=== PATIENT | male | born 1950 | race Caucasian/White ===

== ENCOUNTER 2023-01-29 09:49 | Outpatient (REF) | payer SELFPAY ==
--- NOTE | ~2023-01-29 | XR_ITS ---
EXAMINATION: XR HIP, LEFT CLINICAL INFORMATION: Pain. COMPARISON: None available. TECHNIQUE: Single pelvic image and detailed frog-leg view of the left hip. FINDINGS: Hardware in the partially visualized lower lumbosacral spine. The SI joints are grossly patent. The detailed imaging of left hip demonstrates the femoral head contour to be smooth. There is some axial and inferior joint space loss and some probable capsular calcification. There is some degeneration along the greater trochanter as well. Mild irregularity at the labral attachment. XR/XR hip LT min 2V IMPRESSION: There is some joint space loss in the left hip but the femoral head contour remains smooth.
== END 2023-01-29 09:50 | disposition home or self-care (01) ==
LOC: HO.HOSX 09:49
PROVIDERS: Visit Provider Orthopaedic Surgery
DX: Z13.89 Encounter for screening for other disorder (principal)

== ENCOUNTER 2023-02-04 14:15 | Outpatient (AMB) | payer MEDICARE, SELFPAY ==
--- NOTE | 2023-02-04 14:24 | MHC.OFFVIS ---
Intake Vital Signs 02/04/23 14:32 Height 5 ft 11 in Weight 170 lb BMI 23.7 Intake Visit Reasons: B[employer]ING [employer]ER- LT HIP inj Intake Note: Bonifacio is a 73 year old male who presents today as a new patient for a evaluation for his left hip pain, last injection 07/2022. Patient reports ongoing pain for many years. He states that his last injection gave him fairly good relief. Patient states he would like to repeat his injection on his left hip. He denies any fevers or chills. He continues with his home exercise program. Allergies No Known Allergies Allergy (Verified 02/04/23 14:30) Medication List - Last Reconciled 02/04/23 by Rafael Davies MD amlodipine 5 mg PO DAILY clopidogrel 75 mg PO DAILY levothyroxine 50 mcg PO DAILY metformin ER 500 mg PO BID [facility] Social History (Updated 02/04/23 @ 14:32 by Cody Hernandez) Alcohol intake: former Patient Tobacco Use Status: Never used Tobacco Physical Exam Vital Signs: BMI result Body Mass Index 23.7 Const Other: Well-nourished well-developed very friendly male awake alert and oriented x3 in no acute distress Extrem Other: Bilateral lower extremity examination shows good capillary refill, no skin lesions noted, normal sensation light touch Left hip examination shows slightly decreased range of motion when compared to his right hip, mild pain with range of motion, tenderness over his greater trochanteric bursa, no overlying skin lesions Office Procedures Joint Injection/Drain Joint Injection/Drain Details: Left hip greater trochanteric bursa Primary Site: other (Left hip greater trochanteric bursa) Injected: 40 mg of and Kenalog Procedure: The patient tolerated the procedure well Coding 67908 - Large joint Procedure code (CPT) selection complete Results Reviewed Results Reviewed: 02/04/23 14:37 Lidocaine HCl 2 % MPF [Xylocaine 2 % MPF] 5 ml .ROUTE .STK-MED ONE Triamcinolone Acetonide [Kenalog-40] 40 mg .ROUTE .STK-MED ONE X-rays of the patient's left hip show moderate joint space narrowing, no acute bony abnormalities Assessment & Plan Assessment & Plan (1) Trochanteric bursitis, left hip: Code(s): M70.62 - Trochanteric bursitis, left hip Plan: Mr. Vergara presents with left hip pain due to greater trochanteric bursitis. I had a lengthy discussion with the patient regarding the treatment options. The risks and benefits of a cortisone injection were discussed at length with the patient. The patient wished to proceed. He tolerated the left hip greater trochanteric bursa injection well. He will continue with his home stretching program. He will follow up with me on an as-needed basis should his symptoms not plateau at an unacceptable level over the next few months we I spent 22 minutes in reviewing the patient's records and imaging studies, seeing the patient and documenting in the medical record. Orders: Orders XR hip LT min 2V Today M25.552 - Pain in left hip AMB Joint Injection/Aspiration Today M70.62 - Trochanteric bursitis, left hip Coding Level of Care Code Est Pt Level 2 (17419) Diagnoses Trochanteric bursitis, left hip M70.62 CPT Codes Coding - Large joint: 36696 - Large joint ([id number])
[2023-02-04 14:32] VITALS: BMI 23.7
== END 2023-02-04 15:01 | disposition home or self-care (01) ==
PROVIDERS: Visit Provider Orthopaedic Surgery
DX: M70.62 Trochanteric bursitis, left hip (principal)
CPT/HCPCS: 20610; 99204; 99214

== ENCOUNTER → 2023-02-04 14:15 | Outpatient (BNVA) | payer MEDICARE, SELFPAY | PROVIDERS: Visit Provider Orthopaedic Surgery | DX: M25.552 Pain in left hip (principal); M70.62 Trochanteric bursitis, left hip | CPT/HCPCS: 20610; 73502; J3301 ==

== ENCOUNTER 2023-05-06 14:11 | Outpatient (AMB) | payer MEDICARE, BC, SELFPAY ==
--- NOTE | 2023-05-06 14:18 | A.OFFVIS_ITS ---
Intake Intake Visit Reasons: ov- LT HIP inj 02/04/23 Intake Note: Bonifacio is a 73 year old male who presents today for a repeat injection in her left hip. His last injection was on 02/04/23 which gave him relief. He states that his discomfort has returned. He has taken Tylenol which gives him only mild relief. He has also done physical therapy exercises which aggravated his pain. Allergies No Known Allergies Allergy (Verified 02/04/23 14:30) Medication List - Last Reconciled 05/06/23 by Rafael Davies MD amlodipine 5 mg PO DAILY clopidogrel 75 mg PO DAILY levothyroxine 50 mcg PO DAILY metformin ER 500 mg PO BID PENDING SALE TO [facility] Social History (Updated 02/04/23 @ 14:32 by Cody Hernandez) Alcohol intake: former Patient Tobacco Use Status: Never used Tobacco Physical Exam Const Other: Well-nourished well-developed very friendly male awake alert and oriented x3 in no acute distress Extrem Other: Bilateral lower extremity examination shows good capillary refill, no skin lesions noted, normal sensation light touch Left hip examination shows decreased range of motion when compared to his right hip, pain with range of motion, tenderness over his bursa, no overlying skin lesions Office Procedures Joint Injection/Drain Joint Injection/Drain Primary Site: other (Left hip greater trochanteric bursa) Prep: site was prepped using aseptic technique Injected: 40 mg of, Kenalog and 1% plain lidocaine Procedure: The patient tolerated the procedure well Coding 10416 - Large joint Procedure code (CPT) selection complete Assessment & Plan Assessment & Plan (1) Trochanteric bursitis, left hip: Code(s): M70.62 - Trochanteric bursitis, left hip Plan Mr. Vergara presents with left hip pain due to greater trochanteric bursitis as well as degenerative joint disease. I had a lengthy discussion with the patient regarding the treatment options. She wishes to hold off on surgery for as long as possible. I agree with this plan. The risks and benefits of a left hip cortisone injection were discussed at length with the patient. The patient wished to proceed. She tolerated the left hip greater trochanteric bursa injection well. He will continue with his home stretching program. He will follow up with me on an as-needed basis should his symptoms not plateau at an unacceptable level over the next few months. Feel free to call me at any time should questions regarding his orthopedic management arise. I spent 22 minutes in reviewing the patient's records and imaging studies, seeing the patient and documenting in the medical record. Orders: Orders AMB Joint Injection/Aspiration Today M70.62 - Trochanteric bursitis, left hip Coding Level of Care Code Est Pt Level 2 (70847) Diagnoses Trochanteric bursitis, left hip M70.62 CPT Codes Coding - 64282 Large joint: 04521 - Large joint ([id number])
== END 2023-05-06 14:40 | disposition home or self-care (01) ==
PROVIDERS: PCP Nurse Practitioner; Visit Provider Orthopaedic Surgery
DX: M70.62 Trochanteric bursitis, left hip (principal)
CPT/HCPCS: 20610

== ENCOUNTER → 2023-05-06 14:11 | Outpatient (BNVA) | payer MEDICARE, BC, SELFPAY | PROVIDERS: PCP Nurse Practitioner; Visit Provider Orthopaedic Surgery | DX: M70.62 Trochanteric bursitis, left hip (principal) | CPT/HCPCS: 20610; J3301 ==

== ENCOUNTER 2023-08-05 14:25 | Outpatient (AMB) | payer MEDICARE, BC, SELFPAY ==
[2023-08-05 14:31] VITALS: BMI 23.7
--- NOTE | 2023-08-05 14:31 | MHC.OFFVIS ---
Intake Vital Signs 08/05/23 14:31 Height 5 ft 11 in Weight 170 lb BMI 23.7 Intake Visit Reasons: ov- LT HIP inj 05/06/23 Intake Note: Bonifacio is a 73 year old male who presents with left hip pain. Patient reports he had a Left hip injection on 05/06/2023 and it gave him mild relief. He would like to repeat the injection of the Left hip. He states that his Left shoulder is in pain also. He has taken Tylenol which gives him only mild relief. He continues with his home stretching program. Allergies No Known Allergies Allergy (Verified 08/05/23 14:36) PFSH Surgical History (Updated 08/05/23 @ 14:39 by Jayne Paulino CMA) Hx of neck surgery History of back surgery Hx of shoulder surgery Social History (Updated 08/05/23 @ 14:38 by Jayne Paulino CMA) Alcohol intake: former Patient Tobacco Use Status: Never used Tobacco Current occupational status: retired Current occupation: Right hand dominate Physical Exam Vital Signs: BMI result Body Mass Index 23.7 Const Other: Well-nourished well-developed very friendly male awake alert and oriented x3 in no acute distress Extrem Other: Bilateral lower extremity examination shows good capillary refill, no skin lesions noted, normal sensation light touch Left hip examination shows mild discomfort with range of motion, tenderness over his bursa, no overlying skin lesions Office Procedures Joint Injection/Drain Joint Injection/Drain Primary Site: other (Left hip greater trochanteric bursa) Injected: 40 mg of, DepoMedrol and 1% plain lidocaine Procedure: The patient tolerated the procedure well Coding 69511 - Large joint Procedure code (CPT) selection complete Assessment & Plan Assessment & Plan (1) Trochanteric bursitis, left hip: Code(s): M70.62 - Trochanteric bursitis, left hip Plan Mr. Vergara presents with left hip pain due to greater trochanteric bursitis. I had a lengthy discussion with the patient regarding the treatment options. The risks and benefits of a left hip bursa injection were discussed at length with the patient. The patient wished to proceed. He tolerated the injection well. He will continue with his home stretching program. He will follow up with me on an as-needed basis should his symptoms not plateau at an unacceptable level over the next few months. Feel free to call me at any time should questions regarding his orthopedic management arise. I spent 22 minutes in reviewing the patient's records and imaging studies, seeing the patient and documenting in the medical record. Orders: Orders AMB Joint Injection/Aspiration 08/05/23 M70.62 - Trochanteric bursitis, left hip Coding Level of Care Code Est Pt Level 2 (75619) Diagnoses Trochanteric bursitis, left hip M70.62 CPT Codes Coding - 87919 Large joint: 45055 - Large joint ([id number])
== END 2023-08-05 14:57 | disposition home or self-care (01) ==
PROVIDERS: PCP Nurse Practitioner; Visit Provider Orthopaedic Surgery
DX: M70.62 Trochanteric bursitis, left hip (principal)
CPT/HCPCS: 20610; 99213

== ENCOUNTER → 2023-08-05 14:25 | Outpatient (BNVA) | payer MEDICARE, BC, SELFPAY | PROVIDERS: PCP Nurse Practitioner; Visit Provider Orthopaedic Surgery | DX: M70.62 Trochanteric bursitis, left hip (principal) | CPT/HCPCS: 20610; 99212; J1020 ==

== ENCOUNTER 2023-08-20 10:01 | Outpatient (REF) | payer MEDICARE, SELFPAY ==
--- NOTE | ~2023-08-20 | XR_ITS ---
EXAMINATION: XR SHOULDER, LEFT CLINICAL INFORMATION: Pain. COMPARISON: None available. TECHNIQUE: AP external rotation, Grashey, scapular Y, and axillary views of the left shoulder. FINDINGS: Bony alignment and mineralization are normal. The glenohumeral joint is intact and shows moderate osteoarthritic change. The acromioclavicular and coracoclavicular intervals are normal. There is a distal acromial undersurface osteophyte. There is cortical irregularity of the greater tuberosity of the proximal left humerus. No fracture or dislocation is seen. There is no focal soft tissue calcification or foreign body. No left pneumothorax is seen. XR/XR shoulder LT min 2V IMPRESSION: 1. There is moderate osteoarthritic change of the left glenohumeral joint. 2. Findings suggest left rotator cuff impingement, without mami calcific tendinitis noted.
== END 2023-08-20 10:02 | disposition home or self-care (01) ==
LOC: HO.HOSX 10:01
PROVIDERS: Visit Provider Orthopaedic Surgery
DX: M25.512 Pain in left shoulder (principal)
CPT/HCPCS: 20610; 73030; 99212; J3301

== ENCOUNTER 2023-08-20 14:17 | Outpatient (AMB) | payer MEDICARE, BC, SELFPAY ==
[2023-08-20 14:23] VITALS: BMI 23.7
--- NOTE | 2023-08-20 14:23 | A.OFFVIS_ITS ---
Intake Vital Signs 08/20/23 14:23 Height 5 ft 11 in Weight 170 lb BMI 23.7 Intake Visit Reasons: New Problem - Left Shoulder Pain Intake Note: Bonifacio is a 73 year old Right hand dominate male who presents with Left shoulder pain and weakness. The patient describes his pain as sharp in nature. The patient did undergo right shoulder surgery in the past. He denies any pain in his right shoulder. The patient states that he fell onto his left shoulder approximately 6 months ago. Since that time he has had weakness when lifting his left hand above shoulder height. Has tried Tylenol which gives him minimal relief. He is not able to tolerate anti-inflammatory medicines. Has done physical therapy exercises which aggravated his pain. Allergies No Known Allergies Allergy (Verified 08/20/23 14:30) Medication List - Last Reconciled 08/20/23 by Rafale Davies MD amlodipine 5 mg PO DAILY clopidogrel 75 mg PO DAILY levothyroxine 50 mcg PO DAILY metformin ER 500 mg PO BID PFSH Surgical History (Updated 08/20/23 @ 14:31 by Jayne Paulino CMA) Hx of shoulder surgery Hx of neck surgery History of back surgery Hx of shoulder surgery Social History (Updated 08/05/23 @ 14:38 by Jayne Paulino CMA) Alcohol intake: former Patient Tobacco Use Status: Never used Tobacco Current occupational status: retired Current occupation: Right hand dominate Physical Exam Vital Signs: BMI result Body Mass Index 23.7 Const Other: Well-nourished well-developed very friendly male awake alert and oriented x3 in no acute distress Extrem Other: Bilateral upper extremity examination shows good capillary refill, no skin lesions noted, normal sensation light touch Left shoulder examination shows decreased range of motion when compared to his right shoulder, 4/5 strength with supraspinatus testing, positive impingement signs, tenderness over his acromioclavicular joint, no instability Office Procedures Joint Injection/Drain Joint Injection/Drain Primary Site: left shoulder Prep: site was prepped using aseptic technique Injected: 40 mg of, DepoMedrol and 1% plain lidocaine Procedure: The patient tolerated the procedure well Coding 96064 - Large joint Procedure code (CPT) selection complete Results Reviewed Results Reviewed: X-rays of the patient's left shoulder show severe acromioclavicular joint narrowing, a type 2 acromion, no acute bony abnormalities Assessment & Plan Assessment & Plan (1) Left shoulder pain: Code(s): M25.512 - Pain in left shoulder Plan Mr. Vergara presents with left shoulder pain and weakness due to impingement syndrome and possible full-thickness rotator cuff tearing. I had a lengthy discussion with the patient regarding the treatment options. The risks and benefits of a cortisone injection were discussed at length with the patient. The patient wished to proceed. He tolerated the injection well. I will also send the patient for an MRI of his left shoulder at [facility] to further evaluate the status of his rotator cuff tendons. I will see him back after the MRI is completed to discuss the findings and treatment options. Feel free to call me at any time should questions regarding his orthopedic management arise. I spent 22 minutes in reviewing the patient's records and imaging studies, seeing the patient and documenting in the medical record. Orders: Orders XR shoulder LT min 2V Today M25.512 - Pain in left shoulder AMB Joint Injection/Aspiration Today M25.512 - Pain in left shoulder Coding Level of Care Code Est Pt Level 2 (66439) Diagnoses Left shoulder pain M25.512 CPT Codes Coding - 71254 Large joint: 95856 - Large joint ([id number])
== END 2023-08-20 15:01 | disposition home or self-care (01) ==
PROVIDERS: PCP Nurse Practitioner; Visit Provider Orthopaedic Surgery
DX: M25.512 Pain in left shoulder (principal)
CPT/HCPCS: 20610; 99213

== ENCOUNTER 2023-11-05 14:17 | Outpatient (AMB) | payer MEDICARE, SELFPAY ==
--- NOTE | 2023-11-05 14:20 | MHC.OFFVIS ---
Intake Visit Reasons: ov- LT HIP inj 08/05/2023 Intake Note: Bonifacio is a 73 year old male who presents to the office today for a follow up LT Hip injection done on 08/05/23. Pt stated the injection did help but states the past month it has been really bad. Pt states he was misdiagnosed with lyme disease but states he was diagnosed with something else that he doesnt remember the name. Pt would like another cortisone injection. Allergies No Known Allergies Allergy (Verified 11/05/23 14:20) Medication List - Last Reconciled 11/05/23 by Rafael Davies MD amlodipine 5 mg PO DAILY clopidogrel 75 mg PO DAILY levothyroxine 50 mcg PO DAILY metformin ER 500 mg PO BID PFSH Surgical History (Updated 08/20/23 @ 14:31 by Jayne Paulino CMA) Hx of shoulder surgery Hx of neck surgery History of back surgery Hx of shoulder surgery Social History (Updated 08/05/23 @ 14:38 by Jayne Paulino CMA) Alcohol intake: former Patient Tobacco Use Status: Never used Tobacco Current occupational status: retired Current occupation: Right hand dominate Physical Exam Const Other: Well-nourished well-developed very friendly male awake alert and oriented x3 in no acute distress Extrem Other: Bilateral lower extremity examination shows good capillary refill, no skin lesions noted, normal sensation light touch Left hip examination shows slightly decreased range of motion when compared to his right hip, mild pain with range of motion, tenderness over his greater trochanteric bursa, no overlying skin lesions Office Procedures Joint Injection/Drain Joint Injection/Drain Primary Site: other (Left hip greater trochanteric bursa) Prep: site was prepped using aseptic technique Injected: 40 mg of, Kenalog and 1% plain lidocaine Procedure: The patient tolerated the procedure well Coding 78466 - Large joint Procedure code (CPT) selection complete Assessment & Plan Assessment & Plan (1) Trochanteric bursitis, left hip: Code(s): M70.62 - Trochanteric bursitis, left hip Category: Medical Plan Mr. Vergara presents with progressively worsening left hip pain due to degenerative joint disease as well as greater trochanteric bursitis. I had a lengthy discussion with the patient regarding the treatment options. The patient wishes to hold off on surgery for as long as possible. I agree with this plan. The risks and benefits of a left hip greater trochanteric bursa cortisone injection were discussed at length with the patient. The patient wished to proceed. He tolerated the injection well. He will continue with his home stretching program. He will follow up with me on an as-needed basis should his symptoms not plateau at an unacceptable level over the next few months. Feel free to call me at any time should questions regarding his orthopedic management arise. I spent 20 minutes in reviewing the patient's records and imaging studies, seeing the patient and documenting in the medical record. Orders: Orders AMB Joint Injection/Aspiration Today M70.62 - Trochanteric bursitis, left hip Coding Level of Care Code Est Pt Level 3 (76091) Diagnoses Trochanteric bursitis, left hip M70.62 CPT Codes Coding - 96851 Large joint: 10394 - Large joint ([id number])
== END 2023-11-05 14:56 | disposition home or self-care (01) ==
PROVIDERS: PCP Nurse Practitioner; Visit Provider Orthopaedic Surgery
DX: M70.62 Trochanteric bursitis, left hip (principal)
CPT/HCPCS: 20610; 99213

== ENCOUNTER → 2023-11-05 14:17 | Outpatient (BNVA) | payer MEDICARE, SELFPAY | PROVIDERS: PCP Nurse Practitioner; Visit Provider Orthopaedic Surgery | DX: M70.62 Trochanteric bursitis, left hip (principal) | CPT/HCPCS: 20610; 99212; J3301 ==

== ENCOUNTER 2024-02-04 15:02 | Outpatient (AMB) | payer MEDICARE, SELFPAY ==
[2024-02-04 15:03] VITALS: BMI 23.7
--- NOTE | 2024-02-04 15:03 | MHC.OFFVIS ---
Vital Signs 02/04/24 15:03 Height 5 ft 11 in Weight 170 lb BMI 23.7 Intake Visit Reasons: ov- LT HIP inj 11/05/2023 Intake Note: Mahesh is a 73 year old male who presents to the office today for a follow up LT Hip injection done on 11/05/23. Allergies No Known Allergies Allergy (Verified 11/05/23 14:20) Medication List - Last Reconciled 02/04/24 by Rafael Davies MD amlodipine 5 mg PO DAILY clopidogrel 75 mg PO DAILY levothyroxine 50 mcg PO DAILY metformin ER 500 mg PO BID tramadol 50 mg PO Q8H PRN 3 weeks PFSH Surgical History (Updated 08/20/23 @ 14:31 by Jayne Paulino CMA) Hx of shoulder surgery Hx of neck surgery History of back surgery Hx of shoulder surgery Social History (Updated 08/05/23 @ 14:38 by Jayne Paulino CMA) Alcohol intake: former Patient Tobacco Use Status: Never used Tobacco Current occupational status: retired Current occupation: Right hand dominate Physical Exam Vital Signs: BMI result Body Mass Index 23.7 Office Procedures Joint Injection/Aspiration Joint Injection/Aspiration Primary Site: other (Left hip greater trochanteric bursa) Injected: 40 mg of, DepoMedrol and 1% plain lidocaine Procedure: The patient tolerated the procedure well Coding 83420 - Large joint Procedure code (CPT) selection complete Assessment & Plan Assessment & Plan (1) Left hip pain: Code(s): M25.552 - Pain in left hip Category: Medical (2) Low back pain: Code(s): M54.50 - Low back pain, unspecified Category: Medical (3) Trochanteric bursitis, left hip: Code(s): M70.62 - Trochanteric bursitis, left hip Category: Medical Orders: Orders AMB Joint Injection/Aspiration 02/04/24 M70.62 - Trochanteric bursitis, left hip Referrals Pain Management Referral M54.50 - Low back pain, unspecified Infectious Disease Referral [id number] - Bitten or stung by nonvenomous insect and other nonvenomous arthropods, initial encounter Rheumatology Referral M25.552 - Pain in left hip, M54.50 - Low back pain, unspecified Medications: New hydrocodone-acetaminophen 5-325 mg Partial Fill upon patient request. 1 tab PO Q12H PRN 30 tabs 0RF pain Coding Diagnoses Left hip pain M25.552 Low back pain M54.50 Trochanteric bursitis, left hip M70.62 CPT Codes Coding - 32667 Large joint: 37346 - Large joint ([id number])
--- NOTE | 2024-02-04 15:06 | MHC.OFFVIS ---
Vital Signs 02/04/24 15:03 Height 5 ft 11 in Weight 170 lb BMI 23.7 Intake Visit Reasons: left hip pain, left knee pain, low back pain Intake Note: Mr. Vergara is a 74-year-old male who presents with complaints of diffuse aches and pains. Today his most concerned with progressively worsening low back pain, left hip pain and left knee pain. The patient states that several months ago he was bitten by a tick. He states that he developed ?a disease similar to Lyme disease but worse?. The patient states that he was treated at [facility]. He reports continued pain. He has taken Tylenol, anti-inflammatory medicines and tramadol which gave him minimal relief. 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 He would like to change rheumatologists if possible. He has undergone low back surgery by Dr. Mendez and [facility] several years ago. He has been told that no further lumbar spine surgery is indicated at this time. He has had cortisone injections given into his low back which gave him temporary relief. Allergies No Known Allergies Allergy (Verified 11/05/23 14:20) Medication List - Last Reconciled 02/04/24 by Rafael Davies MD amlodipine 5 mg PO DAILY clopidogrel 75 mg PO DAILY levothyroxine 50 mcg PO DAILY metformin ER 500 mg PO BID tramadol 50 mg PO Q8H PRN 3 weeks PFSH Surgical History (Updated 08/20/23 @ 14:31 by Jayne Paulino CMA) Hx of shoulder surgery Hx of neck surgery History of back surgery Hx of shoulder surgery Social History (Updated 08/05/23 @ 14:38 by Jayne Paulino CMA) Alcohol intake: former Patient Tobacco Use Status: Never used Tobacco Current occupational status: retired Current occupation: Right hand dominate Physical Exam Vital Signs: BMI result Body Mass Index 23.7 Const Other: Well-nourished well-developed very friendly male awake alert and oriented x3 in no acute distress Extrem Other: Left hip examination shows slightly decreased range of motion when compared to his right hip, mild discomfort with range of motion, tenderness over his bursa, no overlying skin lesions Left knee examination shows a minimal effusion, minimal crepitus with range of motion, no instability Office Procedures Joint Injection/Aspiration Joint Injection/Aspiration Primary Site: other (Left hip greater trochanteric bursa) Injected: 40 mg of, DepoMedrol and 1% plain lidocaine Procedure: The patient tolerated the procedure well Coding 11753 - Large joint Procedure code (CPT) selection complete Results Reviewed Results Reviewed: X-rays of the patient's bilateral hip show mild to moderate diffuse joint space narrowing, no acute bony abnormalities Assessment & Plan Assessment & Plan (1) Trochanteric bursitis, left hip: Code(s): M70.62 - Trochanteric bursitis, left hip Category: Medical Plan Mr. Vergara presents with left hip pain due to greater trochanteric bursitis as well as early degenerative joint disease. The risks and benefits of a left hip greater trochanteric bursa cortisone injection were discussed at length with the patient. The patient wished to proceed. He tolerated the injection well. The patient has chronic low back pain as well. He has had injections in the past. I will arrange for him to have a follow-up appointment with our pain management clinic here at [facility]. Because of his history of a tick bite and subsequent infection I will also arrange for him to have a follow-up appointment with our infectious disease office. 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 I have no problem with this. The patient will contact me prior to his follow-up appointment in 3 months should any questions or concerns arise. I did give him one prescription for Vicodin to help with his pain temporarily. Feel free to call me at any time should questions regarding his orthopedic management arise. I spent 22 minutes in reviewing the patient's records and imaging studies, seeing the patient and documenting in the medical record. Orders: Orders AMB Joint Injection/Aspiration 02/04/24 M70.62 - Trochanteric bursitis, left hip Referrals Pain Management Referral M54.50 - Low back pain, unspecified Infectious Disease Referral W57.XXXA - Bitten or stung by nonvenomous insect and other nonvenomous arthropods, initial encounter Rheumatology Referral M25.552 - Pain in left hip, M54.50 - Low back pain, unspecified Medications: New hydrocodone-acetaminophen 5-325 mg Partial Fill upon patient request. 1 tab PO Q12H PRN 30 tabs 0RF pain Coding Level of Care Code Est Pt Level 3 (97553) Complex EM visit Add On G2211 Diagnoses Trochanteric bursitis, left hip M70.62 CPT Codes Coding - 56654 Large joint: 46718 - Large joint ([id number])
== END 2024-02-04 15:42 | disposition home or self-care (01) ==
PROVIDERS: PCP Nurse Practitioner Family; Visit Provider Orthopaedic Surgery
DX: M70.62 Trochanteric bursitis, left hip (principal)
CPT/HCPCS: 20610; 99213

== ENCOUNTER → 2024-02-04 15:02 | Outpatient (BNVA) | payer MEDICARE, SELFPAY | PROVIDERS: PCP Nurse Practitioner Family; Visit Provider Orthopaedic Surgery | DX: M70.62 Trochanteric bursitis, left hip (principal) | CPT/HCPCS: 20610; 99212; J1010 ==

== ENCOUNTER 2024-02-18 14:04 | Outpatient (REF) | payer MEDICARE, SELFPAY ==
--- NOTE | ~2024-02-18 | XR_ITS ---
EXAMINATION: XR KNEE, LEFT CLINICAL INFORMATION: M17.9 - Osteoarthritis of knee, unspecified COMPARISON: None available. TECHNIQUE: Four views of the left knee. FINDINGS: No fracture, dislocation, or focal bone lesion. There is normal bone mineralization. There is extremely subtle chondrocalcinosis in the medial lateral compartments. There is mild degenerative arthrosis in all 3 compartments, with involvement of the lateral patellar facet. There are early/small marginal osteophytic spurs present. There is mild spurring of the tibial spines. No significant joint effusion. Soft tissues demonstrate vascular calcifications but are otherwise normal. XR/XR knee LT 4V IMPRESSION: 1. No acute findings left knee. 2. Mild tricompartmental osteoarthrosis with very subtle chondrocalcinosis, raising the possibility of underlying CPPD. No joint effusion. Electronically signed by: Evelio Kaur MD 04/28/2024 11:47 AM LANA
== END 2024-02-18 14:05 | disposition home or self-care (01) ==
LOC: HO.XRAY 14:04
PROVIDERS: PCP Nurse Practitioner Family; Visit Provider Anesthesiology
DX: M17.12 Unilateral primary osteoarthritis, left knee (principal)
CPT/HCPCS: 73564; 99202

== ENCOUNTER 2024-02-18 14:04 | Outpatient (AMB) | payer MEDICARE, SELFPAY ==
--- NOTE | 2024-02-18 14:24 | A.OFFVIS_ITS ---
Vital Signs 02/18/24 15:01 Height 5 ft 11 in Weight 168 lb 8 oz BMI 23.5 BP 146/82 H Blood Pressure Location Lt brachial Position Sitting Respiration 16 Pulse 48 L Pulse Source Pulse Oximeter Pulse Oximetry (%) 98 Oxygen Delivery Method Room Air Intake Visit Reasons: Low back pain, unspecified Intake Note: Patient comes in for initial visit was referred by [facility] orthopedics. He was accompanied by spouse Bernadine. Reports pain 8/10. Allergies No Known Allergies Allergy (Verified 02/18/24 15:01) HPI Comments Details: Bonifacio is very pleasant 74 years old gentleman presents in my office with complains on axial lower back pain with radiation to the left lower extremity to the level of the knee as well as pain in the right hand and pain in the left shoulder as well as pain in the left hip and left shoulder... He reports that he was diagnosed with arthritis 20 years ago he reports that his pain today is 10/10 on the scale of 0-10. Because of his pain he can not sleep normally but he can not do activities of daily living he can not take care of himself he can not function normally. He reports that weather changes in movements aggravate his pain and topical medication makes his pain better. 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 He has extensive past medical and past surgical history. In terms of tissue damage he describes his pain as sharp, cutting, lacerating, dull, sore, hurting, aching, heavy, spreading, radiating, piercing. For the treatment of his arthritis he received in the past multiple steroid injections in the left hip and left shoulder but not the left knee. He never had any images of the left knee. He has under care of back tufter in [facility] he is treated by Dr. Hutson for rheumatological conditions, he is under care of Dr. Davies our orthopedic colleagues for his hip and his shoulder condition, he is also under observation of [facility], and apparently he was diagnosed with melanoma which were successfully removed from his back in his face. He has extensive past medical history including hypertension history of TIA history of fatigue and dizziness history of angina with multiple coronary catheterization and currently he has 9 stents in his heart. As history of diabetes he was diagnosed with gout he was diagnosed with arthritis. He also has an implantable device [employer] heart monitor and this device apparently allows him to go for MRI machine. He has very extensive past surgical history. In 1998 he has had L4-5 S1 spinal fusion by Dr. Castaneda, he also had additional L1-L2 and L3 spinal fusion by the same doctor in 2005. 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 He has had in 2008 back surgery additionally to what he already had. In 2007 he had carpal tunnel surgery and again in 2007 he had rotator cuff repair he developed small-bowel obstruction in 2002 and he had 2 abdominal surgeries and 1 hernia repair. In 2011 he had a neck fusion and feeding tube in 2011 he also had a CVA he had history of multiple colonoscopies and EGDs and numerous stent placements performed in different facilities including [facility] and [facility]. He denies smoking cigarettes he denies drinking alcohol he drinks 1 cup of coffee daily and he was on extensive course of fentanyl after spinal fusion however he denies opioids at this time. [facility] Surgical History (Updated 08/20/23 @ 14:31 by Jayne Paulino CMA) Hx of shoulder surgery Hx of neck surgery History of back surgery Hx of shoulder surgery Social History (Updated 08/05/23 @ 14:38 by Jayne Paulino CMA) Alcohol intake: former Patient Tobacco Use Status: Never used Tobacco Current occupational status: retired Current occupation: Right hand dominate Review of Systems Const All systems reviewed & are unremarkable except as noted in HPI and below Reports no additional complaints ENT Reports Normal hearing present Neuro Reports Normal hearing present, Denies Abnormal speech present, Denies confusion and Denies Sensory deficit (Neuro) Psych Denies confusion Physical Exam Vital Signs: Last Vital Signs Pulse 48 L 02/18/24 15:01 Resp 16 02/18/24 15:01 BP 146/82 H 02/18/24 15:01 Pulse Ox 98 02/18/24 15:01 Oxygen Delivery Method Room Air 02/18/24 15:01 BMI result Body Mass Index 23.5 Const General: no acute distress; No confusion Orientation/consciousness: patient oriented x3 and No confusion Eyes General: appearance normal, both eyes and all related structures Pupils: Equal, round and reactive pupils present EOM: EOMs intact bilaterally Neck Neck: Yes full ROM Chest Chest palpation & inspection: normal inspection of the chest Resp Effort & Inspection: normal respiratory effort, able to speak in complete sentences, normal respiratory pattern, no audible wheezes and no cough Cardio Jugular venous distension: no JVD GI Inspection: Yes normal to inspection Back/Spine/Pelvis Other: On physical exam there was positive Edouard test positive Gaenslen test and positive pelvic compression test on the left. SLR is negative bilaterally. Lateral rotation and medial rotation of the left thigh causes significant discomfort in the groin. On inspection there is very extensive scar in the patient's lumbar vertebra projection, it spreads from T12-S1 approximate location. The patient is able to perform minimal motions with his lumbar spine however it is basically fused. Range of motion is absent and only motion he can apply to would be from the hip joints. Neuro General: patient oriented x3, gait normal and No confusion Cranial nerves: Yes CN's II-XII intact bilaterally, Yes Equal, round and reactive pupils present, Yes Normal hearing present and Yes Ability to bilaterally elevate shoulders present Speech: No Abnormal speech present Gait exam (Neuro): Normal gait present Motor exam (neuro): 5/5 motor strength present throughout Sensory Exam: No Sensory deficit (Neuro) Extrem General: No pedal edema Psych Speech and movement: Normal speech and movement present Affect: normal affect Attitude: cooperative Thought process: Normal thought process present Thought content: Normal thought content present Insight: Good insight present (Psych) Judgement: Good judgement present (Psych) Results Reviewed Results Reviewed: XR SHOULDER, LEFT 08/12/2023 CLINICAL INFORMATION: Pain. COMPARISON: None available. TECHNIQUE: AP external rotation, Grashey, scapular Y, and axillary views of the left shoulder. FINDINGS: Bony alignment and mineralization are normal. The glenohumeral joint is intact and shows moderate osteoarthritic change. The acromioclavicular and coracoclavicular intervals are normal. There is a distal acromial undersurface osteophyte. There is cortical irregularity of the greater tuberosity of the proximal left humerus. No fracture or dislocation is seen. There is no focal soft tissue calcification or foreign body. No left pneumothorax is seen. IMPRESSION: 1. There is moderate osteoarthritic change of the left glenohumeral joint. 2. Findings suggest left rotator cuff impingement, without mami calcific tendinitis noted. R HIP, LEFT CLINICAL INFORMATION: Pain. COMPARISON: None available. TECHNIQUE: Single pelvic image and detailed frog-leg view of the left hip. FINDINGS: Hardware in the partially visualized lower lumbosacral spine. The SI joints are grossly patent. The detailed imaging of left hip demonstrates the femoral head contour to be smooth. There is some axial and inferior joint space loss and some probable capsular calcification. There is some degeneration along the greater trochanter as well. Mild irregularity at the labral attachment. IMPRESSION: There is some joint space loss in the left hip but the femoral head contour remains smooth. Assessment & Plan Assessment & Plan (1) Knee osteoarthritis: Code(s): M17.9 - Osteoarthritis of knee, unspecified Category: Medical Plan I examined this patient's shoulder x-ray and read the note on this patient's left hip x-ray. There is prominent arthritis in the left shoulder and there is significant narrowing of the space in the left hip joint. He recently received left hip injection by Dr. Davies, he in the past received some shoulder injections by the same provider. He is interested in the injections. He complains on pain in the left knee I sent him for the imaging of the left knee. I personally examined the images of the left knee there is some evidence of patellofemoral arthritis so the injections into the left knee joint would be indicative as well however the radiologist needs to read the x-ray 1st. Sacroiliac joint on the left probably is yet another pain generators in this patient. I offered him diagnostic sacroiliac joint injection. The patient agreed to go for the procedure. After that injection I can perform shoulder injection with steroids or knee injection in my office if patient desires to do so. I will see this patient in my office after diagnostic sacroiliac joint injection and we will discuss further his plan of care. Orders: Orders XR knee LT 4V 02/18/24 M17.9 - Osteoarthritis of knee, unspecified Patient Instructions: I here by testify that I spent 45 minutes in conversation with this patient as well as evaluating his prior diagnostic records and images as well as newly obtained images as well as planning his care and organizing this note. Coding Level of Care Code New Pt Level 4 (43491) Diagnoses Knee osteoarthritis M17.9
[2024-02-18 15:01] VITALS: BP 146/82; PULSE 48; RESP 16; O2SAT 98; BMI 23.5
== END 2024-02-18 15:24 | disposition home or self-care (01) ==
PROVIDERS: PCP Nurse Practitioner Family; Visit Provider Anesthesiology
DX: M17.9 Osteoarthritis of knee, unspecified (principal)
CPT/HCPCS: 99204

== ENCOUNTER → 2024-02-18 15:48 | Outpatient (BNV) | payer MEDICARE, SELFPAY | PROVIDERS: PCP Nurse Practitioner Family; Visit Provider Radiology Diagnostic Radiology | DX: M17.12 Unilateral primary osteoarthritis, left knee (principal) | CPT/HCPCS: 73564 ==

== ENCOUNTER 2024-03-10 12:49 | Outpatient (AMB) | payer MEDICARE, SELFPAY ==
--- NOTE | 2024-03-10 13:01 | MHC.OFFVIS ---
Vital Signs 03/10/24 13:20 Height 5 ft 11 in Weight 168 lb 8 oz BMI 23.5 BP 136/76 Blood Pressure Location Lt brachial Position Sitting Respiration 14 Pulse 46 L Pulse Source Pulse Oximeter Pulse Oximetry (%) 96 Oxygen Delivery Method Room Air Intake Visit Reasons: 3 Week Follow Up Intake Note: Patient comes in for 3 weeks follow up. Reports pain 8/10. Allergies No Known Allergies Allergy (Verified 03/10/24 13:21) HPI Comments Details: Bonifacio is back in my office. Unfortunately the x-ray of the knee was not read yet. So therefore I can not continue with knee injection just yet. I in my opinion after examination of the knee image 30 did not find any significant changes short of mild patellofemoral arthritis. However I should wait for the official conclusion of the radiologist. He complains on pain in the projection of the most lower portion of the left thigh on inner side above the knee joint. So if the x-ray of the knee does not demonstrate any obvious pathology I would be obligated to send him for knee MRI. As of his sacroiliac joint problem I will perform sacroiliac joint injection on 04/05/2024. We will assess the results of this diagnostic injection after the procedure. I will see the patient in the office upon completion of the procedure. He will complete pain diary and we will discuss the way to help his sacroiliac joint problems he recently had right hip steroid injection and therefore in next 3 months I will not be able to perform any injection in the right hip. Prior: very pleasant 74 years old gentleman presents in my office with complains on axial lower back pain with radiation to the left lower extremity to the level of the knee as well as pain in the right hand and pain in the left shoulder as well as pain in the left hip and left shoulder... He reports that he was diagnosed with arthritis 20 years ago he reports that his pain today is 10/10 on the scale of 0-10. Because of his pain he can not sleep normally but he can not do activities of daily living he can not take care of himself he can not function normally. He reports that weather changes in movements aggravate his pain and topical medication makes his pain better. 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 He has extensive past medical and past surgical history. In terms of tissue damage he describes his pain as sharp, cutting, lacerating, dull, sore, hurting, aching, heavy, spreading, radiating, piercing. For the treatment of his arthritis he received in the past multiple steroid injections in the left hip and left shoulder but not the left knee. He never had any images of the left knee. 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 Hutson for rheumatological conditions, he is under care of Dr. Davies our orthopedic colleagues for his hip and his shoulder condition, he is also under observation of [facility], and apparently he was diagnosed with melanoma which were successfully removed from his back in his face. He has extensive past medical history including hypertension history of TIA history of fatigue and dizziness history of angina with multiple coronary catheterization and currently he has 9 stents in his heart. As history of diabetes he was diagnosed with gout he was diagnosed with arthritis. He also has an implantable device [employer] heart monitor and this device apparently allows him to go for MRI machine. He has very extensive past surgical history. In 1998 he has had L4-5 S1 spinal fusion [address] Castaneda, he also had additional L1-L2 and L3 spinal fusion by the same doctor in 2005. 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 He has had in 2008 back surgery additionally to what he already had. In 2007 he had carpal tunnel surgery and again in 2007 he had rotator cuff repair he developed small-bowel obstruction in 2002 and he had 2 abdominal surgeries and 1 hernia repair. In 2011 he had a neck fusion and feeding tube in 2011 he also had a CVA he had history of multiple colonoscopies and EGDs and numerous stent placements performed in different facilities including [facility] and [facility]. He denies smoking cigarettes he denies drinking alcohol he drinks 1 cup of coffee daily and he was on extensive course of fentanyl after spinal fusion however he denies opioids at this time. [facility] Surgical History (Updated 08/20/23 @ 14:31 by Jayne Paulino CMA) Hx of shoulder surgery Hx of neck surgery History of back surgery Hx of shoulder surgery Social History (Updated 08/05/23 @ 14:38 by Jayne Paulino CMA) Alcohol intake: former Patient Tobacco Use Status: Never used Tobacco Current occupational status: retired Current occupation: Right hand dominate Review of Systems Const All systems reviewed & are unremarkable except as noted in HPI and below ENT Reports Normal hearing present Neuro Reports Normal hearing present, Denies Abnormal speech present, Denies confusion and Denies Sensory deficit (Neuro) Psych Denies confusion Physical Exam Vital Signs: Last Vital Signs Pulse 46 L 03/10/24 13:20 Resp 14 03/10/24 13:20 BP 136/76 03/10/24 13:20 Pulse Ox 96 03/10/24 13:20 Oxygen Delivery Method Room Air 03/10/24 13:20 BMI result Body Mass Index 23.5 Const General: no acute distress; No confusion Orientation/consciousness: patient oriented x3 and No confusion Eyes General: appearance normal, both eyes and all related structures Pupils: Equal, round and reactive pupils present EOM: EOMs intact bilaterally Neck Neck: Yes full ROM Chest Chest palpation & inspection: normal inspection of the chest Resp Effort & Inspection: normal respiratory effort, able to speak in complete sentences, normal respiratory pattern, no audible wheezes and no cough Cardio Jugular venous distension: no JVD GI Inspection: Yes normal to inspection Back/Spine/Pelvis Other: On physical exam there was positive Edouard test positive Gaenslen test and positive pelvic compression test on the left. SLR is negative bilaterally. Lateral rotation and medial rotation of the left thigh causes significant discomfort in the groin. On inspection there is very extensive scar in the patient's lumbar vertebra projection, it spreads from T12-S1 approximate location. The patient is able to perform minimal motions with his lumbar spine however it is basically fused. Range of motion is absent and only motion he can apply to would be from the hip joints. Neuro General: patient oriented x3, gait normal and No confusion Cranial nerves: Yes CN's II-XII intact bilaterally, Yes Equal, round and reactive pupils present, Yes Normal hearing present and Yes Ability to bilaterally elevate shoulders present Speech: No Abnormal speech present Gait exam (Neuro): Normal gait present Motor exam (neuro): 5/5 motor strength present throughout Sensory Exam: No Sensory deficit (Neuro) Extrem General: No pedal edema Psych Speech and movement: Normal speech and movement present Affect: normal affect Attitude: cooperative Thought process: Normal thought process present Thought content: Normal thought content present Insight: Good insight present (Psych) Judgement: Good judgement present (Psych) Assessment & Plan Assessment & Plan (1) Knee osteoarthritis: Code(s): M17.9 - Osteoarthritis of knee, unspecified Category: Medical Plan Knee x-ray results are not read yet. I personally did not find any major changes they are however I would wait for diagnostic conclusion of the radiologist. If there is no bone pathology I would have to send him for left knee MRI. Sacroiliac joint on the left probably is yet another pain generators in this patient. Diagnostic sacroiliac joint injection is scheduled for the patient. 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 We will contact his supervisor drilling and shooting office which is office of Dr. Arjun March from [facility] in [place]. After that injection I can perform shoulder injection with steroids or knee injection in my office if patient desires to do so. I will see this patient in my office after diagnostic sacroiliac joint injection and we will discuss further his plan of care. Patient Instructions: I here by testify that I spent 32 minutes in conversation with this patient as well as planning his care and organizing this note. Coding Level of Care Code Est Pt Level 4 (36773) Diagnoses Knee osteoarthritis M17.9
[2024-03-10 13:20] VITALS: BP 136/76; PULSE 46; RESP 14; O2SAT 96; BMI 23.5
== END 2024-03-10 13:28 | disposition home or self-care (01) ==
PROVIDERS: PCP Nurse Practitioner Family; Visit Provider Anesthesiology
DX: M17.9 Osteoarthritis of knee, unspecified (principal)
CPT/HCPCS: 99214

== ENCOUNTER → 2024-03-10 12:49 | Outpatient (BNVA) | payer MEDICARE, SELFPAY | PROVIDERS: PCP Nurse Practitioner Family; Visit Provider Anesthesiology | DX: M17.9 Osteoarthritis of knee, unspecified (principal) | CPT/HCPCS: 99212 ==

== ENCOUNTER 2024-04-05 06:19 | Outpatient (REF) | payer MEDICARE, SELFPAY | END 2024-04-05 06:20 | disposition home or self-care (01) | LOC: CF 06:19 | PROVIDERS: Visit Provider Anesthesiology | DX: M54.50 Low back pain, unspecified (principal); M46.1 Sacroiliitis, not elsewhere classified | CPT/HCPCS: 27096; J2003; J2795; Q9967 ==

== ENCOUNTER 2024-04-05 10:55 | Outpatient (AMB) | payer MEDICARE, SELFPAY ==
[2024-04-05 11:35] VITALS: BP 136/72; PULSE 39; RESP 16; O2SAT 100; BMI 23.4
--- NOTE | 2024-04-05 11:35 | MHC.OFFVIS ---
Vital Signs 04/05/24 11:35 04/05/24 11:36 Height 5 ft 11 in 5 ft 11 in Weight 168 lb 168 lb BMI 23.4 23.4 BP 136/72 132/60 Blood Pressure Location Lt brachial Lt brachial Position Sitting Sitting Respiration 16 16 Pulse 39 L 42 L Pulse Source Pulse Oximeter Pulse Oximeter Pulse Oximetry (%) 100 100 Oxygen Delivery Method Room Air Room Air Comment pre-op post-op Intake Visit Reasons: LEFT DIAGNOSTIC SIJ INJECTION Allergies No Known Allergies Allergy (Verified 04/05/24 11:36) PFSH Surgical History (Updated 08/20/23 @ 14:31 by Jayne Paulino CMA) Hx of shoulder surgery Hx of neck surgery History of back surgery Hx of shoulder surgery Social History (Updated 08/05/23 @ 14:38 by Jayne Paulino CMA) Alcohol intake: former Patient Tobacco Use Status: Never used Tobacco Current occupational status: retired Current occupation: Right hand dominate Physical Exam Vital Signs: Last Vital Signs Pulse 42 L 04/05/24 11:36 Resp 16 04/05/24 11:36 BP 132/60 04/05/24 11:36 Pulse Ox 100 04/05/24 11:36 Oxygen Delivery Method Room Air 04/05/24 11:36 BMI result Body Mass Index 23.4 Assessment & Plan Assessment & Plan (1) Knee osteoarthritis: Code(s): M17.9 - Osteoarthritis of knee, unspecified Category: Medical Plan: Left diagnostic sacroiliac joint injection Informed consent was explained thoroughly to the patient.? All questions about benefits and risks for the procedure were answered. Patient came to the operating room and was positioned prone on the operating table with the pillow under the abdomen. C-arm was brought over the operating field and sq picture of patient's pelvis was demonstrated on the screen.? For the left joint tilting C-arm contralateral to the site of the joint the most posterior portion of the joints was superimposed with anterior silhouette of the joint.? Skin was injected in the projection of the joint slightly medial to the location of the joint with 25 gauge 1/2 inch needle using local lidocaine 2% . After that 22 gauge 3 and 1/2 inch needle was driven to the left joint in tunnel vision fashion.? When needle entered the joint capsule injection of the contrast was performed demonstrating intra-articular and minimally periarticular spread of the contrast.? After that 5cc. of ropivacaine 0.5% was injected in the joint. . Upon completion of the injections the needle was removed and Band-Aid was applied.? Upon completion of the injection patient was taken outside of the operating room to the recovery room where recovered uneventfully. Plan Knee x-ray results are not read yet. I personally did not find any major changes they are however I would wait for diagnostic conclusion of the radiologist. If there is no bone pathology I would have to send him for left knee MRI. Sacroiliac joint on the left probably is yet another pain generators in this patient. Diagnostic sacroiliac joint injection is scheduled for the patient. 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 We will contact his rigging supervisor office which is office of Dr. Arjun March from [facility] in [place]. After that injection I can perform shoulder injection with steroids or knee injection in my office if patient desires to do so. I will see this patient in my office after diagnostic sacroiliac joint injection and we will discuss further his plan of care. Orders: Orders FL guidance in treatment room Today M54.50 - Low back pain, unspecified Coding Level of Care Code Procedure Only Diagnoses Knee osteoarthritis M17.9
[2024-04-05 11:36] VITALS: BP 132/60; PULSE 42; RESP 16; O2SAT 100; BMI 23.4
== END 2024-04-05 11:26 | disposition home or self-care (01) ==
LOC: HO.PMCPRC 10:55
PROVIDERS: PCP Nurse Practitioner Family; Visit Provider Anesthesiology
DX: M53.3 Sacrococcygeal disorders, not elsewhere classified (principal)
CPT/HCPCS: 27096

== ENCOUNTER 2024-04-06 12:18 | Outpatient (AMB) | payer MEDICARE, SELFPAY ==
[2024-04-06 12:30] VITALS: BP 134/74; PULSE 60; O2SAT 97; BMI 23.8
--- NOTE | 2024-04-06 12:30 | MHC.OFFVIS ---
Vital Signs 04/06/24 12:30 Height 5 ft 11 in Weight 170 lb 13.732 oz BMI 23.8 BP 134/74 Blood Pressure Location Lt brachial Position Sitting Pulse 60 Pulse Source Pulse Oximeter Pulse Oximetry (%) 97 Oxygen Delivery Method Room Air Intake Visit Reasons: Arthritis/CM Intake Note: Patient presents today for left hip pain. low back pain, he was internally referred by Dr. Vasques. Patient has arthritis all over. Allergies No Known Allergies Allergy (Verified 04/06/24 12:33) Medication List - Last Reconciled 04/06/24 by Claire Vazquez MD amlodipine 5 mg PO DAILY aspirin 81 mg PO DAILY cetirizine (Zyrtec) 10 mg PO DAILY PRN clopidogrel 75 mg PO DAILY fenofibrate nanocrystallized 145 mg PO DAILY hydrocodone-acetaminophen 5-325 mg 1 tab PO Q12H PRN levothyroxine 50 mcg PO DAILY metformin ER 500 mg PO BID omega 0-sor-tci-fish oil 60-90-500 mg (Fish Oil) 1 cap PO DAILY pantoprazole 40 mg PO BID rosuvastatin 20 mg PO BEDTIME tamsulosin 0.8 mg PO DAILY tramadol 50 mg PO Q8H PRN 3 weeks HPI Comments Details: Patient is a 74-year-old male with hypertension complicated by coronary artery disease status post 12 stents, diabetes, hypothyroidism, BPH and hyperlipidemia who presents for evaluation of joint pain Patient states that over 20 years ago he was 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 His treatment consisted of Celebrex and other NSAIDs. Was never on methotrexate or any other DMARD or biologic. When his culinary arts teacher retired he then [facility] up [facility] and was told he does not have rheumatoid arthritis but osteoarthritis. Since then he has been getting series of steroid injections in various joints including his MCPs, MTPs, knees, shoulders, hips under fluoroscopic guidance. He is here today for a 2nd opinion With respect to his hands he does report morning stiffness sometimes lasting up to an hour but he also reports worsening stiffness and pain at the end of the day and this sometimes wakes him up at night. Right now his main complaint are his hips and his knees. He denies any history of recurrent monoarticular arthritis involving the wrists, elbows or knees. But does note that he gets swelling to these areas at times. Has never had arthrocentesis. Denies any extra articular manifestations of rheumatoid arthritis. Currently he takes Tylenol which does not help. Sometimes he will take oxycodone or Vicodin. Was told that he could no longer take Celebrex or naproxen because of his heart condition and his age. [facility] Medical History (Updated 04/06/24 @ 13:13 by lCaire Vazquez MD) Osteoarthritis involving multiple joints on both sides of body Polyarthralgia Surgical History (Updated 08/20/23 @ 14:31 by Jayne Paulino CMA) Hx of shoulder surgery Hx of neck surgery History of back surgery Hx of shoulder surgery Social History (Updated 08/05/23 @ 14:38 by Jayne Paulino CMA) Alcohol intake: former Patient Tobacco Use Status: Never used Tobacco Current occupational status: retired Current occupation: Right hand dominate Review of Systems Const Details: Review of Systems Constitutional: Denies fever, chills, weight loss ENT: Denies vision changes, eye pain or eye redness, dental caries, dry mouth GI: Denies nausea, vomiting, diarrhea, abdominal pain, change in BM Pulm: Denies SOB, ROQUE, hemoptysis, wheezing Cards: Denies chest pain, palpitations Skin: Denies Raynaud's, rash, nail changes, photosensitivity, HEALTH ANALYTICS CONSULTANT: Denies headaches, weakness, paresthesias, recurrent falls MSK: as per HPI All other systems reviewed and are unremarkable except noted above Physical Exam Vital Signs: Last Vital Signs Pulse 60 04/06/24 12:30 BP 134/74 04/06/24 12:30 Pulse Ox 97 04/06/24 12:30 Oxygen Delivery Method Room Air 04/06/24 12:30 BMI result Body Mass Index 23.8 Physical Examination CONSTITUITIONAL Patient alert and cooperative. Well appearing and in no apparent painful distress HEENT Conjunctiva and sclera clear. ?Pupils equal round and reactive to light. ?No lymphadenopathy. ?Normal dentition. No oral or nasal ulcers noted. No evidence of discoid rash to the miguel ángel of ears. No tophi noted CHEST/RESPIRATORY SYSTEM Normal respiratory effort and able to speak in complete sentences. ?Clear to auscultation bilaterally. ?No crackles, rales, rhonchi, wheezes heard. CARDIAC SYSTEM Regular rate and rhythm. ?S1 and S2 heard no murmurs. 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 ?Heberden's nodes noted throughout bilateral hands. Tenderness to palpation of the 2nd, 3rd and 4th MCP with bogginess on the right hand. Mild tenderness to palpation of the 3rd PIP. No tenderness to palpation of the MCPs on the left hand. Wrists: ?Fullness noted to the wrist with a surgical scar over the wrist (previous removal of ganglion cyst) tenderness to palpation however full range of motion. Elbows: Full range of motion without pain. No tenderness, weakness, swelling, increased warmth or erythema. Shoulders: Full range of motion without pain. No tenderness, weakness, swelling, increased warmth or erythema. Knees: ?Full range of motion. ?No tenderness, swelling, increased warmth or erythema.? Crepitations felt bilaterally Ankles: Full range of motion. ?No tenderness, swelling, increased warmth or erythema.? Feet: ?Tenderness to palpation of 1st and 2nd MTP on the right foot SKIN Skin intact without rashes. Results Reviewed Results Reviewed: No labs to review. XR Knee 01/2024 X-ray of knee shows chondrocalcinosis and enthesophyte at the superior pole of the patella with patellofemoral joint space narrowing and osteophytes (my read) Assessment & Plan Assessment & Plan (1) Polyarthralgia: Code(s): M25.50 - Pain in unspecified joint Category: Medical Plan: #Polyarthralgia Patient with polyarthralgias that could be simply due to osteoarthritis. Given his tenderness to palpation of the wrists and MCPs concern for RA versus crystal disease, with the latter being high on my differential at this point. We will give him a trial of colchicine 0.6 mg daily. Check x-rays of the hands and wrists as well as feet and ankles. (2) Osteoarthritis involving multiple joints on both sides of body: Code(s): M15.9 - Polyosteoarthritis, unspecified Category: Medical Plan: #Polyarticular OA Patient with polyarticular OA involving the knees and likely shoulders and hands as well. Discussed that the treatment for osteoarthritis is physical therapy and topical diclofenac gel. He is not a candidate for Celebrex given his cardiac history Plan I spent 45 minutes reviewing the record and labs, seeing the patient, discussing the treatment plan and documenting in the medical record ? Orders: Orders Vitamin D 25-OH (D2 and D3) Today E55.9 - Vitamin D deficiency, unspecified, M15.9 - Polyosteoarthritis, unspecified, M25.50 - Pain in unspecified joint XR DEXA axial skeleton Today M15.9 - Polyosteoarthritis, unspecified, M25.50 - Pain in unspecified joint C Reactive Protein Today M15.9 - Polyosteoarthritis, unspecified, M25.50 - Pain in unspecified joint Erythrocyte Sedimentation Rate Today M15.9 - Polyosteoarthritis, unspecified, M25.50 - Pain in unspecified joint XR hand wrist LT Today M15.9 - Polyosteoarthritis, unspecified, M25.50 - Pain in unspecified joint XR foot RT min 3V Today M15.9 - Polyosteoarthritis, unspecified, M25.50 - Pain in unspecified joint XR foot LT min 3V Today M15.9 - Polyosteoarthritis, unspecified, M25.50 - Pain in unspecified joint XR ankle RT min 3V Today M15.9 - Polyosteoarthritis, unspecified, M25.50 - Pain in unspecified joint Rheumatoid Factor Today M25.50 - Pain in unspecified joint Cyclic Citrullinated Peptide Today M25.50 - Pain in unspecified joint Parathyroid Hormone Intact Today M25.50 - Pain in unspecified joint Comprehensive Met. Panel Today M15.9 - Polyosteoarthritis, unspecified, M25.50 - Pain in unspecified joint Complete Blood Count Auto Diff Today M15.9 - Polyosteoarthritis, unspecified, M25.50 - Pain in unspecified joint XR hand wrist RT Today M15.9 - Polyosteoarthritis, unspecified, M25.50 - Pain in unspecified joint XR ankle LT min 3V Today M15.9 - Polyosteoarthritis, unspecified, M25.50 - Pain in unspecified joint Magnesium Today M25.50 - Pain in unspecified joint Medications: New colchicine 0.6 mg PO DAILY 90 tabs 1RF M11.20 - Other chondrocalcinosis, unspecified site Coding Level of Care Code New Pt Level 4 (92625) Diagnoses Polyarthralgia M25.50 Osteoarthritis involving multiple joints on both sides of body M15.9
== END 2024-04-06 13:18 | disposition home or self-care (01) ==
PROVIDERS: PCP Nurse Practitioner Family; Visit Provider Student in an Organized Health Care Education/Training Program
DX: M25.50 Pain in unspecified joint (principal); M15.9 Polyosteoarthritis, unspecified
CPT/HCPCS: 99204

== ENCOUNTER → 2024-04-06 12:18 | Outpatient (BNVA) | payer MEDICARE, SELFPAY | PROVIDERS: PCP Nurse Practitioner Family; Visit Provider Student in an Organized Health Care Education/Training Program | DX: M25.50 Pain in unspecified joint (principal); M15.9 Polyosteoarthritis, unspecified | CPT/HCPCS: 99202 ==

== ENCOUNTER 2024-04-11 11:42 | Outpatient (REF) | payer MEDICARE, SELFPAY ==
--- NOTE | ~2024-04-11 | XR_ITS ---
EXAMINATION: XR FOOT, RIGHT CLINICAL INFORMATION: M25.50 - Pain in unspecified joint ; hand and foot pain. COMPARISON: None available. TECHNIQUE: AP, lateral, and oblique views of the right foot. FINDINGS: Normal bone mineralization. No fracture, dislocation, or suspicious bone lesion. Mild to moderate degenerative arthritis in the first MTP joint noted with mild spurring of the medial eminence of the first metatarsal head. Minimal hallux valgus. Mild arthritis in the interphalangeal joint of the hallux. Minimal degenerative changes in the intertarsal joints. Midfoot and hindfoot otherwise image normally. Normal plantar arch. Soft tissues demonstrate vascular calcifications and mild subcutaneous edema most prominent in the ankle region. XR/XR foot RT min 3V IMPRESSION: 1. No acute findings right foot. 2. Gtvx-[id number]-[id number] bunion formation with arthritis in the first MTP joint. 3. Mild arthritis in the interphalangeal joint of the hallux. Minimal hallux valgus. 4. Subcutaneous soft tissue edema most prominent around the ankle. Electronically signed by: Evelio Kaur MD 04/28/2024 11:58 AM [facility]
--- NOTE | ~2024-04-11 | XR_ITS ---
EXAMINATION: XR HAND/WRIST, RIGHT CLINICAL INFORMATION: M25.50 - Pain in unspecified joint ; hand and foot pain. COMPARISON: None available. TECHNIQUE: PA, lateral, and oblique views of the right hand and wrist. FINDINGS: Normal bone mineralization. No fracture, dislocation, or focal bone abnormality. There are mild to moderate changes of arthritis in the first through third MCP joints, without periarticular osteopenia or erosions. There is a small hooked osteophyte of the third metatarsal head. Soft tissue calcifications are present at the capsular insertions of the second and third metatarsal heads. Mild degenerative arthritis throughout the DIP joints, worst in the fifth digit. Mild degenerative arthritis particularly in the third and fourth PIP joints. No mild degenerative arthritis in the radiocarpal joint, first CMC joint, and STT joints. Subtle chondrocalcinosis noted within the wrist suggesting possible CPPD. Carpal bones are otherwise normally aligned and intact. No discrete additional soft tissue abnormalities. Vascular calcifications are present. XR/XR hand wrist RT IMPRESSION: 1. No acute findings right hand and wrist. 2. Findings likely representing a mix of degenerative and inflammatory arthritis, either psoriatic or CPPD arthropathy. See above for details. Electronically signed by: Evelio Kaur MD 04/28/2024 12:20 PM [facility]
--- NOTE | ~2024-04-11 | XR_ITS ---
EXAMINATION: XR ANKLE, RIGHT CLINICAL INFORMATION: M25.50 - Pain in unspecified joint COMPARISON: None available. TECHNIQUE: AP, lateral, and mortise views of the right ankle. FINDINGS: Normal bony mineralization. No fracture, dislocation, or suspicious bone lesion. Normal alignment of the ankle joint. Mild tibiotalar and fibulotalar degenerative change. The mortise is intact. The talar dome is normal. Mild spurring of the calcaneonavicular joint and intertarsal joints. Normal alignment of the mid and hindfoot. Soft tissues demonstrate diffuse vascular calcifications and mild diffuse subcutaneous edema. XR/XR ankle RT min 3V IMPRESSION: 1. No acute findings of the right ankle. 2. Mild degenerative arthritis of the ankle joint, and intertarsal joints. 3. Diffuse subcutaneous soft tissue edema. Electronically signed by: Evelio Kaur MD 04/28/2024 11:54 AM [facility]
--- NOTE | ~2024-04-11 | XR_ITS ---
EXAMINATION: XR HAND/WRIST, LEFT CLINICAL INFORMATION: M25.50 - Pain in unspecified joint COMPARISON: None available. TECHNIQUE: PA, lateral, and oblique views of the left hand and wrist. FINDINGS: Normal bone mineralization. No fracture, dislocation, or focal bone abnormality. There are mild changes of arthritis in the first through third MCP joints, without periarticular osteopenia or erosions. There is a tiny hooked osteophyte of the third metatarsal head. Soft tissue calcifications are present at the capsular insertions of the second and third metatarsal heads. Mild degenerative arthritis throughout the DIP joints, worst in the fifth digit. Mild degenerative arthritis particularly in the third and fourth PIP joints. No mild degenerative arthritis in the radiocarpal joint, first CMC joint, and STT joints. Subtle chondrocalcinosis noted within the wrist suggesting possible CPPD. Carpal bones are otherwise normally aligned and intact. No discrete additional soft tissue abnormalities. Vascular calcifications are present. XR/XR hand wrist LT IMPRESSION: 1. No acute findings right hand and wrist. 2. Findings likely representing a mix of degenerative and inflammatory arthritis, either psoriatic or more likely CPPD arthropathy. See above for details. Electronically signed by: Evelio Kaur MD 04/28/2024 12:42 PM [facility] [place], [place]
--- NOTE | ~2024-04-11 | XR_ITS ---
EXAMINATION: XR ANKLE, LEFT CLINICAL INFORMATION: M25.50 - Pain in unspecified joint COMPARISON: None available. TECHNIQUE: AP, lateral, and mortise views of the left ankle. FINDINGS: Normal bony mineralization. No fracture, dislocation, or suspicious bone lesion. Normal alignment of the ankle joint. Mild tibiotalar and fibulotalar degenerative change. The mortise is intact. The talar dome is normal. Probable unicameral bone cyst in the mid to posterior calcaneus. Anterosuperior spurring of the calcaneonavicular joint. Normal alignment of the mid and hindfoot. Soft tissues demonstrate vascular calcifications and mild subcutaneous edema diffusely. XR/XR ankle LT min 3V IMPRESSION: 1. No acute findings of the left ankle. 2. Mild degenerative arthritis of the ankle joint, and intertarsal joints. 3. Diffuse subcutaneous soft tissue edema. Electronically signed by: Evelio Kaur MD 04/28/2024 11:51 AM [facility]
--- NOTE | ~2024-04-11 | XR_ITS ---
EXAMINATION: XR FOOT, LEFT CLINICAL INFORMATION: M25.50 - Pain in unspecified joint COMPARISON: None available. TECHNIQUE: AP, lateral, and oblique views of the left foot. FINDINGS: Normal bone mineralization. No fracture, dislocation, or suspicious bone lesion. Small unicameral bone cyst in the mid to posterior calcaneus. There has been prior osteotomy and arthrodesis of the first MTP joint with dorsal plate and screw fixation, and 2 oblique fixation screws. The hardware is intact and well seated without evidence of lucencies or complication. Bony fusion through the joint space. Normal alignment of the MTP joint. Mild arthritis in the interphalangeal joint of the hallux. Mild degenerative changes in the intertarsal joints, most notable calcaneonavicular joint dorsally. Midfoot and hindfoot otherwise image normally. Normal plantar arch. Soft tissues demonstrate vascular calcifications and mild subcutaneous edema most prominent in the ankle region. XR/XR foot LT min 3V IMPRESSION: 1. No acute findings right foot. 2. Intact arthrodesis with no hardware complication first MTP joint. Bony fusion through the joint. 3. Mild arthritis in the interphalangeal joint of the hallux. 4. Subcutaneous soft tissue edema most prominent around the ankle. Electronically signed by: Evelio Kaur MD 04/28/2024 12:04 PM [facility] [place]
[2024-04-11 12:27] LABS: MANUAL DIFF FLAG NO
[2024-04-11 13:01] LABS: Basophils Absolute Auto 0.1 X10*3/uL (0.0-0.2); Eosinophils Absolute Auto 0.1 X10*3/uL (0.0-0.4); Eosinophils Percent Auto 1.2 % (0-4); Hematocrit 37.9 % (42.0-52.0); Hemoglobin 12.3 g/dl (14.0-18.0); Imm Gran Abs Auto 0.01 X10*3/uL (0.00-0.03); Imm Gran Pct Auto 0.2 % (0.0-0.4); Lymphocytes Absolute Auto 1.9 X10*3/uL (1.2-4.9); Lymphocytes Percent Auto 32.3 % (20-40); Mean Corpuscular HGB Conc 32.5 g/dl (31.0-36.0); Mean Corpuscular Hemoglobin 27.3 pg (27.0-33.0); Mean Corpuscular Volume 84.2 fL (80.0-98.0); Mean Platelet Volume 11.2 fL (9.4-12.4); Monocytes Absolute Auto 0.5 X10*3/uL (0.1-1.2); Neutrophils Absolute Auto 3.3 x10*3/uL (2.0-8.3); Neutrophils Percent Auto 56.3 % (45-73); Platelet Count 261 X10*3/uL (160-400); Red Cell Distribution Width 13.3 % (11.0-16.0); White Blood Count 5.8 X10*3/uL (4.8-10.8)
[2024-04-11 13:38] LABS: Erythrocyte Sedimentation Rate 2 MM/HR (0-15)
[2024-04-11 13:42] LABS: Rheumatoid Factor < 13.0 IU/mL (<15.0)
[2024-04-11 13:45] LABS: Parathyroid Hormone Intact 21.2 pg/mL (8.7-77.1)
[2024-04-11 14:09] LABS: Alanine Aminotransferase 21 U/L (0-40); Albumin Level 4.3 g/dL (3.5-5.0); Alkaline Phosphatase 26 U/L (39-117); Anion Gap 12 (12-20); Aspartate Amino Transferase 25 U/L (5-37); Bilirubin Total 0.4 mg/dL (0.0-1.0); Blood Urea Nitrogen 11 mg/dL (9-16); C Reactive Protein < 0.10 mg/dL (< or = 0.50); Calcium 9.7 mg/dL (8.4-10.2); Carbon Dioxide 27 mmol/L (22-29); Chloride 107 mmol/L (96-108); Estimated Glomerular Filt Rate > 60; Glucose Random 92 mg/dL (60-115); Potassium 3.6 mmol/L (3.3-5.1); Sodium 142 mmol/L (135-145); Total Protein 6.7 g/dL (6.5-8.0)
[2024-04-12 23:38] LABS: Cyclic Citrullinated Peptide <16 UNITS
[2024-04-15 14:09] LABS: Vitamin D 25-OH, D2 <4 ng/mL; Vitamin D 25-OH, D3 25 ng/mL; Vitamin D 25-OH, Total 25 ng/mL (30-100)
== END 2024-04-11 11:43 | disposition home or self-care (01) ==
LOC: HO.XRAY 11:42
PROVIDERS: PCP Nurse Practitioner Family; Visit Provider Student in an Organized Health Care Education/Training Program
DX: M19.072 Primary osteoarthritis, left ankle and foot (principal); E55.9 Vitamin D deficiency, unspecified; Z98.1 Arthrodesis status; M25.472 Effusion, left ankle; M19.071 Primary osteoarthritis, right ankle and foot; M25.471 Effusion, right ankle
CPT/HCPCS: 36415; 73110; 73130; 73610; 73630; 80053; 82306; 83735; 83970; 85025; 85652; 86140; 86200; 86431; 99212

== ENCOUNTER → 2024-04-11 11:48 | Outpatient (BNV) | payer MEDICARE, SELFPAY | PROVIDERS: PCP Nurse Practitioner Family; Visit Provider Radiology Diagnostic Radiology | DX: M25.50 Pain in unspecified joint (principal) | CPT/HCPCS: 73610; 73630 ==

== ENCOUNTER 2024-04-11 14:04 | Outpatient (AMB) | payer MEDICARE, SELFPAY ==
--- NOTE | 2024-04-11 14:13 | MHC.OFFVIS ---
Vital Signs 04/11/24 14:21 Height 5 ft 11 in Weight 170 lb 13 oz BMI 23.8 BP 142/60 H Blood Pressure Location Lt brachial Position Sitting Respiration 16 Pulse 94 Pulse Source Pulse Oximeter Pulse Oximetry (%) 100 Oxygen Delivery Method Room Air Intake Visit Reasons: LEFT DIAGNOSTIC SIJ INJECTION Intake Note: Patient comes in for post-op. Reports pain /10. Allergies No Known Allergies Allergy (Verified 04/11/24 14:23) HPI Comments Details: Bonifacio is back in my office after diagnostic sacroiliac joint injection on the left. He reported 90% pain improvement for the 1st 6 hours after the procedure. He still enjoys for the past 6 days almost complete pain relief from the left sacroiliac joint. We decided that I will prescribe him sacroiliac joint injection today. We decided that I will perform therapeutic sacroiliac joint injection of the left as well. I will schedule this for the procedure if his pain will not return by the day of the scheduling he will postpone the procedure. He is diabetic but he is working on obtaining blood sugar machine at home and he can monitor his blood sugar after the procedure. Unfortunately the x-ray of the knee was not read yet. So therefore I can not continue with knee injection just yet. I in my opinion after examination of the knee image 30 did not find any significant changes short of mild patellofemoral arthritis. However I should wait for the official conclusion of the radiologist. He complains on pain in the projection of the most lower portion of the left thigh on inner side above the knee joint. So if the x-ray of the knee does not demonstrate any obvious pathology I would be obligated to send him for knee MRI. In the past he had right hip steroid injection which was instrumental to pain relief in the right hip. Prior: very pleasant 74 years old gentleman presents in my office with complains on axial lower back pain with radiation to the left lower extremity to the level of the knee as well as pain in the right hand and pain in the left shoulder as well as pain in the left hip and left shoulder... He reports that he was diagnosed with arthritis 20 years ago he reports that his pain today is 10/10 on the scale of 0-10. Because of his pain he can not sleep normally but he can not do activities of daily living he can not take care of himself he can not function normally. He reports that weather changes in movements aggravate his pain and topical medication makes his pain better. 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 He has extensive past medical and past surgical history. or the treatment of his arthritis he received in the past multiple steroid injections in the left hip and left shoulder but not the left knee. He never had any images of the left knee. He has under care of market research coordinator in [facility] he is treated by Dr. Hutson for rheumatological conditions, he is under care of Dr. Davies our orthopedic colleagues for his hip and his shoulder condition, he is also under observation of [facility], and apparently he was diagnosed with melanoma which were successfully removed from his back in his face. He has extensive past medical history including hypertension history of TIA history of fatigue and dizziness history of angina with multiple coronary catheterization and currently he has 9 stents in his heart. As history of diabetes he was diagnosed with gout he was diagnosed with arthritis. He also has an implantable device [employer] heart monitor and this device apparently allows him to go for MRI machine. He has very extensive past surgical history. In 1998 he has had L4-5 S1 spinal fusion by Dr. Castaneda, he also had additional L1-L2 and L3 spinal fusion by the same doctor in 2005. 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 He has had in 2008 back surgery additionally to what he already had. In 2007 he had carpal tunnel surgery and again in 2007 he had rotator cuff repair he developed small-bowel obstruction in 2002 and he had 2 abdominal surgeries and 1 hernia repair. In 2011 he had a neck fusion and feeding tube in 2011 he also had a CVA he had history of multiple colonoscopies and EGDs and numerous stent placements performed in different facilities including [facility] and [facility]. He denies smoking cigarettes he denies drinking alcohol he drinks 1 cup of coffee daily and he was on extensive course of fentanyl after spinal fusion however he denies opioids at this time. [facility] Medical History (Updated 04/11/24 @ 14:40 by Marty Diop MD) Screening for osteoporosis Osteoarthritis involving multiple joints on both sides of body Polyarthralgia Surgical History (Updated 08/20/23 @ 14:31 by Jayne Paulino CMA) Hx of shoulder surgery Hx of neck surgery History of back surgery Hx of shoulder surgery Social History (Updated 08/05/23 @ 14:38 by Jayne Paulino CMA) Alcohol intake: former Patient Tobacco Use Status: Never used Tobacco Current occupational status: retired Current occupation: Right hand dominate Review of Systems Const All systems reviewed & are unremarkable except as noted in HPI and below ENT Reports Normal hearing present Neuro Reports Normal hearing present, Denies Abnormal speech present, Denies confusion and Denies Sensory deficit (Neuro) Psych Denies confusion Physical Exam Vital Signs: Last Vital Signs Pulse 94 04/11/24 14:21 Resp 16 04/11/24 14:21 BP 142/60 H 04/11/24 14:21 Pulse Ox 100 04/11/24 14:21 Oxygen Delivery Method Room Air 04/11/24 14:21 BMI result Body Mass Index 23.8 Const General: no acute distress; No confusion Orientation/consciousness: patient oriented x3 and No confusion Eyes General: appearance normal, both eyes and all related structures Pupils: Equal, round and reactive pupils present EOM: EOMs intact bilaterally Neck Neck: Yes full ROM Chest Chest palpation & inspection: normal inspection of the chest Resp Effort & Inspection: normal respiratory effort, able to speak in complete sentences, normal respiratory pattern, no audible wheezes and no cough Cardio Jugular venous distension: no JVD GI Inspection: Yes normal to inspection Back/Spine/Pelvis Other: On physical exam there was positive Edouard test positive Gaenslen test and positive pelvic compression test on the left. SLR is negative bilaterally. Lateral rotation and medial rotation of the left thigh causes significant discomfort in the groin. On inspection there is very extensive scar in the patient's lumbar vertebra projection, it spreads from T12-S1 approximate location. The patient is able to perform minimal motions with his lumbar spine however it is basically fused. Range of motion is absent and only motion he can apply to would be from the hip joints. Neuro General: patient oriented x3, gait normal and No confusion Cranial nerves: Yes CN's II-XII intact bilaterally, Yes Equal, round and reactive pupils present, Yes Normal hearing present and Yes Ability to bilaterally elevate shoulders present Speech: No Abnormal speech present Gait exam (Neuro): Normal gait present Motor exam (neuro): 5/5 motor strength present throughout Sensory Exam: No Sensory deficit (Neuro) Extrem General: No pedal edema Psych Speech and movement: Normal speech and movement present Affect: normal affect Attitude: cooperative Thought process: Normal thought process present Thought content: Normal thought content present Insight: Good insight present (Psych) Judgement: Good judgement present (Psych) Results Reviewed Results Reviewed: XR SHOULDER, LEFT 08/12/2023 CLINICAL INFORMATION: Pain. COMPARISON: None available. TECHNIQUE: AP external rotation, Grashey, scapular Y, and axillary views of the left shoulder. FINDINGS: Bony alignment and mineralization are normal. The glenohumeral joint is intact and shows moderate osteoarthritic change. The acromioclavicular and coracoclavicular intervals are normal. There is a distal acromial undersurface osteophyte. There is cortical irregularity of the greater tuberosity of the proximal left humerus. No fracture or dislocation is seen. There is no focal soft tissue calcification or foreign body. No left pneumothorax is seen. IMPRESSION: 1. There is moderate osteoarthritic change of the left glenohumeral joint. 2. Findings suggest left rotator cuff impingement, without mami calcific tendinitis noted. R HIP, LEFT CLINICAL INFORMATION: Pain. COMPARISON: None available. TECHNIQUE: Single pelvic image and detailed frog-leg view of the left hip. FINDINGS: Hardware in the partially visualized lower lumbosacral spine. The SI joints are grossly patent. The detailed imaging of left hip demonstrates the femoral head contour to be smooth. There is some axial and inferior joint space loss and some probable capsular calcification. There is some degeneration along the greater trochanter as well. Mild irregularity at the labral attachment. IMPRESSION: There is some joint space loss in the left hip but the femoral head contour remains smooth. Assessment & Plan Assessment & Plan (1) Knee osteoarthritis: Code(s): M17.9 - Osteoarthritis of knee, unspecified Category: Medical (2) Sacroiliitis: Code(s): M46.1 - Sacroiliitis, not elsewhere classified Category: Medical (3) Sacroiliac joint dysfunction of left side: Code(s): M53.3 - Sacrococcygeal disorders, not elsewhere classified Category: Medical Plan Knee x-ray results are not read yet. (from January?) I personally did not find any major changes they are however I would wait for diagnostic conclusion of the radiologist. If there is no bone pathology I would have to send him for left knee MRI. Sacroiliac joint on the left probably is yet another pain generators in this patient. We obtained the great results of diagnostic sacroiliac joint injection see description as above. Sacroiliac joint belt will be prescribed today for the patient. I will schedule him for sacroiliac joint steroid injection. He is diabetic and he is working to obtain blood sugar machine at home. Before he can not monitored level of the his sugar after the sacroiliac joint injection. We obtain clearance from market research coordinator in [place] to stop his aspirin and Plavix temporarily for the procedure. After that injection I can perform shoulder injection with steroids or knee injection in my office if patient desires to do so. Coding Level of Care Code Est Pt Level 3 (16579) Diagnoses Knee osteoarthritis M17.9 Sacroiliitis M46.1 Sacroiliac joint dysfunction of left side M53.3
[2024-04-11 14:21] VITALS: BP 142/60; PULSE 94; RESP 16; O2SAT 100; BMI 23.8
== END 2024-04-11 14:57 | disposition home or self-care (01) ==
PROVIDERS: PCP Nurse Practitioner Family; Visit Provider Anesthesiology
DX: M17.9 Osteoarthritis of knee, unspecified (principal); M46.1 Sacroiliitis, not elsewhere classified; M53.3 Sacrococcygeal disorders, not elsewhere classified
CPT/HCPCS: 99213

== ENCOUNTER 2024-04-28 10:09 | Outpatient (REF) | payer MEDICARE, SELFPAY ==
--- NOTE | ~2024-04-28 | MM_ITS ---
EXAMINATION: BONE DENSITOMETRY CLINICAL INDICATION: Pain in unspecified joint. COMPARISON: Baseline BD dated 04/28/2024, left hip. This is the patient's baseline examination for the forearm radius 33%. TECHNIQUE: Using a [employer] DXA System (software version: 13.1) manufactured by [employer], dual-energy x-ray absorptiometry was performed of the left hip and left forearm radius 33%. The images are of good technical quality. Summary results are attached. FINDINGS: LEFT FEMUR, NECK: Current: BMD 0.965 g/cm2, Z-score 0.6, T-score -0.8, normal. Baseline: BMD 0.979 g/cm2. LEFT FEMUR, TOTAL: Current: BMD 1.056 g/cm2, Z-score 0.6, T-score -0.3, normal, 1.2% decrease from baseline (<5% change is not significant). Baseline: BMD 1.069 g/cm2. LEFT FOREARM RADIUS 33%: BMD 1.120 g/cm2, Z-score 2.3, T-score 1.3, normal. IDENTIFIED RISK FACTORS: History of fracture (adult). HISTORY OF FRACTURE: None listed. MEDICATIONS: Vitamin D. MM/XR DEXA appendicular skeleton IMPRESSION: 1. DIAGNOSIS: Normal bone density based on the lowest T-score value of -0.7 in the femoral neck applying World Health Organization criteria. 2. 10-YEAR FRACTURE RISK PREDICTION, FRAX: According to the guidelines, FRAX calculation should only be performed on patients in the osteopenia bone density category. Therefore, FRAX was not performed on this patient. 3. Treatment Recommendations: NOF guidelines recommend consideration for treatment in postmenopausal women and men age 50 and older presenting with the following: -A hip or vertebral (clinical or morphometric) fracture. -T-score less than or equal to -2.5 at the femoral neck or spine after appropriate evaluation to exclude secondary causes. -Low bone mass at the hip or spine and a 10-year fracture probability by FRAX of greater than or equal to 3% for hip fracture or greater than or equal to 20% for major osteoporotic fracture based on the [place] adapted WHO algorithm. 4. Other Recommendations: All treatment decisions require clinical judgment and consideration of individual patient factors, including patient preferences, comorbidities, previous drug use, risk factors not captured in the FRAX model (e.g. frailty, falls, vitamin D deficiency, increased bone turnover, interval significant decline in bone density) and possible under or overestimation of fracture risk by FRAX. FUTURE SCAN RECOMMENDATION: People with diagnosed cases of osteoporosis or at high risk for fracture should have regular bone mineral density tests. For patients eligible for Medicare, routine testing is allowed once every 2 years. The testing frequency can be increased to one year for patients who have rapidly progressing disease, those who are receiving or discontinuing medical therapy to restore bone mass, or have additional risk factors. Electronically signed by: Camacho Silver MD 04/29/2024 02:57 PM [facility]
== END 2024-04-28 10:10 | disposition home or self-care (01) ==
LOC: HO.MAMMO 10:09
PROVIDERS: PCP Nurse Practitioner Family; Visit Provider Student in an Organized Health Care Education/Training Program
DX: Z13.820 Encounter for screening for osteoporosis (principal)
CPT/HCPCS: 77081

== ENCOUNTER 2024-05-03 06:15 | Outpatient (REF) | payer MEDICARE, SELFPAY ==
--- NOTE | ~2024-05-03 | FL_ITS ---
EXAMINATION: FLUORO GUIDANCE IN TREATMENT ROOM CLINICAL INFORMATION: Sacroiliitis, not elsewhere classified. COMPARISON: None available. TECHNIQUE: Fluoroscopy supervised by: Dr. Marty Diop. Fluoroscopy time: 0.2 minutes. Cumulative Dose: 1.49 mGy. DAP: 0.0245 mGy-m2 (milligray-meter squared). Images: 2. FINDINGS: Needle overlies the region of the left SI joint. Contrast has been injected. FL/FL guidance in treatment room IMPRESSION: Fluoroscopy during procedure. Please see procedure report for additional information. Electronically signed by: Giancarlo Rich MD 06/22/2024 10:21 AM [facility]
== END 2024-05-03 06:16 | disposition home or self-care (01) ==
LOC: CF 06:15
PROVIDERS: Visit Provider Anesthesiology
DX: M46.1 Sacroiliitis, not elsewhere classified (principal); M17.9 Osteoarthritis of knee, unspecified
CPT/HCPCS: 27096; J2003; J2795; J3301; Q9967

== ENCOUNTER 2024-05-03 12:40 | Outpatient (AMB) | payer MEDICARE, SELFPAY ==
[2024-05-03 12:47] VITALS: BP 140/72; PULSE 63; RESP 15; O2SAT 96
--- NOTE | 2024-05-03 12:47 | MHC.OFFVIS ---
Vital Signs 05/03/24 12:47 05/03/24 13:17 BP 140/72 H 120/72 Blood Pressure Location Lt brachial Lt brachial Position Sitting Sitting Respiration 15 14 Pulse 63 55 Pulse Source Pulse Oximeter Pulse Oximeter Pulse Oximetry (%) 96 99 Oxygen Delivery Method Room Air Room Air Intake Visit Reasons: LEFT THERAPEUTIC SIJ INJECTION Allergies No Known Allergies Allergy (Verified 05/03/24 12:48) Medication List - Last Reconciled 05/03/24 by Bette Valencia LPN amlodipine 5 mg PO DAILY aspirin 81 mg PO DAILY cetirizine (Zyrtec) 10 mg PO DAILY PRN cholecalciferol (vitamin D3) 50 mcg PO DAILY clopidogrel 75 mg PO DAILY colchicine 0.6 mg PO DAILY fenofibrate nanocrystallized 145 mg PO DAILY hydrocodone-acetaminophen 5-325 mg 1 tab PO Q12H PRN levothyroxine 50 mcg PO DAILY magnesium oxide 400 mg PO DAILY metformin ER 500 mg PO BID omega 7-pxu-dkt-fish oil 60-90-500 mg (Fish Oil) 1 cap PO DAILY pantoprazole 40 mg PO BID rosuvastatin 20 mg PO BEDTIME tamsulosin 0.8 mg PO DAILY tramadol 50 mg PO Q8H PRN 3 weeks PFSH Medical History (Updated 04/19/24 @ 15:11 by Claire Vazquez MD) Hypovitaminosis D Hypomagnesemia Screening for osteoporosis Osteoarthritis involving multiple joints on both sides of body Polyarthralgia Surgical History (Updated 08/20/23 @ 14:31 by Jayne Paulino CMA) Hx of shoulder surgery Hx of neck surgery History of back surgery Hx of shoulder surgery Social History (Updated 08/05/23 @ 14:38 by Jayne Paulino CMA) Alcohol intake: former Patient Tobacco Use Status: Never used Tobacco Current occupational status: retired Current occupation: Right hand dominate Physical Exam Vital Signs: Last Vital Signs Pulse 55 05/03/24 13:17 Resp 14 05/03/24 13:17 BP 120/72 05/03/24 13:17 Pulse Ox 99 05/03/24 13:17 Oxygen Delivery Method Room Air 05/03/24 13:17 Assessment & Plan Assessment & Plan (1) Knee osteoarthritis: Code(s): M17.9 - Osteoarthritis of knee, unspecified Category: Medical Plan: Left therapeutic sacroiliac joint injection Informed consent was explained thoroughly to the patient.? All questions about benefits and risks for the procedure were answered. Patient came to the operating room and was positioned prone on the operating table with the pillow under the abdomen. C-arm was brought over the operating field and sq picture of patient's pelvis was demonstrated on the screen.? For the left joint tilting C-arm contralateral to the site of the joint the most posterior portion of the joints was superimposed with anterior silhouette of the joint.? Skin was injected in the projection of the joint slightly medial to the location of the joint with 25 gauge 1/2 inch needle using local lidocaine 2% . After that 22 gauge 3 and 1/2 inch needle was driven to the left joint in tunnel vision fashion.? When needle entered the joint capsule injection of the contrast was performed demonstrating intra-articular and minimally periarticular spread of the contrast.? After that 5cc. of ropivacaine 0.5% mixed with kenalog 40 mg was injected in the joint. . Upon completion of the injections the needle was removed and Band-Aid was applied.? Upon completion of the injection patient was taken outside of the operating room to the recovery room where recovered uneventfully. Plan Knee x-ray results are not read yet. I personally did not find any major changes they are however I would wait for diagnostic conclusion of the radiologist. If there is no bone pathology I would have to send him for left knee MRI. Sacroiliac joint on the left probably is yet another pain generators in this patient. Diagnostic sacroiliac joint injection is scheduled for the patient. Patient requests me to obtain the clearance from his lining strap closer for cessation of his Plavix and aspirin. We will contact his lining strap closer office which is office of Dr. Arjun March from [facility] in [place]. After that injection I can perform shoulder injection with steroids or knee injection in my office if patient desires to do so. I will see this patient in my office after diagnostic sacroiliac joint injection and we will discuss further his plan of care. Orders: Orders FL guidance in treatment room 05/03/24 M46.1 - Sacroiliitis, not elsewhere classified Coding Level of Care Code Procedure Only Diagnoses Knee osteoarthritis M17.9
[2024-05-03 13:17] VITALS: BP 120/72; PULSE 55; RESP 14; O2SAT 99
== END 2024-05-03 13:15 | disposition home or self-care (01) ==
LOC: HO.PMCPRC 12:40
PROVIDERS: PCP Nurse Practitioner Family; Visit Provider Anesthesiology
DX: M46.1 Sacroiliitis, not elsewhere classified (principal)
CPT/HCPCS: 27096

== ENCOUNTER 2024-05-16 13:49 | Outpatient (AMB) | payer MEDICARE, SELFPAY ==
--- NOTE | 2024-05-16 14:00 | MHC.OFFVIS ---
Vital Signs 05/16/24 14:07 Height 5 ft 11 in Weight 170 lb BMI 23.7 Intake Visit Reasons: New prob Left knee pain Intake Note: Bonifacio is a 74 year old male who presents today for a new problem of left knee pain. He describes his pain as sharp in nature. His pain has gotten worse over the last 6 months in spite of continued non operative treatments. He has tried Tylenol and anti-inflammatory medicines which gave him minimal relief. He has also done physical therapy exercises which aggravated his pain. Allergies No Known Allergies Allergy (Verified 05/16/24 14:06) Medication List - Last Reconciled 05/16/24 by Rafael Davies MD amlodipine 5 mg PO DAILY aspirin 81 mg PO DAILY cetirizine (Zyrtec) 10 mg PO DAILY PRN cholecalciferol (vitamin D3) 50 mcg PO DAILY clopidogrel 75 mg PO DAILY colchicine 0.6 mg PO DAILY fenofibrate nanocrystallized 145 mg PO DAILY hydrocodone-acetaminophen 5-325 mg 1 tab PO Q12H PRN levothyroxine 50 mcg PO DAILY magnesium oxide 400 mg PO DAILY metformin ER 500 mg PO BID omega 3-ksa-jnl-fish oil 60-90-500 mg (Fish Oil) 1 cap PO DAILY pantoprazole 40 mg PO BID rosuvastatin 20 mg PO BEDTIME tamsulosin 0.8 mg PO DAILY tramadol 50 mg PO Q8H PRN 3 weeks PFSH Medical History (Updated 05/17/24 @ 06:57 by Rafael Davies MD) Hypovitaminosis D Hypomagnesemia Screening for osteoporosis Osteoarthritis involving multiple joints on both sides of body Polyarthralgia Surgical History (Updated 08/20/23 @ 14:31 by Jayne Paulino CMA) Hx of shoulder surgery Hx of neck surgery History of back surgery Hx of shoulder surgery Social History (Updated 08/05/23 @ 14:38 by Jayne Paulino CMA) Alcohol intake: former Patient Tobacco Use Status: Never used Tobacco Current occupational status: retired Current occupation: Right hand dominate Physical Exam Vital Signs: BMI result Body Mass Index 23.7 Const Other: Well-nourished well-developed very friendly male awake alert and oriented x3 in no acute distress Extrem Other: Bilateral lower extremity examination shows good capillary refill, no skin lesions noted, normal sensation light touch Left knee examination shows a minimal effusion, palpable crepitus with range of motion, pain with range of motion, range of motion from -3 degrees to 115 degrees, no instability Office Procedures AMB Joint Injection/Aspiration Joint Injection/Aspiration Primary Site: left knee Prep: site was prepped using aseptic technique Injected: 40 mg of, DepoMedrol and 1% plain lidocaine Procedure: The patient tolerated the procedure well Coding - Large joint Procedure code (CPT) selection complete Results Reviewed Results Reviewed: X-rays of the patient's left knee taken previously show joint space narrowing, subchondral sclerosis, no bony abnormalities Assessment & Plan Assessment & Plan (1) Arthritis of left knee: Code(s): M17.12 - Unilateral primary osteoarthritis, left knee Category: Medical Plan Mr. Vergara presents with left knee pain due to degenerative joint disease. The risks and benefits of a left knee cortisone injection were discussed at length with the patient. The patient wished to proceed. He tolerated the injection well. He will continue with his home exercise program. He will contact me prior to his follow-up appointment in 3 months should any questions or concerns arise. Feel free to call me at any time should questions regarding his orthopedic management arise. I spent 21 minutes in reviewing the patient's records and imaging studies, seeing the patient and documenting in the medical record. Orders: Orders AMB Joint Injection/Aspiration Today M17.12 - Unilateral primary osteoarthritis, left knee Coding Level of Care Code Est Pt Level 3 (25797) Complex EM visit Add On G2211 Diagnoses Arthritis of left knee M17.12 CPT Codes Coding - Large joint: 10451 - Large joint ([id number])
[2024-05-16 14:07] VITALS: BMI 23.7
== END 2024-05-16 14:26 | disposition home or self-care (01) ==
PROVIDERS: PCP Nurse Practitioner Family; Visit Provider Orthopaedic Surgery
DX: M17.12 Unilateral primary osteoarthritis, left knee (principal)
CPT/HCPCS: 20610; 99213

== ENCOUNTER → 2024-05-16 13:49 | Outpatient (BNVA) | payer MEDICARE, SELFPAY | PROVIDERS: PCP Nurse Practitioner Family; Visit Provider Orthopaedic Surgery | DX: M17.12 Unilateral primary osteoarthritis, left knee (principal) | CPT/HCPCS: 20610; 99212; J1010; J2003 ==

== ENCOUNTER 2024-05-30 13:01 | Outpatient (AMB) | payer MEDICARE, SELFPAY ==
--- NOTE | 2024-05-30 13:11 | MHC.OFFVIS ---
Vital Signs 05/30/24 13:13 Height 5 ft 11 in Weight 162 lb BMI 22.6 BP 141/73 H Blood Pressure Location Lt brachial Position Sitting Respiration 15 Pulse 67 Pulse Source Pulse Oximeter Pulse Oximetry (%) 97 Oxygen Delivery Method Room Air Intake Visit Reasons: LEFT THERAPEUTIC SIJ INJECTION Allergies No Known Allergies Allergy (Verified 05/30/24 13:14) Medication List - Last Reconciled 05/30/24 by Bette Valencia LPN amlodipine 5 mg PO DAILY aspirin 81 mg PO DAILY cetirizine (Zyrtec) 10 mg PO DAILY PRN cholecalciferol (vitamin D3) 50 mcg PO DAILY clopidogrel 75 mg PO DAILY fenofibrate nanocrystallized 145 mg PO DAILY hydrocodone-acetaminophen 5-325 mg 1 tab PO Q12H PRN levothyroxine 50 mcg PO DAILY magnesium oxide 400 mg PO DAILY omega 1-nxw-zcu-fish oil 60-90-500 mg (Fish Oil) 1 cap PO DAILY pantoprazole 40 mg PO BID rosuvastatin 20 mg PO BEDTIME tamsulosin 0.8 mg PO DAILY HPI Comments Details: Bonifacio is back in my office after therapeutic left sacroiliac joint injection which was performed on 05/03/2024. He reports 50% pain improvement, he reports better mobility, better activities of daily living better social interactions. He is certainly interested in continuation of the injections. He went for consult with orthopedic surgeon about his knee and he received from Dr. Pike intra-articular knee steroid injection. The date of the injection was 03/17/2024. That is 2 weeks from the therapeutic sacroiliac joint injection. Risks of steroids were explained to the patient. He was informed to try to avoid injections to be done into 2 different areas of his body less than 1 month apart, he should avoid injections in the same area of the body less than 3 months apart. Patient expressed understanding. Prior: Results of diagnostic sacroiliac joint injection on the left. He reported 90% pain improvement for the 1st 6 hours after the procedure. He still enjoys for the past 6 days almost complete pain relief from the left sacroiliac joint. We decided that I will prescribe him sacroiliac joint injection today. We decided that I will perform therapeutic sacroiliac joint injection of the left as well. I will schedule this for the procedure if his pain will not return by the day of the scheduling he will postpone the procedure. He is diabetic but he is working on obtaining blood sugar machine at home and he can monitor his blood sugar after the procedure. X-ray of the knee demonstrated tricompartmental mild osteoarthrosis. In the past he had right hip steroid injection which was instrumental to pain relief in the right hip. Prior: very pleasant 74 years old gentleman presents in my office with complains on axial lower back pain with radiation to the left lower extremity to the level of the knee as well as pain in the right hand and pain in the left shoulder as well as pain in the left hip and left shoulder... He reports that he was diagnosed with arthritis 20 years ago he reports that his pain today is 10/10 on the scale of 0-10. Because of his pain he can not sleep normally but he can not do activities of daily living he can not take care of himself he can not function normally. He reports that weather changes in movements aggravate his pain and topical medication makes his pain better. 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 He has extensive past medical and past surgical history. or the treatment of his arthritis he received in the past multiple steroid injections in the left hip and left shoulder but not the left knee. He never had any images of the left knee. He has under care of phlebotomist prn in [facility] he is treated by Dr. Hutson for rheumatological conditions, he is under care of Dr. Davies our orthopedic colleagues for his hip and his shoulder condition, he is also under observation of [facility], and apparently he was diagnosed with melanoma which were successfully removed from his back in his face. He has extensive past medical history including hypertension history of TIA history of fatigue and dizziness history of angina with multiple coronary catheterization and currently he has 9 stents in his heart. As history of diabetes he was diagnosed with gout he was diagnosed with arthritis. He also has an implantable device [employer] heart monitor and this device apparently allows him to go for MRI machine. He has very extensive past surgical history. In 1998 he has had L4-5 S1 spinal fusion by Dr. Castaneda, he also had additional L1-L2 and L3 spinal fusion by the same doctor in 2005. 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 He has had in 2008 back surgery additionally to what he already had. In 2007 he had carpal tunnel surgery and again in 2007 he had rotator cuff repair he developed small-bowel obstruction in 2002 and he had 2 abdominal surgeries and 1 hernia repair. In 2011 he had a neck fusion and feeding tube in 2011 he also had a CVA he had history of multiple colonoscopies and EGDs and numerous stent placements performed in different facilities including [facility] and [facility]. He denies smoking cigarettes he denies drinking alcohol he drinks 1 cup of coffee daily and he was on extensive course of fentanyl after spinal fusion however he denies opioids at this time. [facility] Medical History (Updated 05/17/24 @ 06:57 by Rafael Davies MD) Hypovitaminosis D Hypomagnesemia Screening for osteoporosis Osteoarthritis involving multiple joints on both sides of body Polyarthralgia Surgical History (Updated 08/20/23 @ 14:31 by Jayne Paulino CMA) Hx of shoulder surgery Hx of neck surgery History of back surgery Hx of shoulder surgery Social History (Updated 08/05/23 @ 14:38 by Jayne Paulino CMA) Alcohol intake: former Patient Tobacco Use Status: Never used Tobacco Current occupational status: retired Current occupation: Right hand dominate Review of Systems Const All systems reviewed & are unremarkable except as noted in HPI and below ENT Reports Normal hearing present Neuro Reports Normal hearing present, Denies Abnormal speech present, Denies confusion and Denies Sensory deficit (Neuro) Psych Denies confusion Physical Exam Vital Signs: Last Vital Signs Pulse 67 05/30/24 13:13 Resp 15 05/30/24 13:13 BP 141/73 H 05/30/24 13:13 Pulse Ox 97 05/30/24 13:13 Oxygen Delivery Method Room Air 05/30/24 13:13 BMI result Body Mass Index 22.6 Const General: no acute distress; No confusion Orientation/consciousness: patient oriented x3 and No confusion Eyes General: appearance normal, both eyes and all related structures Pupils: Equal, round and reactive pupils present EOM: EOMs intact bilaterally Neck Neck: Yes full ROM Chest Chest palpation & inspection: normal inspection of the chest Resp Effort & Inspection: normal respiratory effort, able to speak in complete sentences, normal respiratory pattern, no audible wheezes and no cough Cardio Jugular venous distension: no JVD GI Inspection: Yes normal to inspection Back/Spine/Pelvis Other: On physical exam there was positive Edouard test positive Gaenslen test and positive pelvic compression test on the left. SLR is negative bilaterally. Lateral rotation and medial rotation of the left thigh causes significant discomfort in the groin. On inspection there is very extensive scar in the patient's lumbar vertebra projection, it spreads from T12-S1 approximate location. The patient is able to perform minimal motions with his lumbar spine however it is basically fused. Range of motion is absent and only motion he can apply to would be from the hip joints. Neuro General: patient oriented x3, gait normal and No confusion Cranial nerves: Yes CN's II-XII intact bilaterally, Yes Equal, round and reactive pupils present, Yes Normal hearing present and Yes Ability to bilaterally elevate shoulders present Speech: No Abnormal speech present Gait exam (Neuro): Normal gait present Motor exam (neuro): 5/5 motor strength present throughout Sensory Exam: No Sensory deficit (Neuro) Extrem General: No pedal edema Psych Speech and movement: Normal speech and movement present Affect: normal affect Attitude: cooperative Thought process: Normal thought process present Thought content: Normal thought content present Insight: Good insight present (Psych) Judgement: Good judgement present (Psych) Assessment & Plan Assessment & Plan (1) Knee osteoarthritis: Code(s): M17.9 - Osteoarthritis of knee, unspecified Category: Medical Plan Good results of therapeutic sacroiliac joint injections. I was explaining the patient the time interval between the injections into 2 different portions of the body as well as time interval between the injections into the same portion of the body as above. Patient expressed understanding. We can schedule him for the another therapeutic sacroiliac joint injection. But it should not be sooner than 08/01/2024. I also gave patient brochure about cure on X PNS to treat he has sacroiliitis. He will be reading the brochure and if he is interested we will discuss it further. Coding Level of Care Code Est Pt Level 3 (98163) Diagnoses Knee osteoarthritis M17.9
[2024-05-30 13:13] VITALS: BP 141/73; PULSE 67; RESP 15; O2SAT 97; BMI 22.6
== END 2024-05-30 13:52 | disposition home or self-care (01) ==
PROVIDERS: PCP Nurse Practitioner Family; Visit Provider Anesthesiology
DX: M17.9 Osteoarthritis of knee, unspecified (principal)
CPT/HCPCS: 99213

== ENCOUNTER 2024-06-13 12:51 | Outpatient (AMB) | payer MEDICARE, SELFPAY ==
--- NOTE | 2024-06-13 13:00 | A.OFFVIS_ITS ---
Vital Signs 06/13/24 13:02 Height 5 ft 11 in Weight 170 lb BMI 23.7 BP 140/67 H Blood Pressure Location Lt brachial Position Sitting Respiration 16 Pulse 68 Pulse Source Pulse Oximeter Pulse Oximetry (%) 78 L Oxygen Delivery Method Room Air Intake Visit Reasons: Follow Up (Per Caitie) Allergies No Known Allergies Allergy (Verified 06/13/24 13:03) Medication List - Last Reconciled 06/13/24 by Bette Valencia LPN amlodipine 5 mg PO DAILY aspirin 81 mg PO DAILY cetirizine (Zyrtec) 10 mg PO DAILY PRN cholecalciferol (vitamin D3) 50 mcg PO DAILY clopidogrel 75 mg PO DAILY fenofibrate nanocrystallized 145 mg PO DAILY hydrocodone-acetaminophen 5-325 mg 1 tab PO Q12H PRN levothyroxine 50 mcg PO DAILY magnesium oxide 400 mg PO DAILY omega 1-tns-kas-fish oil 60-90-500 mg (Fish Oil) 1 cap PO DAILY pantoprazole 40 mg PO DAILY rosuvastatin 10 mg PO BEDTIME tamsulosin 0.8 mg PO DAILY HPI HPI Follow Up (Per Caitie): Details: History of Present Illness The patient is a 74-year-old male presenting with sacroiliac joint dysfunction and knee pain. He has been experiencing issues with his sacroiliac joint, for which he received therapeutic injections that provided nearly complete relief for a month. The pain returned gradually, prompting this follow-up to discuss repeat therapeutic injection. Previously, the patient had a consult in April and received a sacroiliac joint injection, followed by a corticosteroid injection in his left knee before the holidays. He previously had imaging requested due to concerns regarding his knee, and has a known history of osteoarthritis, which has been managed with various treatments including corticosteroid injections. The patient is cognizant of the need to monitor the quantity and frequency of corticosteroid injections due to potential cumulative effects. Pain Description - Onset: Gradual - Quality: Severe, described as 8-9 on the pain scale at worst - Location: Left sacroiliac joint, with noted knee pain - Aggravating Factors: Rising from a seated position - Alleviating Factors: Steroid injections have previously provided significant relief Physical Exam - Musculoskeletal- Pain upon palpation of the sacroiliac region, particularly noted with movement of the sacrum Results - Bone Density Scan: Normal bone density Pain Management - Affect: Frustration with recurring pain and handling of previous treatment - Analgesia: Prior SI joint injections provided significant temporary relief; requires management plan due to previous corticosteroid use - Adverse Effects: Concerns about the long-term impact of frequent corticosteroid injections - Activities of Daily Living: Pain particularly affects rising from seated positions - Aberrant Drug Related Behaviors: None reported [facility] Medical History (Updated 05/17/24 @ 06:57 by Rafael Davies MD) Hypovitaminosis D Hypomagnesemia Screening for osteoporosis Osteoarthritis involving multiple joints on both sides of body Polyarthralgia Surgical History (Updated 08/20/23 @ 14:31 by Jayne Paulino CMA) Hx of shoulder surgery Hx of neck surgery History of back surgery Hx of shoulder surgery Social History (Updated 08/05/23 @ 14:38 by Jayne Paulino CMA) Alcohol intake: former Patient Tobacco Use Status: Never used Tobacco Current occupational status: retired Current occupation: Right hand dominate Physical Exam Vital Signs: Last Vital Signs Pulse 68 06/13/24 13:02 Resp 16 06/13/24 13:02 BP 140/67 H 06/13/24 13:02 Pulse Ox 78 L 06/13/24 13:02 Oxygen Delivery Method Room Air 06/13/24 13:02 BMI result Body Mass Index 23.7 Assessment & Plan Assessment & Plan (1) Arthritis of left knee: Code(s): M17.12 - Unilateral primary osteoarthritis, left knee Category: Medical (2) Sacroiliac joint dysfunction of left side: Code(s): M53.3 - Sacrococcygeal disorders, not elsewhere classified Category: Medical (3) Polyarthralgia: Code(s): M25.50 - Pain in unspecified joint Category: Medical Plan Plan - Request insurance authorization for repeat left sacroiliac joint therapeutic injection planned for early June. - Advise against additional steroid injections in the left knee due to availability of alternative treatments. - Consider alternative pain management options post-injection, focusing on non-corticosteroid approaches. Patient was informed and verbally consented to the use of an ambient scribe for clinic note documentation during this visit. Discussion Notes I engaged in a comprehensive discussion with the patient regarding his sacroiliac joint dysfunction and repeated corticosteroid injection considerations. We reviewed the potential benefits and risks of proceeding with another SI joint injection, as well as the need to limit corticosteroid use across various joints due to cumulative effects. I detailed alternative treatment options, such as hyaluronic acid injections, particularly for his knee pain, and we explored possible non-steroid therapies to alleviate his condition further. The patient understood and agreed with the proposed plan, ensuring that any forthcoming interventions will be carefully coordinated to maximize therapeutic efficacy while minimizing steroid exposure. Patient Instructions - Await scheduling for the repeat SI joint injection in June after receiving insurance approval. - Avoid further steroid injections in the knee; discuss gel injections with your orthopedic provider. - Continue monitoring symptoms and report any significant changes in pain or mobility. - Schedule and attend the recommended MRI for further evaluation of the knee. Coding Level of Care Code Est Pt Level 4 (33676) Diagnoses Arthritis of left knee M17.12 Sacroiliac joint dysfunction of left side M53.3 Polyarthralgia M25.50
[2024-06-13 13:02] VITALS: BP 140/67; PULSE 68; RESP 16; O2SAT 78; BMI 23.7
== END 2024-06-13 13:49 | disposition home or self-care (01) ==
PROVIDERS: PCP Nurse Practitioner Family; Visit Provider Internal Medicine
DX: M17.12 Unilateral primary osteoarthritis, left knee (principal); M53.3 Sacrococcygeal disorders, not elsewhere classified; M25.50 Pain in unspecified joint
CPT/HCPCS: 99214

== ENCOUNTER → 2024-06-13 12:51 | Outpatient (BNVA) | payer MEDICARE, SELFPAY | PROVIDERS: PCP Nurse Practitioner Family; Visit Provider Internal Medicine | DX: M17.12 Unilateral primary osteoarthritis, left knee (principal); M53.3 Sacrococcygeal disorders, not elsewhere classified; M25.50 Pain in unspecified joint | CPT/HCPCS: 99212 ==

== ENCOUNTER 2024-07-06 15:50 | Outpatient (AMB) | payer MEDICARE, SELFPAY ==
--- NOTE | 2024-07-06 16:03 | MHC.OFFVIS ---
Vital Signs 07/06/24 16:11 Height 5 ft 11 in Weight 167 lb 1.766 oz BMI 23.3 BP 140/80 H Blood Pressure Location Rt brachial Position Sitting Pulse 67 Pulse Source Pulse Oximeter Pulse Oximetry (%) 97 Oxygen Delivery Method Room Air Intake Visit Reasons: Arthritis/CM Intake Note: Patient presents for Arthritis. Allergies No Known Allergies Allergy (Verified 07/06/24 16:05) Medication List - Last Reconciled 07/06/24 by Claire Vazquez MD amlodipine 5 mg PO DAILY aspirin 81 mg PO DAILY cetirizine (Zyrtec) 10 mg PO DAILY PRN cholecalciferol (vitamin D3) 50 mcg PO DAILY clopidogrel 75 mg PO DAILY famotidine 20 mg PO BID fenofibrate nanocrystallized 145 mg PO DAILY levothyroxine 50 mcg PO DAILY magnesium oxide 400 mg PO DAILY omega 3-hjw-cob-fish oil 60-90-500 mg (Fish Oil) 1 cap PO DAILY omega-3 acid ethyl esters (Lovaza) 2 caps PO BID pantoprazole 40 mg PO DAILY rosuvastatin 10 mg PO BEDTIME tamsulosin 0.8 mg PO DAILY HPI Comments Details: Patient is a 74-year-old male with hypertension complicated by coronary artery disease status post 12 stents, diabetes, hypothyroidism, BPH and hyperlipidemia who presents for follow up of polyarthralgias Interval History: Patient last seen 04/06/2024. At that time he was being evaluated by me for group home polyarthralgias. At that time my concern was that he may have crystal disease such as CPPD versus gout Today he is here for follow up Started the colchicine, but stopped after a month due to GI side effects Main issue is right hand and left hip Rheumatologic History: CPPD based on history and chondrocalcinosis on XRs Initial history: Patient states that over 20 years ago he was seeing a sales representative printing supplies and was diagnosed with rheumatoid arthritis. His treatment consisted of Celebrex and other NSAIDs. Was never on methotrexate or any other DMARD or biologic. When his sales representative printing supplies retired he then followed up [facility] and was told he does not have rheumatoid arthritis but osteoarthritis. Since then he has been getting series of steroid injections in various joints including his MCPs, MTPs, knees, shoulders, hips under fluoroscopic guidance. He is here today for a 2nd opinion With respect to his hands he does report morning stiffness sometimes lasting up to an hour but he also reports worsening stiffness and pain at the end of the day and this sometimes wakes him up at night. Right now his main complaint are his hips and his knees. He denies any history of recurrent monoarticular arthritis involving the wrists, elbows or knees. But does note that he gets swelling to these areas at times. Has never had arthrocentesis. Denies any extra articular manifestations of rheumatoid arthritis. Currently he takes Tylenol which does not help. Sometimes he will take oxycodone or Vicodin. Was told that he could no longer take Celebrex or naproxen because of his heart condition and his age. Current Rheumatology Medication(s): Colchicine 0.6mg (no longer taking) [facility]LY [facility], [facility] Medical History (Updated 07/06/24 @ 16:32 by Claire Vazquez MD) Calcium pyrophosphate deposition disease (CPPD) Hypovitaminosis D Hypomagnesemia Screening for osteoporosis Osteoarthritis involving multiple joints on both sides of body Polyarthralgia Surgical History Hx of shoulder surgery Hx of neck surgery History of back surgery Hx of shoulder surgery Social History Alcohol intake: former Patient Tobacco Use Status: Never used Tobacco Current occupational status: retired Current occupation: Right hand dominate Review of Systems Const Details: Review of Systems Constitutional: Denies fever, chills, weight loss ENT: Denies vision changes, eye pain or eye redness, dental caries, dry mouth GI: Denies nausea, vomiting, diarrhea, abdominal pain, change in BM Pulm: Denies SOB, ROQUE, hemoptysis, wheezing Cards: Denies chest pain, palpitations Skin: Denies Raynaud's, rash, nail changes, photosensitivity, FAMILY WELFARE SOCIAL WORK PROFESSOR: Denies headaches, weakness, paresthesias, recurrent falls MSK: as per HPI All other systems reviewed and are unremarkable except noted above Physical Exam Vital Signs: Last Vital Signs Pulse 67 07/06/24 16:11 BP 140/80 H 07/06/24 16:11 Pulse Ox 97 07/06/24 16:11 Oxygen Delivery Method Room Air 07/06/24 16:11 BMI result Body Mass Index 23.3 Vital signs reviewed Physical Examination CONSTITUITIONAL Patient alert and cooperative. Well appearing and in no apparent painful distress HEENT Conjunctiva and sclera clear. ?Pupils equal round and reactive to light. ?No lymphadenopathy. ?Normal dentition. No oral or nasal ulcers noted. No evidence of discoid rash to the miguel ángel of ears. No tophi noted CHEST/RESPIRATORY SYSTEM Normal respiratory effort and able to speak in complete sentences. ?Clear to auscultation bilaterally. ?No crackles, rales, rhonchi, wheezes heard. CARDIAC SYSTEM Regular rate and rhythm. ?S1 and S2 heard no murmurs. ?Radial pulses intact bilaterally MSK Hands: ?Good automation machine builder strength bilaterally - 5/5. ?Heberden's nodes noted throughout bilateral hands. Tenderness to palpation of the 2nd, 3rd and 4th MCP with bogginess on the right hand. Mild tenderness to palpation of the 3rd PIP. No tenderness to palpation of the MCPs on the left hand. Wrists: ?Fullness noted to the wrist with a surgical scar over the wrist (previous removal of ganglion cyst) tenderness to palpation however full range of motion. Elbows: Full range of motion without pain. No tenderness, weakness, swelling, increased warmth or erythema. Shoulders: Full range of motion without pain. No tenderness, weakness, swelling, increased warmth or erythema. Knees: ?Full range of motion. ?No tenderness, swelling, increased warmth or erythema.? Crepitations felt bilaterally Ankles: Full range of motion. ?No tenderness, swelling, increased warmth or erythema.? Feet: ?Tenderness to palpation of 1st and 2nd MTP on the right foot SKIN Skin intact without rashes. Results Reviewed Results Reviewed: Laboratory Tests 04/11/24 12:25 WBC 5.8 RBC 4.50 L Hgb 12.3 L Hct 37.9 L Plt Count 261 ESR 2 Sodium 142 Potassium 3.6 Chloride 107 Carbon Dioxide 27 BUN 11 Creatinine 0.96 Calcium 9.7 Magnesium 1.0 L* AST 25 ALT 21 Alkaline Phosphatase 26 L 25-OH Vitamin D Total 25 L Rheumatoid Factor < 13.0 Cycl Citrul Peptide IgG <16 DEXA 04/2024 FINDINGS: LEFT FEMUR, NECK: Current: BMD 0.965 g/cm2, Z-score 0.6, T-score -0.8, normal. Baseline: BMD 0.979 g/cm2. LEFT FEMUR, TOTAL: Current: BMD 1.056 g/cm2, Z-score 0.6, T-score -0.3, normal, 1.2% decrease from baseline (<5% change is not significant). Baseline: BMD 1.069 g/cm2. LEFT FOREARM RADIUS 33%: BMD 1.120 g/cm2, Z-score 2.3, T-score 1.3, normal. XR Bilateral Hand/Wrist 03/2024 FINDINGS: Normal bone mineralization. No fracture, dislocation, or focal bone abnormality. There are mild to moderate changes of arthritis in the first through third MCP joints, without periarticular osteopenia or erosions. There is a small hooked osteophyte of the third metatarsal head. Soft tissue calcifications are present at the capsular insertions of the second and third metatarsal heads. Mild degenerative arthritis throughout the DIP joints, worst in the fifth digit. Mild degenerative arthritis particularly in the third and fourth PIP joints. No mild degenerative arthritis in the radiocarpal joint, first CMC joint, and STT joints. Subtle chondrocalcinosis noted within the wrist suggesting possible CPPD. Carpal bones are otherwise normally aligned and intact. No discrete additional soft tissue abnormalities. Vascular calcifications are present. XR Bilateral Feet 03/2024 FINDINGS: Normal bone mineralization. No fracture, dislocation, or suspicious bone lesion. Small unicameral bone cyst in the mid to posterior calcaneus. There has been prior osteotomy and arthrodesis of the first MTP joint with dorsal plate and screw fixation, and 2 oblique fixation screws. The hardware is intact and well seated without evidence of lucencies or complication. Bony fusion through the joint space. Normal alignment of the MTP joint. Mild arthritis in the interphalangeal joint of the hallux. Mild degenerative changes in the intertarsal joints, most notable calcaneonavicular joint dorsally. Midfoot and hindfoot otherwise image normally. Normal plantar arch. Soft tissues demonstrate vascular calcifications and mild subcutaneous edema most prominent in the ankle region. Assessment & Plan Assessment & Plan (1) Calcium pyrophosphate deposition disease (CPPD): Code(s): M11.20 - Other chondrocalcinosis, unspecified site Category: Medical Plan: #CPPD Patient is a 74-year-old male with the presumed CPPD based on chondrocalcinosis, monoarticular arthritis and elevated inflammatory markers. Did not tolerate colchicine. We will try Plaquenil Plan - Plaquenil 200mg PO bid - RTC 4 months - Labs prior to visit: CBC, CMP, ESR, CRP (2) Long-term use of Plaquenil: Code(s): Z79.899 - Other group home (current) drug therapy Plan: #Long-term Use of Hydroxychloroquine Discussed with patient the risks and benefits of hydroxychloroquine in managing the rheumatic condition Benefits include: - Reduced pain, reduce mortality, maintenance of remission and reduction of flares Risks include: - GI upset, skin hyperpigmentation, retinal toxicity (especially after more than 5 years of use), myopathy Advised yearly ophthalmology visits Plan I spent 30 minutes reviewing the record and labs, taking a history, examining the patient, discussing the treatment plan and documenting in the medical record Orders: Orders Complete Blood Count Auto Diff 07/06/24 M1.20 - Other chondrocalcinosis, unspecified site Comprehensive Met. Panel 07/06/24 M11.20 - Other chondrocalcinosis, unspecified site Magnesium 07/06/24 M11.20 - Other chondrocalcinosis, unspecified site C Reactive Protein 07/06/24 M11.20 - Other chondrocalcinosis, unspecified site Erythrocyte Sedimentation Rate 07/06/24 M11.20 - Other chondrocalcinosis, unspecified site Medications: New hydroxychloroquine 200 mg PO BID 180 tabs 1RF M11.20 - Other chondrocalcinosis, unspecified site Coding Level of Care Code Est Pt Level 4 (94345) Complex EM visit Add On G2211 Diagnoses Calcium pyrophosphate deposition disease (CPPD) M11.20 Long-term use of Plaquenil Z79.899
[2024-07-06 16:11] VITALS: BP 140/80; PULSE 67; O2SAT 97; BMI 23.3
--- OUTSIDE RECORDS SUMMARY | 2024-07-06 16:31 | XMS_ITS | Clinical Summary ---
Author Organization [facility] Address [address] [place] [address] Care Team Providers Care Mercantile Agent Name Role Phone Joaquin Talavera MD Primary Care Provider Encounters Date Type Department Care Team Description 04/07/2024 Telephone Neurosurgery [address] [place] [address] Jessi Parker MD from Last 3 Months Surgical History Surgery Date Site/Laterality Comments BACK SURGERY PROCEDURE: HISTORICAL BACK SURGERY; COMMENT: spinal fusion HERNIA REPAIR PROCEDURE: [place] RPR 1ST INGUN HRNA AGE 5 MO-5 YRS REDUCIBLE SHOULDER SURGERY PROCEDURE: HISTORICAL SHOULDER SURGERY NECK SURGERY PROCEDURE: HISTORICAL NECK SURGERY; COMMENT: cervical fusion Medical History Medical History Date Comments Essential hypertension DX:Essent ial hypertension Diabetes mellitus type 2, co ntrolled, with complications (CMS/HCC) DX:Diabetes mellitus type 2, controlled, with complications (HCC) ST elevation (STEMI) myocard ial infarction (CMS/HCC) DX:ST elevation (STEMI) myoc ardial infarction (HCC) Osteoarthritis DX:Osteoarthriti s Social History Tobacco Use Types Packs/Day Years Used Date Smoking Tobacco: Never Smokeless Tobacco: Never Sex and Gender Information Value Date Recorded Sex Assigned at Not on file Legal Sex Male 5:48 PM EDT Gender Identity Not on file Sexual Orientation Not on file Obstetrics History Last Filed Vital Signs Vital Sign Reading Time Taken Comments Blood Pressure - - Pulse - - Temperature - - Respiratory Rate - - Oxygen Saturation - - Inhaled Oxygen Concentration - - Weight 77.1 kg (170 lb) 07/30/2022 11:52 AM EST Height 175.3 cm (5' 9 ) 07/30/2022 11:52 AM EST Body Mass Index 25.1 07/30/2022 11:52 AM EST Plan of Treatment Health Maintenance Due Date Last Done Comments DTaP,Tdap,and Td Vaccines (1 - Tdap) 01/26/1968 Zoster Vaccines (1 of 2) 1999 Pneumococcal Vaccine: 50+ Ye ars (1 of 1 - PCV) 2014 Abdominal Aortic Aneurysm (A AA) Screen 05/01/2022 Cholesterol Screening (Lipid Panel) 05/01/2022 Colorectal Cancer Screening: Colonoscopy 05/01/2022 Depression Screening 05/01/2022 Falls Risk Assessment 05/01/2022 Hepatitis C Screening 05/01/2022 Social Influencers of Health Screening 05/01/2022 COVID-19 Vaccine (1 - 2023-2 5 season) 2024 Influenza Vaccine (#1) 2024 RSV Immunization Patients 60 + Years Old (1 - 1-dose 75+ series) 01/26/2024 HIB Vaccines Aged Out No longer eligi ble based on patient's age to complete this topic HPV Vaccines Aged Out No longer eligi ble based on patient's age to complete this topic Hepatitis A Vaccines Aged Out No long er eligible based on patient's age to complete this topic Hepatitis B Vaccines Aged Out No long er eligible based on patient's age to complete this topic IPV Vaccines Aged Out No longer eligi ble based on patient's age to complete this topic MMR Vaccines Aged Out No longer eligi ble based on patient's age to complete this topic Meningococcal ACWY Vaccine Aged Out N o longer eligible based on patient's age to complete this topic RSV Immunization Patients Un zachary 20 months Aged Out No longer eligible b ased on patient's age to complete this topic Varicella Vaccines Aged Out No longer eligible based on patient's age to complete this topic Care Teams Mercantile Agent Relationship Specialty Start Date End Date Joaquin Talavera MD [address] [facility] [place] [address] PCP - General Family Medicine 01/12/17
--- OUTSIDE RECORDS SUMMARY | 2024-07-06 16:31 | XMS_ITS | Clinical Summary ---
Author Organization [facility] Address [address] [place] [address] Care Team Providers Care Warehouse Shipping Associate Name Role Phone Joaquin Talavera MD Primary Care Provider + [phone] Allergies Active Allergy Reactions Criticality Noted Date Comments Doxepin Medications Medication Sig Dispensed Refills Start Date End Date Status atorvastatin (LIPITOR) tablet 80 mg 0 12/13/2016 Active bisoprolol (ZEBETA) 5 MG tablet Take 2.5 mg by mouth daily. 0 01/20/2017 Active clopidogrel (PLAVIX) 75 MG tablet 0 01/08/2017 Active isosorbide mononitrate (IMDUR) 30 MG 24 hr tablet TAKE 1 TABLET ONCE DAILY. 0 01/08/2017 Active metoprolol succinate (TOPROL-XL) 24 hr tablet 25 mg 0 01/08/2017 Active pantoprazole (PROTONIX) 40 MG tablet 0 01/08/2017 Active levothyroxine (SYNTHROID, LEVOXYL) tablet 50 mcg 0 12/19/2017 Active traZODone (DESYREL) 50 MG tablet trazodone 50 mg tablet 0 Ac tive nitroglycerin (NITROSTAT) 0.4 MG SL tablet nitroglycerin 0.4 mg sublingual tablet 0 Active fenofibrate (TRICOR) tablet 145 mg fenofibrate nanocrystallized 145 mg tablet TAKE 1 TABLET BY MOUTH DAILY 0 Active famotidine (PEPCID) 20 MG tablet Acid Professor Of Education (famotidine) 20 mg tablet 0 Active amLODIPine (NORVASC) tablet 2.5 mg amlodipine 2.5 mg tablet 0 Active amLODIPine (NORVASC) tablet 5 mg amlodipine 5 mg tablet 0 Ac tive ipratropium (ATROVENT HFA) 17 MCG/ACT inhaler Atrovent HFA 17 mcg/actuation aerosol inhaler instill 2 sprays into each nostril three times a day 0 Active sucralfate (CARAFATE) 1 GM/10ML suspension Carafate 100 mg/mL oral suspension 0 Active celecoxib (CELEBREX) 200 MG capsule Celebrex 200 mg capsule 0 Active HYDROcodone-homat ropine (HYDROMET) 5-1.5 MG/5ML syrup Hydromet 5 mg-1.5 mg/5 mL oral syrup take 1 to 2 teaspoonful by mouth every 6 hours if needed NO TRACTOR USE 0 Active Loratadine 10 MG CAPS loratadine 10 mg capsule Take by oral route. 0 Active ranolazine (RANEXA) 1000 MG SR tablet ranolazine ER 1,000 mg tablet,extended release,12 hr 0 Active omega-3 acid ethyl esters (LOVAZA) capsule 1 g 0 11/24/2018 Active ranolazine (RANEXA) 500 MG 12 hr tablet 0 12/04/2018 Active terbinafine (LamiSIL) 250 MG tablet TAKE 1 TABLET BY MOUTH ONCE DAILY DO NOT DRINK ALCOHOL WHILE ON THIS MEDICATION 0 10/20/2018 Active cefuroxime (CEFTIN) 500 MG tablet cefuroxime axetil 500 mg tablet take 1 tablet by mouth every 12 hours for 7 days 0 Active ipratropium (ATROVENT HFA) 17 MCG/ACT inhaler Atrovent HFA 17 mcg/actuation aerosol inhaler 0 Active traMADol (ULTRAM) 50 MG tablet Take 1 tab every 8 hours as needed for pain 90 tablet 2 03/30/2019 Active metFORMIN (GLUCOPHAGE-XR) ER 24 hr tablet 500 mg Take 500 mg by mouth 2 (two) times a day. 0 03/09/2020 Active cyclobenzaprine (FLEXERIL) 10 MG tablet cyclobenzaprine 10 mg tablet Take 1 tablet twice a day by oral route. 0 Active rosuvastatin (CRESTOR) tablet 10 mg 0 06/12/2020 Active tamsulosin (FLOMAX) 0.4 MG CAPS Take 0.4 mg by mouth 2 (two) times a day. 0 06/20/2020 Active tiZANidine (ZANAFLEX) 4 MG tablet TAKE 1 TABLET TWICE A DAY NEEDED FOR BACK PAIN 0 05/04/2020 Active fluticasone (FLONASE) 50 MCG/ACT nasal spray INSTILL 2 SPRAYS INTO EACH NOSTRIL EVERY DAY 0 08/08/2020 Activ e aspirin 81 MG EC tablet aspirin 81 mg tablet,delayed release 0 Activ e cetirizine (ZyrTEC) 10 MG tablet 0 05/05/2021 Active DULoxetine (CYMBALTA) DR capsule 30 mg duloxetine 30 mg capsule,delayed release TAKE 1 CAPSULE BY MOUTH DAILY 0 Active meloxicam (MOBIC) 15 MG tablet meloxicam 15 mg tablet 0 Active predniSONE (DELTASONE) tablet 20 mg 0 11/19/2021 Active methylPREDNISolon e (MEDROL DOSEPACK) 4 MG tablet follow package directions 21 tablet 0 01/14/2022 Active HYDROcodone-aceta minophen (NORCO) 5-325 MG per tablet Take 1 tab every 12 hours as needed for pain 30 tablet 0 07/29/2022 Active Active Problems Problem Noted Date Diagnosed Date Inflammatory arthropathy right hand/wrist 2022 Trochanteric bursitis of left hip 10/12/2018 Pain of left hip joint 10/12/2018 Family History Medical History Relation Name Comments Cancer Brother Cancer Father Heart disease Mother Relation Name Status Comments Brother Father Mother Social History Tobacco Use Types Packs/Day Years Used Date Smoking Tobacco: Never Tobacco Cessation:Counseling Given: Not Answered Sex and Gender Information Value Date Recorded Sex Assigned at Not on file Gender Identity Not on file Sexual Orientation Not on file Job Start Date Occupation Industry Not on file Not on file Not on file Last Filed Vital Signs Vital Sign Reading [...] Health Maintenance Due Date Last Done Comments Hepatitis C Screening 1949 Depression Screening 1961 Preventative Health Evaluation 1967 Colon Cancer Screening (Colonoscopy) 1994 Fall Risk Assessment 2014 Pneumococcal Vaccine (2 of 2 - PPSV23 or PCV20) 03/17/2019 03/17/2018 Shingrix-Zoster Vaccine (2 of 2) 06/25/2021 04/30/2021 COVID-19 Vaccine ( season) 2024 05/21/2022, 10/08/2021, 02/18/2021, Additional history exists Influenza Vaccine (#1) 2024 2, 03/19/2021, 03/08/2020, Additional history exists RSV Adult > 60+ Yrs or (1 - 1-dose 75+ series) 01/26/2024 DTap / Tdap / Td (3 - Td or Tdap) 10/10/2031 10/09/2021, 01/07/2012, 12/25/2000 Hepatitis B Vaccines Aged Out No long er eligible based on patient's age to complete this topic RSV Ped < 20 months Aged Out No longe r eligible based on patient's age to complete this topic Care Teams Warehouse Shipping Associate Relationship Specialty Start Date End Date Joaquin Talavera MD [address] [facility] [place] [address] PCP - General Family Medicine 01/12/17
== END 2024-07-06 16:36 | disposition home or self-care (01) ==
PROVIDERS: PCP Nurse Practitioner Family; Visit Provider Student in an Organized Health Care Education/Training Program
DX: M11.20 Other chondrocalcinosis, unspecified site (principal); Z79.899 Other long term (current) drug therapy
CPT/HCPCS: 99214; G2211

== ENCOUNTER → 2024-07-06 15:50 | Outpatient (BNVA) | payer MEDICARE, SELFPAY | PROVIDERS: PCP Nurse Practitioner Family; Visit Provider Student in an Organized Health Care Education/Training Program | DX: M11.20 Other chondrocalcinosis, unspecified site (principal); Z79.899 Other long term (current) drug therapy | CPT/HCPCS: 99212 ==

== ENCOUNTER 2024-07-14 06:09 | Outpatient (REF) | payer MEDICARE, SELFPAY ==
--- OUTSIDE RECORDS SUMMARY | 2024-07-14 06:11 | XMS_ITS | Clinical Summary ---
Author Organization [facility] Address [address] [place] [address] Care Team Providers Care Oil Pump Station Operator Chief Name Role Phone Joaquin Talavera MD Primary Care Provider + [phone] Allergies Active Allergy Reactions Criticality Noted Date [...] Active famotidine (PEPCID) 20 MG tablet Acid Cat Sitter (famotidine) 20 mg tablet 0 Active amLODIPine [...] age to complete this topic Care Teams Oil Pump Station Operator Chief Relationship Specialty Start Date End Date Joaquin Talavera MD [address] [facility] [place] [address] PCP - General Family Medicine 01/12/17
--- OUTSIDE RECORDS SUMMARY | 2024-07-14 06:11 | XMS_ITS | Clinical Summary ---
Author Organization [facility] Address [address] [place] [address] Care Team Providers Care General Utility Worker Name Role Phone Joaquin Talavera MD Primary Care Provider + [phone] Surgical History Surgery Date Site/Laterality Comments BACK SURGERY PROCEDURE: HISTORICAL BACK SURGERY; COMMENT: spinal fusion HERNIA REPAIR PROCEDURE: [place] RPR 1ST INGUN HRNA AGE 5 MO-5 [...] DTaP,Tdap,and Td Vaccines (1 - Tdap) 01/26/1968 Pneumococcal Vaccine: 50+ Ye ars (1 of 1 - PCV) 1999 Zoster Vaccines (1 of 2) 1999 Abdominal Aortic Aneurysm (A AA) Screen 05/01/2022 Cholesterol Screening (Lipid Panel) 05/01/2022 Colorectal Cancer Screening: Colonoscopy 05/01/2022 Depression Screening 05/01/2022 Falls Risk Assessment 05/01/2022 Hepatitis C Screening 05/01/2022 Social Influencers of Health Screening 05/01/2022 COVID-19 Vaccine (2023-2 5 season) 2024 Influenza Vaccine (#1) 2024 [...] patient's age to complete this topic Meningococcal B Vacine Aged Out No lo nger eligible based on patient's age to complete this topic RSV Immunization Patients Un zachary 20 months Aged Out No longer eligible b ased on patient's age to complete this topic Varicella Vaccines Aged Out No longer eligible based on patient's age to complete this topic Care Teams General Utility Worker Relationship Specialty Start Date End Date Joaquin Talavera MD [address] [facility] [place] [address] PCP - General Family Medicine 01/12/17
== END 2024-07-14 06:10 | disposition home or self-care (01) ==
LOC: CF 06:09
PROVIDERS: Visit Provider Internal Medicine
DX: Z13.89 Encounter for screening for other disorder (principal)

== ENCOUNTER 2024-08-04 06:12 | Outpatient (REF) | payer MEDICARE, SELFPAY ==
--- NOTE | ~2024-08-04 | FL_ITS ---
EXAMINATION: FL GUIDANCE ONLY HISTORY: M53.3 - Sacrococcygeal disorders, not elsewhere classified COMPARISON: None available. TECHNIQUE: Fluoroscopy time: 0.1 minutes. Cumulative Dose: 1.83 mGy. DAP: 0.0173 mGym2 Images: 2. FINDINGS: Images demonstrate a needle in the region of the left sacroiliac joint. FL/FL guidance in treatment room IMPRESSION: Fluoroscopy during procedure. Please see procedure report for additional information. Electronically signed by: Bonifacio Bradley MD 08/04/2024 12:54 PM EDT
--- OUTSIDE RECORDS SUMMARY | 2024-08-04 06:17 | XMS_ITS ---
Author Name [facility] Organization Unknown Care Team Organization Name Specialty Phone Email Start Date End [facility] 04/24/2022 01/11/2024
--- OUTSIDE RECORDS SUMMARY | 2024-08-04 06:17 | XMS_ITS | Clinical Summary ---
Author Organization [facility] Address [address] [place] [address] Care Team Providers Care Plant Puller Name Role Phone Joaquin Talavera MD Primary Care Provider + [phone] Surgical History Surgery Date Site/Laterality Comments BACK SURGERY PROCEDURE: HISTORICAL BACK SURGERY; COMMENT: spinal fusion HERNIA REPAIR PROCEDURE: [place] RPR 1ST INGUN HRNA AGE 5 MO-5 [...] age to complete this topic Care Teams Plant Puller Relationship Specialty Start Date End Date Joaquin Talavera MD [address] [place] [address] PCP - General Family Medicine 01/12/17
--- OUTSIDE RECORDS SUMMARY | 2024-08-04 06:17 | XMS_ITS | Data Portability ---
Author Organization [place] - [facility], [facility] Wagon Person Address [address] [place] [address] Care Team Providers Care Second Ride Fare Collector Name Role Phone BENTLEY HARRISON OTHER [phone] HAMILTON CANTU Primary Care Provider Assessment No assessment recorded. Plan of Treatment Reminders Order Date Submit Date Provider Last Modified By Organization Details Last Modified Time Details Appointments None recorded . Lab HbA1c (hemoglo bin A1c), blood 2023 [place] [facility], [address] [place] [address], [address], 4 13:12:05 magnesiu m, serum or plasma 2023 [place] [facility], [address] [place] [address], [address], 4 13:12:04 noninvas eder colorect al cancer DNA + occult blood screenin g, QL, stool - Certific ationI am a licensed medical professi onal authoriz ed to order Cologuar d. This test is medicall y necessar y and the patient is eligible to use Cologuar d. I will maintain the privacy of test results and related informat ion as required by HIPAA. I authoriz e [facility] to obtain reimburs ement for Cologuar d and to directly contact and collect a second sample from the patient as appropri ate.ICD- 10 Code: Z12.11 2023 024 [facility] (Cologuard Orders Only), [address], [address], [place], [address], 4 10:57:08 BMP, serum or plasma 2023 024 [facility], [address] [place] [address], [address], 5 13:23:26 erythroc yte sediment ation rate by westergr en method 2023 024 [facility], [address] [place] [address], [address], 4 13:12:04 lipid panel, serum 2023 024 [place] [employer] [facility], [address] [place] [address], [address], 4 13:12:03 magnesiu m, serum or plasma 2023 [facility], [address] [place] [address], [address], 4 10:44:03 magnesiu m, serum or plasma 2023 024 [facility], [address] [place] [address], [address], 5 14:42:21 Referral None recorded . Procedures None recorded . Surgeries None recorded . Imaging None recorded . Medication Orders famotidi ne 20 mg tablet 2023 024 [email or web address] [id number], [address] [place], [address], 4 10:38:01 Patient TargetsNo targets recorded. Patient Instructions Encounter Date Encounter Id Patient Instructions Last Modified By Organization Details Last Modified Time 05/10/2024 [id number] learning about type 2 diabetes [email or web address] Not available 05/10/2024 10:56:57 type 2 diabetes: care instructions [email or web address] Not available 05/10/2024 10:56:57 05/12/2024 [id number] learning about type 2 diabetes [email or web address] Not available 05/12/2024 10:45:28 type 2 diabetes: care instructions [email or web address] Not available 05/12/2024 10:45:28 Reason for Referral None Reported. Results Created Date Observation Date Name Description Value Unit Range Abnormal Flag Note LastModifiedBy Organization Detail LastModifiedTime 02/23/2002/23/2024 COMPL ETE BLOOD COUNT W/ DIFF white blood count 7.0 K/mm3 4.0-11 .0 normal Not Available [address], [address], 02/23/2024 14:33:32 02/23/2002/23/2024 COMPL ETE BLOOD COUNT W/ DIFF red blood count 4.56 M/uL 4.20-5 .80 normal Not Available [address], [address], 02/23/2024 14:33:32 02/23/2002/23/2024 COMPL ETE BLOOD COUNT W/ DIFF hemoglobin 12.8 gm/dL 12.5-1 7.0 normal Not Available [address], [address], 02/23/2024 14:33:32 02/23/2002/23/2024 COMPL ETE BLOOD COUNT W/ DIFF hematocrit 39.1 % 37.0-5 0.0 normal Not Available [address], [address], 02/23/2024 14:33:32 02/23/2002/23/2024 COMPL ETE BLOOD COUNT W/ DIFF mean corpuscular volume 85.7 fL 80.0-1 00.0 normal Not Available [address], [address], 02/23/2024 14:33:32 02/23/2002/23/2024 COMPL ETE BLOOD COUNT W/ DIFF MCHC 32.7 % 32-37 normal Not Available [address], [address], 02/23/2024 14:33:32 02/23/2002/23/2024 COMPL ETE BLOOD COUNT W/ DIFF red cell distribution width 13.2 % 11.5-1 6.0 normal Not Available [address], [address], 02/23/2024 14:33:32 02/23/2002/23/2024 COMPL ETE BLOOD COUNT W/ DIFF platelet count 234 K/uL 140-40 0 normal Not Available [address], [address], 02/23/2024 14:33:32 02/23/2002/23/2024 COMPL ETE BLOOD COUNT W/ DIFF mean platelet volume 11.4 fL 8.6-12 .5 normal Not Available [address], [address], 02/23/2024 14:33:32 02/23/2002/23/2024 COMPL ETE BLOOD COUNT W/ DIFF %nucleated RBC auto 0.0 % 0.0-0. 7 normal Not Available [address], [address], 02/23/2024 14:33:32 02/23/2002/23/2024 COMPL ETE BLOOD COUNT W/ DIFF %neutrophils auto 64.4 % Not Available [address], [address], 02/23/2024 14:33:32 02/23/2002/23/2024 COMPL ETE BLOOD COUNT W/ DIFF %lymphocytes auto 27.1 % Not Available [address], [address], 02/23/2024 14:33:32 02/23/2002/23/2024 COMPL ETE BLOOD COUNT W/ DIFF %monocytes auto 6.6 % Not Available [address], [address], 02/23/2024 14:33:32 02/23/2002/23/2024 COMPL ETE BLOOD COUNT W/ DIFF %eosinophils auto 0.6 % Not Available [address], [address], 02/23/2024 14:33:32 02/23/2002/23/2024 COMPL ETE BLOOD COUNT W/ DIFF %basophils auto 0.9 % Not Available [address], [address], 02/23/2024 14:33:32 02/23/2002/23/2024 COMPL ETE BLOOD COUNT W/ DIFF %immature granulocytes auto 0.4 % Not Available [address], [address], 02/23/2024 14:33:32 02/23/2002/23/2024 COMPL ETE BLOOD COUNT W/ DIFF #neutrophils auto 4.48 K/uL 1.50-7 .50 normal Not Available [address], [address], 02/23/2024 14:33:32 02/23/20 24 02/23/2024 COMPL ETE BLOOD COUNT W/ DIFF #lymphocytes auto 1.88 K/uL 1.00-4 .50 normal Not Available [address], [address], 02/23/2024 14:33:32 02/23/20 24 02/23/2024 COMPL ETE BLOOD COUNT W/ DIFF #monocytes auto 0.46 K/uL 0.00-0 .80 normal Not Available [address], [address], 02/23/2024 14:33:32 02/23/20 24 02/23/2024 COMPL ETE BLOOD COUNT W/ DIFF #eosinophils auto 0.04 K/uL 0.00-0 .40 normal Not Available [address], [address], 02/23/2024 14:33:32 02/23/20 24 02/23/2024 COMPL ETE BLOOD COUNT W/ DIFF #basophils auto 0.06 K/uL 0.00-0 .20 normal Not Available [address], [address], 02/23/2024 14:33:32 02/23/20 24 02/23/2024 COMPL ETE BLOOD COUNT W/ DIFF #immature granulocytes auto 0.03 K/uL 0.00-0 .10 normal Not Available [address], [address], 02/23/2024 14:33:32 02/23/20 24 02/23/2024 COMPR EHENS EDER METAB OLIC PANEL sodium 139 mEq/L 133-14 5 normal Not Available [address], [address], 02/23/2024 15:00:11 02/23/20 24 02/23/2024 COMPR EHENS EDER METAB OLIC PANEL potassium 4.4 mEq/L 3.5-5. 1 normal Not Available [address], [address], 02/23/2024 15:00:11 02/23/20 24 02/23/2024 COMPR EHENS EDER METAB OLIC PANEL chloride 105 mEq/L 98-112 normal Pleas e note new refer ence range . Not Available [address], [address], 02/23/2024 15:00:11 02/23/20 24 02/23/2024 COMPR EHENS EDER METAB OLIC PANEL carbon dioxide 23 mEq/L 22-31 normal Not Available [address], [address], 02/23/2024 15:00:11 02/23/20 24 02/23/2024 COMPR EHENS EDER METAB OLIC PANEL anion gap 11 mEq/L 5-15 normal Not Available [address], [address], 02/23/2024 15:00:11 10/0102/23/2024 COMPR EHENS EDER METAB OLIC PANEL blood urea nitrogen (BUN) 15 mg/dL 8-26 normal Not Available [address], [address], 02/23/2024 15:00:11 02/23/20 24 02/23/2024 COMPR EHENS EDER METAB OLIC PANEL creatinine 1.03 mg/dL 0.70-1 .18 normal Not Available [address], [address], 02/23/2024 15:00:11 02/23/20 24 02/23/2024 COMPR EHENS EDER METAB OLIC PANEL est.glomerul ar filtration rate > 60 Units : mL/mi n/1.7 3 m2 Estim ated GFR (eGFR ) shoul d not be used for patie nts with acute kidne y injur y or ESRD (crea tinin e shoul d be at stead y state and stabl e to use). eGFR is calcu lated using the Natio nal Kidne y Found ation 2020 CKD-E PI creat inine equat ion, which is now the recom toribio d equat ion to estim ate GFR based on creat inine per diana t KDIGO (Kidn ey Disea se Impro ving Globa l Outco mes) Guide lines . KDIGO recom mends CKD now be class ified based on cause , GFR categ ory, and album inuri a categ ory. GFR categ ories will not be repor thi by the lab for G1 or G2 (eGFR >60). GFR categ ories shoul d be assig ana cristina as: eGFR 45-59 = G3a (mild ly to moder ately decre ased) , eGFR 30-44 = G3b (mode ratel y to sever yasir decre ased) , eGFR 15-29 G4 (speedy rely decre ased) , eGFR< 15 G5 (kidn ey failu re). Not Available [address], [address], 02/23/2024 15:00:11 02/23/20 24 02/23/2024 COMPR EHENS EDER METAB OLIC PANEL glucose 145 mg/dL 70-100 high Fasti ng Refer ence Inter elizabeth: 70-10 0mg/d L Non-f astin g Refer ence Inter elizabeth: 70-14 0mg/d L Not Available [address], [address], 02/23/2024 15:00:11 02/23/20 24 02/23/2024 COMPR EHENS EDER METAB OLIC PANEL calcium 9.8 mg/dL 8.4-10 .4 Not Available [address], [address], 02/23/2024 15:00:11 02/23/2002/23/2024 COMPR EHENS EDER METAB OLIC PANEL bilirubin total 0.6 mg/dL 0.2-1. 2 normal Not Available [address], [address], 02/23/2024 15:00:11 02/23/20 24 02/23/2024 COMPR EHENS EDER METAB OLIC PANEL aspartate amino transferase 24 IU/L 5-34 normal Not Available [address], [address], 02/23/2024 15:00:11 02/23/20 24 02/23/2024 COMPR EHENS EDER METAB OLIC PANEL alanine aminotransfe rase 23 IU/L 0-55 normal Not Available [address], [address], 02/23/2024 15:00:11 02/23/20 24 02/23/2024 COMPR EHENS EDER METAB OLIC PANEL total protein 7.0 g/dL 5.8-8. 1 normal Not Available [address], [address], 02/23/2024 15:00:11 02/23/20 24 02/23/2024 COMPR EHENS EDER METAB OLIC PANEL albumin 4.3 g/dL 2.8-5. 4 normal Not Available [address], [address], 02/23/2024 15:00:11 02/23/20 24 02/23/2024 COMPR EHENS EDER METAB OLIC PANEL alkaline phosphatase 28 IU/L 40-150 low Not Available [address], [address], 02/23/2024 15:00:11 02/23/20 24 02/23/2024 LYME AB SCREE N W/ RFLX CONFI RM lyme Ab screen w/ rflx confirm NEGATI VE negati ve No labor atory evide nce of infec tion with B. burgd orfer i (Lyme disea se). Negat eder resul ts may occur in patie nts recen tly infec thi with B. burgd orfer i. If recen t infec tion is suspe cted, repea t testi ng on a new sampl e colle cted in 7-14 days is recom toribio d. Not Available [address], [address], 02/23/2024 15:29:24 02/23/20 24 02/24/2024 ANAPL ASMA PHAGO DNA (PCR) anaplasma phago DNA (PCR) NOT DETECT ED notdet ected Negat eder resul ts indic ate the absen ce of detec table DNA from Anapl asma phago cytop hilum in speci mens, but it does not exclu de the prese nce of the organ ism or activ e or recen t anapl asmos is. A negat eder resul t in a patie nt with tick- borne disea se sympt oms may indic ate infec tion with an organ ism not detec thi by this test. The resul ts of this test shoul d not be used as the sole basis for diagn osis, treat ment, or other manag ement decis ions. Resul ts must be corre lated with the clini francis findi ngs, epide miolo gical data, and other data avail able to the clini chinyere evalu ating the patie nt. This test was devel oped and its perfo rmanc e kim cteri stics deter mined by [facility]. It has not been clear ed or appro mukesh by the FDA. The labor atory is regul ated under CLIA as quali fied to perfo rm high- compl exity testi ng. This test is used for clini francis purpo ses. It shoul d not be regar ded as inves tigat ional or for resea rch. Not Available [address], [address], 02/25/2024 11:25:29 02/23/2002/25/2024 BABES IA MICRO TI DNA (PCR) babesia microti DNA (PCR) NOT DETECT ED notdet ected Negat eder resul ts indic ate the absen ce of detec table Babes ia micro ti DNA from this speci men, but it does not exclu de the prese nce of the organ ism or activ e or recen t babes iosis . A negat eder resul t in a patie nt with tick- borne disea se sympt oms may indic ate infec tion with an organ ism not detec thi by this test. The resul ts of this test shoul d not be used as the sole basis for diagn osis, treat ment, or other manag ement decis ions. Resul ts must be corre lated with the clini francis findi ngs, epide miolo gical data, and other data avail able to the clini chinyere evalu ating the patie nt. This test was devel oped and its perfo rmanc e kim cteri stics deter mined by [facility]. It has not been clear ed or appro mukesh by the FDA. The labor atory is regul ated under CLIA as quali fied to perfo rm high- compl exity testi ng. This test is used for clini francis purpo ses. It shoul d not be regar ded as inves tigat ional or for resea rch. Not Available [address], [address], 02/25/2024 11:25:31 1002/27/2024 LYME DISEA SE DNA (PCR) specimen source NOT GIVEN Not Available [address], [address], 02/27/2024 16:45:13 02/23/2002/27/2024 LYME DISEA SE DNA (PCR) lyme disease DNA (PCR) NOT DETECT ED not detect ed normal This test was devel oped and its kole tical perfo rmanc e kim cteri stics have been deter mined by [facility]. It has not been clear ed or appro mukesh by the FDA. This assay has been valid ated pursu ant to the CLIA regul ation s and is used for clini francis purpo ses. For addit ional infor adam lanier refer to https ://ed ucati on.qu estdi ShopItToMe. com/f aq/fa q224 (This link is being provi ded for infor antonio benítez/ educjanis sexton l purpo ses only. ) THIS TEST WAS PERFO RMED AT: [facility] [address] [facility] [address] RINA SPAULDING MD Not Available [address], [address], 02/27/2024 16:45:13 02/23/20 24 03/01/2024 SHEEBA RENAE SPECI ES AB IGG&I GM bartonella henselae IgG NEGATI VE Not Available [address], [address], 03/02/2024 14:50:04 02/23/20 24 03/01/2024 SHEEBA RENAE SPECI ES AB IGG&I GM bartonella henselae IgM NEGATI VE Not Available [address], [address], 03/02/2024 14:50:04 02/23/20 24 03/01/2024 SHEEBA RENAE SPECI ES AB IGG&I GM bartonella clark IgG NEGATI VE Not Available [address], [place], [address], 03/02/2024 14:50:04 02/23/20 24 03/01/2024 SHEEBA RENAE SPECI ES AB IGG&I GM bartonella clark IgM NEGATI VE Refer ence Range : Negat eder Where as sera from 10% of healt hy contr ols exhib it Sheeba renae hense lae IgG titer s of 1:64- 1:128 , none show titer s of 1:256 or above . Sera from 95% of patie nts with clini sneha defin ed cat scrat ch disea se show IgG titer s of 1:64 and above ; 79% exhib it titer s of 1:256 and above . IgM titer s at 1:20 or highe r have not been detec thi in the [facility] . Indiv idual s infec thi with B. hense lae may not have initi al IgG titer s great er than or equal to 1:64; confi rmati on of infec tion may there fore requi re testi ng of seria l speci mens to detec t incre asing IgG titer s or the prese nce of IgM. The two major clini francis manif estat ions assoc iated with B. marcus tonio infec tion are urban trenc h fever and endoc ardit is. Due to the acute natur e of urban trenc h fever , both B. marcus tonio IgG and IgM may be posit eder. In contr ast, B. marcus tonio-a ssoci ated endoc ardit is typic ally refle cts chron ic infec tion, and these patie nts nearl y alway s exhib it an IgG posit eder but IgM negat eder resul addison caldwell rn. This test was devel oped and its kole tical perfo rmanc e kim cteri stics have been deter mined by [facility]. It has not been clear ed or appro mukesh by the U.S. Food and Drug Admin istra tion. This assay has been valid ated pursu ant to the CLIA regul ation s and is used for clini francis purpo ses. THIS TEST WAS PERFO RMED AT: [facility] [place] [address] [facility] [place], [place] NANDO LIMA MD,P HD Not Available [address], [address], 03/02/2024 14:50:04 02/23/20 24 03/02/2024 EHRLI SINA ANTIB TITA PANEL anaplasma phagocytophi la IgG <1:64 <1:64 normal Not Available [address], [address], 03/02/2024 14:50:05 02/23/20 24 03/02/2024 EHRLI SINA ANTIB TITA PANEL anaplasma phagocytophi la IgM <1:20 <1:20 normal Not Available [address], [address], 03/02/2024 14:50:05 02/23/20 24 03/02/2024 EHRLI SINA ANTIB TITA PANEL A. phagocytophi la interp ANTIB TITA NOT DETEC THI Not Available [address], [address], 03/02/2024 14:50:05 02/23/20 24 03/02/2024 EHRLI SINA ANTIB TITA PANEL A. phagocytophi lum comment SEE BELOW Anapl asma phago cytop hilum is the tick- borne agent causi ng Human Granu locyt ic Ehrli chios is (HGE) . HGE is disti nct and separ ate from Human Monoc ytic Ehrli chios is (HME) , cause d by Ehrli sina zarinaff eensi s. Serol ogic cross -reac tivit y betwe en A. phago cytop hilum and E. Chaff eensi s is minim al (5-15 %). This test was devel oped and its perfo rmanc e kim cteri stics have been deter mined by [facility]. It has not been clear ed or appro mukesh by the U.S. Food and Drug Admin istra tion. This assay has been valid ated pursu ant to the CLIA regul ation s and is used for clini francis purpo ses. THIS TEST WAS PERFO RMED AT: [facility] [address] [place] [address] RINA SPAULDING MD Not Available [address], [address], 03/02/2024 14:50:05 02/23/20 24 03/02/2024 EHRLI SINA ANTIB TITA PANEL ehrlichia chaffeensis IgG Ab <1:64 <1:64 normal Not Available [address], [address], 03/02/2024 14:50:05 02/23/20 24 03/02/2024 EHRLI SINA ANTIB TITA PANEL ehrlichia chaffeensis IgM Ab <1:20 <1:20 normal Not Available [address], [address], 03/02/2024 14:50:05 02/23/20 24 03/02/2024 EHRLI SINA ANTIB TITA PANEL ehrlichia interpretati on ANTIB TITA NOT DETEC THI Not Available [address], [address], 03/02/2024 14:50:05 02/23/20 24 03/02/2024 EHRLI SINA ANTIB TITA PANEL ehrlichia comment SEE BELOW Ehrli sina chaff eensi s has been ident ified as the causa tive agent of Human Monoc ytic Ehrli chios is (HME) . Infec hti indiv idual s produ ce speci fic antib odies to E. chaff eensi s that can be detec thi by an immun ofluo resce nt antib tita (IFA) test. Singl e IgG IFA titer s of 1:64 or great er indic ate expos ure to E. chaff eensi s. A four- fold rise in IgG titer s betwe en acute and conva lesce nt sampl es and/o r the prese nce of IgM antib tita again st E. chaff eensi s sugge st recen t or curre nt infec tion. This test was devel oped and its perfo rmanc e kim cteri stics have been deter mined by [facility]. It has not been clear ed or appro mukesh by the U.S. Food and Drug Admin istra tion. This assay has been valid ated pursu ant to the CLIA regul ation s and is used for clini francis purpo ses. THIS TEST WAS PERFO RMED AT: [facility] [address] [place] [address] RINA SPAULDING MD Not Available [address], [address], 03/02/2024 14:50:05 04/12/20 24 04/13/2024 MAGNE SIUM magnesium 1.1 mg/dL 1.5-2. 5 low Not Available [facility] [place] [facility] [address], [address], 04/13/2024 05:38:27 04/12/20 24 04/13/2024 COMPR EHENS EDER METAB OLIC PANEL glucose 103 mg/dL 65-99 high Fasti ng refer ence inter elizabeth For someo ne witho ut known diabe jesus, a gluco se value betwe en 100 and 125 mg/dL is consi stent with predi abete s and shoul d be confi rmed with a follo w-up test. Not Available [facility] [place] [facility] [address], [place], [address], 04/13/2024 05:38:27 04/12/20 24 04/13/2024 COMPR EHENS EDER METAB OLIC PANEL urea nitrogen (BUN) 11 mg/dL 7-25 normal Not Available [facility] [facility] [place] [facility] [address], [place], [address], 04/13/2024 05:38:27 04/12/20 24 04/13/2024 COMPR EHENS EDER METAB OLIC PANEL creatinine 0.99 mg/dL 0.70-1 .28 normal Not Available [facility] [address] [place], [place], [address], 04/13/2024 05:38:27 04/12/20 24 04/13/2024 COMPR EHENS EDER METAB OLIC PANEL eGFR 79 mL/mi n/1.7 3m2 > or = 60 normal Not Available [facility] [address] [place], [place], [address], 04/13/2024 05:38:27 04/12/20 24 04/13/2024 COMPR EHENS EDER METAB OLIC PANEL BUN/creatini ne ratio SEE NOTE: (calc ) 6-22 Not Repor thi: BUN and Creat inine are withi n refer ence range . Not Available [facility] [address] [place], [place], [address], 04/13/2024 05:38:27 04/12/20 24 04/13/2024 COMPR EHENS EDER METAB OLIC PANEL sodium 141 mmol/ L 135-14 6 normal Not Available [facility] [address] [place], [place], [address], 04/13/2024 05:38:27 04/12/20 24 04/13/2024 COMPR EHENS EDER METAB OLIC PANEL potassium 4.5 mmol/ L 3.5-5. 3 normal Not Available [facility] [address] [place], [place], [address], 04/13/2024 05:38:27 04/12/20 24 04/13/2024 COMPR EHENS EDER METAB OLIC PANEL chloride 104 mmol/ L 98-110 normal Not Available [facility] [address], [place], [address], 04/13/2024 05:38:27 04/12/20 24 04/13/2024 COMPR EHENS EDER METAB OLIC PANEL carbon dioxide 29 mmol/ L 20-32 normal Not Available [facility] [place] [facility] [address], [place], [address], 04/13/2024 05:38:27 04/12/20 24 04/13/2024 COMPR EHENS EDER METAB OLIC PANEL calcium 10.1 mg/dL 8.6-10 .3 normal Not Available [facility] [address], [place], [address], 04/13/2024 05:38:27 04/12/20 24 04/13/2024 COMPR EHENS EDER METAB OLIC PANEL protein, total 7.1 g/dL 6.1-8. 1 normal Not Available [facility] [address], [place], [address], 04/13/2024 05:38:27 04/12/20 24 04/13/2024 COMPR EHENS EDER METAB OLIC PANEL albumin 4.7 g/dL 3.6-5. 1 normal Not Available [facility] [address], [place], [address], 04/13/2024 05:38:27 04/12/20 24 04/13/2024 COMPR EHENS EDER METAB OLIC PANEL globulin 2.4 g/dL_ (calc ) 1.9-3. 7 normal Not Available [facility] [address], [place], [address], 04/13/2024 05:38:27 04/12/20 24 04/13/2024 COMPR EHENS EDER METAB OLIC PANEL albumin/glob ulin ratio 2.0 (calc ) 1.0-2. 5 normal Not Available [facility] [address], [place], [address], 04/13/2024 05:38:27 04/12/20 24 04/13/2024 COMPR EHENS EDER METAB OLIC PANEL bilirubin, total 0.5 mg/dL 0.2-1. 2 normal Not Available [facility] [address], [place], [address], 04/13/2024 05:38:27 04/12/20 24 04/13/2024 COMPR EHENS EDER METAB OLIC PANEL alkaline phosphatase 22 U/L 35-144 low Not Available [facility] [address], [place], [address], 04/13/2024 05:38:27 04/12/20 24 04/13/2024 COMPR EHENS EDER METAB OLIC PANEL AST 21 U/L 10-35 normal Not Available [facility] [address], [place], [address], 04/13/2024 05:38:27 04/12/20 24 04/13/2024 COMPR EHENS EDER METAB OLIC PANEL ALT 19 U/L 9-46 normal Not Available [facility] [address], [place], [address], 04/13/2024 05:38:27 04/19/20 24 04/20/2024 MAGNE SIUM magnesium 1.1 mg/dL 1.5-2. 5 low Not Available [facility] [address], [place], [address], 04/20/2024 07:55:46 04/19/20 24 04/20/2024 COMPR EHENS EEDR METAB OLIC PANEL glucose 105 mg/dL 65-99 high Fasti ng refer ence inter elizabeth For someo ne witho ut known diabe jesus, a gluco se value betwe en 100 and 125 mg/dL is consi stent with predi abete s and shoul d be confi rmed with a follo w-up test. Not Available [facility] [address], [place], [address], 04/20/2024 07:55:47 04/19/20 24 04/20/2024 COMPR EHENS EDER METAB OLIC PANEL urea nitrogen (BUN) 15 mg/dL 7-25 normal Not Available [facility] [address], [place], [address], 04/20/2024 07:55:47 04/19/20 24 04/20/2024 COMPR EHENS EDER METAB OLIC PANEL creatinine 0.84 mg/dL 0.70-1 .28 normal Not Available [facility] [address], [place], [address], 04/20/2024 07:55:47 04/19/20 24 04/20/2024 COMPR EHENS EDER METAB OLIC PANEL eGFR 91 mL/mi n/1.7 3m2 > or = 60 normal Not Available [facility] [address], [place], [address], 04/20/2024 07:55:47 04/19/20 24 04/20/2024 COMPR EHENS EDER METAB OLIC PANEL BUN/creatini ne ratio SEE NOTE: (calc ) 6-22 Not Repor thi: BUN and Creat inine are withi n refer ence range . Not Available [facility] [place] [facility] [address], [place], [address], 04/20/2024 07:55:47 04/19/20 24 04/20/2024 COMPR EHENS EDER METAB OLIC PANEL sodium 141 mmol/ L 135-14 6 normal Not Available [facility] [place] [facility] [address], [place], [address], 04/20/2024 07:55:47 04/19/20 24 04/20/2024 COMPR EHENS EDER METAB OLIC PANEL potassium 4.5 mmol/ L 3.5-5. 3 normal Not Available [facility] [address], [place], [address], 04/20/2024 07:55:47 04/19/20 24 04/20/2024 COMPR EHENS EDER METAB OLIC PANEL chloride 104 mmol/ L 98-110 normal Not Available [facility] [address], [place], [address], 04/20/2024 07:55:47 04/19/20 24 04/20/2024 COMPR EHENS EDER METAB OLIC PANEL carbon dioxide 28 mmol/ L 20-32 normal Not Available [facility] [address], [place], [address], 04/20/2024 07:55:47 04/19/20 24 04/20/2024 COMPR EHENS EDER METAB OLIC PANEL calcium 9.8 mg/dL 8.6-10 .3 normal Not Available [facility] [address], [place], [address], 04/20/2024 07:55:47 04/19/20 24 04/20/2024 COMPR EHENS EDER METAB OLIC PANEL protein, total 6.9 g/dL 6.1-8. 1 normal Not Available [facility] [address], [place], [address], 04/20/2024 07:55:47 04/19/20 24 04/20/2024 COMPR EHENS EDER METAB OLIC PANEL albumin 4.8 g/dL 3.6-5. 1 normal Not Available [facility] [place] [facility] [address], [place], [address], 04/20/2024 07:55:47 04/19/20 24 04/20/2024 COMPR EHENS EDER METAB OLIC PANEL globulin 2.1 g/dL_ (calc ) 1.9-3. 7 normal Not Available [facility] [address], [place], [address], 04/20/2024 07:55:47 04/19/20 24 04/20/2024 COMPR EHENS EDER METAB OLIC PANEL albumin/glob ulin ratio 2.3 (calc ) 1.0-2. 5 normal Not Available [facility] [address], [place], [address], 04/20/2024 07:55:47 04/19/20 24 04/20/2024 COMPR EHENS EDER METAB OLIC PANEL bilirubin, total 0.5 mg/dL 0.2-1. 2 normal Not Available [facility] [address], [place], [address], 04/20/2024 07:55:47 04/19/20 24 04/20/2024 COMPR EHENS EDER METAB OLIC PANEL alkaline phosphatase 24 U/L 35-144 low Not Available [facility] [address], [place], [address], 04/20/2024 07:55:47 04/19/20 24 04/20/2024 COMPR EHENS EDER METAB OLIC PANEL AST 25 U/L 10-35 normal Not Available [facility] [address], [place], [address], 04/20/2024 07:55:47 04/19/20 24 04/20/2024 COMPR EHENS EDER METAB OLIC PANEL ALT 24 U/L 9-46 normal Not Available [facility] [place] [facility] [address], [place], [address], 04/20/2024 07:55:47 05/10/20 24 05/11/2024 LIPID PANEL , STAND JAYLA cholesterol, total 95 mg/dL <200 normal Not Available [facility] [place] [facility] [address], [place], [address], 05/11/2024 06:03:25 05/10/20 24 05/11/2024 LIPID PANEL , STAND JAYLA HDL cholesterol 58 mg/dL > or = 40 normal Not Available [facility] [place] [facility] [address], [place], [address], 05/11/2024 06:03:25 05/10/20 24 05/11/2024 LIPID PANEL , STAND JAYLA triglyceride s 108 mg/dL <150 normal Not Available [facility] [place] [facility] [address], [place], [address], 05/11/2024 06:03:25 05/10/20 24 05/11/2024 LIPID PANEL , STAND JAYLA LDL-choleste rol 18 mg/dL _(francis c) normal Refer ence range : <100 Corina able range <100 mg/dL for prima ry preve ntion ; <70 mg/dL for patie nts with CHD or diabe tic patie nts with > or = 2 CHD risk facto rs. LDL-C is now calcu lated using the Laurie n-Hop kins calcu cheikh n, which is a valid ated novel beverly simeon than the Fried ko equat ion in the estim ation of LDL-C . Laurie judd SS et al. DEEPALI. 2013; 310(1 9): 2061- 2068 (http ://ed ucati on.Qu anicetoDi ShopItToMe. com/f aq/FA Q164) Not Available [facility] [place] [facility] [address], [place], [address], 05/11/2024 06:03:25 05/10/20 24 05/11/2024 LIPID PANEL , STAND JAYLA chol/HDLC ratio 1.6 (calc ) <5.0 normal Not Available [facility] [place] [facility] [address], [place], [address], 05/11/2024 06:03:25 05/10/20 24 05/11/2024 LIPID PANEL , STAND JAYLA non HDL cholesterol 37 mg/dL _(francis c) <130 normal For patie nts with diabe jesus plus 1 major ASCVD risk facto r, treat ing to a non-H DL-C goal of <100 mg/dL (LDL- C of <70 mg/dL ) is consi baltazar a therjanis tucker c optio n. Not Available [facility] [place] [facility] [address], [place], [address], 05/11/2024 06:03:25 05/10/20 24 05/11/2024 MAGNE SIUM magnesium 1.7 mg/dL 1.5-2. 5 normal Not Available [facility] [place] [facility] [address], [place], [address], 05/11/2024 06:03:26 05/10/20 24 05/11/2024 SED RATE BY MODIF IED WESTE RGREN sed rate by modified westergren 2 mm/h < or = 20 normal Not Available [facility] [place] [facility] [address], [place], [address], 05/11/2024 04:58:24 05/10/20 24 05/10/2024 TEST AUTHO RIZAT ION test name: LINDSAY AMINA Not Available [facility] [place] [facility] [address], [place], [address], 05/10/2024 13:12:05 05/10/20 24 05/10/2024 TEST AUTHO RIZAT ION test code: 622 Not Available [facility] [address], [place], [address], 05/10/2024 13:12:05 05/10/20 24 05/10/2024 TEST AUTHO RIZAT ION client contact: KEYON CHEW, LINK Not Available [facility] [address], [place], [address], 05/10/2024 13:12:05 05/10/20 24 05/10/2024 TEST AUTHO RIZAT ION report always message signature The labor atory testi ng on this patie nt was verba lly reque sted or confi rmed by the order ing physi chinyere or his or her autho rized repre senta tive after conta ct with an emplo mir of [facility] Joao al regul ation s requi re that we maint ain on file writt en autho rizat ion for all labor atory testi ng. Accor dingkiersten y we are askin g that the order ing physi chinyere or his or her autho rized repre senta tive sign a copy of this repor t and promp tly retur n it to the clien t servi ce repre senta tive. Signa ture: __ Not Available [facility] [address], [place], [address], 05/10/2024 13:12:05 05/10/20 24 05/10/2024 TEST AUTHO RIZAT ION comment Adam dallas fax this ana d form to [phone]. Adam dallas do not attem pt to retur n this docum ent by other metho ds. Docum ents will not be viewe d by a repre senta tive. Adam e do not use this fax numbe r for other servi ce reque sts. Not Available [facility] [place] [facility] [address], [place], [address], 05/10/2024 13:12:05 05/10/20 24 05/11/2024 HEMOG LOBIN A1C hemoglobin A1C 6.1 %_of_ total _HGB <5.7 high For someo ne witho ut known diabe jesus, a hemog lobin A1c value betwe en 5.7% and 6.4% is consi stent with predi abete s and shoul d be confi rmed with a follo w-up test. For someo ne with known diabe jesus, a value <7% indic ates that their diabe jesus is well contr olled . A1c targe ts shoul d be indiv idual ized based on durat ion of diabe jesus, age, comor bid condi tions , and other consi derat ions. This assay resul t is consi stent with an incre ased risk of diabe jesus. Curre ntly, no conse nsus exist s shereen glass use of hemog lobin A1c for diagn osis of diabe jesus for child ingrid. Not Available [facility] [place] [facility] [address], [place], [address], 05/11/2024 05:48:05 05/23/20 24 05/04/2024 MRI, brain , w/wo contr ast No observ ation record ed. Not Available 2023 07:43:31 05/23/20 24 05/03/2024 CT, angio gram, carot id arter ies, w/ contr ast No observ ation record ed. [email or web address] Not Available 2023 07:43:31 05/23/20 24 05/03/2024 CT, head, w/ contr ast No observ ation record ed. [email or web address] Not Available 2023 07:43:32 05/23/20 24 05/03/2024 elect selina waddell am No observ ation record ed. [email or web address] Not Available 2023 07:43:32 Result Notes None recorded. Problems Name Problem SNOMED Code Status Onset Date Resolution Date Notes Provider Name and Address Organization Details Recorded Time Viral bronchit is 16581400 Completed 01/06/[address], [address], [facility] [employer] 6 13:39:43 Malaise [id number] Completed 06/05/2015 Hamilton burch [address], [address], [facility] [employer] 6 13:39:43 Benign prostati c hyperpla feliciano 126887164 Active Hollie Wakefield [facility], [facility] [employer] [facility] 3 07:31:16 Impaired fasting glycemia 053729326 Completed 06/05/2015 GREG Solomon [address] [place] [address], [address], [facility] [employer] [facility] 6 13:39:44 Chest pain 22657135 Completed 06/05/[address], [address], [facility] [employer] [facility] 4 15:19:36 Sinusiti s 58922025 Completed 06/05/2015 GREG Solomon [address] [place] [address], [address], [facility] [employer] [facility] 6 13:39:43 Recurren t sinusiti s 083802757 Completed 04/13/[address], [address], [facility] [employer] [facility] 4 15:18:56 External hordeolu m 7566544 Completed 06/05/[address], [address], [facility] [employer] [facility] 6 13:39:43 Dyspnea 737483967 Completed 06/05/2015 Teresa Chapman, [address], [address], [facility] [employer] 4 15:17:28 Injury of kidney 00122249 Completed 06/05/2015 Hamilton Cantu, [address], [address], [facility] [employer] 6 13:39:44 Upper respirat ory infectio n 31246716 Completed 06/05/2015 Teresa Chapman [address], [address], [facility] [employer] 4 15:19:12 Keratosi s 574091396 Completed 04/13/2024 Teresa Chapman [address], [address], [facility] [employer] 4 15:18:47 Low back pain 912998555 Completed 04/13/[address], [address], [facility] [employer] 4 15:18:51 Eczema 76297130 Active BIPIN Chowdhury, [facility] [employer] 3 07:31:16 Upper respirat ory infectio n 23879096 Completed 04/13/[address], [address], [facility] [employer] 4 15:19:11 Jaw pain 534860613 Completed 04/13/2024 Teresa Chapman [address], [address], [facility] [employer] 4 15:18:41 Allergic rhinitis 58965129 Active Hollie Wakefield CMA null, [facility] [employer] 3 07:31:16 Epigastr ic pain 40884407 Completed 201504/13/2024 Teresa Chapman [address], [address], [facility] [employer] 4 15:17:09 Mixed hyperlip idemia 638367091 Completed 06/05/2015 GREG Solomon [address] [place] [address], [address], [facility] [employer] 6 13:39:43 Bunion 239031454 Completed 01/06/2014 GREG Falcon [address] [place] [address], [address], [facility] [employer] 6 13:39:43 Chronic pain syndrome 081101565 Completed 01/06/2014 GREG Solomon [address] [place] [address], [address], [facility] [employer] 6 13:39:43 Hordeolu m 249269651 Completed 01/06/2014 GREG Solomon [address] [place] [address], [address], [facility] [employer] 6 13:39:43 Dysphagi a 65374447 Completed 01/06/2014 GREG Solomon [address] [place] [address], [address], [facility] [employer] 6 13:39:44 Epigastr ic pain 42405556 Completed 01/06/2014 GREG Caballero [address] [place] [address], [address], [facility] [employer] 4 15:17:09 Benign essentia l hyperten andrea 6953960 Active Hollie Wakefield CMA null, [place] [employer] 3 07:31:16 Hyperlip idemia 78581366 Active 08/2020 ASCVD 33.3-39. 9% on statin 01/2023 ASCVD 49.7% on statin and follow with cardiolo gy Hollie Wakefield CMA null, [place] [employer] 3 07:31:16 Impaired fasting glycemia 291362589 Completed 01/06/2014 Hamilton Pepe, [address], [address], [facility] [employer] [facility] 6 13:39:44 Primary fibromya lgia syndrome 62477662 Active Hollie Wakefield CMA null, [facility] [employer] [facility] 3 07:31:16 Malaise and fatigue 494347861 Completed 01/06/2014 Hamilton Cantu [address], [address], [facility] [employer] [facility] 6 13:39:43 Type 2 diabetes mellitus 82006988 Active 2019 with diabetic neuropat hy 0. BIPIN Chowdhury, [facility] [employer] [facility] 3 07:31:16 Diabetes mellitus 00326447 Completed 201904/13/2024 Teresa Chapman [address], [address], [facility] [employer] [facility] 4 15:19:57 Second degree atrioven tricular block 808965528 Active 2020 [place]. Found in 2019 by [facility]. 02/2021, found to be stable. 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 4 15:19:36 Hyperten sive disorder 10713223 Active Hollie Wakefield CMA null, [facility] [employer] 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 deposits noted on brain MRI 02/2023 Hollie Wakefield CMA null, [facility] [employer] [facility] 3 07:31:16 Dry eyes 282050457 Active 2023 Hamilton Cantu [address], [address], [facility] [employer] 4 09:04:29 Acid reflux 802896548 Active 2023 Hamilton Cantu [address], [address], [facility] [employer] [facility] 4 09:09:30 Forgetfu l 41282730 Active 2023 GREG Solomon [address] [place] [address], [address], [facility] [employer] [facility] 4 09:09:32 Coronary arterios clerosis 59437305 Active Echo 2022 EF 60% mild LV hypertro phy Mild MV and Tricuspi d regurg no change from 2017 Hollie Wakefield CMA null, [facility] [employer] [facility] 3 07:31:16 Hypothyr oidism 65232079 Active Holliejanis Wakefield CMA null, [facility] [employer] [facility] 3 07:31:16 Degenera tion of lumbar interver tebral disc 13787122 Active Hollie Wakefield CMA null, [facility] [employer] [facility] 3 07:31:16 Rheumato id arthriti s 18672531 Active Holliejanis Wakefield FI[employer] MARKETING MANAGER null, [facility] [employer] [facility] 3 07:31:16 Notes:Some problems listed i n Document: #[id number] could not be added to this patient's chart. Please review this document and add these problems to the patient's chart manually as needed. Problem Notes None recorded. Procedures Surgical History Date Name Laterality Status Provider Name and Address Organization Details Recorded Time 023 Telehealth appt via VIDEO or phone time-based E&M completed Jennifer Moyer [address] [place] [address], [address], [facility] [employer] [facility] 04/28/2023 10:17:47 019 cardiac catheterization completed GREG Solomon [address] [place] [address], [address], [facility] [employer] [facility] 03/12/2021 08:21:45 014 Cardiac catheterization completed Rachel Talavera MD [address] [place] [address], [address], [facility] [employer] [facility] 10/07/2013 10:50:22 013 Colonoscopy completed Rachel Talavera MD [address] [place] [address], [address], [facility] [employer] 10/07/2013 10:50:22 012 Other completed Rachelsandra Santizo, [address], [address], [facility] [employer] [facility] [employer] 12/10/2011 15:16:43 009 Orthopedic Surgery completed Rachel Santizo , [address], [address], [facility] [employer] [facility] [employer] 12/10/2011 15:16:43 008 Orthopedic Surgery completed Rachel Santizo , [address], [address], [facility] [employer] [facility] [employer] 12/10/2011 15:16:43 008 Laparoscopy completed Rachel Santizo, [address], [address], [facility] [employer] 12/10/2011 15:13:31 006 Orthopedic Surgery completed Rachel Santizo , [address], [address], [facility] [employer] 12/10/2011 15:13:31 004 Orthopedic Surgery completed Rachelsandra Santizo , [address], [address], [facility] [employer] 12/10/2011 15:16:43 002 Laparoscopy completed Rachel Santizo, [address], [address], [facility] [employer] 12/10/2011 15:13:31 956 Appendectomy completed Rachel Talavera MD [address] [place] [address], [address], [facility] [employer] 10/07/2013 10:50:22 EGD completed Rachel Santizo, [address], [address], [facility] [employer] [facility] [employer] 12/10/2011 15:13:31 Imaging Results Imaging Date Name Status LastModified by Organization Details LastModified Time 05/04/2024 MRI, brain, w/wo contrast completed Information not available 05/24/2024 07:43:31 05/03/2024 CT, angiogram, carotid arteries, w/ contrast completed [email or web address] Information not available 05/24/2024 07:43:31 05/03/2024 CT, head, w/ contrast completed [email or web address] Information not available 05/24/2024 07:43:32 05/03/2024 electrocardiogram completed [email or web address] Informa tion not available 05/24/2024 07:43:32 Procedure Notes None recorded. Medical Equipment None Reported. Allergies No known drug allergies Medications Name Sig Start Date Stop Date Status Note LastModified by Organization Details LastModified Time Prescript ion - Renewal 10/27 completed Refill on Fenofibr ate. Not Available Not Available Not Available sucralfat e tab 1gm 10/22 completed Not Available Not Available Not Available celebrex cap 200mg active Not Available Not Available No t Available hydroco/a pap tab 5-500mg active takes intermit tently, stop it in last week Not Available Not Available Not Available sulfacet sod steffen 10% op active Not Available Not Available Not Available halflytel y kit flav pks 10/22 completed Not Available Not Available Not Available fenofibra te tab 145mg 10/22 completed Not Available Not Available Not Available oxycod/ap ap tab 5-325mg active Not Available Not Available Not Available amitripty nati tab 10mg active Not Available Not Available Not Available tricor tab 145mg active Not Available Not Available No t Available levothyro manolo tab 50mcg active Not Available Not Available Not Available vitamin d cap 17657nfx active Not Available Not Available Not Available transderm -sc dis 1.5mg active Not Available Not Available Not Available amox/k clav tab 875mg 10/22 completed Not Available Not Available Not Available Prescript ion - Clarifica tion 10/27 completed Not Available Not Available Not Available Prescript ion - Prior Authoriza tion Request 05/26 completed Not Available Not Available Not Available pantopraz ole tab 40mg active Not Available Not Available Not Available lovaza cap 1gm active Not Available Not Available Not Available Hydromet 5 mg-1.5 mg/5 mL oral syrup take 1 to 2 teaspoon ful by mouth every 6 hours if needed NO TRACTOR USE 02/02 completed Not Available Not Available Not Available cyclobenz aprine 10 mg tablet TK 1 T PO BID active Not Available Not Available No t Available amoxicill in 500 mg capsule 02/11 completed Not Available Not Available Not Available atorvasta tin 80 mg tablet TAKE 1 TABLET BY MOUTH EVERY DAY 06/05 completed Not Available Not Available Not Available doxycycli ne hyclate 100 mg capsule 2 tabs one time at the time of the bite 04/14 completed Not Available Not Available Not Available Carafate 100 mg/mL oral suspensio n take 10 millilit ers (2 teaspoon fuls) by mouth twice a day for 3 weeks active Not Available Not Available No t Available nabumeton e 750 mg tablet 08/29 completed Not Available Not Available Not Available trazodone 50 mg tablet 08/31 completed Not Available Not Available Not Available triamcino lone acetonide 0.5 % topical cream apply to affected area twice a day as directed 02/24 completed Not Available Not Available Not Available cetirizin e 10 mg tablet Take 1 tablet every day by oral route. 05/10 completed Not Available Not Available Not Available azithromy barry 250 mg tablet 2 tabs on day 1 and 1 tab daily for the remainin g 4 days 04/14 completed Not Available Not Available Not Available Gas-X Extra Strength 125 mg chewable tablet 08/31 completed Not Available Not Available Not Available tizanidin e 4 mg tablet TAKE 1 TABLET TWICE A DAY NEEDED FOR BACK PAIN 08/31 completed Not Available Not Available Not Available benzonata te 200 mg capsule Take 1 capsule 3 times a day by oral route. 08/29 completed Not Available Not Available Not Available hydrocort isone valerate 0.2 % topical cream APPLY A THIN LAYER TO THE AFFECTED AREA(S) BY TOPICAL ROUTE 2 TIMES PER DAY 06/05 completed Not Available Not Available Not Available Vicodin 5 mg-500 mg tablet Take 1 tablet every 4 hours by oral route. 2011 active Not Available Not Available Not Avai lable valacyclo vir 1 gram tablet Take 1 tablet every 8 hours by oral route for 7 days. 02/24 completed Not Available Not Available Not Available clarithro mycin 500 mg tablet take 1 tablet by mouth every 12 hours 06/13 completed Not Available Not Available Not Available hydrocodo ne 5 mg-acetam inophen 325 mg tablet TAKE 1 TABLET BY MOUTH EVERY 12 HOURS NEEDED FOR PAIN active Not Available Not Available No t Available Claritin 10 mg tablet 05/10 completed Not Available Not Available Not Available meloxicam 15 mg tablet 08/29 completed Not Available Not Available Not Available sucralfat e 1 gram tablet take 1 tablet by mouth four times a day before meals and at bedtime active Not Available Not Available No t Available prednison e 20 mg tablet Take 1 tablet every day by oral route for 5 days. 08/29 completed Not Available Not Available Not Available isosorbid e mononitra te ER 30 mg tablet,ex tended release 24 hr take 1 tablet by mouth once daily 01/05 completed Not Available Not Available Not Available moxifloxa barry 400 mg tablet Take 1 tablet every day by oral route for 10 days. 01/16 completed Not Available Not Available Not Available amlodipin e 2.5 mg tablet 02/02 completed Not Available Not Available Not Available clopidogr el 75 mg tablet TAKE 1 TABLET BY MOUTH DAILY active Not Available Not Available No t Available amlodipin e 5 mg tablet TAKE 1 TABLET BY MOUTH DAILY 2023 active Not Available Not Available Not Avai lable sulfameth oxazole 800 mg-trimet hoprim 160 mg tablet Take 1 tablet every 12 hours by oral route for 10 days. 03/18 completed Not Available Not Available Not Available aspirin 81 mg tablet,de layed release active Not Available Not Available Not Available tramadol 50 mg tablet 04/14 completed Not Available Not Available Not Available bisoprolo l fumarate 5 mg tablet 04/14 completed Not Available Not Available Not Available Celebrex 200 mg capsule 06/28 completed Not Available Not Available Not Available oxycodone -acetamin ophen 5 mg-325 mg tablet Take 1 tablet every 6 hours by oral route. 08/29 completed Not Available Not Available Not Available isosorbid e mononitra te ER 60 mg tablet,ex tended release 24 hr take 1 tablet by mouth once daily 02/02 completed Not Available Not Available Not Available terbinafi ne HCl 250 mg tablet TAKE 1 TABLET BY MOUTH ONCE DAILY DO NOT DRINK ALCOHOL WHILE ON THIS MEDICATI ON 05/12 completed Not Available Not Available Not Available famotidin e 20 mg tablet TAKE 1 TABLET BY MOUTH TWICE A DAY active hold 05/10/24 Not Available Not Available Not Available hydrocort isone valerate 0.2 % topical ointment APPLY A THIN LAYER TO THE AFFECTED AREA(S) TOPICALL Y TWICE DAILY 02/24 completed Not Available Not Available Not Available tamsulosi n 0.4 mg capsule TAKE 1 CAPSULE BY MOUTH TWICE DAILY active Not Available Not Available No t Available betametha sone valerate 0.1 % topical cream APPLY A THIN LAYER TO AFFECTED AREA TOPICALL Y ONCE DAILY 06/05 completed Not Available Not Available Not Available ciproflox acin 0.3 % eye drops INSTILL 1 DROP INTO AFFECTED EYE(S) EVERY 2 HRS. WHILE AWAKE X2 D... (REFER TO PRESCRIP TION NOTES). 02/24 completed Not Available Not Available Not Available sulfaceta mide sodium 10 % eye drops Instill 2 drops 4 times a day by ophthalm ic route as directed for 4 days. 12/11 completed Not Available Not Available Not Available flunisoli de 25 mcg (0.025 %) nasal spray Deputy 2 sprays twice a day by intranas al route. 02/24 completed Not Available Not Available Not Available levothyro xine 50 mcg tablet TAKE 1 TABLET BY MOUTH DAILY 2023 active Not Available Not Available Not Avai lable cephalexi n 500 mg capsule Take 1 capsule every 6 hours by oral route for 10 days. 03/06 completed Not Available Not Available Not Available pantopraz ole 40 mg tablet,de layed release TAKE 1 TABLET BY MOUTH TWICE DAILY 2023 active decrease to one po qd Not Available Not Available Not Available erythromy barry 5 mg/gram (0.5 %) eye ointment APPLY 1 CM. RIBBON INTO THE LOWER CONJUNCT IVAL SACS IN THE AFFECT.. . (REFER TO PRESCRIP TION NOTES). 04/14 completed Not Available Not Available Not Available Guaifenes in AC 10 mg-100 mg/5 mL oral liquid Take 10 mL every 4 hours by oral route. 02/24 completed Not Available Not Available Not Available hyoscyami ne 0.125 mg sublingua l tablet dissolve 1 tablet under the tongue twice a day for 4 weeks active Not Available Not Available No t Available nitroglyc richie 0.4 mg sublingua l tablet place 1 tablet under the tongue if needed every 5 minutes for chest pain x 3. If no relief after 3 call 911 05/10 completed Not Available Not Available Not Available betametha sone, augmented 0.05 % topical ointment 10/27 completed Not Available Not Available Not Available gabapenti n 300 mg capsule take 2 capsules by mouth three times a day 02/24 completed Not Available Not Available Not Available omeprazol e 20 mg capsule,d elayed release take 1 capsule by mouth twice a day 02/24 completed Not Available Not Available Not Available mupirocin 2 % topical ointment APPLY A SMALL AMOUNT TO THE AFFECTED AREA BY TOPICAL ROUTE 3 TIMES PER DAY 05/12 completed Not Available Not Available Not Available metoprolo l succinate ER 25 mg tablet,ex tended release 24 hr take 1 tablet by mouth once daily 02/24 completed Not Available Not Available Not Available azelastin e 137 mcg (0.1 %) nasal spray instill 1 spray into each nostril twice a day for 10 days 06/29 completed Not Available Not Available Not Available cefuroxim e axetil 500 mg tablet take 1 tablet by mouth every 12 hours for 7 days 02/02 completed Not Available Not Available Not Available methylpre dnisolone 4 mg tablets in a dose pack 09/10 completed Not Available Not Available Not Available Vitamin D2 1,250 mcg (50,000 unit) capsule Take 1 capsule every week by oral route as directed . 04/14 completed Not Available Not Available Not Available colchicin e 0.6 mg tablet active hold 05/10/24 Not Available Not Available Not Available fluticaso ne propionat e 50 mcg/actua tion nasal spray,neeraj pension INSTILL 2 SPRAYS INTO EACH NOSTRIL EVERY DAY 2022 active Not Available Not Available Not Avai lable metformin ER 500 mg tablet,ex tended release 24 hr TAKE 1 TABLET BY MOUTH TWICE DAILY active hold 05/10/24 Not Available Not Available Not Available sertralin e 50 mg tablet Take 1 tablet every day by oral route. 04/14 completed Not Available Not Available Not Available cholecalc iferol (vitamin D3) 125 mcg (5,000 unit) capsule active Not Available Not Available Not Available atovaquon e 750 mg/5 mL oral suspensio n Take 5 mL twice a day by oral route for 10 days. 04/14 completed Not Available Not Available Not Available amoxicill in 875 mg-potass ium clavulana te 125 mg tablet Take 1 tablet twice a day by oral route for 7 days. 10/05 completed Not Available Not Available Not Available oxycodone 5 mg tablet 08/29 completed Not Available Not Available Not Available Restasis 0.05 % eye drops in a dropperet te INSTILL 1 DROP INTO AFFECTED EYE(S) BY OPHTHALM IC ROUTE EVERY 12 HOURS 2023 active Not Available Not Available Not Avai lable rosuvasta tin 10 mg tablet Take 1 tablet every day by oral route. 09/05 completed Not Available Not Available Not Available rosuvasta tin 20 mg tablet TAKE 1 TABLET BY MOUTH DAILY active rec, decrease to half tablet or 10 mg Not Available Not Available Not Available duloxetin e 30 mg capsule,d elayed release TAKE 1 CAPSULE BY MOUTH DAILY 03/18 completed Not Available Not Available Not Available omega-3 acid ethyl esters 1 gram capsule TAKE 2 CAPSULES TWICE A DAY active Not Available Not Available No t Available Pain Relief Extra Strength (acetamin ophen) 500 mg tablet active Not Available Not Available Not Available Atrovent HFA 17 mcg/actua tion aerosol inhaler instill 2 sprays into each nostril three times a day 06/05 completed Not Available Not Available Not Available Lyrica 75 mg capsule 07/28 completed Not Available Not Available Not Available ranolazin e ER 500 mg tablet,ex tended release,1 2 hr Take 1 tablet twice a day by oral route. 02/02 completed Not Available Not Available Not Available ProAir HFA 90 mcg/actua tion aerosol inhaler inhale 2 puffs by mouth every 6 hours to every 8 hours as directed 02/24 completed Not Available Not Available Not Available fenofibra te nanocryst allized 145 mg tablet TAKE ONE TABLET BY MOUTH EVERY DAY 2023 active Not Available Not Available Not Avai lable cholecalc iferol (vitamin D3) 25 mcg (1,000 unit) tablet 09/11 completed Not Available Not Available Not Available Veramyst 27.5 mcg/actua tion nasal spray,neeraj pension Deputy 2 sprays every day by intranas al route. 03/07 completed Not Available Not Available Not Available ranolazin e ER 1,000 mg tablet,ex tended release,1 2 hr 02/02 completed Not Available Not Available Not Available [place] 3-6-9 (with lipase) 40 mg-60 mg-10 unit capsule 10/27 completed omega 3 non formular y Not Available Not Available Not Available melatonin 5 mg tablet take 1 tab 45 min before bed. May repeat x 1 before 1 AM 2022 active Not Available Not Available Not Avai lable Prevnar 13 (PF) 0.5 mL intramusc ular syringe inject 0.5 millilit er intramus cularly 10/27 completed Not Available Not Available Not Available Probiotic 10 billion cell capsule Take 1 capsule twice a day by oral route for 7 days. 2014 active Not Available Not Available Not Avai lable Halflytel y-Bisacod yl w-Flavor Pack 5 mg-210 gram oral kit use as directed active Not Available Not Available No t Available loratadin e 10 mg capsule Take by oral route. 03/12 completed Not Available Not Available Not Available Probiotic Digestive Care 20 billion cell capsule take 1 capsule by mouth twice a day active Not Available Not Available No t Available Shingrix (PF) 50 mcg/0.5 mL intramusc ular suspensio n, kit 08/31 completed Never received due to out of stock and [facility] kept giving him excuses Not Available Not Available Not Available Fluad Quad (65yr up)(PF) 60 mcg (15 mcg x 4)/0.5mL IM syringe PHARMACY ADMINIST ERED 08/31 completed Not Available Not Available Not Available [employer] COVID-19 Vaccine (PF) 30 mcg/0.3 mL IM susp (purple) ADMINIST ER 0.3ML IN THE MUSCLE DIRECTED 08/31 completed Not Available Not Available Not Available Vitals Date Recorded Body height Body temperature Heart rate Oxygen saturation Oxygen saturation in Arterial blood by Pulse oximetry Systolic blood pressure Diastolic blood pressure Provider Name and Address Organization Details Last Updated DateTime 173.36 cm 99.2 [degF] 41 /min 95 % 95 % 142 mm[Hg] 64 mm[Hg] Amy Blackwell [facility] [employer] 4 10:13:33 Date Recorded Body mass index (BMI) Body weight Provider Name and Address Organization Details Last Updated DateTime 05/10/2024 24.2 kg/m2 04533.18 g Fani Chew, [address], [address], [facility] [employer] [facility] 05/10/2024 10:23:30 Social History Question Answer Notes LastModified by Organizat ion Details LastModified Time Tobacco Smoking Status Never Smoker 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 Yes Information not available 06/14/2013 What Is Your Level Of Alcohol Consumption? None Information not available 06/14/2013 Are You Blind Or Do You Have Difficulty Seeing? No Information not available 03/12/2021 What Is Your Level Of Caffeine Consumption? Occasional 1 Cup Of Coffee/week [email or web address] Information not available 05/10/2024 How Much Tobacco Do You Chew? None Information not available 03/07/2016 In The 14 Days Before Symptom Onset, Have You Had Close Contact With A Laboratory-confi rmed COVID-19 While That Case Was Ill? No Information not available 10/28/2019 In The 14 Days Before Symptom Onset, Have You Had Close Contact With A Person Who Is Under Investigation For COVID-19 While That Person Was Ill? No Information not available 10/28/2019 Have You Been To An Area Known To Be High Risk For COVID-19? No No Known Exposure Information not available 10/28/2019 Are You Deaf Or Do You Have Serious Difficulty Hearing? No Information not available 03/12/2021 What Type Of Diet Are You Following? REGULAR Information not available 03/12/2021 Which Illicit Or Recreational Drugs Have You Used? None Information not available 06/05/2020 Do You Or Have You Ever Used E-cigarettes Or Vape? Never Used Electronic Cigarettes Information not available 02/02/2019 What Is Your Occupation? Retired Information not available 2016 Hard Of Hearing Or Deaf In One Or Both Ears? No Information not available 06/14/2013 Legally Blind In One Or Both Eyes? No Information not available 06/14/2013 Foreign Travel No Informatio n not available 03/07/2016 Do You Have A Family History Of Mental Health Or Substance Abuse? No Information not available 06/14/2013 Other Recreational Drugs No Information not available 06/05/2020 Language Kazakh Information no t available 03/07/2016 Country Of Origin [facility] Information not available 03/07/2016 Dietary Regular Information no t available 03/07/2016 Marital Status [email or web address] Informatio n not available 12/08/2011 What Was The Date Of Your Most Recent Tobacco Screening? 05/10/2024 [email or web address] Information not available 05/10/2024 How Many Children Do You Have? 3 Information not available 06/14/2013 Obese No Information no t available 03/07/2016 Overweight No Information no t available 03/07/2016 Do You Have Any Pets? Yes Information not available 03/12/2021 What Is Your Relationship Status? Information not available 03/12/2021 Do You Use Your Seat Belt Or Car Seat Routinely? Yes Information not available 03/12/2021 Seat Belts Used Routinely Yes Information not available 06/14/2013 Smoke Alarm In Home Yes Information not available 06/14/2013 Do You Have Smoke And Carbon Monoxide Detectors In Your Home? Yes Information not available 03/12/2021 At What Age Did You Start Smoking Tobacco? 0 Information not available 2016 Are You Passively Exposed To Smoke? No Information not available 03/07/2016 Do You Or Have You Ever Used Smokeless Tobacco? Never Used Smokeless Tobacco Information not available 02/02/2019 How Much Tobacco Do You Smoke? No Information not available 2016 General Stress Level Medium Information not available 09/30/2017 Do You Use Any Illicit Or Recreational Drugs? No [email or web address] Information not available 03/12/2021 Do You Use Sunscreen Routinely? No Information not available 03/07/2016 How Many Years Have You Smoked Tobacco? 0 Information not available 2016 Do You Or Have You Ever Used Any Other Forms Of Tobacco Or Nicotine? No [email or web address] Information not available 09/30/2021 Sex: Male Functional Status Question Answer Note LastModified by Organizat ion Details LastModified Time What is your exercise level? Occasional Information not available 2016 Mental Status None recorded. Family History Relationship Description Onset Age of this Age Resolved Age Notes LastModified by Organization Details LastModified Time Mother Myocardial infarction 62 [email or web address] Not available 07/24 13:27:50 Father Malignant tumor of lung 85 [email or web address] Not available 08/13 13:27:50 Medical History Condition Response Cardiac History, Heart Murmur, [place] Y Arthritis Y Chronic Pain Y Blood Pressure High or Low Y Immunizations Vaccine Type Date Status Note Provider Nam e and Address Organization Details Recorded Time Influenza, MDCK, quadrivalent, preservative 7 completed Not Available [facility] 06/11/2019 02:39:49 Influenza, MDCK, quadrivalent, preservative 8 completed Not Available [facility] 06/11/2019 02:40:35 Influenza, MDCK, quadrivalent, preservative 9 completed Not Available [facility] 06/11/2019 02:41:37 Influenza, MDCK, quadrivalent, preservative 1 completed NOHEMY Perez, [place] - [facility] 03/19/2021 09:10:23 zoster recombinant 1 completed NOHEMY Perez, [place] - [facility] 04/30/2021 14:54:36 COVID-19, mRNA, LNP-S, PF, 30 mcg/0.3 mL dose, maritza-sucrose 2 completed Michael Dickens [address] [place] [address], [phone], [facility] 10/08/2021 15:40:50 Td (adult), 2 Lf tetanus toxoid, preservative free, adsorbed 2 completed Carito Menendez CMA [facility], [facility] [employer] [facility] 10/09/2021 08:18:50 Influenza, split virus, quadrivalent, PF 2 completed La Hickman, [address] [place], [phone], [facility] [facility] 03/21/2022 13:46:25 COVID-19, mRNA, LNP-S, bivalent, PF, 30 mcg/0.3 mL dose 2 completed Bette Yao [address] [place] [address], [phone], [facility] [employer] [facility] 05/21/2022 10:41:32 Influenza, split virus, quadrivalent, PF 3 completed La Hickman RN [address] [place] [address], [phone], [facility] [employer] [facility] 03/11/2023 11:08:35 Tdap 2 completed Not Available [facility] 06/11/2019 02:40:05 RSV, recombinant, protein subunit RSVpreF, adjuvant reconstituted, 0.5 mL, PF 4 completed GREG Solomon [address] [place] [address], [phone], [facility] [employer] [facility] 05/27/2023 09:25:56 Influenza, split virus, trivalent, PF 4 completed Jennifer Moyer [address] [place] [address], [phone], [facility] 03/11/2024 11:18:14 Influenza, split virus, trivalent, preservative 3 completed Not Available [facility] 06/11/2019 02:38:29 Influenza, split virus, trivalent, preservative 4 completed Not Available [facility] 06/11/2019 02:38:39 Influenza, split virus, quadrivalent, preservative 0 completed Hollie Wakefield [employer] MARKET[employer]NA[employer] null, [facility] 09/11/2023 10:29:49 COVID-19, mRNA, LNP-S, PF, 30 mcg/0.3 mL dose 1 completed Hollie Wakefield FI[employer] MARKETING MANAGER null, [facility] 03/18/2023 07:31:17 COVID-19, mRNA, LNP-S, PF, 30 mcg/0.3 mL dose 1 completed Hollie Wakefield FI[employer] MARKETING MANAGER null, [facility] 03/18/2023 07:31:17 COVID-19, mRNA, LNP-S, PF, 100 mcg/0.5mL dose or 50 mcg/0.25mL dose 1 completed Hollie Wakefield FI[employer] MARKETING MANAGER null, [facility] 03/18/2023 07:31:17 Pneumococcal conjugate PCV 13 8 completed Hollie Wakefield FIELD MARKETING MANAGER null, [facility] 03/18/2023 07:31:17 Tdap 2 completed Not Available [facility] 06/11/2019 02:40:18 Td(adult) unspecified formulation 1 completed Hollie Wakefield FIELD MARKETING MANAGER null, [facility] 03/18/2023 07:31:17 Influenza, adjuvanted, quadrivalent, PF 0 completed Hollie Wakefield FIELD MARKETING MANAGER null, [facility] 09/11/2023 10:29:49 Influenza, split virus, trivalent, preservative 2 completed Not Available [facility] 06/11/2019 02:38:27 Past Encounters Encounter ID Performer Location Encounter Start Date Encounter Closed Date Diagnosis/Indication Diagnosis SNOMED-CT Code Diagnosis ICD10 Code Diagnosis Note [id number] [address] 12/08/2011 10:32:39 12/08/2011 11:42:[id number] [address] 01/07/2012 07:18:06 01/07/2012 08:27:42 [id number] Allyssa Pearson MD [address] [address] 02/25/2012 08:52:31 02/25/2012 10:19:59 [id number] Rachel Talavera MD [address] [address] 07/19/2012 09:54:54 07/19/2012 10:37:39 [id number] Fela Vallejo [address] [address] 10/22/2012 07:54:28 10/22/2012 08:49:20 [id number] Hamilton Cantu [employer] [address] [address] 11/03/2012 08:23:38 11/03/2012 09:11:30 [id number] Rachel Talavera MD [address] [address] 03/14/2013 09:10:37 03/14/2013 09:27:51 Influenza vaccine needed [id number] Hamilton Wilkinson CMA [address] [address] 06/14/2013 11:04:46 06/14/2013 12:08:42 Coronary arteriosclerosis 60955660 continue meds as recommende d fu w Cardiology Benign ess ential hypertension 1074672 BP contol [place] Hyperlipidemia 15258048 would keep him on the fenofibrat e plus statin Impaired f asting glycemia 518086068 a1c was 6.3 prediabete s present Hypothyroidism 32511725 [id number] Rachel Talavera MD [address] [address] 07/14/2013 09:56:31 07/14/2013 11:59:29 Coronary arteriosclerosis 17777535 Mixed hyperlipidemia 992165363 Benign ess ential hypertension 6364768 Hyperlipidemia 82435838 Impaired f asting glycemia 387077157 [id number] Rachel Talavera MD [address] [address] 08/05/2013 10:13:37 08/05/2013 10:56:45 Coronary arteriosclerosis 98370264 reviewed records from 06/28/13 Benign ess ential hypertension 4375109 BP contol [place] Hyperlipidemia 30836046 lipid results were quite low Degenerati on of lumbar intervertebral disc 39893109 might benefit from aquatic rx but declines referral at this time Rheumatoid arthritis 70826739 stable on no meds [id number] Rachel Talavera MD [address] [address] 08/11/2013 09:55:30 08/11/2013 11:41:19 Hyperlipidemia 22885018 Impaired f asting glycemia 592604794 Mixed hyperlipidemia 374592411 [id number] Emmadariana Cardoso [address] [address] 10/07/2013 07:22:10 10/07/2013 11:08:28 Viral bronchitis 74056391 likely viral usual recs Malaise 011410505 doubt Lyme, tick bites at least 3 weeks ago so will test also TSH and CBC [id number] [address] [address] 01/06/2014 09:56:19 01/06/2014 10:41:12 Malaise 314561920 may be related to sleep issues trial trazodone seems worthwhile side effects discussed Hyperlipidemia 18929778 lipid results were quite low Benign pro static hyperplasia 027436917 likely trial Javier Thompson will contact me if ineffectiv e will check prostate on annual exam Coronary arteriosclerosis 78731207 I do not suspect significan t angina he will contact me if any change declined an EKG today will be seeing Dr Prasad next mo [id number] [address] [address] 03/14/2014 13:35:22 03/14/2014 14:07:32 Influenza vaccine needed [id number] Chloe Tirado LPN [address] [address] 07/28/2014 09:54:54 07/28/2014 10:23:23 Sinusitis 90720155 Patient with 1.5 weeks of URI symptoms with initial improvemen t, then developing left facial and teeth pain. Exam with focal left maxillary sinus tenderness , concerning of acute bacterial infection. Will treat at this time. Advised against oral decongesta nts 2/2 cardiac history. Return precaution s given. [id number] Hamilton Cantu [employer] [address] [address] 08/23/2014 10:53:25 08/23/2014 11:35:37 Recurrent sinusitis 521646495 Treated / for bacterial sinusitis with 5 days of Augmentin. Improved however symptoms since recurred, worsening in the past 2-3 days. Predominan tly left sided leading to left ear, eye, face, and teeth symptoms. Will broaden Abx coverage. Advised vaseline to nares to trap moisture. Patient will trial nasal rinses as well. If symptoms not improved in 2-[address] sinuses and ENT referral. [id number] Chica Vergara [address] [address] 01/16/2015 09:30:58 01/16/2015 10:32:31 External hordeolum [id number] Va Jang [address] [address] 01/30/2015 14:24:13 01/30/2015 14:49:34 External hordeolum [id number] Left eye x 2 weeks ~1cm, Right eye x 1-2 days, <0.5cm. No sign of superinfec tion. Patient did not use compresses as directed. -Cont abx treatment to both eyes -Trial zyrtec for itching and potential allergic component. -Warm compresses QID until improved. -If no relief in 2-4 more weeks consider Optho referral for surgical drainage or intralesio n steroid injection. [id number] GREG Solomon [address] [address] 05/29/2015 10:22:32 05/29/2015 11:25:04 Dyspnea 557564542 R06.00 Injury of kidney 5225410 3 S37.009A Upper resp iratory infection 02649599 J06.9 [id number] Rachel Talavera MD [address] [address] 06/05/2015 13:27:43 06/05/2015 14:08:12 Keratosis 242878038 L57.0 The one on his temples likely seborrheic but he wants Dr. Molina to check it. Low back pain 525466768 M54.5 Usual exercise regimen recommende d. Eczema 86471652 L30.9 Fairly significan t area about 4 cm across with some central clearing that is thickened. As he has itching will give him a potent triamcinol one cream to apply twice a day, and follow-up will be here or with Dr. Molina. Coronary arteriosclerosis 99856288 I25.10 Seems under control at this time on current medication s. Degenerati on of lumbar intervertebral disc 62400731 M51.36 Hyperlipidemia 84115873 E78.5 Had concerns about elevated triglyceri de we discussed diet and he has already had recommenda tions from nutrition on this and he understand s he needs to cut back on carbohydra jesus but I did not feel it was of concern. [id number] Rachel Talavera MD [address] [address] 06/25/2015 11:06:12 06/25/2015 11:53:13 Upper respiratory infection 06246984 J06.9 I told him that I did not think antibiotic s are indicated that should resolve on its own I encouraged using vitamin C supplement s zinc fluids etc. He will call me if he is not improving over the next week. [id number] GREG Solomon [address] [address] 08/14/2015 13:18:48 08/14/2015 14:00:09 Jaw pain 037797657 R68.84 Allergic rhinitis 742279 04 J30.9 [id number] GREG Solomon [address] [address] 2016 13:52:04 2016 14:33:04 Cellulitis 364263406 L03.90 Area explored for FB and none found. Area washed with soap and water and bacitracin and DSD applied. Wound marked for comparison . Tdap 2011 Fatigue 67731389 R53.83 Some basic fatigue labs. Dr. Talavera and follow from here if she wishes to pursue further studies. [id number] Bonifacio Garduno MD [address] [address] 01/30/2016 10:15:04 01/30/2016 10:48:44 Cellulitis 237431481 L03.90 Left forearm cellulitis resolving on bactrim. Advised to complete course. Small subcutaneo us nodule remains, mildly tender. If persistent or worsening consider U/S. Lymph node v. reactive tissue v. embedded foreign body. Low back pain 162575214 M54.5 Bilateral intermitte nt iliac crest pain. Not SI joint. Long history of back surgery and loss of lumbar lordosis. Patient is going to check already ordered labs. Was told at one time not to take NSAIDs due to his heart, unclear reasoning at this time. He will discuss with his PCP. [id number] Hamilton Cantu [employer] [address] [address] 5 03/07/2016 10:28:08 03/07/2016 11:32:21 Atypical facial pain 28079206 G50.1 I think that this may be allergies, because this is the 3rd year in the early fall he has had it. He may have contact dermititis on eye lids. Avoid rubbing. Conjunctivitis 4069696 H 10.9 Will treat for conjunctiv itis of the left eye Allergic rhinitis 459258 04 J30.9 Supportive measures and will try the name brand here to try to reduce histamine filled tears from running down nose to improve nasal/faci al symptoms. If insurance will not cover it, will use another nasal steriod. He did report improvemen t last time. Netti pot as well. Addendum: Veramyst not covered, so sent in fluticason e nasal spray [id number] GREG Solomon [address] [address] 5 03/18/2016 13:50:35 03/18/2016 14:49:51 Jaw pain 226406594 R68.84 encouraged gum and sucking use for stretching masseter muscles. We will refer him to ENT and dental for likely TMJ. It is only on the left side. May be arthritic changes secondary to old trauma. Unsure of its etiology or why it occurs only in the fall. [id number] Hamilton Pepe, [address] [address] 06/13/2016 11:01:40 06/13/2016 12:00:40 Acute sinusitis 57501164 J01.90 I think this is reactivati on of his sinusitis. He is going to call Dr. Jane and move his appointmen t up. Supportive measures. [id number] Hamilton Cantu [employer] [address] [address] 5 07/01/2016 09:43:35 07/01/2016 10:28:11 Chronic sinusitis 64647990 J32.[address] Alonso. He will get records from Dr. Jane. Same supportive measures. Will treat for 14 days with antibiotic and probiotics . Discussed the diarrhea risk. [id number] Hamilton Cantu [address] [address] 5 12/24/2016 07:58:17 12/24/2016 09:13:33 Coronary arteriosclerosis 18902172 I25.10 will get another EKG today to make sure there are no changes. Note prolonged abel. If he has another episode, use NTG and go to ED. He will try the BB at night to reduce symptoms. Chest pain 74039331 R07. 9 Negative work up in ED. Will follow with cardiology next week. [id number] Rachel Talavera MD [address] [address] 5 12/29/2016 13:30:53 12/29/2016 14:27:07 Chest pain 57939809 R07.9 I suspect the cardiogram done on December 24 had the wrong lead placement and should be discarded. There are no changes in his recent cardiogram and he says he feels well without recurrent episodes of chest pain different from baseline. [id number] Bonifacio Garduno MD [address] [address] 03/18/2017 10:23:17 03/18/2017 10:49:40 Administration of influenza vaccine 80719699 Z23 [id number] Hamilton Cantu [employer] [address] [address] 5 04/10/2017 12:20:02 04/10/2017 13:07:21 Contact dermatitis 57327678 L25.9 Likely a contact dermatitis on his left hand. Suggest he throw away his work gloves. Use the cream bid, avoid getting it on his face-so get a white cotton glove for the left hand. Will follow in 2 weeks. [id number] Rachel Talavera MD [address] [address] 5 05/26/2017 10:57:19 05/26/2017 11:21:43 Cough 60074982 R05 Discussion , doubt antibiotic s indicated, codeine for cough, if not improving over the next week he will contact me. Benign ess ential hypertension 3592578 I10 BP contol OK Coronary arteriosclerosis 92077435 I25.10 Followed by cardiology [id number] Rachel Talavera MD [address] [address] 06/02/2017 14:26:10 06/02/2017 15:10:32 Low back pain 833615010 M54.5 using Tylenolsho uld improve Recurrent sinusitis 1956 79979 J32.9 Agree to give a course of antibiotic s, he will contact us if he is not improving. [id number] Rachel Talavera MD [address] [address] 5 07/16/2017 10:00:08 07/16/2017 10:40:41 Right flank pain 382483780 R10.9 Negative dipstick, will send urine and order an ultrasound of the kidney to look for cause of his pain. He says he is going to use Tylenol for pain and did not request anything else. Encourage fluids, straining urine etc. He will contact us if he is not improving. Degenerati on of lumbar intervertebral disc 83308437 M51.36 Results of MRI pending, he will contact us about recommenda tions. [id number] GREG Solomon [address] [address] 07/28/2017 10:55:44 07/28/2017 11:43:44 Herpes zoster 6032952 B02.9 Will treat with gabapentin and Shingles cream from [employer]. Discussed side effects. No driving or use of tractor. RTO as noted SChedule written out for pt.. [id number] GREG Solomon [address] [address] 08/19/2017 08:13:39 08/19/2017 08:49:11 Herpes zoster 7464429 B02.9 He is decreasing his dose of gabapentin . Currently 300 mg tid. Will decrease next week to 300/0/300 mg, then 0/0/300mg, then finally stop. They dose changes can be 5-7 days apart. Continue using the cream . Shingrix in November. [id number] Allyssa Pearson MD [address] [address] 5 09/11/2017 08:59:22 09/11/2017 10:06:21 Dyspnea 719243210 R06.00 Coronary arteriosclerosis 66679838 I25.10 will get another EKG today to make sure there are no changes.09 35 hrs: 0.4 mg NTG AM8181 hrs: 110/80-68- pt feels much better-SOB resolved. NO CP -slight lightheade [id number] hrs: 124/80-64- Spoke to Dr. Crowley of cardiology . Discussed the case with him and wants the patient transferre d to ED. Discussed case with patient and . Pt refuses EMS. will bring pt to ED. Staff called report to [facility] ED. copies of VS and EKG given to .0955 hrs: 122/84-641 000 hrs 124/82-65 Pt will f/u here upon release from [facility] [id number] GREG Solomon [address] [address] 09/30/2017 10:42:34 09/30/2017 11:48:17 Acute sinusitis 74639930 J01.90 Will treat move aggressive ly for several reasons:-manohar [place] is scheduled for a cardiac cath in 5 days, that they will cancel if he is still sick- he has a nasal polyp that makes a URI turn into sinusitis easily-his has been pretty sick and just recently went on antibiotic s for the same.Will hold steriods, will give him a inhaler for coughHe will return next week, but will schedule after the cardiac cath [id number] GREG Solomon [address] [address] 02/24/2018 14:11:49 02/24/2018 15:15:04 Pruritic rash 02142357 L28.2 Will refer to Derm. He will get us the name of the Derm he wants to see Influenza vaccine needed [id number] 106 Z23 flu today Active or passive immunization 816037337 Z23 PCV 13 ordered. Discussed immunizati ons in detaio. Hypothyroidism 09415998 E03.9 will check labs as part of the fatigue work up Fatigue 94145557 R53.83 I believe his fatigue is multi-fact orial. Part medication -causing him not to sleep and to be sleepy, part his cardiac condition with less than optimal perfusion, part lack of activity. Will communicat e with cardiology and see if there is anything that can be done with his medication s. Additional ly, I am concerned with the fenofibrat e and statin use. Reviewed labs from 2 mos ago, and the TRGs are above goal still. He is less than happy with his experience with the cardiology office in [place] . I am sorry for that. Always sleepy 883118014 G47.10 [id number] GREG Solomon [address] [address] 5 03/30/2018 10:43:25 03/30/2018 16:13:24 Acute sinusitis 28182495 J01.90 He should continue his claritin daily and should restart his flonase. Will treat for sinusitis, he has a cardiac procedure scheduled for Thursday and it is important he can tolerate it.Discuss ed supportive care measures including saline nasal spray, steam therapy, warm compresses . [id number] GREG Solomon [address] [address] 04/13/2018 10:09:49 04/13/2018 10:45:16 Acute sinusitis 52328181 J01.90 He should continue his claritin daily. Will treat for sinusitis, he has a cardiac procedure scheduled for Thursday and it is important he can tolerate it.Teachdavid dudley included netti pot use. Discussed supportive care measures including saline nasal spray, steam therapy, warm compresses . [id number] GREG Solomon [address] [place] [address] 04/27/2018 08:55:21 04/27/2018 15:37:10 Chronic sinusitis 19426040 J32.[address] Alonso, has seen him in the past. Same supportive measures, continue claritin and mucinex OTC. Benign ess ential hypertension 6367106 I10 His BP is elevated at this visit. Pt reports seeing cardiology yesterday who increased his medication , suspect his Isosorbide . No further medication changes at this time, will claim review medical director note when available. Close follow-up. Discussed cardiovasc ular risk re: HTN. Continue TLC: low sodium diet, exercise as tolerated, medication adherence. [id number] GREG Solomon [address] [address] 11/09/2018 10:51:51 11/09/2018 11:30:53 Tick bite 60061171 W57.XXXA -will cover for the tick bite-he will be out on the tractor if the weather clears, so will try Ceftin-he will let u know if he develops a fever and body aches [id number] Chloe Tirado LPN [address] [address] 02/02/2019 10:41:20 02/02/2019 11:15:41 Osteoarthritis of hip 014529456 M16.9 -prednison e burst for pain-STAT referral back to Ortho-topi francis CBD cream and heat.-RTO as noted [id number] Hi Padron MD [address] [address] 5 03/09/2019 10:56:54 03/09/2019 11:17:21 Influenza vaccine needed 8458224055 106 Z23 [id number] GREG Solomon [address] [address] 5 10/28/2019 09:24:37 10/28/2019 10:39:02 Myalgia/myositis - multiple 443719268 M79.10 -multiple concerns for the cramps-antony k related, began before fall, but after first-also concerned because he is on a statin and fibrate-RL S is also a possibilit y-will also check electrolyt es,etc-uri ne looks good, will send for study-labs as noted Pseudomeningocele 392505 005 G96.19 -will have hime f/u with NS Dyslipidemia 108821617 E 78.5 -will check his lipid panel Backache 113932161 M54.9 -XRs for occult fx-he will not get the muscle relaxers until labs back Anemia screening 6494090 07 Z13.0 Lead screening 73243211 Z13.88 Dysuria 27306583 R30.9 -will check urine [id number] GREG Solomon [address] [address] 06/05/2020 14:11:56 06/05/2020 14:54:15 Screening for malignant neoplasm of prostate 525766254 Z12.5 -it has been several years since he has had a PSA. -will check given c/o Type 2 melissa betes mellitus without complication 834992991 E11.9 -he is due for labs Dysuria 12900941 R30.9 -will check urine - will bring in to the office in the AM. -will do urine dip, u/a and urine culture. --if all testing looks good, will consider tamsulosin [id number] GREG Solomon [address] [address] 06/20/2020 12:43:25 06/20/2020 13:25:14 Benign prostatic hyperplasia 692111937 N40.1 -Will try to increase the dose and have him split it to BID as daytime is the worse -it has improved night time some; down to twice nightly -will have him let me know in about 2 weeks -if not improved, consider referral -given his cardiac hx, am concerned about using other meds without speciality consultati on. [id number] GREG Solomon [address] [address] 07/10/2020 07:17:49 07/10/2020 08:14:30 Respiratory tract congestion and cough 126354413 R05 - from his descriptio ns, he has phelgm and that is what he tried to cough up -given his hx, I am concerned of CHF v. Pneumonia. -will get CXR -he can use the Musinex prn -will have him try cetirizine 10 mg once daily. the cetirizine , to replace the Claritan will help with any allergy component . Gastroesop hageal reflux disease 695029038 K21.9 -the burping and flatus, could be isolated, or it may relate to the the cold/aller gies he is experienci ng -it also may be food related -will give him a trial of famotidine to see if that calms down the acid. Benign pro static hyperplasia 092878805 N40.1 -much improved -no further treatment for now -PSA WNL [id number] GREG Solomon [address] [address] 07/20/2020 11:53:49 07/20/2020 12:58:48 Chronic sinusitis 05807051 J32.9 -Antibioti cs x 21 days -Netti pot -Align 2 tabs bid while onantibiot ics, but not taken at same time of day at antibiotic s -Will not improved, discussed that pt may need to go back to ENT; Dr. Alonso or other ENT of his choice. -Pt agrees -RTO as noted [id number] GREG Solomon [address] [address] 08/08/2020 08:33:43 08/08/2020 09:05:25 Chronic sinusitis 90861528 J32.9 -Augmentin not helpful -will try 7 days of doxycyline -referral to ENT -CT of sinus -fluticaso ne nasal spray -discussed his know pathology in detail; he has turbinate hypertroph y, deviated septum and chronic sinusitis. Dr. Alonso wanted surgery in 2019 and he did not want it. I am afraid it is getting worse -will check in in about 10-14 days [id number] GREG Solomon Karlo [address] [address] 08/31/2020 10:46:41 08/31/2020 14:43:12 Dysuria 98053505 R30.0 -will check urine - will bring in to the office (urine dip is negative) -he is on the max dose of tamulosin and it had been working great for him -his PSA was good when we checked it in May- -will check for infection -will check his diabetes -if they are both WNL, then will refer to -finasteri de is an option, but I donot have any evidence of BPH alone as a reason for his s/s -he may need further uro-dynami c testing, which I will leave to . Type 2 melissa betes mellitus without complication 460843596 E11.9 [id number] Ellen Vides, [address] [address] 10/10/2020 07:47:22 10/10/2020 09:57:24 Vertigo 110780858 R42 resolved continue meclizine at night to avoid daytime fatigue Dysfunctio n of eustachian tube 13388375 H69.[address] of the head in July with mild paranasal sinus disease, nom other significan t intracrani al findings Still has middle ear fluid on the left Discussed with patient the sound conduction of inner ear fluid, and why the heartbeat sounds resolved when fluid drains He will continue nightly meclizine for another week to ensure this fully drains Allergic rhinitis 549696 04 J30.9 Continue daily fluticason e and loratidine Follow up with ENT Coronary arteriosclerosis 45116437 I25.10 January follow up with cardiology scheduled EKG in the office today is normal ED precaution s reviewed [id number] Hamilton Cantu, [address] [address] 03/12/2021 07:43:35 03/12/2021 09:12:29 Cardiac arrhythmia 937822696 I49.9 -Heart rhythm is irregular- will check EKG and send it with him to cardiology -he will check about blood thinner with cardiology at pre-op visit-EKG appears to be in a block* called [facility] and they got him in to their [facility].* It appears , He has 2nd degree heart block Type I since at least 2019, but we did not know* Their EKG matched ours and they deemed him stable_he will continue with the appt for clearance on 03/18/21-h e is a high surgical risk Hyperglycemia 21448008 R 73.9 -labs done too soon for surgery-wi ll repeat in early March Fatigue 61640818 R53.83 -check CBC Hypothyroidism 33311173 E03.9 will check labs as part of the fatigue work up Easy bruising 386638340 R58 -repeat labs Pain of to e of left foot 9707329819 00341 M79.675 -BETH risk is 1.8 %-definite ly needs cardiology clearance, which is scheduledg ave him list of meds to hold:Taj ology will advise on ASA and PLAVIXLova za 7 days priorMetfo rmin 48 hrs prior to surgery, day of surgery and 48 hrs after surgery Coronary arteriosclerosis 07001790 I25.10 -Pt has 12 stents, of which 7 are in the LAD-he is followed by cardiology closely-he is a high surgical risk Diabetes mellitus 940059 09 E13.42 -hemoglobi n A1C 6.3-contro lled on oral medication s and lifestyle modificati ons Benign ess ential hypertension 2958608 I10 -BP 122/80 today-he is taking his medication s Hyperlipidemia 66827663 E78.5 -Lipids as of 08/2020, his ASCVD risk was 33-39%-he is on a statin-he follows with cardiology Chronic sinusitis 710214 00 J32.9 -currently receiving treatment for sinusitis- he has a nasal polyp and mucosal thickening that leads to recurrent episodes of sinusitiso n Augmentin beginning 03/08/2021 [id number] Vic Live RN [address] [address] 03/19/2021 08:54:43 03/19/2021 09:10:57 Influenza vaccine needed 5133415436 106 Z23 [id number] Vic Live RN [address] [address] 5 04/30/2021 14:21:11 04/30/2021 14:56:53 Administration of viral vaccine 55599838 Z23 [id number] Anabell Chaudhary DNP, [employer] [address] [address] 05/27/2021 08:09:34 05/27/2021 10:29:24 Suspected COVID-19 452071422 Z03.697 [id number] GREG Solomon [address] [address] 5 06/21/2021 07:26:05 06/21/2021 08:00:16 Dysfunction of eustachian tube 62243231 H69.92 -discussed in detail-bill d out given-he already has the meds at home-discu ssed the use of heat, massage and sucking on candy-if not better 7-10 days, he will let us know Benign ess ential hypertension 4923027 I10 -BP at goal-doing well with meds Tooth disorder 862827671 K08.9 -salt water rinses-luis for infection [id number] Rachel Talavera MD [address] [address] 09/30/2021 14:19:18 09/30/2021 15:27:44 Tick bite 00348810 W57.XXXA No evidence of definite infection, I told him it was not indicated to try to remove material that would likely cause more trauma. He will watch for expanding rash or any other symptoms of Lyme or tickborne disease. No antibiotic s are recommende d at this time but if he should have any signs of early Lyme a 10-14 day of doxycyclin e would be recommende d. Floaters i n visual field 003749430 H43.399 It also could be retinal so I suggested to him seeing ophthalmol jeremy and he has agreed. [id number] Rachel Talavera MD [address] [address] 10/08/2021 15:35:38 10/08/2021 16:42:11 Administration of SARS-CoV-2 antigen vaccine 070319759 Z23 Patient monitored for {{<5 min, no hx adverse reactions to previous COVID vaccinatio ns* 15 min 30 min}}. No adverse reactions noted. Patient tolerated injection well. Common side effects reviewed and vaccinatio n card with patient info sheet given. {{Follow-u p in 21 days for 2nd dose. Lara ent demonstrat es understand ing that optimal immunity following 2nd dose occurs at 2 weeks. Primary COVID immunizati on series is complete at this time. A booster dose in 6 months is recommende d for all patients age 18yrs and older. The patient is immunocomp romised. Follow-up in 28 days for a 3rd primary dose. Lara ent demonstrat es understand ing that optimal immunity following booster dose occurs at 10-14 days. COVID immunizati on series is complete at this time*}} [id number] Hamilton Cantu [employer] [address] [address] 10/09/2021 07:26:54 10/09/2021 08:15:34 Cellulitis 694073647 L03.90 -area washed with soap and water-bact ericin applied-an tibiotics both topical and oral-juhi rned about infection given his T2DM and age-direct ions given-soak foot 3x daily-Td update today-RTO if it worsens Administra tion of diphtheria and tetanus vaccine 65592835 Z23 -given today [id number] Hamilton Cantu [employer] [address] [address] 11/19/2021 07:10:49 11/19/2021 08:01:06 Insect bite reaction 632625777 T63.481A -3 days of steriod-to pical benadryl spray-sun screen-lianet id further exposure=w atch for signs fo inections; redness, swelling, d/c fever, etc [id number] Hi Padron MD [address] [address] 03/06/2022 08:31:59 03/06/2022 09:23:21 COVID-19 637241005 U07.1 resolving symptoms of covid 19should delay any vaccine booster for 90 days after getting antibody infusion Postviral cough 82167316 4 R05.3 continue benzonatat ewarned it could be present for a few months [id number] Allyssa Pearson MD [address] [address] 03/13/2022 11:09:51 03/13/2022 14:57:29 Acute sinusitis 31505795 J01.90 [id number] La Hickman RN [address] [address] 03/21/2022 13:24:41 03/21/2022 13:49:24 Influenza vaccine needed 2510523365 106 Z23 [id number] Bette Yao [address] [address] 05/21/2022 10:31:24 05/21/2022 10:45:51 Administration of SARS-CoV-2 antigen vaccine 872284489 Z23 Patient monitored for <5 min, no hx adverse reactions to previous COVID vaccinatio ns. No adverse reactions noted. Patient tolerated injection well. Common side effects reviewed and vaccinatio n card with patient info sheet given. Patient demonstrat es understand ing that optimal immunity following booster dose occurs at 10-14 days. COVID immunizati on series is complete at this time [id number] GREG Solomon [address] [address] 06/06/2022 07:40:06 06/06/2022 08:13:01 Osteoarthritis 776321167 M19.90 -warm water exercises- steriod burst-decl miky [facility] f/u-Ortho can't do much-wear mitten and use hand warmers-wi ll call if nto resolved [id number] GREG Solomon [address] [address] 08/29/2022 07:27:23 08/29/2022 10:07:27 Hypertensive emergency 9276289827 94056 I16.1 -likely 2/2 medication given by dentist-he is following with Dr. 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 from Plavix-ele ology unknown-he will follow with Neuro [id number] Hollie Wakefield CMA [address] [address] 09/05/2022 10:27:20 09/05/2022 10:28:10 [id number] GREG Solomon [address] [address] 09/05/2022 10:30:07 09/05/2022 11:37:34 Diarrhea 72464852 R19.7 -will check stools for infection and blood-cups and forms given to pt-discuss ed how to do testing Abdominal pain 78095781 R10.9 -unsure of etiology of the cramping, diarrhea and back pain-will get CT abdomen/pe lvis-to ED for CP/SOB , fever or severe pain Angina pectoris 41565855 0 I20.9 -he needed a new RX Pain of left eye 8834430 001 77313 H57.12 -will have [facility] see him-To ED for vision loss [id number] GREG Solomon [address] [address] 09/16/2022 07:08:28 09/16/2022 07:40:14 Abdominal pain 60669838 R10.9 -completel y resolved-l ikely viral or lactose intoleranc e in origin-drew l cancel CT-he will let me know how he is doing. [id number] GREG Solomon [address] [address] 02/11/2023 08:27:54 02/11/2023 09:21:51 Chronic insomnia 022011422 F51.04 -melatonin trial for sleep-thin k there is a component of anxiety about the cerebral aneurysm that is keep him awake.-cou ld also increase the duloxetine .-reached out to Eula Hernandez for other sleep med ideas and/or other ideas to try to enhance sleep Nasal infection 51312120 3 J32.9 -will try mupirocin topically Allergic rhinitis 386256 04 J30.9 -fluticaso ne nasal spray 2 puffs once daily-ceti rizine 10 mg once daily-disc ussed supportive measures of heat, gum chewing, etc-reassu red him that it would resolve as weather changes Hypothyroidism 05707036 E03.9 will check labs as part of the fatigue work up Dyslipidemia 762803288 E 78.5 -will up date labs Vitamin D deficiency 347 80133 E55.9 -will check Vit D Screening for malignant neoplasm of prostate 995336874 Z12.5 -given his complaint of frequent urination (understan ding that the steriod is the big issues now, will check PSA [id number] GREG Solomon [address] [address] 03/18/2023 07:29:22 03/18/2023 08:18:04 Bilateral hearing loss [id number] H91.93 -discussed in detail-drwe burch refer him back to ENT-Encour aged him not to buy OTC hearing aids, as they may not work for him Memory impairment 762470 006 R41.3 -also discussed the uncertaint y of not hearing conversati on vs. not rememberin g, v anxiety-ex plained normal memory loss-rwill refer back to [facility]aton Anxiety 52515031 F41.9 -discussed in detail-dis cussed the physiology of anxiety as well-he agreed to try sertraline -will watch for increased bruising Allergic rhinitis 240030 04 J30.9 -fluticaso ne nasal spray 2 puffs once daily-ceti rizine 10 mg once daily-Pata day or [place] eye drops and follow package directions -likely resolve with strong [place] [id number] La Hickman, RN [address] [address] 03/11/2023 10:50:59 03/11/2023 11:31:01 Influenza vaccine needed [id number] 106 Z23 [id number] GREG Solomon [address] [address] 04/28/2023 10:14:25 04/28/2023 11:49:12 Burping 538284162 R14.2 -will add famotidine 20 mg bid to the PPI x 1 mos-he can add milk or milk products-e at slowly and chew the food-stay upright after eating-silvia e probiotics 1 tab bid [id number] GREG Solomon [address] [address] 05/27/2023 08:24:48 05/27/2023 10:16:14 Dry eyes 778215484 H04.123 -will refer to [facility].-he can call for appt.-He will let us know how the eye drops are doing. If still having issues, he will help with an appt.-will check for other disease entities that have dry eye has a symptom Anxiety 99681565 F41.9 -discussed in detail-dis cussed that the fatigue may be a side effect of the medication -it should improve with time Hyperglycemia 87639505 R 73.9 -last labs Jan 2023-will repeat Malaise and fatigue 2717 79272 R53.83 -will check for any inflammati on Primary fi bromyalgia syndrome 18383980 M79.7 -will check for occult cause of both his fatigue and dry eye Administra tion of viral vaccine 88178983 Z23 -RSV today Aneurysm 559162073 I72.9 -2.4 mm aneurysm anterior [place] NS at [facility]-n o intervfawad on needed- it is a source of much anxiety for him Forgetful 63659233 R41.3 -reassured by Dr. 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 and use them Tick bite 32988586 W57.X XXA -will cover for the tick bite-he will be out on the tractor if the weather clears,-he will let u know if he develops a fever and body aches-inst ructed him to call here for tick bites [id number] Hamilton Cantu [address] [address] 10/06/2023 07:09:01 10/06/2023 08:33:13 Fatigue 82561448 R53.83 -will update labs-may be able to increase levothyrox ine depending on TSH-last blood sugar was slightly elevated, will recheck in fasting state-did discuss that allergies can make you fatigued-h e may increase cetirizine to bid for 2 weeks-cont inue Astepro-al so need to consider anxiety/de pression and will discuss after lab results Dyslipidemia 622714248 E 78.5 -will up date labs.-he will follow with [facility] in November-he is on a BB and can discuss that with cardiology Infection of tick bite 346548717 L08.9 -will check complete tick panel [id number] Hamilton Cantu AIRPLANE COVERER [address] [address] 10/20/2023 07:02:32 10/20/2023 09:15:34 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 -discussed the results with the pt-discuss ed the treatment with the pt-discuss ed avoiding colchicine while on azithromyc in and separate it from the sertraline -they will monitor his HR-he does have a f/u with cardiology next week-copy of labs and precaution s, given to his [id number] Jennifer Comfort [address] [address] 03/11/2024 10:15:35 03/11/2024 11:23:02 Influenza vaccine needed [id number] 106 Z23 [id number] RACHEL WHITE PA-C [facility] [address] [place] [address] 03/26/2024 11:41:42 03/26/2024 12:44:05 Felix 410768551 R14.2 Of note entirety of this encounter was conducted via telephone. The limitation s of telehealth consultati on was explained to the patient. The patient and provider were located in the [facility]. Call lasted approximat yasir 15 minutes 15 minutes Discussed at length with patient. Biggest concern with indigestio n and his history would be an [place]. Patient states that this feels different than his previous MIs and there are no other concerning associated signs and symptoms such as radiation of the pain chest pain or shortness of breath. Also largely reassuring that patient's symptoms are largely belching, stooling and general GI distress. Patient does have a long history of indigestio n for which she is on Protonix and has had this presentati on before we will try adding on famotidine but also stressed low threshold for patient to go to the emergency department if his symptoms worsen or change. [id number] GREG Caballero Karlo [address] [address] 04/14/2024 07:12:59 04/14/2024 09:37:44 Hypomagnesemia 855607087 E83.42 Magnesium low at 1.0 according to rheum 4 days ago, recheck at 1.1 as of 2 days ago.Kidney and liver function normal, no alcohol intake.Mil d decrease in appetite, otherwise denies symptoms.C urrently taking Magnesium oxide 400mg q HS.Recomme nded doubling magnesium supplement x1 week - recheck mg level at that time.Incre ase high magnesium foods.If Mg wnl on recheck in 1 week, continue high Mg foods, recheck level again in 3 weeks to see if able to maintain.F /u once results received, sooner prn. 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 E11.9 hold metformin due to diarrhea, check A1c 6.7 09/2023 Screening for malignant neoplasm of colon 352402093 Z12.11 Z12.12 Coronary arteriosclerosis 99008577 I25.10 fasting lipids today [id number] GREG Salinas Karlo [facility] [place] [address] 05/12/2024 09:47:05 05/12/2024 10:59:50 Diarrheal disorder 526076224 K52.9 last egd 2014 and polyp removed, last colonoscop y normal 2012, offered referral to be scoped again, med changes discussed with after labs back to hopefully improve diarrhea which seemed to start with addition of colchicine . Coronary arteriosclerosis 61372496 I25.10 fasting lipids very low cholestero l, taking crestor 20 mg and tricor, rec. decrease crestor to 10 mg but discuss with cardiology Type 2 melissa quita mellitus 86776500 E11.9 hold metformin due to diarrhea, check A1c 6.7 09/2023, now 6.1 with unintended weight loss, continue to hold Health Concerns Section Related Observation LastModified by Organization Detai ls LastModified Time None Recorded Concern Status LastModified by Organization Details LastModified Time None Recorded Advance Directives Directive Y: Payers Encounter Date Sequence Insurance Name Policy Number Policy Lozano Covered Member ID Lozano Member ID Guarantor Name 03/11/2024 2 [place] [id number] Bonifacio Vergara [id number] [place] Vergara 03/11/2024 1 [place] Bonifacio Vergara [id number] Chica Bartini 03/26/2024 2 [place] [id number] Bonifacio Vergara [id number] Chica Bartini 03/26/2024 1 [place] Bonifacio Vergara [id number] [place] Vergara 04/14/2024 2 [place] [id number] Bonifacio Vergara [id number] [place] Vergara 04/14/2024 1 [place] Bonifacio Vergara [id number] 6 [place] Vergara 05/10/2024 2 [place] [id number] Bonifacio Vergara [id number] [place] 05/10/2024 1 MED[place]: [facility] Bonifacio Vergara [id number] 6 [place] Vergara 05/12/2024 2 [place] [id number] Bonifacio Vergara [id number] [place] Vergara 05/12/2024 1 [place]: [facility] Bonifacio Vergara [id number] 6 [place] Vergara Notes Date Note Type Note Provider Name and Address Organization Details Recorded Time 4 text/htm l pt seen by nursing for influenza vaccineprevaccination screening sheet completedpt tolerated well. VIS given Jennifer Moyer [address] [place], [address], [facility] 03/11/2024 11:17:33 4 text/htm l 74-year-old male that presents via telehealth medical economics consultant service for concern of indigestion. . Since last night patient has been having right-sided indigestion. He denies any chest pain or shortness of breath but endorses excessive belching, going to the bathroom, and feels like his stomach is gurgling and moving things around. 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 Denies any pain in his arms back neck. Taking Protonix and Tums with minimal relief RACHEL WHITE PA-C [address] [place], [address], [facility] 03/26/2024 11:45:13 4 text/htm l 74yo M presents today via phone for abnormal lab results - low magnesium. No known low magnesium in the past.Some loss of appetite over the last 3 weeks, otherwise denies low magnesium symptoms.Denies any new or changed medications other than what's on current med list.Specifically denies use of diuretics, cardiac medications.Doesn't drink alcohol.Does eat beans, otherwise doesn't tend to eat many high magnesium foods.Is currently taking a magnesium supplement at night - unsure of dose. Teresa Chapman, [address], [address], [facility] 04/14/2024 09:37:08 4 text/htm l DiarrheaReported bypatient.Duration:presen t for 1 month Quality:improving; frequent; intermittent;watery;soft; loose Severity:moderate Onset/Timing:abrupt onset; 4-10 times a day;nocturnal diarrhea;started after an event(after eating spaghetti with red sauce) Context:no one else with similar symptoms; no recent camping; no recent picnic; no possible food sources; no recent travel; no recent antibiotic use Aggravating Factors:eating Associated Symptoms:no abdominal pain; no fever; no rash; no joint pain; no nausea; no vomiting; no heartburn; no blood in stool; no mucus in stool; no black or tarry stools;excess gas;weight loss (15 lbs);nutrient deficiency(low magnesium) Pt comes in with one month acute onset of diarrhea, anorexia, lots of GI noise. He denies any recent antibiotics or foreign travel. He was recently in the hospital with a second episode of transient global amnesia. We reviewed his medications and he was started on colchicine about a month ago from a new interactive media specialist but no note is available. Fanieve Chew, [address], [address], [facility] 05/10/2024 13:17:30 4 text/htm l T.C. to re lab results. Magnesium now normal, rec. decreasing to one po qd. Lipids very low, rec. decreasing crestor 20 to 10 mg po qd. A1c 6.1, rec. discontinuing metformin. It has been years since he has been scoped. Offered referral for egd and colonoscopy. Even after stopping colchicine and metformin after our visit and decreasing pantroprazole to qd he continutes to have gi issues. Fani Chew, [address], [address], [facility] 05/12/2024 10:45:41
--- OUTSIDE RECORDS SUMMARY | 2024-08-04 06:17 | XMS_ITS | Clinical Summary ---
Author Organization [facility] Address [address] [place] [address] Care Team Providers Care Small Package And Bundle Sorter Clerk Name Role Phone Joaquin Talavera MD Primary Care Provider + [phone] Allergies Active Allergy Reactions Criticality Noted Date [...] Active famotidine (PEPCID) 20 MG tablet Acid Gas Appliance Repairer (famotidine) 20 mg tablet 0 Active amLODIPine [...] age to complete this topic Care Teams Small Package And Bundle Sorter Clerk Relationship Specialty Start Date End Date Joaquin Talavera MD [address] [facility] [place] [address] PCP - General Family Medicine 01/12/17
== END 2024-08-04 06:13 | disposition home or self-care (01) ==
LOC: CF 06:12
PROVIDERS: Visit Provider Internal Medicine
DX: M53.3 Sacrococcygeal disorders, not elsewhere classified (principal)
CPT/HCPCS: 27096; J2003; J2795; J3301

== ENCOUNTER 2024-08-04 10:08 | Outpatient (AMB) | payer MEDICARE, SELFPAY ==
[2024-08-04 10:22] VITALS: BP 135/71; PULSE 54; RESP 16; O2SAT 98
--- NOTE | 2024-08-04 10:22 | MHC.OFFVIS ---
Vital Signs 08/04/24 10:22 08/04/24 11:04 BP 135/71 110/68 Blood Pressure Location Lt brachial Lt brachial Position Sitting Sitting Respiration 16 16 Pulse 54 60 Pulse Source Pulse Oximeter Pulse Oximeter Pulse Oximetry (%) 98 97 Oxygen Delivery Method Room Air Room Air Intake Visit Reasons: Left theraputic SIJ Air Export Logistics Manager Required: No Allergies No Known Allergies Allergy (Verified 08/04/24 10:22) Medication List - Last Reconciled 08/04/24 by Bette Valencia LPN amlodipine 5 mg PO DAILY aspirin 81 mg PO DAILY cetirizine (Zyrtec) 10 mg PO DAILY PRN cholecalciferol (vitamin D3) 50 mcg PO DAILY clopidogrel 75 mg PO DAILY famotidine 20 mg PO BID fenofibrate nanocrystallized 145 mg PO DAILY hydroxychloroquine 200 mg PO BID levothyroxine 50 mcg PO DAILY magnesium oxide 400 mg PO DAILY omega 1-hsc-ope-fish oil 60-90-500 mg (Fish Oil) 1 cap PO DAILY omega-3 acid ethyl esters (Lovaza) 2 caps PO BID pantoprazole 40 mg PO DAILY prednisone 5 mg PO DIRECTED rosuvastatin 10 mg PO BEDTIME tamsulosin 0.8 mg PO DAILY HPI HPI Left theraputic SIJ: Details: Patient presents for scheduled procedure. Denies any recent cough, cold, infection, fever or other significant changes in medical history since last office visit. [facility] Medical History (Updated 07/22/24 @ 13:18 by Rafael Davies MD) Calcium pyrophosphate deposition disease (CPPD) Hypovitaminosis D Hypomagnesemia Screening for osteoporosis Osteoarthritis involving multiple joints on both sides of body Polyarthralgia Surgical History Hx of shoulder surgery Hx of neck surgery History of back surgery Hx of shoulder surgery Social History Alcohol intake: former Patient Tobacco Use Status: Never used Tobacco Current occupational status: retired Current occupation: Right hand dominate Physical Exam Vital Signs: Last Vital Signs Pulse 60 08/04/24 11:04 Resp 16 08/04/24 11:04 BP 110/68 08/04/24 11:04 Pulse Ox 97 08/04/24 11:04 Oxygen Delivery Method Room Air 08/04/24 11:04 Office Procedures AMB Joint Injection/Aspiration Joint Injection/Aspiration Details: Sacroiliac Joint Injection, Left The procedure, its benefits, and its risks were explained and written informed consent was obtained from the patient. Immediately prior to starting the procedure, a time-out safety check was conducted. The patient's identification, procedure name, procedure site, and procedure laterality were confirmed with the patient. ? Patient was placed prone on the fluoroscopy table and the lumbosacral area was prepped using ChloraPrep and draped with sterile drapein standard fashion. The C-arm was rotated in a contralateral oblique fashion until the medial border of the iliac crest no longer foreshadowed the posterior sacroiliac joint line. The skin and subcutaneous tissue was anesthetized using 1 mL of 0.75% plain lidocaine with 1.5-inch 25-gauge needle in the middle region of the joint line.?A 3.5-inch 22-gauge spinal needle with small bend on the tip was slowly advanced towards the joint line, coaxial to the x-ray beam. Once bony content was obtained, the needle was easily slid into the intra-articular space.? Intra-articular needle position was confirmed using lateral fluoroscopy.?A total volume of 2.5mL of solution containing 40 mg triamcinilone and rest 0.5% of ropivacaine was injected intra-articularly. The stylet was reinserted and needle was removed. The patient tolerated the procedure well. Patient denied any lower extremity weakness or numbness. Patient was observed for 30 min and was discharged after fulfilling the standard discharge criteria. Coding 38637 - Sacroiliac Procedure code (CPT) selection complete Assessment & Plan Assessment & Plan (1) Sacroiliac joint dysfunction of left side: Code(s): M53.3 - Sacrococcygeal disorders, not elsewhere classified Category: Medical Plan Patient is status post left therapeutic SI joint injection. Patient tolerated procedure well and was discharged home in stable condition with discharge instructions. All questions were answered. We will follow-up via telephone or in clinic to assess response to therapy. A follow-up appointment was made during today's visit. Orders: Orders FL guidance in treatment room Today M53.3 - Sacrococcygeal disorders, not elsewhere classified Coding Level of Care Code Procedure Only Diagnoses Sacroiliac joint dysfunction of left side M53.3 CPT Codes Coding - Joint 9: 00244 - Sacroiliac ([id number])
[2024-08-04 11:04] VITALS: BP 110/68; PULSE 60; RESP 16; O2SAT 97
--- OUTSIDE RECORDS SUMMARY | 2024-08-04 12:33 | XMS_ITS | Clinical Summary ---
Author Organization [facility] Address [address] [place] [address] Care Team Providers Care Instructional Technology Coach Name Role Phone Joaquin Talavera MD Primary Care Provider + [phone] Allergies Active Allergy Reactions Criticality Noted Date [...] Active famotidine (PEPCID) 20 MG tablet Acid Sales Product Specialist (famotidine) 20 mg tablet 0 Active amLODIPine [...] age to complete this topic Care Teams Instructional Technology Coach Relationship Specialty Start Date End Date Joaquin Talavera MD [address] [facility] [place] [address] PCP - General Family Medicine 01/12/17
--- OUTSIDE RECORDS SUMMARY | 2024-08-04 12:33 | XMS_ITS | Clinical Summary ---
Author Organization [facility] Address [address] [place] [address] Care Team Providers Care Retrofit Installer Name Role Phone Joaquin Talavera MD Primary Care Provider + [phone] Surgical History Surgery Date Site/Laterality Comments BACK SURGERY PROCEDURE: HISTORICAL BACK SURGERY; COMMENT: spinal fusion HERNIA REPAIR PROCEDURE: OH RPR 1ST INGUN HRNA AGE 5 MO-5 [...] age to complete this topic Care Teams Retrofit Installer Relationship Specialty Start Date End Date Joaquin Talavera MD [address] [facility] [place] [address] PCP - General Family Medicine 01/12/17
== END 2024-08-04 10:48 | disposition home or self-care (01) ==
LOC: HO.PMCPRC 10:08
PROVIDERS: PCP Nurse Practitioner Family; Visit Provider Internal Medicine
DX: M53.3 Sacrococcygeal disorders, not elsewhere classified (principal)
CPT/HCPCS: 27096

== ENCOUNTER 2024-08-23 14:18 | Outpatient (AMB) | payer MEDICARE, SELFPAY ==
--- NOTE | 2024-08-23 14:22 | A.OFFVIS_ITS ---
Vital Signs 08/23/24 14:23 Height 5 ft 11 in Weight 167 lb BMI 23.3 Intake Visit Reasons: Left knee pain and giving way Intake Note: Bonifacio is a 74 year old male who presents with complaints of progressively worsening left knee pain and giving way. He describes his pain as sharp in nature. Most of the pain is along the medial aspect of his knee. He states that he injured his knee approximately 1 year ago. He twisted his knee and had acute onset of pain. Since that time his symptoms have gotten worse in spite of continued non operative treatments. He has failed the last 6 weeks of conservative treatment which has included Tylenol, anti-inflammatory medicines, physical therapy exercises and a home exercise program. He has had cortisone injections in the past which gave him minimal relief. He states that his left knee will give out several times per day. Allergies No Known Allergies Allergy (Verified 08/23/24 14:29) Medication List - Last Reconciled 08/24/24 by Rafael Davies MD amlodipine 5 mg PO DAILY aspirin 81 mg PO DAILY cetirizine (Zyrtec) 10 mg PO DAILY PRN cholecalciferol (vitamin D3) 50 mcg PO DAILY clopidogrel 75 mg PO DAILY famotidine 20 mg PO BID fenofibrate nanocrystallized 145 mg PO DAILY hydroxychloroquine 200 mg PO BID levothyroxine 50 mcg PO DAILY magnesium oxide 400 mg PO DAILY omega 7-wmf-xhz-fish oil 60-90-500 mg (Fish Oil) 1 cap PO DAILY omega-3 acid ethyl esters (Lovaza) 2 caps PO BID pantoprazole 40 mg PO DAILY rosuvastatin 10 mg PO BEDTIME tamsulosin 0.8 mg PO DAILY [facility] Medical History Calcium pyrophosphate deposition disease (CPPD) Hypovitaminosis D Hypomagnesemia Screening for osteoporosis Osteoarthritis involving multiple joints on both sides of body Polyarthralgia Surgical History Hx of shoulder surgery Hx of neck surgery History of back surgery Hx of shoulder surgery Social History Alcohol intake: former Patient Tobacco Use Status: Never used Tobacco Current occupational status: retired Current occupation: Right hand dominate Physical Exam Vital Signs: BMI result Body Mass Index 23.3 Const Other: Well-nourished well-developed very friendly male awake alert and oriented x3 in no acute distress Extrem Other: Bilateral lower extremity examination shows good capillary refill, no skin lesions noted, normal sensation light touch Left knee examination shows a minimal effusion, mild crepitus with range of motion, tenderness along his medial joint line, positive Babita's test, no instability Results Reviewed Results Reviewed: Standing full weight-bearing x-rays of the patient's left knee show mild diffuse joint space narrowing, no acute bony abnormalities MRI of the patient's left knee shows mild diffuse degenerative changes as well as a tear of the medial meniscus Assessment & Plan Assessment & Plan (1) Tear of medial meniscus of left knee: Code(s): S83.242A - Other tear of medial meniscus, current injury, left knee, initial encounter Category: Medical Plan Mr. Vergara presents with progressively worsening left knee pain and mechanical symptoms due to a medial meniscus tear. I had a lengthy discussion with the patient regarding the treatment options. At this point he has failed continued non operative treatments. The risks and benefits of left knee arthroscopic surgery were discussed at length with the patient. The patient wishes to proceed with surgery. Surgery will most likely involve left knee diagnostic arthroscopy with arthroscopic partial medial meniscectomy. The patient does understand that he may not get 100% relief of his symptoms depending on the severity of his degenerative changes. The patient will be scheduled for next available date. He will follow-up as instructed. Feel free to call me at any time should questions regarding his orthopedic management arise. I spent 20 minutes in reviewing the patient's records and imaging studies, seeing the patient and documenting in the medical record. Coding Level of Care Code Est Pt Level 3 (77274) Complex EM visit Add On G2211 Diagnoses Tear of medial meniscus of left knee S83.242A
[2024-08-23 14:23] VITALS: BMI 23.3
--- OUTSIDE RECORDS SUMMARY | 2024-08-23 17:07 | XMS_ITS | Data Portability ---
Author Organization [place] - [facility], [facility] Nozzle Worker Address [address] [place] [address] Care Team Providers Care Natural Developer Name Role Phone BENTLEY HARRISON OTHER HAMILTON CANTU Primary Care Provider Assessment No assessment recorded. Plan of Treatment Reminders Order Date Submit Date Provider Last Modified By Organization Details Last Modified Time Details Appointments None recorded . Lab HbA1c (hemoglo bin A1c), blood 2023 [facility], [address] [place] [address], [address], 4 13:12:05 magnesiu m, serum or plasma 2023 [facility], [address] [place] [address], [address], 4 13:12:04 noninvas eder colorect al cancer [...] as required by HIPAA. I authoriz e [facility] to obtain reimburs ement for Cologuar d and to directly contact and collect a second sample from the patient as appropri ate.ICD- 10 Code: Z12.11 2023 024 [employer] (Cologuard Orders Only), [address], [address], [place], [address], 4 10:57:08 BMP, serum or plasma 2023 024 [facility], [address] [place] [address], [address], 5 13:23:26 erythroc yte sediment ation rate by westergr en method 2023 024 [facility] [facility], [address] [place] [address], [address], 4 13:12:04 lipid panel, serum 2023 024 [facility], [address] [place] [address], [address], 4 13:12:03 magnesiu m, serum or plasma 2023 [facility], [address] [place] [address], [address], 4 10:44:03 magnesiu m, serum or plasma [address] [facility], [address] [place] [address], [address], 5 14:42:21 Referral None recorded . Procedures None recorded . Surgeries None recorded . Imaging None recorded . Medication Orders famotidi ne 20 mg tablet 2023 024 [email or web address] [id number], [address] [place], [address], 4 10:38:01 Patient TargetsNo targets recorded. Patient Instructions Encounter Date Encounter Id Patient Instructions Last Modified By Organization Details Last Modified Time 05/10/2024 [id number] learning about type 2 diabetes [email or web address] Not available 05/10/2024 10:56:57 type 2 diabetes: care instructions Not available 05/10/2024 10:56:57 05/12/2024 [id number] learning about type 2 diabetes [email or web address] Not available 05/12/2024 10:45:28 type 2 diabetes: care instructions [email or web address] Not available 05/12/2024 10:45:28 Reason for Referral None Reported. Results Created Date Observation Date Name Description Value Unit Range Abnormal Flag Note LastModifiedBy Organization Detail LastModifiedTime 02/23/2002/23/2024 COMPL ETE BLOOD COUNT W/ DIFF white blood count 7.0 K/mm3 4.0-11 .0 normal Not Available [address], [address], 02/23/2024 14:33:32 02/23/2002/23/2024 COMPL ETE BLOOD COUNT W/ DIFF red blood count 4.56 M/uL 4.20-5 .80 normal Not Available [address], [address], 02/23/2024 14:33:32 02/23/2002/23/2024 COMPL ETE BLOOD COUNT W/ DIFF hemoglobin 12.8 gm/dL 12.5-1 7.0 normal Not Available [address], [address], 02/23/2024 14:33:32 02/23/2002/23/2024 COMPL ETE BLOOD COUNT W/ DIFF hematocrit 39.1 % 37.0-5 0.0 normal Not Available [address], [address], 02/23/2024 14:33:32 02/23/2002/23/2024 COMPL ETE BLOOD COUNT W/ DIFF mean corpuscular volume 85.7 fL 80.0-1 00.0 normal Not Available [address], [address], 02/23/2024 14:33:32 02/23/2002/23/2024 COMPL ETE BLOOD COUNT W/ DIFF MCHC 32.7 % 32-37 normal Not Available [address], [address], 02/23/2024 14:33:32 02/23/2002/23/2024 COMPL ETE BLOOD COUNT W/ DIFF red cell distribution width 13.2 % 11.5-1 6.0 normal Not Available [address], [address], 02/23/2024 14:33:32 02/23/2002/23/2024 COMPL ETE BLOOD COUNT W/ DIFF platelet count 234 K/uL 140-40 0 normal Not Available [address], [address], 02/23/2024 14:33:32 02/23/2002/23/2024 COMPL ETE BLOOD COUNT W/ DIFF mean platelet volume 11.4 fL 8.6-12 .5 normal Not Available [address], [address], 02/23/2024 14:33:32 02/23/2002/23/2024 COMPL ETE BLOOD COUNT W/ DIFF %nucleated RBC auto 0.0 % 0.0-0. 7 normal Not Available [address], [address], 02/23/2024 14:33:32 02/23/2002/23/2024 COMPL ETE BLOOD COUNT W/ DIFF %neutrophils auto 64.4 % Not Available [address], [address], 02/23/2024 14:33:32 02/23/2002/23/2024 COMPL ETE BLOOD COUNT W/ DIFF %lymphocytes auto 27.1 % Not Available [address], [address], 02/23/2024 14:33:32 02/23/2002/23/2024 COMPL ETE BLOOD COUNT W/ DIFF %monocytes auto 6.6 % Not Available [address], [address], 02/23/2024 14:33:32 02/23/2002/23/2024 COMPL ETE BLOOD COUNT W/ DIFF %eosinophils auto 0.6 % Not Available [address], [address], 02/23/2024 14:33:32 02/23/2002/23/2024 COMPL ETE BLOOD COUNT W/ DIFF %basophils auto 0.9 % Not Available [address], [address], 02/23/2024 14:33:32 02/23/2002/23/2024 COMPL ETE BLOOD COUNT W/ DIFF %immature granulocytes auto 0.4 % Not Available [address], [address], 02/23/2024 14:33:32 02/23/2002/23/2024 COMPL ETE BLOOD COUNT W/ DIFF #neutrophils auto 4.48 K/uL 1.50-7 .50 normal Not Available [address], [address], 02/23/2024 14:33:32 02/23/20 24 02/23/2024 COMPL ETE BLOOD COUNT W/ DIFF #lymphocytes auto 1.88 K/uL 1.00-4 .50 normal Not Available [address], [address], 02/23/2024 14:33:32 02/23/20 24 02/23/2024 COMPL ETE BLOOD COUNT W/ DIFF #monocytes auto 0.46 K/uL 0.00-0 .80 normal Not Available [address], [address], 02/23/2024 14:33:32 02/23/20 24 02/23/2024 COMPL ETE BLOOD COUNT W/ DIFF #eosinophils auto 0.04 K/uL 0.00-0 .40 normal Not Available [address], [address], 02/23/2024 14:33:32 02/23/20 24 02/23/2024 COMPL ETE BLOOD COUNT W/ DIFF #basophils auto 0.06 K/uL 0.00-0 .20 normal Not Available [address], [address], 02/23/2024 14:33:32 02/23/20 24 02/23/2024 COMPL ETE BLOOD COUNT W/ DIFF #immature granulocytes auto 0.03 K/uL 0.00-0 .10 normal Not Available [address], [address], 02/23/2024 14:33:32 02/23/20 24 02/23/2024 COMPR EHENS EDER METAB OLIC PANEL sodium 139 mEq/L 133-14 5 normal Not Available [address], [address], 02/23/2024 15:00:11 02/23/20 24 02/23/2024 COMPR EHENS EDER METAB OLIC PANEL potassium 4.4 mEq/L 3.5-5. 1 normal Not Available [address], [address], 02/23/2024 15:00:11 02/23/20 24 02/23/2024 COMPR EHENS EDER METAB OLIC PANEL chloride 105 mEq/L 98-112 normal Pleas e note new refer ence range . Not Available [address], [address], 02/23/2024 15:00:11 02/23/20 24 02/23/2024 COMPR EHENS EDER METAB OLIC PANEL carbon dioxide 23 mEq/L 22-31 normal Not Available [address], [address], 02/23/2024 15:00:11 02/23/20 24 02/23/2024 COMPR EHENS EDER METAB OLIC PANEL anion gap 11 mEq/L 5-15 normal Not Available [address], [address], 02/23/2024 15:00:11 10/0102/23/2024 COMPR EHENS EDER METAB OLIC PANEL blood urea nitrogen (BUN) 15 mg/dL 8-26 normal Not Available [address], [address], 02/23/2024 15:00:11 02/23/20 24 02/23/2024 COMPR EHENS EDER METAB OLIC PANEL creatinine 1.03 mg/dL 0.70-1 .18 normal Not Available [address], [address], 02/23/2024 15:00:11 02/23/20 24 02/23/2024 COMPR EHENS [...] G5 (kidn ey failu re). Not Available [address], [address], 02/23/2024 15:00:11 02/23/20 24 02/23/2024 COMPR EHENS EDER METAB OLIC PANEL glucose 145 mg/dL 70-100 high Fasti ng Refer ence Inter elizabeth: 70-10 0mg/d L Non-f astin g Refer ence Inter elizabeth: 70-14 0mg/d L Not Available [address], [address], 02/23/2024 15:00:11 02/23/20 24 02/23/2024 COMPR EHENS EDER METAB OLIC PANEL calcium 9.8 mg/dL 8.4-10 .4 Not Available [address], [address], 02/23/2024 15:00:11 02/23/2002/23/2024 COMPR EHENS EDER METAB OLIC PANEL bilirubin total 0.6 mg/dL 0.2-1. 2 normal Not Available [address], [address], 02/23/2024 15:00:11 02/23/20 24 02/23/2024 COMPR EHENS EDER METAB OLIC PANEL aspartate amino transferase 24 IU/L 5-34 normal Not Available [address], [address], 02/23/2024 15:00:11 02/23/20 24 02/23/2024 COMPR EHENS EDER METAB OLIC PANEL alanine aminotransfe rase 23 IU/L 0-55 normal Not Available [address], [address], 02/23/2024 15:00:11 02/23/20 24 02/23/2024 COMPR EHENS EDER METAB OLIC PANEL total protein 7.0 g/dL 5.8-8. 1 normal Not Available [address], [address], 02/23/2024 15:00:11 02/23/20 24 02/23/2024 COMPR EHENS EDER METAB OLIC PANEL albumin 4.3 g/dL 2.8-5. 4 normal Not Available [address], [address], 02/23/2024 15:00:11 02/23/20 24 02/23/2024 COMPR EHENS EDER METAB OLIC PANEL alkaline phosphatase 28 IU/L 40-150 low Not Available [address], [address], 02/23/2024 15:00:11 02/23/20 24 02/23/2024 LYME AB [...] days is recom toribio d. Not Available [address], [address], 02/23/2024 15:29:24 02/23/20 24 02/24/2024 ANAPL ASMA [...] e kim cteri stics deter mined by [facility]. It has not been clear ed or appro mukesh by the FDA. The labor atory is regul ated under CLIA as quali fied to perfo rm high- compl exity testi ng. This test is used for clini francis purpo ses. It shoul d not be regar ded as inves tigat ional or for resea rch. Not Available [address], [address], 02/25/2024 11:25:29 02/23/2002/25/2024 BABES IA MICRO TI DNA (PCR) babesia microti DNA (PCR) NOT DETECT ED notdet ected Negat deer resul ts indic ate the absen ce [...] e kim cteri stics deter mined by [facility]. It has not been clear ed or appro mukesh by the FDA. The labor atory is regul ated under CLIA as quali fied to perfo rm high- compl exity testi ng. This test is used for clini francis purpo ses. It shoul d not be regar ded as inves tigat ional or for resea rch. Not Available [address], [address], 02/25/2024 11:25:31 1002/27/2024 LYME DISEA SE DNA (PCR) specimen source NOT GIVEN Not Available [address], [address], 02/27/2024 16:45:13 02/23/2002/27/2024 LYME DISEA SE DNA (PCR) lyme disease DNA (PCR) NOT DETECT ED not detect ed normal This test was devel oped and its kole tical perfo rmanc e kim cteri stics have been deter mined by [facility]. It has not been clear ed or appro mukesh by the FDA. This assay has been valid ated pursu ant to the CLIA regul ation s and is used for clini francis purpo ses. For addit ional infor adam lanier refer to https ://ed ucati on.qu estdi Antavo. com/f aq/fa q224 (This link is being provi ded for infor antonio benítez/ educjanis sexton l purpo ses only. ) THIS TEST WAS PERFO RMED AT: [facility] [address] [facility] [place] [address] RINA SPAULDING MD Not Available [address], [address], 02/27/2024 16:45:13 02/23/20 24 03/01/2024 SHEEBA RENAE SPECI ES AB IGG&I GM bartonella henselae IgG NEGATI VE Not Available [address], [address], 03/02/2024 14:50:04 02/23/20 24 03/01/2024 SHEEBA RENAE SPECI ES AB IGG&I GM bartonella henselae IgM NEGATI VE Not Available [address], [address], 03/02/2024 14:50:04 02/23/20 24 03/01/2024 SHEEBA RENAE SPECI ES AB IGG&I GM bartonella clark IgG NEGATI VE Not Available [address], [place], [address], 03/02/2024 14:50:04 02/23/20 24 03/01/2024 SHEEBA RENAE [...] thi [facility] . Indiv idual s infec thi with [...] PERFO RMED AT: [facility] D[place]HY [place]N [address] [facility] [place], [place] NANDO LIMA MD,P HD Not Available [address], [address], 03/02/2024 14:50:04 02/23/20 24 03/02/2024 EHRLI SINA ANTIB TITA PANEL anaplasma phagocytophi la IgG <1:64 <1:64 normal Not Available [address], [address], 03/02/2024 14:50:05 02/23/20 24 03/02/2024 EHRLI SINA ANTIB TITA PANEL anaplasma phagocytophi la IgM <1:20 <1:20 normal Not Available [address], [address], 03/02/2024 14:50:05 02/23/20 24 03/02/2024 EHRLI SINA ANTIB TITA PANEL A. phagocytophi la interp ANTIB TITA NOT DETEC THI Not Available [address], [address], 03/02/2024 14:50:05 02/23/20 24 03/02/2024 EHRLI SINA [...] [facility] [address] [place] [address] RINA SPAULDING MD Not Available [address], [address], 03/02/2024 14:50:05 02/23/20 24 03/02/2024 EHRLI SINA ANTIB TITA PANEL ehrlichia chaffeensis IgG Ab <1:64 <1:64 normal Not Available [address], [address], 03/02/2024 14:50:05 02/23/20 24 03/02/2024 EHRLI SINA ANTIB TITA PANEL ehrlichia chaffeensis IgM Ab <1:20 <1:20 normal Not Available [address], [address], 03/02/2024 14:50:05 02/23/20 24 03/02/2024 EHRLI SINA ANTIB TITA PANEL ehrlichia interpretati on ANTIB TITA NOT DETEC THI Not Available [address], [address], 03/02/2024 14:50:05 02/23/20 24 03/02/2024 EHRLI SINA ANTIB TITA PANEL ehrlichia comment SEE BELOW Ehrli sina chaff eensi s has been ident ified as the causa tive agent of Human Monoc ytic Ehrli chios is (HME) . Infec thi indiv idual s produ ce speci fic [...] cteri stics have been deter mined by [facility]. It has not been clear ed or appro mukesh by the U.S. Food and Drug Admin istra tion. This assay has been valid ated pursu ant to the CLIA regul ation s and is used for clini francis purpo ses. THIS TEST WAS PERFO RMED AT: [facility] [address] [place] [address] RINA SPAULDING MD Not Available [address], [address], 03/02/2024 14:50:05 04/12/20 24 04/13/2024 MAGNE SIUM magnesium 1.1 mg/dL 1.5-2. 5 low Not Available [facility] [place] [facility] [address], [address], 04/13/2024 05:38:27 04/12/20 24 04/13/2024 COMPR EHENS EDER METAB OLIC PANEL glucose 103 mg/dL 65-99 high Fasti ng refer ence inter elizabeth For someo ne witho ut known diabe jesus, a gluco se value betwe en 100 and 125 mg/dL is consi stent with predi abete s and shoul d be confi rmed with a follo w-up test. Not Available [facility] [place] [facility] [address], [place], [address], 04/13/2024 05:38:27 04/12/20 24 04/13/2024 COMPR EHENS EDER METAB OLIC PANEL urea nitrogen (BUN) 11 mg/dL 7-25 normal Not Available [facility] [place] [facility] [address], [place], [address], 04/13/2024 05:38:27 04/12/20 24 04/13/2024 COMPR EHENS EDER METAB OLIC PANEL creatinine 0.99 mg/dL 0.70-1 .28 normal Not Available [facility] [address] [place], [place], [address], 04/13/2024 05:38:27 04/12/20 24 04/13/2024 COMPR EHENS EDER METAB OLIC PANEL eGFR 79 mL/mi n/1.7 3m2 > or = 60 normal Not Available [facility] [address] [place], [place], [address], 04/13/2024 05:38:27 04/12/20 24 04/13/2024 COMPR EHENS EDER METAB OLIC PANEL BUN/creatini ne ratio SEE NOTE: (calc ) 6-22 Not Repor thi: BUN and Creat inine are withi n refer ence range . Not Available [facility] [address] [place], [place], [address], 04/13/2024 05:38:27 04/12/20 24 04/13/2024 COMPR EHENS EDER METAB OLIC PANEL sodium 141 mmol/ L 135-14 6 normal Not Available [facility] [address] [place], [place], [address], 04/13/2024 05:38:27 04/12/20 24 04/13/2024 COMPR EHENS EDER METAB OLIC PANEL potassium 4.5 mmol/ L 3.5-5. 3 normal Not Available [facility] [address] [place], [place], [address], 04/13/2024 05:38:27 04/12/20 24 04/13/2024 COMPR EHENS EDER METAB OLIC PANEL chloride 104 mmol/ L 98-110 normal Not Available [facility] [address], [place], [address], 04/13/2024 05:38:27 04/12/20 24 04/13/2024 COMPR EHENS EDER METAB OLIC PANEL carbon dioxide 29 mmol/ L 20-32 normal Not Available [facility] [place] [facility] [address], [place], [address], 04/13/2024 05:38:27 04/12/20 24 04/13/2024 COMPR EHENS EDER METAB OLIC PANEL calcium 10.1 mg/dL 8.6-10 .3 normal Not Available [facility] [address], [place], [address], 04/13/2024 05:38:27 04/12/20 24 04/13/2024 COMPR EHENS EDER METAB OLIC PANEL protein, total 7.1 g/dL 6.1-8. 1 normal Not Available [facility] [address], [place], [address], 04/13/2024 05:38:27 04/12/20 24 04/13/2024 COMPR EHENS EDER METAB OLIC PANEL albumin 4.7 g/dL 3.6-5. 1 normal Not Available [facility] [address], [place], [address], 04/13/2024 05:38:27 04/12/20 24 04/13/2024 COMPR EHENS EDER METAB OLIC PANEL globulin 2.4 g/dL_ (calc ) 1.9-3. 7 normal Not Available [facility] [address], [place], [address], 04/13/2024 05:38:27 04/12/20 24 04/13/2024 COMPR EHENS EDER METAB OLIC PANEL albumin/glob ulin ratio 2.0 (calc ) 1.0-2. 5 normal Not Available [facility] [address], [place], [address], 04/13/2024 05:38:27 04/12/20 24 04/13/2024 COMPR EHENS EDER METAB OLIC PANEL bilirubin, total 0.5 mg/dL 0.2-1. 2 normal Not Available [facility] [address], [place], [address], 04/13/2024 05:38:27 04/12/20 24 04/13/2024 COMPR EHENS EDER METAB OLIC PANEL alkaline phosphatase 22 U/L 35-144 low Not Available [facility] [address], [place], [address], 04/13/2024 05:38:27 04/12/20 24 04/13/2024 COMPR EHENS EDER METAB OLIC PANEL AST 21 U/L 10-35 normal Not Available [facility] [address], [place], [address], 04/13/2024 05:38:27 04/12/20 24 04/13/2024 COMPR EHENS EDER METAB OLIC PANEL ALT 19 U/L 9-46 normal Not Available [facility] [address], [place], [address], 04/13/2024 05:38:27 04/19/20 24 04/20/2024 MAGNE SIUM magnesium 1.1 mg/dL 1.5-2. 5 low Not Available [facility] [address], [place], [address], 04/20/2024 07:55:46 04/19/20 24 04/20/2024 COMPR EHENS EDER METAB OLIC PANEL glucose 105 mg/dL 65-99 high Fasti ng refer ence inter elizabeth For someo ne witho ut known diabe jesus, a gluco se value betwe en 100 and 125 mg/dL is consi stent with predi abete s and shoul d be confi rmed with a follo w-up test. Not Available [facility] [place] [facility] [address], [place], [address], 04/20/2024 07:55:47 04/19/20 24 04/20/2024 COMPR EHENS EDER METAB OLIC PANEL urea nitrogen (BUN) 15 mg/dL 7-25 normal Not Available [facility] [place] [facility] [address], [place], [address], 04/20/2024 07:55:47 04/19/20 24 04/20/2024 COMPR EHENS EDER METAB OLIC PANEL creatinine 0.84 mg/dL 0.70-1 .28 normal Not Available [facility] [place] [facility] [address], [place], [address], 04/20/2024 07:55:47 04/19/20 24 04/20/2024 COMPR EHENS EDER METAB OLIC PANEL eGFR 91 mL/mi n/1.7 3m2 > or = 60 normal Not Available [facility] [place] [facility] [address], [place], [address], 04/20/2024 07:55:47 04/19/20 24 04/20/2024 COMPR EHENS EDER METAB OLIC PANEL BUN/creatini ne ratio SEE NOTE: (calc ) 6-22 Not Repor thi: BUN and Creat inine are withi n refer ence range . Not Available [facility] [place] [facility] [address], [place], [address], 04/20/2024 07:55:47 04/19/20 24 04/20/2024 COMPR EHENS EDER METAB OLIC PANEL sodium 141 mmol/ L 135-14 6 normal Not Available [facility] [place] [facility] [address], [place], [address], 04/20/2024 07:55:47 04/19/20 24 04/20/2024 COMPR EHENS EDER METAB OLIC PANEL potassium 4.5 mmol/ L 3.5-5. 3 normal Not Available [facility] [address], [place], [address], 04/20/2024 07:55:47 04/19/20 24 04/20/2024 COMPR EHENS EDER METAB OLIC PANEL chloride 104 mmol/ L 98-110 normal Not Available [facility] [address], [place], [address], 04/20/2024 07:55:47 04/19/20 24 04/20/2024 COMPR EHENS EDER METAB OLIC PANEL carbon dioxide 28 mmol/ L 20-32 normal Not Available [facility] [address], [place], [address], 04/20/2024 07:55:47 04/19/20 24 04/20/2024 COMPR EHENS EDER METAB OLIC PANEL calcium 9.8 mg/dL 8.6-10 .3 normal Not Available [facility] [address], [place], [address], 04/20/2024 07:55:47 04/19/20 24 04/20/2024 COMPR EHENS EDER METAB OLIC PANEL protein, total 6.9 g/dL 6.1-8. 1 normal Not Available [facility] [address], [place], [address], 04/20/2024 07:55:47 04/19/20 24 04/20/2024 COMPR EHENS EDER METAB OLIC PANEL albumin 4.8 g/dL 3.6-5. 1 normal Not Available [facility] [place] [facility] [address], [place], [address], 04/20/2024 07:55:47 04/19/20 24 04/20/2024 COMPR EHENS EDER METAB OLIC PANEL globulin 2.1 g/dL_ (calc ) 1.9-3. 7 normal Not Available [facility] [address], [place], [address], 04/20/2024 07:55:47 04/19/20 24 04/20/2024 COMPR EHENS EDER METAB OLIC PANEL albumin/glob ulin ratio 2.3 (calc ) 1.0-2. 5 normal Not Available [facility] [address], [place], [address], 04/20/2024 07:55:47 04/19/20 24 04/20/2024 COMPR EHENS EDER METAB OLIC PANEL bilirubin, total 0.5 mg/dL 0.2-1. 2 normal Not Available [facility] [address], [place], [address], 04/20/2024 07:55:47 04/19/20 24 04/20/2024 COMPR EHENS EDER METAB OLIC PANEL alkaline phosphatase 24 U/L 35-144 low Not Available [facility] [address], [place], [address], 04/20/2024 07:55:47 04/19/20 24 04/20/2024 COMPR EHENS EDER METAB OLIC PANEL AST 25 U/L 10-35 normal Not Available [facility] [address], [place], [address], 04/20/2024 07:55:47 04/19/20 24 04/20/2024 COMPR EHENS EDER METAB OLIC PANEL ALT 24 U/L 9-46 normal Not Available [facility] [place] [facility] [address], [place], [address], 04/20/2024 07:55:47 05/10/20 24 05/11/2024 LIPID PANEL , STAND JAYLA cholesterol, total 95 mg/dL <200 normal Not Available [facility] [place] [facility] [address], [place], [address], 05/11/2024 06:03:25 05/10/20 24 05/11/2024 LIPID PANEL , STAND JAYLA HDL cholesterol 58 mg/dL > or = 40 normal Not Available [facility] [place] [facility] [address], [place], [address], 05/11/2024 06:03:25 05/10/20 24 05/11/2024 LIPID PANEL , STAND JAYLA triglyceride s 108 mg/dL <150 normal Not Available [facility] [place] [facility] [address], [place], [address], 05/11/2024 06:03:25 05/10/20 24 05/11/2024 LIPID PANEL [...] 2061- 2068 (http ://ed ucati on.Qu anicetoDi Antavo. com/f aq/FA Q164) Not Available [facility] [place] [facility] [address], [place], [address], 05/11/2024 06:03:25 05/10/20 24 05/11/2024 LIPID PANEL , STAND JAYLA chol/HDLC ratio 1.6 (calc ) <5.0 normal Not Available [facility] [place] [facility] [address], [place], [address], 05/11/2024 06:03:25 05/10/20 24 05/11/2024 LIPID PANEL , STAND JAYLA non HDL cholesterol 37 mg/dL _(francis c) <130 normal For patie nts with diabe jesus plus 1 major ASCVD risk facto r, treat ing to a non-H DL-C goal of <100 mg/dL (LDL- C of <70 mg/dL ) is consi baltazar a therjanis tucker c optio n. Not Available [facility] [place] [facility] [address], [place], [address], 05/11/2024 06:03:25 05/10/20 24 05/11/2024 MAGNE SIUM magnesium 1.7 mg/dL 1.5-2. 5 normal Not Available [facility] [place] [facility] [address], [place], [address], 05/11/2024 06:03:26 05/10/20 24 05/11/2024 SED RATE BY MODIF IED WESTE RGREN sed rate by modified westergren 2 mm/h < or = 20 normal Not Available [facility] [place] [facility] [address], [place], [address], 05/11/2024 04:58:24 05/10/20 24 05/10/2024 TEST AUTHO RIZAT ION test name: LINDSAY AMINA Not Available [facility] [place] [facility] [address], [place], [address], 05/10/2024 13:12:05 05/10/20 24 05/10/2024 TEST AUTHO RIZAT ION test code: 622 Not Available [facility] [address], [place], [address], 05/10/2024 13:12:05 05/10/20 24 05/10/2024 TEST AUTHO RIZAT ION client contact: KEYON CHEW, LINK Not Available [facility] [facility] [address], [place], [address], 05/10/2024 13:12:05 05/10/20 24 05/10/2024 TEST AUTHO [...] tive. Signa ture: __ Not Available [facility] [address], [place], [address], 05/10/2024 13:12:05 05/10/20 24 05/10/2024 TEST AUTHO [...] other servi ce reque sts. Not Available [facility] [employer] [facility] [place] [facility] [address], [place], [address], 05/10/2024 13:12:05 05/10/20 24 05/11/2024 HEMOG LOBIN [...] diabe jesus for child ingrid. Not Available [facility] [facility] [place] [facility] [address], [place], [address], 05/11/2024 05:48:05 05/23/20 24 05/04/2024 MRI, brain , w/wo contr ast No observ ation record ed. [email or web address] Not Available 2023 07:43:31 05/23/20 24 05/03/2024 CT, angio gram, carot id arter ies, w/ contr ast No observ ation record ed. Not Available 2023 07:43:31 05/23/20 24 05/03/2024 CT, head, w/ contr ast No observ ation record ed. [email or web address] Not Available 2023 07:43:32 05/23/20 24 05/03/2024 elect selina waddell am No observ ation record ed. [email or web address] Not Available 2023 07:43:32 Result Notes None recorded. 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 Hollie Wakefield [facility], [facility] [employer] [facility] 3 07:31:16 Impaired fasting glycemia 530108833 Completed 06/05/2015 GREG Solomon [address] [place] [address], [address], [facility] [employer] [facility] 6 13:39:44 Chest pain 91923410 Completed 06/05/[address], [address], [facility] [employer] [facility] 4 15:19:36 Sinusiti s 15128437 Completed 06/05/2015 GREG Solomon [address] [place] [address], [address], [facility] [employer] [facility] 6 13:39:43 Recurren t sinusiti s 877094448 Completed 04/13/[address], [address], [facility] [employer] [facility] 4 15:18:56 External hordeolu m 2917206 Completed 06/05/[address], [address], [facility] [employer] [facility] 6 13:39:43 Dyspnea 395536528 Completed 06/05/2015 Teresa Chapman, [address], [address], [facility] [employer] 4 15:17:28 Injury of kidney 26885535 Completed 06/05/2015 Hamilton Cantu, [address], [address], [facility] [employer] 6 13:39:44 Upper respirat ory infectio n 41783909 Completed 06/05/2015 Teresa Chapman [address], [address], [facility] [employer] 4 15:19:12 Keratosi s 422406080 Completed 04/13/2024 Teresa Chapman [address], [address], [facility] [employer] 4 15:18:47 Low back pain 057187220 Completed 04/13/[address], [address], [facility] [employer] 4 15:18:51 Eczema 27006673 Active BIPIN Chwodhury, [facility] [employer] 3 07:31:16 Upper respirat ory infectio n 81859821 Completed 04/13/[address], [address], [facility] [employer] 4 15:19:11 Jaw pain 225961680 Completed 04/13/2024 Teresa Chapman [address], [address], [facility] [employer] 4 15:18:41 Allergic rhinitis 89303413 Active Hollie Wakefield CMA null, [facility] [employer] 3 07:31:16 Epigastr ic pain 77609294 Completed 201504/13/2024 Teresa Chapman [address], [address], [facility] [employer] 4 15:17:09 Mixed hyperlip idemia 743778626 Completed 06/05/2015 GREG Solomon [address] [place] [address], [address], [facility] [employer] 6 13:39:43 Bunion 182342579 Completed 01/06/2014 GREG Falcon [address] [place] [address], [address], [facility] [employer] 6 13:39:43 Chronic pain syndrome 830681021 Completed 01/06/2014 GREG Solomon [address] [place] [address], [address], [facility] [employer] 6 13:39:43 Hordeolu m 818867389 Completed 01/06/2014 GREG Solomon [address] [place] [address], [address], [facility] [employer] 6 13:39:43 Dysphagi a 09051380 Completed 01/06/2014 GREG Solomon [address] [place] [address], [address], [facility] [employer] 6 13:39:44 Epigastr ic pain 50363575 Completed 01/06/2014 GREG Caballero [address] [place] [address], [address], [facility] [employer] 4 15:17:09 Benign essentia l hyperten andrea 0939795 Active Hollie Wakefield CMA null, [place] [employer] 3 07:31:16 Hyperlip idemia 45618808 Active 08/2020 ASCVD 33.3-39. 9% on statin 01/2023 ASCVD 49.7% on statin and follow with cardiolo gy Hollie Wakefield CMA null, [place] [employer] 3 07:31:16 Impaired fasting glycemia 191915410 Completed 01/06/2014 Hamilton Pepe, [address], [address], [facility] [employer] [facility] 6 13:39:44 Primary fibromya lgia syndrome 97399290 Active Hollie Wakefield CMA null, [facility] [employer] [facility] 3 07:31:16 Malaise and fatigue 293187730 Completed 01/06/2014 Hamilton Cantu [address], [address], [facility] [employer] [facility] 6 13:39:43 Type 2 diabetes mellitus 51807175 Active 2019 with diabetic neuropat hy 0. BIPIN Chowdhury, [facility] [employer] [facility] 3 07:31:16 Diabetes mellitus 69414012 Completed 201904/13/2024 Teresa Chapman [address], [address], [facility] [employer] [facility] 4 15:19:57 Second degree atrioven tricular block 404361537 Active 2020 [place]. Found in 2019 by [facility]. 02/2021, found to be stable. BIPIN Chowdhury, [facility] [employer] [facility] 3 07:31:16 Basal cell carcinom a of skin 978089900 Active 2021 BIPIN Chowdhury, [facility] [employer] [facility] 3 07:31:16 Aneurysm 864155129 Active 2022 2.4 mm [employer] [employer] [place] [employer] [place] [employer] ating artery aneurysm 08/2022 Hollie Wakefield CMA null, [facility] [employer] [facility] 3 07:31:16 History of arthrode sis 179467375 Completed 04/13/2024 Teresa Chapman [address], [address], [facility] [employer] [facility] 4 15:18:16 Dyspnea 120376733 Completed 04/13/2024 Teresa Chapman [address], [address], [facility] [employer] [facility] 4 15:17:28 Chest pain 94512253 Completed 04/13/2024 Teresa Chapman [address], [address], [facility] [employer] [facility] 4 15:19:36 Hyperten sive disorder 96997617 Active Hollie Wakefield CMA null, [facility] [employer] [facility] 3 07:31:16 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 386955441 Active Hollie Wakefield [employer] PROFESSION[employer] null, [facility] [employer] [facility] 3 07:31:16 Coronary atherosc lerosis 370220814 Completed 04/13/2024 Teresa Chapman [address], [address], [facility] [employer] [facility] 4 15:19:43 High troponin I level 315593090 Completed 04/13/2024 Teresa Chapman [address], [address], [facility] [employer] [facility] 4 15:17:58 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 Hollie Wakefield CMA null, [facility] [employer] [facility] 3 07:31:16 History of spinal fusion 6073421114 9107 Active Hollie Wakefield [employer] PROFESSION[employer] null, [facility] [employer] [facility] 3 07:31:16 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 age unknown hemoside tonia deposits noted on brain MRI 02/2023 Hollie Wakefield CMA null, [facility] [employer] [facility] 3 07:31:16 Dry eyes 927854231 Active 2023 Hamilton Cantu [address], [address], [facility] [employer] 4 09:04:29 Acid reflux 101936124 Active 2023 Hamilton Cantu [address], [address], [facility] [employer] [facility] 4 09:09:30 Forgetfu l 60764477 Active 2023 GREG Solomon [address] [place] [address], [address], [facility] [employer] [facility] 4 09:09:32 Coronary arterios clerosis 19686084 Active Echo 2022 EF 60% mild LV hypertro phy Mild MV and Tricuspi d regurg no change from 2017 Hollie Wakefield CMA null, [facility] [employer] [facility] 3 07:31:16 Hypothyr oidism 94789131 Active Holliejanis Wakefield CMA null, [facility] [employer] [facility] 3 07:31:16 Degenera tion of lumbar interver tebral disc 30666845 Active Hollie Wakefield CMA null, [facility] [employer] [facility] 3 07:31:16 Rheumato id arthriti s 27487218 Active Holliejanis Wakefield [employer] PROFESSIONAL null, [facility] [employer] [facility] 3 07:31:16 Notes:Some problems listed i n Document: #[id number] could not be added to this patient's chart. Please review this document and add these problems to the patient's chart manually as needed. Problem Notes None recorded. Procedures Surgical History Date Name Laterality Status Provider Name and Address Organization Details Recorded Time 023 Telehealth appt via VIDEO or phone time-based E&M completed Jennifer Moyer [address] [place] [address], [address], [facility] [employer] [facility] 04/28/2023 10:17:47 019 cardiac catheterization completed GREG Solomon [address] [place] [address], [address], [facility] [employer] [facility] 03/12/2021 08:21:45 014 Cardiac catheterization completed Rachel Talavera MD [address] [place] [address], [address], [facility] [employer] [facility] 10/07/2013 10:50:22 013 Colonoscopy completed Rachel Talavera MD [address] [place] [address], [address], [facility] [employer] 10/07/2013 10:50:22 012 Other completed Rachelsandra Santizo, [address], [address], [facility] [employer] [facility] [employer] 12/10/2011 15:16:43 009 Orthopedic Surgery completed Rachel Santizo , [address], [address], [facility] [employer] [facility] [employer] 12/10/2011 15:16:43 008 Orthopedic Surgery completed Rachel Santizo , [address], [address], [facility] [employer] [facility] [employer] 12/10/2011 15:16:43 008 Laparoscopy completed Rachel Santizo, [address], [address], [facility] [employer] 12/10/2011 15:13:31 006 Orthopedic Surgery completed Rachel Santizo , [address], [address], [facility] [employer] 12/10/2011 15:13:31 004 Orthopedic Surgery completed Rachelsandra Santizo , [address], [address], [facility] [employer] 12/10/2011 15:16:43 002 Laparoscopy completed Rachel Santizo, [address], [address], [facility] [employer] 12/10/2011 15:13:31 956 Appendectomy completed Rachel Talavera MD [address] [place] [address], [address], [facility] [employer] 10/07/2013 10:50:22 EGD completed Rachel Santizo, [address], [address], [facility] [employer] [facility] [employer] 12/10/2011 15:13:31 Imaging Results Imaging Date Name Status LastModified by Organization Details LastModified Time 05/04/2024 MRI, brain, w/wo contrast completed [email or web address] Information not available 05/24/2024 07:43:31 05/03/2024 CT, angiogram, carotid arteries, w/ contrast completed Information not available 05/24/2024 07:43:31 05/03/2024 CT, head, w/ contrast completed [email or web address] Information not available 05/24/2024 07:43:32 05/03/2024 electrocardiogram completed [email or web address] Informa tion not available 05/24/2024 07:43:32 Procedure Notes None recorded. Medical Equipment None Reported. Allergies No known drug allergies Medications Name Sig Start Date Stop Date Status Note LastModified by Organization Details LastModified Time Prescript ion - Renewal 10/27 completed Refill on Fenofibr ate. Not Available Not Available Not Available hydroco/a pap tab 5-500mg active takes intermit tently, stop it in last week Not Available Not Available Not Available sulfacet sod steffen 10% op active Not Available Not Available Not Available halflytel y kit flav pks 10/22 completed Not Available Not Available Not Available fenofibra te tab 145mg 10/22 completed Not Available Not Available Not Available amitripty nati tab 10mg active Not Available Not Available Not Available tricor tab 145mg active Not Available Not Available No t Available vitamin d cap 92725jak active Not Available Not Available Not Available pantopraz ole tab 40mg active Not Available Not Available Not Available lovaza cap 1gm active Not Available Not Available Not Available sucralfat e tab 1gm 10/22 completed Not Available Not Available Not Available celebrex cap 200mg active Not Available Not Available No t Available oxycod/ap ap tab 5-325mg active Not Available Not Available Not Available levothyro manolo tab 50mcg active Not Available Not Available Not Available transderm -sc dis 1.5mg active Not Available Not Available Not Available amox/k clav tab 875mg 10/22 completed Not Available Not Available Not Available Prescript ion - Clarifica tion 10/27 completed Not Available Not Available Not Available Prescript ion - Prior Authoriza tion Request 05/26 completed Not Available Not Available Not Available Hydromet 5 mg-1.5 mg/5 mL oral solution take 1 to 2 teaspoon ful by [...] 1 TABLET BY MOUTH TWICE A DAY 2024 active Not Available Not Available Not Avai lable hydrocort isone valerate 0.2 % topical ointment [...] de 25 mcg (0.025 %) nasal spray [place] 2 sprays twice a day by intranas [...] AFFECT.. . (REFER TO PRESCRIP TION NOTES). 11/21 /2024 completed Not Available Not Available Not Available [...] Veramyst 27.5 mcg/actua tion nasal spray,neeraj pension [place] 2 sprays every day by intranas al route. 03/07 completed Not Available Not Available Not Available ranolazin e ER 1,000 mg tablet,ex tended release,1 2 hr 02/02 completed Not Available Not Available Not Available [place] 3-6-9 (with lipase) 40 mg-60 mg-10 unit [...] completed Not Available Not Available Not Available [employer] COVID-19 Vaccine (PF) 30 mcg/0.3 mL [...] % 142 mm[Hg] 64 mm[Hg] Amy Blackwell [facility] [employer] 4 10:13:33 Date Recorded Body mass index (BMI) Body weight Provider Name and Address Organization Details Last Updated DateTime 05/10/2024 24.2 kg/m2 76564.18 g Fani Chew, [address], [address], [facility] [employer] 05/10/2024 10:23:30 Social History Question Answer Notes LastModified by Organizat ion Details LastModified Time Tobacco Smoking Status Never Smoker Fela sales, [facility] [employer] 07/19/2012 10:05:13 Do You Have An Advance Directive? Yes Information not available 06/14/2013 What Is Your Level Of Alcohol Consumption? None Information not available 06/14/2013 Are You Blind Or Do You Have Difficulty Seeing? No Information not available 03/12/2021 What Is Your Level Of Caffeine Consumption? Occasional 1 Cup Of Coffee/week [email or web address] Information not available 05/10/2024 How Much Tobacco [...] Drugs No Information not available 06/05/2020 Language Cypriot Information no t available 03/07/2016 Country Of Origin [facility] Information not available 03/07/2016 Dietary Regular Information no t available 03/07/2016 Marital Status [email or web address] [employer] not available 12/08/2011 What Was The Date Of Your Most Recent Tobacco Screening? 05/10/2024 [email or web address] Information not available 05/10/2024 How Many Children [...] History Condition Response Cardiac History, Heart Murmur, [place] Y Arthritis Y Chronic Pain Y Blood Pressure High or Low Y Immunizations Vaccine Type Date Status Note Provider Nam e and Address Organization Details Recorded Time Influenza, MDCK, quadrivalent, preservative 7 completed Not Available [facility] 06/11/2019 02:39:49 Influenza, MDCK, quadrivalent, preservative 8 completed Not Available [facility] 06/11/2019 02:40:35 Influenza, MDCK, quadrivalent, preservative 9 completed Not Available [facility] 06/11/2019 02:41:37 Influenza, MDCK, quadrivalent, preservative 1 completed NOHEMY Perez, [facility] 03/19/2021 09:10:23 zoster recombinant 1 completed NOHEMY Perez, [place] - [facility] 04/30/2021 14:54:36 COVID-19, mRNA, LNP-S, PF, 30 mcg/0.3 mL dose, maritza-sucrose 2 completed Michael Dickens [address] [place] [address], [address], [facility] 10/08/2021 15:40:50 Td (adult), 2 Lf tetanus toxoid, preservative free, adsorbed 2 completed Carito Menendez [facility], [facility] 10/09/2021 08:18:50 Influenza, split virus, quadrivalent, PF 2 completed La Hickman, NOHEMY [address] [place], [address], [facility] 03/21/2022 13:46:25 COVID-19, mRNA, LNP-S, bivalent, PF, 30 mcg/0.3 mL dose 2 completed Bette Yao [address] [place] [address], [address], [facility] [employer] [facility] 05/21/2022 10:41:32 Influenza, split virus, quadrivalent, PF 3 completed La Hickman RN [address] [place] [address], [address], [facility] [employer] [facility] 03/11/2023 11:08:35 Tdap 2 completed Not Available [facility] 06/11/2019 02:40:05 RSV, recombinant, protein subunit RSVpreF, adjuvant reconstituted, 0.5 mL, PF 4 completed GREG Solomon [address] [place] [address], [address], [facility] 05/27/2023 09:25:56 Influenza, split virus, trivalent, PF 4 completed Jennifer Moyer [address] [place] [address], [address], [facility] 03/11/2024 11:18:14 Influenza, split virus, trivalent, preservative 3 completed Not Available [facility] 06/11/2019 02:38:29 Influenza, split virus, trivalent, preservative 4 completed Not Available [facility] 06/11/2019 02:38:39 Influenza, split virus, quadrivalent, preservative 0 completed Hollie Wakefield [employer] PROFESSIONAL null, [facility] 09/11/2023 10:29:49 COVID-19, mRNA, LNP-S, PF, 30 mcg/0.3 mL dose 1 completed Hollie Wakefield [employer] SAL[employer]ICE PROFESSIONAL null, [facility] 03/18/2023 07:31:17 COVID-19, mRNA, LNP-S, PF, 30 mcg/0.3 mL dose 1 completed Hollie Wakefield [employer] SALES SERVICE PROFESSIONAL null, [facility] 03/18/2023 07:31:17 COVID-19, mRNA, LNP-S, PF, 100 mcg/0.5mL dose or 50 mcg/0.25mL dose 1 completed Hollie Wakefield HOME SALES SERVICE PROFESSIONAL null, [facility] 03/18/2023 07:31:17 Pneumococcal conjugate PCV 13 8 completed Hollie Wakefield [employer] SALES SERVICE PROFESSIONAL null, [facility] 03/18/2023 07:31:17 Tdap 2 completed Not Available [facility] 06/11/2019 02:40:18 Td(adult) unspecified formulation 1 completed Hollie Wakefield HOME SALES SERVICE PROFESSIONAL null, [facility] 03/18/2023 07:31:17 Influenza, adjuvanted, quadrivalent, PF 0 completed Hollie Wakefield HOME SALES SERVICE PROFESSIONAL null, [facility] 09/11/2023 10:29:49 Influenza, split virus, trivalent, preservative 2 completed Not Available [facility] 06/11/2019 02:38:27 Past Encounters Encounter ID Performer Location Encounter Start Date Encounter Closed Date Diagnosis/Indication Diagnosis SNOMED-CT Code Diagnosis ICD10 Code Diagnosis Note [id number] [address] 12/08/2011 10:32:39 12/08/2011 11:42:[id number] [address] 01/07/2012 07:18:06 01/07/2012 08:27:42 [id number] Allyssa Pearson MD [address] [address] 02/25/2012 08:52:31 02/25/2012 10:19:59 [id number] Rachel Talavera MD [address] [address] 07/19/2012 09:54:54 07/19/2012 10:37:39 [id number] Fela Vallejo [address] [address] 10/22/2012 07:54:28 10/22/2012 08:49:20 [id number] Hamilton Cantu STAFF CONSULTANT [address] [address] 11/03/2012 08:23:38 11/03/2012 09:11:30 [id number] Rachel Talavera MD [address] [address] 03/14/2013 09:10:37 03/14/2013 09:27:51 Influenza vaccine needed [id number] Hamilton Wilkinson CMA [address] [address] 06/14/2013 11:04:46 06/14/2013 12:08:42 Coronary arteriosclerosis 00465877 continue meds as recommende d fu w Cardiology Benign ess ential hypertension 4182299 BP contol OK Hyperlipidemia 80278157 would keep him on the fenofibrat e plus statin Impaired f asting glycemia 227669838 a1c was 6.3 prediabete s present Hypothyroidism 25298258 [id number] Rachel Talavera MD [address] [address] 07/14/2013 09:56:31 07/14/2013 11:59:29 Coronary arteriosclerosis 75864539 Mixed hyperlipidemia 327099732 Benign ess ential hypertension 8172239 Hyperlipidemia 05555995 Impaired f asting glycemia 909996544 [id number] Rachel Talavera MD [address] [address] 08/05/2013 10:13:37 08/05/2013 10:56:45 Coronary arteriosclerosis 78925989 reviewed records from 06/28/13 Benign ess ential hypertension 6184839 BP contol [place] Hyperlipidemia 65037064 lipid results were quite low Degenerati on of lumbar intervertebral disc 97979113 might benefit from aquatic rx but declines referral at this time Rheumatoid arthritis 32771991 stable on no meds [id number] Rachel Talavera MD [address] [address] 08/11/2013 09:55:30 08/11/2013 11:41:19 Hyperlipidemia 80948124 Impaired f asting glycemia 065035551 Mixed hyperlipidemia 997223330 [id number] Emmadariana Cardoso [address] [address] 10/07/2013 07:22:10 10/07/2013 11:08:28 Viral bronchitis 68908056 likely viral usual recs Malaise [id number] doubt Lyme, tick bites at least 3 weeks ago so will test also TSH and CBC [id number] [address] [address] 01/06/2014 09:56:19 01/06/2014 10:41:12 Malaise [id number] may be related to sleep issues trial trazodone seems worthwhile side effects discussed Hyperlipidemia 49636293 lipid results were quite low Benign pro static hyperplasia [id number] likely trial Javier Thompson will contact me if ineffectiv e will check prostate on annual exam Coronary arteriosclerosis 94823756 I do not suspect significan t angina he will contact me if any change declined an EKG today will be seeing Dr Prasad next mo [id number] [address] [address] 5 03/14/2014 13:35:22 03/14/2014 14:07:32 Influenza vaccine needed [id number] 106 [id number] Chloe Tirado LPN [address] [address] 5 07/28/2014 09:54:54 07/28/2014 10:23:23 Sinusitis 45874095 Patient with 1.5 weeks of URI symptoms with initial improvemen t, then developing left facial and teeth pain. Exam with focal left maxillary sinus tenderness , concerning of acute bacterial infection. Will treat at this time. Advised against oral decongesta nts 2/2 cardiac history. Return precaution s given. [id number] Hamilton Cantu STAFF CONSULTANT [address] [address] 08/23/2014 10:53:25 08/23/2014 11:35:37 Recurrent sinusitis [id number] Treated / for bacterial sinusitis with 5 [...] proceed with CT sinuses and ENT referral. [id number] Chica Vergara [address] [address] 5 01/16/2015 09:30:58 01/16/2015 10:32:31 External hordeolum [id number] Va Jang [address] [address] 5 01/30/2015 14:24:13 01/30/2015 14:49:34 External hordeolum 9002333 Left eye x 2 weeks ~1cm, Right eye x 1-2 days, <0.5cm. No sign of superinfec tion. Patient did not use compresses as directed. -Cont abx treatment to both eyes -Trial zyrtec for itching and potential allergic component. -Warm compresses QID until improved. -If no relief in 2-4 more weeks consider Optho referral for surgical drainage or intralesio n steroid injection. [id number] GREG Solomon [address] [address] 05/29/2015 10:22:32 05/29/2015 11:25:04 Dyspnea 194044432 R06.00 Injury of kidney 2332025 3 S37.009A Upper resp iratory infection 26164710 J06.9 [id number] Rachel Talavera MD [address] [address] 06/05/2015 13:27:43 06/05/2015 14:08:12 Keratosis 720753320 L57.0 The one on his temples likely seborrheic but he wants Dr. Molina to check it. Low back pain 697647161 M54.5 Usual exercise regimen recommende d. Eczema 56557452 L30.9 Fairly significan t area about 4 cm across with some central clearing that is thickened. As he has itching will give him a potent triamcinol one cream to apply twice a day, and follow-up will be here or with Dr. Molina. Coronary arteriosclerosis 46034558 I25.10 Seems under control at this time on current medication s. Degenerati on of lumbar intervertebral disc 47644151 M51.36 Hyperlipidemia 52858332 E78.5 Had concerns about elevated triglyceri de we discussed diet and he has already had recommenda tions from nutrition on this and he understand s he needs to cut back on carbohydra jesus but I did not feel it was of concern. [id number] Rachel Talavera MD [address] [address] 06/25/2015 11:06:12 06/25/2015 11:53:13 Upper respiratory infection 00660489 J06.9 I told him that I did not think antibiotic s are indicated that should resolve on its own I encouraged using vitamin C supplement s zinc fluids etc. He will call me if he is not improving over the next week. [id number] GREG Solomon [address] [address] 08/14/2015 13:18:48 08/14/2015 14:00:09 Jaw pain 014991259 R68.84 Allergic rhinitis 460508 04 J30.9 [id number] GREG Solomon [address] [address] 2016 13:52:04 2016 14:33:04 Cellulitis 128148210 L03.90 Area explored for FB and none found. Area washed with soap and water and bacitracin and DSD applied. Wound marked for comparison . Tdap 2012 Fatigue 83200672 R53.83 Some basic fatigue labs. Dr. Talavera and follow from here if she wishes to pursue further studies. [id number] Bonifacio Garduno MD [address] [address] 01/30/2016 10:15:04 01/30/2016 10:48:44 Cellulitis 519817147 L03.90 Left forearm cellulitis resolving on bactrim. Advised to complete course. Small subcutaneo us nodule remains, mildly tender. If persistent or worsening consider U/S. Lymph node v. reactive tissue v. embedded foreign body. Low back pain 853808800 M54.5 Bilateral intermitte nt iliac crest pain. Not SI joint. Long history of back surgery and loss of lumbar lordosis. Patient is going to check already ordered labs. Was told at one time not to take NSAIDs due to his heart, unclear reasoning at this time. He will discuss with his PCP. [id number] Hamilton Cantu STAFF CONSULTANT [address] [address] 03/07/2016 10:28:08 03/07/2016 11:32:21 Atypical facial pain 28623919 G50.1 I think that this may be allergies, because this is the 3rd year in the early fall he has had it. He may have contact dermititis on eye lids. Avoid rubbing. Conjunctivitis 2536831 H 10.9 Will treat for conjunctiv itis of the left eye Allergic rhinitis 297887 04 J30.9 Supportive measures and will try the name brand here to try to reduce histamine filled tears from running down nose to improve nasal/faci al symptoms. If insurance will not cover it, will use another nasal steriod. He did report improvemen t last time. Netti pot as well. Addendum: Veramyst not covered, so sent in fluticason e nasal spray [id number] GREG Solomon [address] [address] 03/18/2016 13:50:35 03/18/2016 14:49:51 Jaw pain 213782326 R68.84 encouraged gum and sucking use for stretching masseter muscles. We will refer him to ENT and dental for likely TMJ. It is only on the left side. May be arthritic changes secondary to old trauma. Unsure of its etiology or why it occurs only in the fall. [id number] GREG Solomon [address] [address] 06/13/2016 11:01:40 06/13/2016 12:00:40 Acute sinusitis 97375004 J01.90 I think this is reactivati on of his sinusitis. He is going to call Dr. Jane and move his appointmen t up. Supportive measures. [id number] Hamilton Cantu STAFF CONSULTANT [address] [address] 07/01/2016 09:43:35 07/01/2016 10:28:11 Chronic sinusitis 36731545 J32.[address] Alonso. He will get records from Dr. Jane. Same supportive measures. Will treat for 14 days with antibiotic and probiotics . Discussed the diarrhea risk. [id number] Hamilton Cantu STAFF CONSULTANT [address] [address] 5 12/24/2016 07:58:17 12/24/2016 09:13:33 Coronary arteriosclerosis 16179261 I25.10 will get another EKG today to make sure there are no changes. Note prolonged abel. If he has another episode, use NTG and go to ED. He will try the BB at night to reduce symptoms. Chest pain 49650334 R07. 9 Negative work up in ED. Will follow with cardiology next week. [id number] Rachel Talavera MD [address] [address] 5 12/29/2016 13:30:53 12/29/2016 14:27:07 Chest pain 33013555 R07.9 I suspect the cardiogram done on December 24 had the wrong lead placement and should be discarded. There are no changes in his recent cardiogram and he says he feels well without recurrent episodes of chest pain different from baseline. [id number] Bonifacio Garduno MD [address] [address] 5 03/18/2017 10:23:17 03/18/2017 10:49:40 Administration of influenza vaccine 00022629 Z23 [id number] Hamilton Cantu STAFF CONSULTANT [address] [address] 04/10/2017 12:20:02 04/10/2017 13:07:21 Contact dermatitis 92659125 L25.9 Likely a contact dermatitis on his left hand. Suggest he throw away his work gloves. Use the cream bid, avoid getting it on his face-so get a white cotton glove for the left hand. Will follow in 2 weeks. [id number] Rachel Talavera MD [address] [address] 05/26/2017 10:57:19 05/26/2017 11:21:43 Cough 30702475 R05 Discussion , doubt antibiotic s indicated, codeine for cough, if not improving over the next week he will contact me. Benign ess ential hypertension 0955216 I10 BP contol OK Coronary arteriosclerosis 66155477 I25.10 Followed by cardiology [id number] Rachel Talavera MD [address] [address] 06/02/2017 14:26:10 06/02/2017 15:10:32 Low back pain 600651957 M54.5 using Tylenolsho uld improve Recurrent sinusitis 7 74405 J32.9 Agree to give a course of antibiotic s, he will contact us if he is not improving. [id number] Rachel Talavera MD [address] [address] 07/16/2017 10:00:08 07/16/2017 10:40:41 Right flank pain 307255232 R10.9 Negative dipstick, will send urine and order an ultrasound of the kidney to look for cause of his pain. He says he is going to use Tylenol for pain and did not request anything else. Encourage fluids, straining urine etc. He will contact us if he is not improving. Degenerati on of lumbar intervertebral disc 25706857 M51.36 Results of MRI pending, he will contact us about recommenda tions. [id number] GREG Solomon [address] [address] 07/28/2017 10:55:44 07/28/2017 11:43:44 Herpes zoster 6782831 B02.9 Will treat with gabapentin and Shingles cream from [email or web address]. Discussed side effects. No driving or use of tractor. RTO as noted SChedule written out for pt.. [id number] GREG Solomon [address] [address] 08/19/2017 08:13:39 08/19/2017 08:49:11 Herpes zoster 3994647 B02.9 He is decreasing his dose of gabapentin . Currently 300 mg tid. Will decrease next week to 300/0/300 mg, then 0/0/300mg, then finally stop. They dose changes can be 5-7 days apart. Continue using the cream . Shingrix in November. [id number] Allyssa Pearson MD [address] [address] 09/11/2017 08:59:22 09/11/2017 10:06:21 Dyspnea 563750411 R06.00 Coronary arteriosclerosis 26464146 I25.10 will get another EKG today to make sure there are no changes.09 35 hrs: 0.4 mg NTG HS0848 hrs: 110/80-68- pt feels much better-SOB resolved. NO CP -slight lightheade rnpzy7980 hrs: 124/80-64- Spoke to Dr. Crowley of cardiology . Discussed the case with him and wants the patient transferre d to ED. Discussed case with patient and . Pt refuses EMS. will bring pt to ED. Staff called report to [facility] ED. copies of VS and EKG given to .0955 hrs: 122/84-641 000 hrs 124/82-65 Pt will f/u here upon release from [facility] [id number] GREG Solomon [address] [address] 09/30/2017 10:42:34 09/30/2017 11:48:17 Acute sinusitis 88291882 J01.90 Will treat move aggressive ly for several reasons:-h burt is scheduled for a cardiac cath in [...] but will schedule after the cardiac cath [id number] GREG Solomon [address] [address] 02/24/2018 14:11:49 02/24/2018 15:15:04 Pruritic rash 12780228 L28.2 Will refer to Derm. He will get us the name of the Derm he wants to see Influenza vaccine needed 6344688483 106 Z23 flu today Active or passive immunization 087713759 Z23 PCV 13 ordered. Discussed immunizati ons in detaio. Hypothyroidism 36962914 E03.9 will check labs as part of the fatigue work up Fatigue 35737957 R53.83 I believe his fatigue is multi-fact [...] his experience with the cardiology office in [place] . I am sorry for that. Always sleepy 277349619 G47.10 [id number] GREG Solomon [address] [address] 03/30/2018 10:43:25 03/30/2018 16:13:24 Acute sinusitis 34026745 J01.90 He should continue his claritin daily and should restart his flonase. Will treat for sinusitis, he has a cardiac procedure scheduled for Thursday and it is important he can tolerate it.Discuss ed supportive care measures including saline nasal spray, steam therapy, warm compresses . [id number] Hamilton Cantu STAFF CONSULTANT [address] [address] 04/13/2018 10:09:49 04/13/2018 10:45:16 Acute sinusitis 93418825 J01.90 He should continue his claritin daily. Will treat for sinusitis, he has a cardiac procedure scheduled for Thursday and it is important he can tolerate it.Teachin octavia included netti pot use. Discussed supportive care measures including saline nasal spray, steam therapy, warm compresses . [id number] Hamilton Cantu STAFF CONSULTANT [address] [address] 04/27/2018 08:55:21 04/27/2018 15:37:10 Chronic sinusitis 47713539 J32.[address] Alonso, has seen him in the past. Same supportive measures, continue claritin and mucinex OTC. Benign ess ential hypertension 7879188 I10 His BP is elevated at this visit. Pt reports seeing cardiology yesterday who increased his medication , suspect his Isosorbide . No further medication changes at this time, will clinical review nurse note when available. Close follow-up. Discussed cardiovasc ular risk re: HTN. Continue TLC: low sodium diet, exercise as tolerated, medication adherence. [id number] GREG Solomon [address] [address] 11/09/2018 10:51:51 11/09/2018 11:30:53 Tick bite 80703318 W57.XXXA -will cover for the tick bite-he will be out on the tractor if the weather clears, so will try Ceftin-he will let u know if he develops a fever and body aches [id number] Chloe Tirado LPN [address] [address] 02/02/2019 10:41:20 02/02/2019 11:15:41 Osteoarthritis of hip 045637215 M16.9 -prednison e burst for pain-STAT referral back to Ortho-topi francis CBD cream and heat.-RTO as noted [id number] Hi Padron MD [address] [address] 03/09/2019 10:56:54 03/09/2019 11:17:21 Influenza vaccine needed 3271502871 106 Z23 [id number] GREG Solomon [address] [address] 10/28/2019 09:24:37 10/28/2019 10:39:02 Myalgia/myositis - multiple 284062631 M79.10 -multiple concerns for the cramps-antony k related, began before fall, but after first-also concerned because he is on a statin and fibrate-RL S is also a possibilit y-will also check electrolyt es,etc-uri ne looks good, will send for study-labs as noted Pseudomeningocele 246300 005 G96.19 -will have hime f/u with NS Dyslipidemia 892737745 E 78.5 -will check his lipid panel Backache 378191771 M54.9 -XRs for occult fx-he will not get the muscle relaxers until labs back Anemia screening 5327022 07 Z13.0 Lead screening 14627307 Z13.88 Dysuria 04867595 R30.9 -will check urine [id number] GREG Solomon [address] [address] 06/05/2020 14:11:56 06/05/2020 14:54:15 Screening for malignant neoplasm of prostate 429835504 Z12.5 -it has been several years since he has had a PSA. -will check given c/o Type 2 melissa betes mellitus without complication 128766699 E11.9 -he is due for labs Dysuria 66673456 R30.9 -will check urine - will bring in to the office in the AM. -will do urine dip, u/a and urine culture. --if all testing looks good, will consider tamsulosin [id number] GREG Solomon [address] [address] 06/20/2020 12:43:25 06/20/2020 13:25:14 Benign prostatic hyperplasia 569671539 N40.1 -Will try to increase the dose and have him split it to BID as daytime is the worse -it has improved night time some; down to twice nightly -will have him let me know in about 2 weeks -if not improved, consider referral -given his cardiac hx, am concerned about using other meds without speciality consultati on. [id number] GREG Solomon [address] [address] 07/10/2020 07:17:49 07/10/2020 08:14:30 Respiratory tract congestion and cough 903426252 R05 - from his descriptio ns, he [...] allergy component . Gastroesop hageal reflux disease 746080438 K21.9 -the burping and flatus, could be isolated, or it may relate to the the cold/aller gies he is experienci ng -it also may be food related -will give him a trial of famotidine to see if that calms down the acid. Benign pro static hyperplasia 933540023 N40.1 -much improved -no further treatment for now -PSA WNL [id number] GREG Solomon [address] [address] 07/20/2020 11:53:49 07/20/2020 12:58:48 Chronic sinusitis 58263889 J32.9 -Antibioti cs x 21 days -Netti pot -Align 2 tabs bid while onantibiot ics, but not taken at same time of day at antibiotic s -Will not improved, discussed that pt may need to go back to ENT; Dr. Alonso or other ENT of his choice. -Pt agrees -RTO as noted [id number] GREG Solomon [address] [address] 08/08/2020 08:33:43 08/08/2020 09:05:25 Chronic sinusitis 70756863 J32.9 -Augmentin not helpful -will try 7 days of doxycyline -referral to ENT -CT of sinus -fluticaso ne nasal spray -discussed his know pathology in detail; he has turbinate hypertroph y, deviated septum and chronic sinusitis. Dr. Alonso wanted surgery in 2019 and he did not want it. I am afraid it is getting worse -will check in in about 10-14 days [id number] GREG Solomon [address] [address] 08/31/2020 10:46:41 08/31/2020 14:43:12 Dysuria 88299585 R30.0 -will check urine - will bring [...] Type 2 melissa betes mellitus without complication 934839818 E11.9 [id number] Ellen Vides, [address] [address] 10/10/2020 07:47:22 10/10/2020 09:57:24 Vertigo 257431857 R42 resolved continue meclizine at night to avoid daytime fatigue Dysfunctio n of eustachian tube 67263419 H69.[address] of the head in July with mild paranasal sinus disease, nom other significan t intracrani al findings Still has middle ear fluid on the left Discussed with patient the sound conduction of inner ear fluid, and why the heartbeat sounds resolved when fluid drains He will continue nightly meclizine for another week to ensure this fully drains Allergic rhinitis 444968 04 J30.9 Continue daily fluticason e and loratidine Follow up with ENT Coronary arteriosclerosis 07747570 I25.10 January follow up with cardiology scheduled EKG in the office today is normal ED precaution s reviewed [id number] Hamilton Cantu, [address] [address] 03/12/2021 07:43:35 03/12/2021 09:12:29 Cardiac arrhythmia 972952058 I49.9 -Heart rhythm is irregular- will check [...] e is a high surgical risk Hyperglycemia 05744431 R 73.9 -labs done too soon for surgery-wi ll repeat in early March Fatigue 33184974 R53.83 -check CBC Hypothyroidism 10896170 E03.9 will check labs as part of the fatigue work up Easy bruising 550604885 R58 -repeat labs Pain of to e of left foot 5981249732 47814 M79.675 -BETH risk is 1.8 %-definite ly needs cardiology clearance, which is scheduledg ave him list of meds to hold:Taj ology will advise on ASA and PLAVIXLova za 7 days priorMetfo rmin 48 hrs prior to surgery, day of surgery and 48 hrs after surgery Coronary arteriosclerosis 69511322 I25.10 -Pt has 12 stents, of which 7 are in the LAD-he is followed by cardiology closely-he is a high surgical risk Diabetes mellitus 236499 09 E13.42 -hemoglobi n A1C 6.3-contro lled on oral medication s and lifestyle modificati ons Benign ess ential hypertension 0584853 I10 -BP 122/80 today-he is taking his medication s Hyperlipidemia 89481918 E78.5 -Lipids as of 08/2020, his ASCVD risk was 33-39%-he is on a statin-he follows with cardiology Chronic sinusitis 989408 00 J32.9 -currently receiving treatment for sinusitis- he has a nasal polyp and mucosal thickening that leads to recurrent episodes of sinusitiso n Augmentin beginning 03/08/2021 [id number] Vic Live RN [address] [address] 03/19/2021 08:54:43 03/19/2021 09:10:57 Influenza vaccine needed 0156731676 106 Z23 [id number] Vic Live RN [address] [address] 04/30/2021 14:21:11 04/30/2021 14:56:53 Administration of viral vaccine 44179609 Z23 [id number] Anabell Chaudhary, TRUPTI, STAFF CONSULTANT-BC [address] [address] 05/27/2021 08:09:34 05/27/2021 10:29:24 Suspected COVID-19 741804413 Z03.984 [id number] Hamilton Cantu STAFF CONSULTANT [address] [address] 06/21/2021 07:26:05 06/21/2021 08:00:16 Dysfunction of eustachian tube 02777432 H69.92 -discussed in detail-bill d out given-he already has the meds at home-discu ssed the use of heat, massage and sucking on candy-if not better 7-10 days, he will let us know Benign ess ential hypertension 7896967 I10 -BP at goal-doing well with meds Tooth disorder 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 Floaters i n visual field 873551430 H43.399 It also could be retinal so I suggested to him seeing ophthalmol jeremy and he has agreed. [id number] Rachel Talavera MD [address] [address] 10/08/2021 15:35:38 10/08/2021 16:42:11 Administration of SARS-CoV-2 antigen vaccine 691194482 Z23 Patient monitored for {{<5 min, no [...] on series is complete at this time*}} [id number] Hamilton Cantu [address] [address] 10/09/2021 07:26:54 10/09/2021 08:15:34 Cellulitis 236286720 L03.90 -area washed with soap and water-bact ericin applied-an tibiotics both topical and oral-juhi rned about infection given his T2DM and age-direct ions given-soak foot 3x daily-Td update today-RTO if it worsens Administra tion of diphtheria and tetanus vaccine 70387659 Z23 -given today [id number] Hamilton Cantu [address] [address] 11/19/2021 07:10:49 11/19/2021 08:01:06 Insect bite reaction 193277179 T63.481A -3 days of steriod-to pical benadryl spray-sun screen-lianet id further exposure=w atch for signs fo inections; redness, swelling, d/c fever, etc [id number] Hi Padron MD [address] [address] 03/06/2022 08:31:59 03/06/2022 09:23:21 COVID-19 820364146 U07.1 resolving symptoms of covid 19should delay any vaccine booster for 90 days after getting antibody infusion Postviral cough 78251851 4 R05.3 continue benzonatat ewarned it could be present for a few months [id number] Allyssa Pearson MD [address] [address] 03/13/2022 11:09:51 03/13/2022 14:57:29 Acute sinusitis 65494205 J01.90 [id number] La Hickman RN [address] [address] 5 03/21/2022 13:24:41 03/21/2022 13:49:24 Influenza vaccine needed 8355152235 106 Z23 [id number] Bette Yao [address] [address] 05/21/2022 10:31:24 05/21/2022 10:45:51 Administration of SARS-CoV-2 antigen vaccine 983339888 Z23 Patient monitored for <5 min, no hx adverse reactions to previous COVID vaccinatio ns. No adverse reactions noted. Patient tolerated injection well. Common side effects reviewed and vaccinatio n card with patient info sheet given. Patient demonstrat es understand ing that optimal immunity following booster dose occurs at 10-14 days. COVID immunizati on series is complete at this time [id number] GREG Solomon [address] [address] 06/06/2022 07:40:06 06/06/2022 08:13:01 Osteoarthritis 056548610 M19.90 -warm water exercises- steriod burst-decl miky [facility] f/u-Ortho can't do much-wear mitten and use hand warmers-wi ll call if nto resolved [id number] GREG Solomon [address] [address] 08/29/2022 07:27:23 08/29/2022 10:07:27 Hypertensive emergency 2893300671 85267 I16.1 -likely 2/2 medication given by dentist-he is following with Dr. 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 from Plavix-ele ology unknown-he will follow with Neuro [id number] Hollie Wakefield CMA [address] [address] 09/05/2022 10:27:20 09/05/2022 10:28:10 [id number] GREG Solomon [address] [address] 09/05/2022 10:30:07 09/05/2022 11:37:34 Diarrhea 83038480 R19.7 -will check stools for infection and blood-cups and forms given to pt-discuss ed how to do testing Abdominal pain 11542304 R10.9 -unsure of etiology of the cramping, diarrhea and back pain-will get CT abdomen/pe lvis-to ED for CP/SOB , fever or severe pain Angina pectoris 24697202 0 I20.9 -he needed a new RX Pain of left eye 4097213 001 23277 H57.12 -will have [facility] see him-To ED for vision loss [id number] GREG Solomon [address] [address] 09/16/2022 07:08:28 09/16/2022 07:40:14 Abdominal pain 01774521 R10.9 -completel y resolved-l ikely viral or lactose intoleranc e in origin-drew l cancel CT-he will let me know how he is doing. [id number] GREG Solomon [address] [address] 02/11/2023 08:27:54 02/11/2023 09:21:51 Chronic insomnia 134121772 F51.04 -melatonin trial for sleep-thin k there is a component of anxiety about the cerebral aneurysm that is keep him awake.-cou ld also increase the duloxetine .-reached out to Eula Hernandez for other sleep med ideas and/or other ideas to try to enhance sleep Nasal infection 28305420 3 J32.9 -will try mupirocin topically Allergic rhinitis 832388 04 J30.9 -fluticaso ne nasal spray 2 puffs once daily-ceti rizine 10 mg once daily-disc ussed supportive measures of heat, gum chewing, etc-reassu red him that it would resolve as weather changes Hypothyroidism 51774067 E03.9 will check labs as part of the fatigue work up Dyslipidemia 862955789 E 78.5 -will up date labs Vitamin D deficiency 347 10237 E55.9 -will check Vit D Screening for malignant neoplasm of prostate 641796416 Z12.5 -given his complaint of frequent urination (understan ding that the steriod is the big issues now, will check PSA [id number] GREG Solomon [address] [address] 03/18/2023 07:29:22 03/18/2023 08:18:04 Bilateral hearing loss 49893408 H91.93 -discussed in detail-drew burch refer him back to ENT-Encour aged him not to buy OTC hearing aids, as they may not work for him Memory impairment 637555 006 R41.3 -also discussed the uncertaint y of not hearing conversati on vs. not rememberin g, v anxiety-ex plained normal memory loss-rwill refer back to [facility] for evaluaton Anxiety 79647942 F41.9 -discussed in detail-dis cussed the physiology of anxiety as well-he agreed to try sertraline -will watch for increased bruising Allergic rhinitis 465290 04 J30.9 -fluticaso ne nasal spray 2 puffs once daily-ceti rizine 10 mg once daily-Pata day or [place] eye drops and follow package directions -likely resolve with strong [place] [id number] La Hickman, RN [address] [address] 03/11/2023 10:50:59 03/11/2023 11:31:01 Influenza vaccine needed [id number] 106 Z23 [id number] GREG Solomon [address] [address] 04/28/2023 10:14:25 04/28/2023 11:49:12 Burping 183317626 R14.2 -will add famotidine 20 mg bid to the PPI x 1 mos-he can add milk or milk products-e at slowly and chew the food-stay upright after eating-silvia e probiotics 1 tab bid [id number] GREG Solomon [address] [address] 05/27/2023 08:24:48 05/27/2023 10:16:14 Dry eyes 832639705 H04.123 -will refer to [facility].-he can call for appt.-He will let us know how the eye drops are doing. If still having issues, he will help with an appt.-will check for other disease entities that have dry eye has a symptom Anxiety 48091761 F41.9 -discussed in detail-dis cussed that the fatigue may be a side effect of the medication -it should improve with time Hyperglycemia 98453282 R 73.9 -last labs Jan 2023-will repeat Malaise and fatigue 2717 04835 R53.83 -will check for any inflammati on Primary fi bromyalgia syndrome 73791237 M79.7 -will check for occult cause of both his fatigue and dry eye Administra tion of viral vaccine 03416116 Z23 -RSV today Aneurysm 075040423 I72.9 -2.4 mm aneurysm anterior [place]-saw NS at [facility]-n o interventi on needed- it is a source of much anxiety for him Forgetful 61510913 R41.3 -reassured by Dr. Smith-w tramaine see her in one year Acid reflux 438151172 K2 1.9 -resolved with famotidine -will drop one dose, then the 2nd in two weeks-can use prn for highly spiced or high acid foods [id number] Shin_U [address] [address] 09/09/2023 09:22:12 09/09/2023 10:17:39 Suspected COVID-19 644516761 Z20.822 Influenza- like illness 87605162 B34.9 [id number] Hamilton Cantu STAFF CONSULTANT [address] [address] 09/11/2023 10:20:39 09/11/2023 11:08:26 Acute sinusitis 15708241 J01.90 -Netti pot-Aste-p ro, start with one puff-cetir izine-use those treatments first; if in 4-5 more days he is not better, then he can picker/puller the antibiotic s and use them Tick bite 60930776 W57.X XXA -will cover for the tick bite-he will be out on the tractor if the weather clears,-he will let u know if he develops a fever and body aches-inst ructed him to call here for tick bites [id number] Hamilton Cantu [address] [address] 10/06/2023 07:09:01 10/06/2023 08:33:13 Fatigue 76584718 R53.83 -will update labs-may be able to increase levothyrox ine depending on TSH-last blood sugar was slightly elevated, will recheck in fasting state-did discuss that allergies can make you fatigued-h e may increase cetirizine to bid for 2 weeks-cont inue Astepro-al so need to consider anxiety/de pression and will discuss after lab results Dyslipidemia 845985792 E 78.5 -will up date labs.-he will follow with [facility] in November-he is on a BB and can discuss that with cardiology Infection of tick bite 888337986 L08.9 -will check complete tick panel [id number] Hamilton Cantu STAFF CONSULTANT [address] [address] 10/20/2023 07:02:32 10/20/2023 09:15:34 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 -discussed the results with the pt-discuss ed the treatment with the pt-discuss ed avoiding colchicine while on azithromyc in and separate it from the sertraline -they will monitor his HR-he does have a f/u with cardiology next week-copy of labs and precaution s, given to his [id number] Jennifer Comfort [address] [address] 03/11/2024 10:15:35 03/11/2024 11:23:02 Influenza vaccine needed 0020715388 106 Z23 [id number] RACHEL WHITE PA-C [facility] [place] [facility] [address] [place] [address] 03/26/2024 11:41:42 03/26/2024 12:44:05 Felix 782544187 R14.2 Of note entirety of this encounter was conducted via telephone. The limitation s of telehealth consultati on was explained to the patient. The patient and provider were located in the [facility]. Call lasted approximat yasir 15 minutes 15 minutes Discussed at length with patient. Biggest concern with indigestio n and his history would be an OH. Patient states that this feels different than [...] department if his symptoms worsen or change. [id number] GREG Caballero [address] [address] 04/14/2024 07:12:59 04/14/2024 09:37:44 Hypomagnesemia 317899171 E83.42 Magnesium low at 1.0 according to [...] maintain.F /u once results received, sooner prn. [id number] GREG Salinas Karlo [address] [address] 05/10/2024 09:40:17 05/10/2024 11:09:36 Acute diarrhea 129289099 R19.7 hold metformin and stop colchicine and decrease pantoprozo le to qd, wants to wait for colonoscop y, last one normal 2012, order cologuard, labs today Hypomagnesemia 531309100 E83.42 taking 400 mg, recheck today Acid reflux 281185158 K2 1.9 on famotidine 20 bid and pantoprazo le 40 bid Type 2 melissa betes mellitus 88354701 E11.9 hold metformin due to diarrhea, check A1c 6.7 09/2023 Screening for malignant neoplasm of colon 217034619 Z12.11 Z12.12 Coronary arteriosclerosis 15272850 I25.10 fasting lipids today [id number] Fani Chew, GREG Karlo [facility] [address] [facility] [place] [address] 05/12/2024 09:47:05 05/12/2024 10:59:50 Diarrheal disorder 591492656 K52.9 last egd 2014 and polyp removed, last colonoscop y normal 2012, offered referral to be scoped again, med changes discussed with after labs back to hopefully improve diarrhea which seemed to start with addition of colchicine . Coronary arteriosclerosis 41037444 I25.10 fasting lipids very low cholestero l, taking crestor 20 mg and tricor, rec. decrease crestor to 10 mg but discuss with cardiology Type 2 melissa betes mellitus 68428311 E11.9 hold metformin due to diarrhea, check [...] Name 03/11/2024 2 [place] [id number] Bonifacio Vergara [id number] Secretarybethany Vergara 03/11/2024 1 [place] FQHC Bonifacio Vergara [id number] Secretarybethany Vergara 03/26/2024 2 [place] [id number] Bonifacio Vergara [id number] 32 Chicabethany Vergara 03/26/2024 1 [place] Bonifacio Vergara [id number] Secretarybethany Vergara 04/14/2024 2 [place] [id number] Bonifacio Vergara [id number] 32 Secretarybethany Vergara 04/14/2024 1 [place] Bonifacio Vergara [id number] 6 Chica Vergara 05/10/2024 2 [facility] [id number] Bonifacio Vergara [id number] Chica Vergara 05/10/2024 1 MEDICARE A-MA: [facility] Bonifacio Vergara [id number] 6 Chica Vergara 05/12/2024 2 [facility]: [place] [id number] Bonifacio Vergara [id number] Chica Vergara 05/12/2024 1 MEDICARE A-MA: [facility] Bonifacio Vergara [id number] 6 Chica Vergara Notes Date Note Type Note Provider Name and Address Organization Details Recorded Time 4 text/htm l pt seen by nursing for influenza vaccineprevaccination screening sheet completedpt tolerated well. VIS given Jennifer Moyer [address] [place], [address], [employer] 03/11/2024 11:17:33 4 text/htm kiersten 74-year-old male that presents via telehealth talent acquisition partner service for concern of indigestion. . Since [...] with minimal relief RACHEL WHITE PA-C [address] [place], [address], [employer] 03/26/2024 11:45:13 4 text/htm l 74yo M [...] night - unsure of dose. Teresa Chapman, [address], [address], [facility] 04/14/2024 09:37:08 4 text/htm l DiarrheaReported bypatient.Duration:presen [...] about a month ago from a new cloth colorer but no note is available. Fanieve Chew, [address], [address], [facility] 05/10/2024 13:17:30 4 text/htm l T.C. to [...] continutes to have gi issues. Fani Chew, [address], [address], [facility] 05/12/2024 10:45:41
--- OUTSIDE RECORDS SUMMARY | 2024-08-23 17:07 | XMS_ITS | Clinical Summary ---
Author Organization [facility] Address [address] [place] [address] Care Team Providers Care Net Software Engineer Name Role Phone Joaquin Talavera MD Primary Care Provider + [phone] Allergies Active Allergy Reactions Criticality Noted Date [...] Active famotidine (PEPCID) 20 MG tablet Acid Geography Faculty Member (famotidine) 20 mg tablet 0 Active amLODIPine [...] age to complete this topic Care Teams Net Software Engineer Relationship Specialty Start Date End Date Joaquin Talavera MD [address] [facility] [place] [address] PCP - General Family Medicine 01/12/17
--- OUTSIDE RECORDS SUMMARY | 2024-08-23 17:08 | XMS_ITS | Clinical Summary ---
Author Organization [facility] Address [address] [place] [address] Care Team Providers Care Court Interpreter Name Role Phone Joaquin Talavera MD Primary Care Provider + [phone] Surgical History Surgery Date Site/Laterality Comments BACK SURGERY PROCEDURE: HISTORICAL BACK SURGERY; COMMENT: spinal fusion HERNIA REPAIR PROCEDURE: [place] RPR 1ST INGUN HRNA AGE 5 MO-5 [...] age to complete this topic Care Teams Court Interpreter Relationship Specialty Start Date End Date Joaquin Talavera MD [address] [facility] [place] [address] PCP - General Family Medicine 01/12/17
== END 2024-08-23 14:50 | disposition home or self-care (01) ==
LOC: HO.HOS 14:18
PROVIDERS: PCP Nurse Practitioner Family; Visit Provider Orthopaedic Surgery
DX: S83.242A Other tear of medial meniscus, current injury, left knee, initial encounter (principal)
CPT/HCPCS: 99213; G2211

== ENCOUNTER → 2024-08-23 14:18 | Outpatient (BNVA) | payer MEDICARE, SELFPAY | PROVIDERS: PCP Nurse Practitioner Family; Visit Provider Orthopaedic Surgery | DX: S83.242A Other tear of medial meniscus, current injury, left knee, initial encounter (principal); X58.XXXA Exposure to other specified factors, initial encounter; Y93.9 Activity, unspecified; Y92.9 Unspecified place or not applicable; Y99.9 Unspecified external cause status | CPT/HCPCS: 99212 ==

== ENCOUNTER 2024-08-31 09:08 | Outpatient (AMB) | payer MEDICARE, SELFPAY ==
--- NOTE | 2024-08-31 09:10 | MHC.OFFVIS ---
Vital Signs 08/31/24 09:12 Height 5 ft 11 in Weight 167 lb BMI 23.3 BP 159/72 H Blood Pressure Location Lt brachial Position Sitting Respiration 16 Pulse 50 Pulse Source Pulse Oximeter Pulse Oximetry (%) 97 Oxygen Delivery Method Room Air Intake Visit Reasons: s/p left theraputic SIJ Resaw Feeder Required: No Allergies No Known Allergies Allergy (Verified 08/31/24 09:14) Medication List - Last Reconciled 08/31/24 by Bette Valencia LPN amlodipine 5 mg PO DAILY aspirin 81 mg PO DAILY cetirizine (Zyrtec) 10 mg PO DAILY PRN cholecalciferol (vitamin D3) 50 mcg PO DAILY clopidogrel 75 mg PO DAILY famotidine 20 mg PO BID fenofibrate nanocrystallized 145 mg PO DAILY hydroxychloroquine 200 mg PO BID levothyroxine 50 mcg PO DAILY magnesium oxide 400 mg PO DAILY omega 1-yox-bul-fish oil 60-90-500 mg (Fish Oil) 1 cap PO DAILY omega-3 acid ethyl esters (Lovaza) 2 caps PO BID pantoprazole 40 mg PO DAILY rosuvastatin 10 mg PO BEDTIME tamsulosin 0.8 mg PO DAILY HPI HPI s/p left theraputic SIJ: Details: History of Present Illness The patient is a 74-year-old male presenting with sacroiliac joint pain management and assessment of greater trochanteric pain. He reports recent therapeutic management for left sacroiliac joint pain, observing moderate relief. However, pain persists notably at night and when climbing stairs. A meniscal tear on the left knee, confirmed by MRI, has warranted surgical repair next month. Additionally, longstanding axial neck pain, post-cervical fusion from a previous accident, is significantly impacting nocturnal comfort and exhibits crepitus without lower back involvement. Pain Description - Onset and Timing: Chronic left sacroiliac pain with recent injection providing 50% relief. - Quality and Character: Persistent pain with characteristics of soreness and discomfort, particularly nocturnal exacerbations. - Location: Primarily in the left lateral hip region. - Radiation: No radiation to the legs, confined to the left lateral hip area. - Exacerbating Factors: Aggravated by stair navigation and nighttime. - Relieving Factors: Partial relief from sacroiliac joint injection. - Interference: Affects daily activities, particularly the ability to ascend stairs due to the living arrangement. Physical Exam - Musculoskeletal- Observed patient directed to stand, turn, tender GTB; consented to and underwent left greater trochanteric injection procedure. Results - Tests and Diagnostics: MRI confirming meniscal tear on the left knee. Pain Management - Affect: Pain significantly impacts patient?s nighttime rest, mood not explicitly noted. - Analgesia: Reported improvement with recent sacroiliac joint injection, achieving 40%-50% relief. - Adverse Effects: Not discussed. - Activities of Daily Living: Pain restricts ability to navigate stairs efficiently. - Aberrant Drug Related Behaviors: Not discussed. Procedure - Left Greater Trochanteric Injection: Informed consent obtained. The patient was positioned on the right lateral side, and ultrasound guidance utilized to identify the left greater trochanter. A 25-gauge needle was advanced under US and administered 40 mg of Kenalog with 3 mL of 0.25% Ropivacaine with no reported pain during injection. The patient tolerated the procedure well, without complications, and US imaging records were secured. [facility] Medical History (Updated 08/31/24 @ 09:52 by Danie Malone MD) Calcium pyrophosphate deposition disease (CPPD) Hypovitaminosis D Hypomagnesemia Screening for osteoporosis Osteoarthritis involving multiple joints on both sides of body Polyarthralgia Surgical History (Updated 08/31/24 @ 09:52 by Danie Malone MD) Hx of shoulder surgery Hx of neck surgery History of back surgery Hx of shoulder surgery Social History Alcohol intake: former Patient Tobacco Use Status: Never used Tobacco Current occupational status: retired Current occupation: Right hand dominate Physical Exam Vital Signs: Last Vital Signs Pulse 50 08/31/24 09:12 Resp 16 08/31/24 09:12 BP 159/72 H 08/31/24 09:12 Pulse Ox 97 08/31/24 09:12 Oxygen Delivery Method Room Air 08/31/24 09:12 BMI result Body Mass Index 23.3 Assessment & Plan Assessment & Plan (1) Sacroiliac joint dysfunction of left side: Code(s): M53.3 - Sacrococcygeal disorders, not elsewhere classified Category: Medical (2) Trochanteric bursitis, left hip: Code(s): M70.62 - Trochanteric bursitis, left hip Category: Medical (3) Chronic neck pain: Code(s): M54.2 - Cervicalgia; G89.29 - Other chronic pain Category: Medical (4) Cervical spondylosis: Code(s): M47.812 - Spondylosis without myelopathy or radiculopathy, cervical region Category: Medical (5) Hx of neck surgery: Code(s): Z98.890 - Other specified postprocedural states Category: Surgical Plan Plan The patient is continuing pain management for left sacroiliac joint issues, receiving a recent injection with moderate relief. He underwent a left greater trochanteric injection today to address persisting discomfort and will follow up post meniscal tear surgery on September 23. Discussions regarding cervical stimulation for neck pain relief given prior neck fusion took place with consideration for insurance coverage. Household activities remain adaptive pending further intervention outcomes. Patient was informed and verbally consented to the use of an ambient scribe for clinic note documentation during this visit. Discussion Notes I discussed with the patient the moderate relief achieved with the sacroiliac joint injection and performed a left greater trochanteric injection for additional pain alleviation, detailing procedural steps, risks, and benefits. I explained potential peripheral nerve stimulation as a future option for axial neck pain management. The benefits, impact on steroid intake, and insurance coverage were examined. The patient is advised on follow-up plans post-surgery and interim management strategies. Patient Instructions - Monitor left sacroiliac joint pain and activity levels. - Prepare for September 23 left knee meniscal repair. - Consider household adaptations to better manage stair use. - Review materials on peripheral nerve stimulation for chronic neck pain management. - Schedule follow-up appointments for after knee surgery. - Report any new or worsening symptoms promptly. Coding Level of Care Code Est Pt Level 4 (02447) Diagnoses Sacroiliac joint dysfunction of left side M53.3 Trochanteric bursitis, left hip M70.62 Chronic neck pain M54.2; G89.29 Cervical spondylosis M47.812 Hx of neck surgery Z98.894
[2024-08-31 09:12] VITALS: BP 159/72; PULSE 50; RESP 16; O2SAT 97; BMI 23.3
--- OUTSIDE RECORDS SUMMARY | 2024-08-31 09:39 | XMS_ITS | Clinical Summary ---
Author Organization [facility] Address [address] [place] [address] Care Team Providers Care Public Affairs Officer Name Role Phone Joaquin Talavera MD Primary Care Provider + [phone] Surgical History Surgery Date Site/Laterality Comments BACK SURGERY PROCEDURE: HISTORICAL BACK SURGERY; COMMENT: spinal fusion HERNIA REPAIR PROCEDURE: [place] RPR 1ST INGUN HRNA AGE 5 MO-5 [...] 2024 Influenza Vaccine (#1) 2024 RSV Immunization Adult Patie nts (1 - 1-dose 75+ series) 01/26/2024 HIB [...] age to complete this topic Meningococcal B Vaccine Aged Out No l onger eligible based on patient's age to complete this topic RSV Immunization Patients Un zachary 20 months Aged Out No longer eligible b ased on patient's age to complete this topic Varicella Vaccines Aged Out No longer eligible based on patient's age to complete this topic Care Teams Public Affairs Officer Relationship Specialty Start Date End Date Joaquin Talavera MD [address] [facility] [place] [address] PCP - General Family Medicine 01/12/17
--- OUTSIDE RECORDS SUMMARY | 2024-08-31 09:39 | XMS_ITS | Clinical Summary ---
Author Organization [facility] Address [address] [place] [address] Care Team Providers Care Client Service Representative Name Role Phone Joaquin Talavera MD Primary Care Provider + [phone] Allergies Active Allergy Reactions Criticality Noted Date [...] Active famotidine (PEPCID) 20 MG tablet Acid Municipal Clerk (famotidine) 20 mg tablet 0 Active amLODIPine [...] age to complete this topic Care Teams Client Service Representative Relationship Specialty Start Date End Date Joaquin Talavera MD [address] [facility] [place] [address] PCP - General Family Medicine 01/12/17
== END 2024-08-31 09:44 | disposition home or self-care (01) ==
LOC: HO.PMC 09:09
PROVIDERS: PCP Nurse Practitioner Family; Visit Provider Internal Medicine
DX: G89.29 Other chronic pain (principal); M53.3 Sacrococcygeal disorders, not elsewhere classified; M54.2 Cervicalgia; M70.62 Trochanteric bursitis, left hip; M47.812 Spondylosis without myelopathy or radiculopathy, cervical region; Z98.890 Other specified postprocedural states
CPT/HCPCS: 20611; 99214

== ENCOUNTER → 2024-08-31 09:08 | Outpatient (BNVA) | payer MEDICARE, SELFPAY | PROVIDERS: PCP Nurse Practitioner Family; Visit Provider Internal Medicine | DX: M70.62 Trochanteric bursitis, left hip (principal); M53.3 Sacrococcygeal disorders, not elsewhere classified; M54.2 Cervicalgia; M47.812 Spondylosis without myelopathy or radiculopathy, cervical region; G89.29 Other chronic pain; Z98.890 Other specified postprocedural states | CPT/HCPCS: 20611; 99212 ==

== ENCOUNTER 2024-10-14 13:35 | Outpatient (AMB) | payer MEDICARE, SELFPAY ==
--- OUTSIDE RECORDS SUMMARY | 2024-10-14 13:39 | XMS_ITS | Clinical Summary ---
Author Organization [facility] Address [address] [place] [address] Care Team Providers Care Acid Concentrator Name Role Phone Joaquin Talavera MD Primary Care Provider + [phone] Allergies Active Allergy Reactions Criticality Noted Date [...] Active famotidine (PEPCID) 20 MG tablet Acid Bite Block Maker (famotidine) 20 mg tablet 0 Active amLODIPine [...] age to complete this topic Care Teams Acid Concentrator Relationship Specialty Start Date End Date Joaquin Talavera MD [address] [facility] [place] [address] PCP - General Family Medicine 01/12/17
--- NOTE | 2024-10-14 13:44 | MHC.OFFVIS ---
Vital Signs 10/14/24 13:52 Height 5 ft 11 in Weight 165 lb 12.602 oz BMI 23.1 BP 120/80 Blood Pressure Location Lt brachial Position Sitting Pulse 80 Pulse Source Pulse Oximeter Pulse Oximetry (%) 98 Oxygen Delivery Method Room Air Intake Visit Reasons: follow up Intake Note: Patient presents for CPPD follow up. Allergies No Known Allergies Allergy (Verified 10/14/24 13:47) HPI Comments Details: Patient is a 74-year-old male with hypertension complicated by coronary artery disease status post 12 stents, diabetes, hypothyroidism, BPH and hyperlipidemia who presents for follow up of polyarthralgias Interval History: Patient last seen 07/06/24 with me. At that time he was following up for his diagnosis of presumed CPPD. He did not tolerate colchicine and self-discontinued it. But continued to have synovitis on examination and so he was started on Plaquenil. Initially was on 2 tablets daily but then decreased it to 1 tablet daily due to GI issues. Overall doing much better on the Plaquenil. Of note he has been having a lot of cardiac issues including pacemaker placement and 4 additional stents. 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 His treatment consisted of Celebrex and other NSAIDs. Was never on methotrexate or any other DMARD or biologic. When his preparation room worker retired he then [facility] and was told he does not have rheumatoid arthritis but osteoarthritis. Since then he has been getting series of steroid injections in various joints including his MCPs, MTPs, knees, shoulders, hips under fluoroscopic guidance. He is here today for a 2nd opinion With respect to his hands he does report morning stiffness sometimes lasting up to an hour but he also reports worsening stiffness and pain at the end of the day and this sometimes wakes him up at night. Right now his main complaint are his hips and his knees. He denies any history of recurrent monoarticular arthritis involving the wrists, elbows or knees. But does note that he gets swelling to these areas at times. Has never had arthrocentesis. Denies any extra articular manifestations of rheumatoid arthritis. Currently he takes Tylenol which does not help. Sometimes he will take oxycodone or Vicodin. Was told that he could no longer take Celebrex or naproxen because of his heart condition and his age. Current Rheumatology Medication(s): Plaquenil 200mg PFSH Medical History (Updated 10/14/24 @ 14:21 by Claire Vazquez MD) Pacemaker Calcium pyrophosphate deposition disease (CPPD) Hypovitaminosis D Hypomagnesemia Screening for osteoporosis Osteoarthritis involving multiple joints on both sides of body Polyarthralgia Surgical History Hx of shoulder surgery Hx of neck surgery History of back surgery Hx of shoulder surgery Social History Alcohol intake: former Patient Tobacco Use Status: Never used Tobacco Current occupational status: retired Current occupation: Right hand dominate Review of Systems Const Details: Review of Systems Constitutional: Denies fever, chills, weight loss ENT: Denies vision changes, eye pain or eye redness, dental caries, dry mouth GI: Denies nausea, vomiting, diarrhea, abdominal pain, change in BM Pulm: Denies SOB, ROQUE, hemoptysis, wheezing Cards: Denies chest pain, palpitations Skin: Denies Raynaud's, rash, nail changes, photosensitivity, HUMAN RESOURCES ASSISTANT MANAGER: Denies headaches, weakness, paresthesias, recurrent falls MSK: as per HPI All other systems reviewed and are unremarkable except noted above Physical Exam Vital Signs: Last Vital Signs Pulse 80 10/14/24 13:52 BP 120/80 10/14/24 13:52 Pulse Ox 98 10/14/24 13:52 Oxygen Delivery Method Room Air 10/14/24 13:52 BMI result Body Mass Index 23.1 Vital signs reviewed Physical Examination CONSTITUITIONAL Patient alert and cooperative. Well appearing and in no apparent painful distress HEENT Conjunctiva and sclera clear. ?Pupils equal round and reactive to light. ?No lymphadenopathy. ?Normal dentition. No oral or nasal ulcers noted. No evidence of discoid rash to the miguel ángel of ears. No tophi noted CHEST/RESPIRATORY SYSTEM Normal respiratory effort and able to speak in complete sentences. ?Clear to auscultation bilaterally. ?No crackles, rales, rhonchi, wheezes heard. CARDIAC SYSTEM Regular rate and rhythm. ?S1 and S2 heard no murmurs. ?Radial pulses intact bilaterally MSK Hands: ?Good armhole feller handstitching machine strength bilaterally. No synovitis noted Wrists: ?Fullness noted to the wrist with a surgical scar over the wrist (previous removal of ganglion cyst) no tenderness to palpation. full range of motion. Elbows: Full range of motion without pain. No tenderness, weakness, swelling, increased warmth or erythema. Shoulders: Full range of motion without pain. No tenderness, weakness, swelling, increased warmth or erythema. Knees: ?Full range of motion. ?No tenderness, swelling, increased warmth or erythema.? Crepitations felt bilaterally Ankles: Full range of motion. ?No tenderness, swelling, increased warmth or erythema.? Feet: ?No tenderness to palpation. Negative squeeze test SKIN Skin intact without rashes. Results Reviewed Results Reviewed: [facility] results reviewed. Patient with normal inflammatory markers Assessment & Plan Assessment & Plan (1) Calcium pyrophosphate deposition disease (CPPD): Comment: Did not tolerate colchicine Plaquenil 06/2024 Code(s): M11.20 - Other chondrocalcinosis, unspecified site Category: Medical Plan: #CPPD Patient is a 74-year-old male with the presumed CPPD based on chondrocalcinosis, monoarticular arthritis and elevated inflammatory markers. Did not tolerate colchicine. Tolerating Plaquenil at 200 mg and experiencing improvement in his joints. Discussed increasing Plaquenil to 1-1/2 tablets daily. Patient to follow up with Ophthalmology Plan - Plaquenil 300mg daily - RTC 6 months - Labs prior to visit: CBC, CMP, ESR, CRP (2) Long-term use of Plaquenil: Code(s): Z79.899 - Other correction (current) drug therapy Plan: #Long-term Use of Hydroxychloroquine Discussed with patient the risks and benefits of hydroxychloroquine in managing the rheumatic condition Benefits include: - Reduced pain, reduce mortality, maintenance of remission and reduction of flares Risks include: - GI upset, skin hyperpigmentation, retinal toxicity (especially after more than 5 years of use), myopathy Advised yearly ophthalmology visits Plan I spent 30 minutes reviewing the record and labs, taking a history, examining the patient, discussing the treatment plan and documenting in the medical record Coding Level of Care Code Est Pt Level 4 (75256) Complex EM visit Add On G2211 Diagnoses Calcium pyrophosphate deposition disease (CPPD) M11.20 Long-term use of Plaquenil Z79.899
[2024-10-14 13:52] VITALS: BP 120/80; PULSE 80; O2SAT 98; BMI 23.1
== END 2024-10-14 14:16 | disposition home or self-care (01) ==
LOC: HO.RHE 13:36
PROVIDERS: PCP Nurse Practitioner Family; Visit Provider Student in an Organized Health Care Education/Training Program
DX: M11.20 Other chondrocalcinosis, unspecified site (principal); Z79.899 Other long term (current) drug therapy
CPT/HCPCS: 99214; G2211

== ENCOUNTER → 2024-10-14 13:35 | Outpatient (BNVA) | payer MEDICARE, SELFPAY | PROVIDERS: PCP Nurse Practitioner Family; Visit Provider Student in an Organized Health Care Education/Training Program | DX: M06.9 Rheumatoid arthritis, unspecified (principal); M25.50 Pain in unspecified joint; M11.20 Other chondrocalcinosis, unspecified site; Z79.899 Other long term (current) drug therapy | CPT/HCPCS: 99212 ==

== ENCOUNTER 2024-10-21 11:00 | Outpatient (AMB) | payer MEDICARE, SELFPAY ==
--- NOTE | 2024-10-21 11:07 | A.OFFVIS_ITS ---
Vital Signs 10/21/24 11:08 Weight 168 lb BP 199/74 H Blood Pressure Location Lt brachial Position Sitting Pulse 74 Pulse Source Pulse Oximeter Pulse Oximetry (%) 98 Oxygen Delivery Method Room Air Intake Visit Reasons: hip pain Phd Intern Required: No Allergies No Known Allergies Allergy (Verified 10/21/24 11:08) Medication List - Last Reconciled 10/21/24 by Bette Valencia LPN amlodipine 5 mg PO DAILY aspirin 81 mg PO DAILY cetirizine (Zyrtec) 10 mg PO DAILY PRN cholecalciferol (vitamin D3) 50 mcg PO DAILY clopidogrel 75 mg PO DAILY famotidine 20 mg PO BID fenofibrate nanocrystallized 145 mg PO DAILY hydroxychloroquine 300 mg (1.5 x 200 mg) PO DAILY 90 days levothyroxine 50 mcg PO DAILY magnesium oxide 400 mg PO DAILY metoprolol succinate ER 25 mg PO DAILY omega 9-ukc-opl-fish oil 60-90-500 mg (Fish Oil) 1 cap PO DAILY omega-3 acid ethyl esters (Lovaza) 2 caps PO BID pantoprazole 40 mg PO DAILY rosuvastatin 10 mg PO BEDTIME tamsulosin 0.8 mg PO DAILY HPI HPI hip pain: Details: History of Present Illness The patient is a 74-year-old male presenting with chronic pain management and evaluation of recent neck and hip pain. The recent onset of snapping sensations in the neck began about a month to a month and a half ago, possibly connected to a historical cervical fusion from two decades past. The patient experiences discomfort when this snapping occurs but declines further surgical interventions like device placement. In terms of hip pain, the patient encountered a significant exacerbation following a cortisone injection, experiencing increased pain for several weeks, which was particularly problematic at night. Previous SIJ injections had been beneficial but this instance led to a temporary escalation in symptoms. The patient's cardiac background is notable, with the recent introduction of a pacemaker and the successful placement of additional stents in response to syncope episodes detected by a heart monitoring device. Presently, the patient takes Clavix and Metoprolol as part of their ongoing cardiac management plan. Pain Description - Onset & Timing: Recent neck snapping began approximately 1-1.5 months ago. Hip pain exacerbated by cortisone injection lasting 3-4 weeks. - Quality & Character: Neck pain described as snapping without clarity on origin, potentially related to past fusion. Hip pain is severe, worsened after cortisone injection. - Location: Neck and right hip region. - Areas of Radiation: Not specifically mentioned. - Exacerbating Factors: Injection referred to as having worsened hip pain. - Relieving Factors: Previous cortisone injections had alleviated hip pain; current interventions not detailed as effective. - Activities of Interference: Sleeping and movement impacted by hip pain; neck snapping causing concern. Physical Exam - Appears afebrile. - Alert and oriented. - Mood and affect appropriate. - Follows and participates in conversation appropriately. - Respiratory effort is unlabored. Pain Management - Affect: The patient expresses frustration and heightened concern regarding neck and hip symptoms, especially following recent exacerbation of pain post- injection. - Analgesia: Cortisone injections; however, recent administration exacerbated pain. Utilizes arthritis cream for neck, expressing limited relief. - Adverse Effects: Noted worsening of symptoms after the last cortisone injection in the hip. - Activities of Daily Living: Hip pain interferes with nighttime comfort and movement; neck pain causes concern affecting willingness for intervention. - Aberrant Drug Related Behaviors: None reported. [facility] Medical History (Updated 10/14/24 @ 14:21 by Claire Vazquez MD) Pacemaker Calcium pyrophosphate deposition disease (CPPD) Hypovitaminosis D Hypomagnesemia Screening for osteoporosis Osteoarthritis involving multiple joints on both sides of body Polyarthralgia Surgical History Hx of shoulder surgery Hx of neck surgery History of back surgery Hx of shoulder surgery Social History Alcohol intake: former Patient Tobacco Use Status: Never used Tobacco Current occupational status: retired Current occupation: Right hand dominate Physical Exam Vital Signs: Last Vital Signs Pulse 74 10/21/24 11:08 BP 199/74 H 10/21/24 11:08 Pulse Ox 98 10/21/24 11:08 Oxygen Delivery Method Room Air 10/21/24 11:08 Assessment & Plan Assessment & Plan (1) Cervical spondylosis: Code(s): M47.812 - Spondylosis without myelopathy or radiculopathy, cervical region Category: Medical (2) Chronic neck pain: Code(s): M54.2 - Cervicalgia; G89.29 - Other chronic pain Category: Medical (3) Sacroiliac joint dysfunction of left side: Code(s): M53.3 - Sacrococcygeal disorders, not elsewhere classified Category: Medical (4) Trochanteric bursitis, left hip: Code(s): M70.62 - Trochanteric bursitis, left hip Category: Medical (5) Left hip pain: Code(s): M25.552 - Pain in left hip Category: Medical Plan Plan - Tailor GTB injection given past results; consider alternative technique if needed. - Deferral of neck intervention due to cardiac considerations; physical therapy suggested. - Maintain communication with cardiology regarding stents and Plavix management. - Schedule follow-up to continually evaluate treatment efficacy and potential adjustments. Patient was informed and verbally consented to the use of an ambient scribe for clinic note documentation during this visit. Discussion Notes I discussed the likelihood of altering the injection technique for the patient's hip to mitigate adverse reactions experienced previously. We addressed the potential limitations due to ongoing Plavix therapy regarding possible neck interventions. The patient acknowledged the necessity of ongoing cardiology consultation to manage the side effects of plavix on procedural scheduling. We agreed to follow up after confirming the asphalt heater operator's recommendations on medication management and to confirm specific treatment modifications for the pain management strategy. Patient Instructions - Monitor for changes in hip and neck pain. - Follow-up with asphalt heater operator as scheduled and clarify medication management. - Continue use of arthritis cream as needed to alleviate neck discomfort. - Consider physical therapy for neck support; discuss options at next appointment. - Schedule follow-up appointment to review hip pain treatment options. Coding Level of Care Code Est Pt Level 4 (16707) Diagnoses Cervical spondylosis M47.812 Chronic neck pain M54.2; G89.29 Sacroiliac joint dysfunction of left side M53.3 Trochanteric bursitis, left hip M70.62 Left hip pain M25.552
[2024-10-21 11:08] VITALS: BP 199/74; PULSE 74; O2SAT 98
--- OUTSIDE RECORDS SUMMARY | 2024-10-21 11:54 | XMS_ITS | Clinical Summary ---
Author Organization [facility] Address [address] [place] [address] Care Team Providers Care Licensed Vocational Nurse Name Role Phone Joaquin Talavera MD Primary Care Provider + [phone] Allergies Active Allergy Reactions Criticality Noted Date [...] Active famotidine (PEPCID) 20 MG tablet Acid Qc Lab Technician (famotidine) 20 mg tablet 0 Active amLODIPine [...] age to complete this topic Care Teams Licensed Vocational Nurse Relationship Specialty Start Date End Date Joaquin Talavera MD [address] [facility] [place] [id number] PCP - General Family Medicine 01/12/17
== END 2024-10-21 11:50 | disposition home or self-care (01) ==
LOC: HO.PMC 11:00
PROVIDERS: PCP Nurse Practitioner Family; Visit Provider Internal Medicine
DX: G89.29 Other chronic pain (principal); M53.3 Sacrococcygeal disorders, not elsewhere classified; M70.62 Trochanteric bursitis, left hip; M25.552 Pain in left hip
CPT/HCPCS: 99214

== ENCOUNTER → 2024-10-21 11:00 | Outpatient (BNVA) | payer MEDICARE, SELFPAY | PROVIDERS: PCP Nurse Practitioner Family; Visit Provider Internal Medicine | DX: M54.2 Cervicalgia (principal); M25.551 Pain in right hip; M25.552 Pain in left hip; M47.812 Spondylosis without myelopathy or radiculopathy, cervical region; G89.29 Other chronic pain; M53.3 Sacrococcygeal disorders, not elsewhere classified; M70.62 Trochanteric bursitis, left hip | CPT/HCPCS: 99212 ==

== ENCOUNTER 2024-10-31 09:39 | Outpatient (AMB) | payer MEDICARE, SELFPAY ==
--- NOTE | 2024-10-31 09:45 | MHC.OFFVIS ---
Vital Signs 10/31/24 09:46 Height 5 ft 11 in Weight 165 lb BMI 23.0 BP 128/78 Blood Pressure Location Lt brachial Position Sitting Respiration 16 Pulse 87 Pulse Source Pulse Oximeter Pulse Oximetry (%) 98 Oxygen Delivery Method Room Air Intake Visit Reasons: left GTB injection Case Fitter Required: No Home Demonstrator: Home Demonstrator Present Accompanied by: Franck Eugene Allergies No Known Allergies Allergy (Verified 10/31/24 09:48) Medication List - Last Reconciled 10/31/24 by Bette Valencia LPN amlodipine 5 mg PO DAILY aspirin 81 mg PO DAILY cetirizine (Zyrtec) 10 mg PO DAILY PRN cholecalciferol (vitamin D3) 50 mcg PO DAILY clopidogrel 75 mg PO DAILY famotidine 20 mg PO BID fenofibrate nanocrystallized 145 mg PO DAILY hydroxychloroquine 300 mg (1.5 x 200 mg) PO DAILY 90 days levothyroxine 50 mcg PO DAILY magnesium oxide 400 mg PO DAILY metoprolol succinate ER 25 mg PO DAILY omega 0-iop-jsf-fish oil 60-90-500 mg (Fish Oil) 1 cap PO DAILY omega-3 acid ethyl esters (Lovaza) 2 caps PO BID pantoprazole 40 mg PO DAILY ranolazine ER 500 mg PO BID rosuvastatin 10 mg PO BEDTIME tamsulosin 0.8 mg PO DAILY HPI HPI left GTB injection: Details: History of Present Illness The patient is a 74-year-old male presenting with left greater trochanteric bursitis, for which an injection is requested to manage persistent pain. The bursitis predominantly affects his ability to comfortably position his left leg, especially while lying on his right side. He describes having limited relief from past interventions and supportive strategies like leg pillows. Challenges arise mainly at night when attempting to rest and incidents where immobility leads to poor sleep and functionality. An earlier layer approach had suboptimal outcomes, hence the cautious consideration in treatment approaches. He reports his daily activities are impacted by the inability to place the leg comfortably, with unexpected immobilizing episodes affecting his quality of life. Discussions around managing tendon stretching and positioning strategies denote progress towards reducing discomfort, although not providing full relief. Previous procedures like the trochanteric injection were well tolerated, proving beneficial before, and are thus requested again for current symptomatic relief. Pain Description - Onset/Timing: Affects rest and mobility, more pronounced late at night. - Quality/Character: Discomfort prevents comfortable leg positioning, mobility is restricted. - Primary Location: Left greater trochanteric area, with difficulty in placing the leg comfortably. - Exacerbating Factors: Lack of supportive positioning, immobility due to pain. - Relieving Factors: Past effectiveness of bursa injections, use of leg pillows. Results - Procedures: Ultrasound-guided injection of left greater trochanteric bursa. Pain Management - Affect: Episodes of leg-based immobility affecting rest, functionality retained with difficulty. - Analgesia: Effectiveness noted with previous bursa injections, recurrence of pain necessitates repeat intervention. - Adverse Effects: None reported with prior injections. - Activities of Daily Living: Pain impacts positions and rest, some relief with supportive strategies but not complete. - Aberrant Drug-Related Behaviors: None reported. Procedure - Left Greater Trochanteric Bursa Injection: Informed consent was obtained; the left side was confirmed. The patient was positioned in the lateral decubitus position. A 25-gauge needle guided by ultrasound was used to inject 40 mg of Kenalog mixed with 3 mL of propovacaine 0.5% into the bursa without pain on injection. US image saved. [facility] Medical History (Updated 10/14/24 @ 14:21 by Claire Vazquez MD) Pacemaker Calcium pyrophosphate deposition disease (CPPD) Hypovitaminosis D Hypomagnesemia Screening for osteoporosis Osteoarthritis involving multiple joints on both sides of body Polyarthralgia Surgical History Hx of shoulder surgery Hx of neck surgery History of back surgery Hx of shoulder surgery Social History Alcohol intake: former Patient Tobacco Use Status: Never used Tobacco Current occupational status: retired Current occupation: Right hand dominate Physical Exam Vital Signs: Last Vital Signs Pulse 87 10/31/24 09:46 Resp 16 10/31/24 09:46 BP 128/78 10/31/24 09:46 Pulse Ox 98 10/31/24 09:46 Oxygen Delivery Method Room Air 10/31/24 09:46 BMI result Body Mass Index 23.0 Assessment & Plan Assessment & Plan (1) Trochanteric bursitis, left hip: Code(s): M70.62 - Trochanteric bursitis, left hip Category: Medical Plan Plan - Performed a bursa injection with Kenalog and ropivacaine to alleviate pain and improve leg positioning comfort. - Implement supportive measures using a pillow between the legs to reduce tendon stretching when the patient is lying on his side. - Monitor for any post-procedure complications Patient was informed and verbally consented to the use of an ambient scribe for clinic note documentation during this visit. Discussion Notes I discussed with the patient the plan to inject Kenalog mixed with propovacaine into the left greater trochanteric bursa for symptom relief. Informed consent was obtained, along with agreement on the approach considering past outcomes and current discomfort levels. I explained the role of supportive positioning strategies, suggesting a pillow to support the leg and alleviate tendon strain. No immediate follow-ups were needed unless adverse effects occurred, and I reassured the patient of the procedure's prior efficacy with minimal risk. Patient Instructions - Continue using a supportive pillow between your legs to manage discomfort and tendon stretching. - Monitor for any unusual pain or adverse effects following the injection and report immediately if they present. - Follow up as necessary based on pain relief or if symptoms persist. Coding Level of Care Code Procedure Only Diagnoses Trochanteric bursitis, left hip M70.62
[2024-10-31 09:46] VITALS: BP 128/78; PULSE 87; RESP 16; O2SAT 98; BMI 23.0
--- OUTSIDE RECORDS SUMMARY | 2024-10-31 10:17 | XMS_ITS | Clinical Summary ---
Author Organization [facility] Address [address] [place] [address] Care Team Providers Care Fire Tower Keeper Name Role Phone Joaquin Talavera MD Primary Care Provider + [phone] Allergies Active Allergy Reactions Criticality Noted Date [...] Active famotidine (PEPCID) 20 MG tablet Acid Line Producer (famotidine) 20 mg tablet 0 Active amLODIPine [...] 2024 05/21/2022, 10/08/2021, 02/18/2021, Additional history exists RSV Adult > 60+ Yrs or (1 - 1-dose 75+ series) 01/26/2024 Influenza Vaccine (Season Ended) 2025 03/21/2022, 03/19/2021, 03/08/2020, Additional history exists DTap / Tdap / Td (3 - Td or Tdap) 10/10/2031 10/09/2021, 01/07/2012, 12/25/2000 Hepatitis B Vaccines Aged Out No long er eligible based on patient's age to complete this topic RSV Ped < 20 months Aged Out No longe r eligible based on patient's age to complete this topic Care Teams Fire Tower Keeper Relationship Specialty Start Date End Date Joaquin Talavera MD [address] [facility] [place] [phone] PCP - General Family Medicine 01/12/17
== END 2024-10-31 10:11 | disposition home or self-care (01) ==
LOC: HO.PMC 09:40
PROVIDERS: PCP Nurse Practitioner Family; Visit Provider Internal Medicine
DX: M70.62 Trochanteric bursitis, left hip (principal)
CPT/HCPCS: 20611

== ENCOUNTER → 2024-10-31 09:39 | Outpatient (BNVA) | payer MEDICARE, SELFPAY | PROVIDERS: PCP Nurse Practitioner Family; Visit Provider Internal Medicine | DX: M70.62 Trochanteric bursitis, left hip (principal) | CPT/HCPCS: 20611 ==

== ENCOUNTER 2024-11-17 09:44 | Outpatient (REF) | payer MEDICARE, SELFPAY ==
--- NOTE | ~2024-11-17 | XR_ITS ---
EXAMINATION: XR CERVICAL SPINE CLINICAL INFORMATION: M54.2 - Cervicalgia COMPARISON: None available. TECHNIQUE: 3 views of the cervical spine were obtained. FINDINGS: No scoliosis. Normal lordosis. There has been anterior fusion C3-4 with plate and screw fixation, and intervening disc graft. Hardware appears intact, well seated, without complication. There is bony fusion through the disc space. Atlantoaxial joint and craniocervical junction appear intact and aligned. There are no fractures, compression deformities, or subluxations. There is a large ventral disc osteophyte spanning C2-3. There is degenerative disc disease throughout the nonoperative levels, severe at C5-6 and C6-7. There is normal facet alignment with mild to moderate multilevel degenerative facet changes. No prevertebral soft tissue abnormalities. There are bilateral carotid bulb calcifications. Imaged lung apices are clear. There are pacer wires noted. XR/XR cervical spine 2V IMPRESSION: 1. Intact C3-4 fusion without complication. 2. No acute bony abnormalities of the cervical spine. 3. Moderate spondylosis as discussed. 4. Moderate carotid bulb calcification bilaterally. Electronically signed by: Evelio Kaur MD 11/17/2024 10:50 AM EDT
--- OUTSIDE RECORDS SUMMARY | 2024-11-18 10:13 | XMS_ITS | Clinical Summary ---
Author Organization [facility] Address [address] [place] [address] Care Team Providers Care Engine Buildup Mechanic Name Role Phone Joaquin Talavera MD Primary Care Provider + [phone] Allergies Active Allergy Reactions Criticality Noted Date [...] famotidine (PEPCID) 20 MG tablet Acid Cat Breeder (famotidine) 20 mg tablet 0 Active amLODIPine [...] age to complete this topic Care Teams Engine Buildup Mechanic Relationship Specialty Start Date End Date Joaquin Talavera MD [address] [facility] [place] [phone] PCP - General Family Medicine 01/12/17
== END 2024-11-17 09:45 | disposition home or self-care (01) ==
LOC: HO.HOSX 09:44
PROVIDERS: Visit Provider Orthopaedic Surgery
DX: M48.02 Spinal stenosis, cervical region (principal)
CPT/HCPCS: 72040; 99212

== ENCOUNTER 2024-11-17 10:15 | Outpatient (AMB) | payer MEDICARE, SELFPAY ==
[2024-11-17 10:21] VITALS: BMI 23.0
--- NOTE | 2024-11-17 10:21 | MHC.OFFVIS ---
Vital Signs 11/17/24 10:21 Height 5 ft 11 in Weight 165 lb BMI 23.0 Intake Visit Reasons: Newprob-Neck pain--B/L sides Intake Note: Bonifacio is a 74 year old male who presents with complaints of progressively worsening neck pain which radiates into both of his upper extremities. The patient states that he underwent cervical spine fusion surgery by Dr. Castaneda approximately 20 years ago. He got fairly good relief from that surgery initially. The patient states that his neck pain has increased over the last year. He denies any traumatic event preceding the onset of his pain. He also reports intermittent weakness in both of his arms. He has tried Tylenol and anti-inflammatory medicines which gave him minimal relief. He has failed the last 6 weeks of conservative treatment which has included physical therapy exercises and a home exercise program. He denies any fevers or chills. Allergies No Known Allergies Allergy (Verified 11/17/24 10:21) Medication List - Last Reconciled 11/17/24 by Rafael Davies MD amlodipine 5 mg PO DAILY aspirin 81 mg PO DAILY cetirizine (Zyrtec) 10 mg PO DAILY PRN cholecalciferol (vitamin D3) 50 mcg PO DAILY clopidogrel 75 mg PO DAILY famotidine 20 mg PO BID fenofibrate nanocrystallized 145 mg PO DAILY hydroxychloroquine 300 mg (1.5 x 200 mg) PO DAILY 90 days levothyroxine 50 mcg PO DAILY magnesium oxide 400 mg PO DAILY metoprolol succinate ER 25 mg PO DAILY omega 3-vdq-yso-fish oil 60-90-500 mg (Fish Oil) 1 cap PO DAILY omega-3 acid ethyl esters (Lovaza) 2 caps PO BID pantoprazole 40 mg PO DAILY ranolazine ER 500 mg PO BID rosuvastatin 10 mg PO BEDTIME tamsulosin 0.8 mg PO DAILY PFSH Medical History (Updated 11/17/24 @ 10:50 by Rafael Davies MD) Pacemaker Calcium pyrophosphate deposition disease (CPPD) Hypovitaminosis D Hypomagnesemia Screening for osteoporosis Osteoarthritis involving multiple joints on both sides of body Polyarthralgia Surgical History Hx of shoulder surgery Hx of neck surgery History of back surgery Hx of shoulder surgery Social History Alcohol intake: former Patient Tobacco Use Status: Never used Tobacco Current occupational status: retired Current occupation: Right hand dominate Physical Exam Vital Signs: BMI result Body Mass Index 23.0 Neck Other: Cervical spine examination shows pain with range of motion, bilateral paraspinal muscle tenderness, positive Spurling's test, 4/5 strength with testing of his bilateral biceps and wrist extensors Results Reviewed Results Reviewed: X-rays of the patient's cervical spine show a cervical fusion plate in good position with no signs of loosening, diffuse degenerative disc disease, no acute bony abnormalities Assessment & Plan Assessment & Plan (1) Cervical stenosis of spinal canal: Code(s): M48.02 - Spinal stenosis, cervical region Category: Medical Plan Mr. Vergara presents with progressively worsening neck pain which radiates into both of his upper extremities as well as associated bilateral upper extremity weakness possibly due to cervical stenosis or a disc herniation. Thus, I will send the patient for an MRI of his cervical spine for further evaluation. I will contact him by phone once the MRI results are available. He will call me prior to that time should his symptoms worsen in any way. Feel free to call me at any time should questions regarding his orthopedic management arise. I spent 22 minutes in reviewing the patient's records and imaging studies, seeing the patient and documenting in the medical record. Orders: Orders MR cervical spine wo con Today M48.02 - Spinal stenosis, cervical region XR cervical spine 2V Today M54.2 - Cervicalgia Coding Level of Care Code Est Pt Level 3 (78921) Complex EM visit Add On G2211 Diagnoses Cervical stenosis of spinal canal M48.02
--- OUTSIDE RECORDS SUMMARY | 2024-11-17 11:50 | XMS_ITS | Clinical Summary ---
Author Organization [facility] Address [address] [place] [address] Care Team Providers Care Inventory Control Manager Name Role Phone Joaquin Talavera MD Primary Care Provider + [phone] Allergies Active Allergy Reactions Criticality Noted Date [...] Active famotidine (PEPCID) 20 MG tablet Acid Barrel Liner (famotidine) 20 mg tablet 0 Active amLODIPine [...] age to complete this topic Care Teams Inventory Control Manager Relationship Specialty Start Date End Date Joaquin Talavera MD [address] [facility] [place] [phone] PCP - General Family Medicine 01/12/17
== END 2024-11-17 10:50 | disposition home or self-care (01) ==
LOC: HO.HOS 10:16
PROVIDERS: PCP Nurse Practitioner Family; Visit Provider Orthopaedic Surgery
DX: M48.02 Spinal stenosis, cervical region (principal)
CPT/HCPCS: 99213; G2211

== ENCOUNTER → 2024-11-17 10:17 | Outpatient (BNV) | payer MEDICARE, SELFPAY | PROVIDERS: Visit Provider Radiology Diagnostic Radiology | DX: M43.22 Fusion of spine, cervical region (principal) | CPT/HCPCS: 72040 ==

== ENCOUNTER 2024-12-29 09:49 | Outpatient (REF) | payer MEDICARE, SELFPAY ==
--- NOTE | ~2024-12-29 | MR_ITS ---
CLINICAL HISTORY: M48.02 - Spinal stenosis, cervical region --- Additional Notes or Special Instructions: Pacemaker placed 09 23 24 MR cervical spine without gadolinium Comparison: DX/OH/SR - XR CERVICAL SPINE 2-3 VIEWS - 11/17/24 10:17 EDT Findings: Visualized intracranial contents are unremarkable. Soft tissues of the neck are normal. Cervical cord normal size and signal. There is loss of normal cervical lordosis. No acute fractures or pathologic bone lesions. Mild reactive signal throughout the endplates of the cervical and upper thoracic spine. Anterior fusion hardware at C3-C4 C2-C3:Mild disc desiccation. Mild facet and uncovertebral hypertrophy. Mild canal stenosis. Mild bilateral foraminal stenosis. C3-C4:Anterior fusion. Mild residual osteophyte. Mild facet and uncovertebral hypertrophy. Mild canal stenosis. Mild bilateral foraminal stenosis. C4-C5:Moderate disc desiccation. Mild disc height loss and diffuse disc bulge. Mild facet and uncovertebral hypertrophy. Severe right and mild left foraminal stenosis. Right C5 nerve root compression. C5-C6:Moderate disc height loss and desiccation. Moderate diffuse disc bulge. Mild facet and uncovertebral hypertrophy. Moderate canal stenosis. Moderate to severe bilateral foraminal stenosis with bilateral C6 nerve root compression. C6-C7:Moderate disc height loss and desiccation. Moderate diffuse disc bulge. Moderate facet and uncovertebral hypertrophy bilaterally. Mild canal stenosis. Moderate bilateral foraminal stenosis. C7-T1:Mild disc desiccation and diffuse disc bulge. Mild facet and uncovertebral hypertrophy. Mild canal stenosis. Mild bilateral foraminal stenosis. IMPRESSION: 1. Multilevel degenerative disc and facet disease, as well as uncovertebral hypertrophy. 2. Postsurgical sequelae. 3. Multilevel mild and moderate canal stenoses. 4. Multilevel foraminal stenoses, worst at C4-C5 and C5-C6 where there is associated intraforaminal nerve root compression. Correlation with clinical symptoms is recommended to assess relevance of these findings. This document has been electronically signed by: Baldemar Ellison MD on 12/29/2024 18:56:48
--- OUTSIDE RECORDS SUMMARY | 2024-12-29 10:20 | XMS_ITS | Clinical Summary ---
Author Organization [facility] Address [address] [place] [address] Care Team Providers Care Rotary Envelope Machine Operator Name Role Phone Joaquin Talavera MD Primary Care Provider + [phone] Allergies Active Allergy Reactions Criticality Noted Date [...] Active famotidine (PEPCID) 20 MG tablet Acid Hob Grinder (famotidine) 20 mg tablet 0 Active amLODIPine [...] - 1-dose 75+ series) 01/26/2024 Influenza Vaccine (#1) 2025 2, 03/19/2021, 03/08/2020, Additional history exists DTap / Tdap / Td (3 - Td or Tdap) 10/10/2031 10/09/2021, 01/07/2012, 12/25/2000 Hepatitis B Vaccines Aged Out No long er eligible based on patient's age to complete this topic RSV Ped < 20 months Aged Out No longe r eligible based on patient's age to complete this topic Care Teams Rotary Envelope Machine Operator Relationship Specialty Start Date End Date Joaquin Talavera MD [address] [facility] [place] [phone] PCP - General Family Medicine 01/12/17
--- OUTSIDE RECORDS SUMMARY | 2024-12-29 10:20 | XMS_ITS | Clinical Summary ---
Author Organization [facility] Address [address] [place] [address] Care Team Providers Care Mds Coordinator Name Role Phone Joaquin Talavera MD Primary Care Provider [phone] Surgical History Surgery Date Site/Laterality Comments BACK SURGERY PROCEDURE: HISTORICAL BACK SURGERY; COMMENT: spinal fusion HERNIA REPAIR PROCEDURE: SD RPR 1ST INGUN HRNA AGE 5 MO-5 YRS REDUCIBLE SHOULDER SURGERY PROCEDURE: HISTORICAL SHOULDER SURGERY NECK SURGERY PROCEDURE: HISTORICAL NECK SURGERY; COMMENT: cervical fusion Medical History Medical History Date Comments Essential hypertension DX:Essent ial hypertension Diabetes mellitus type 2, co ntrolled, with complications (CMS/HCC V24, CMS/HCC V28) DX:Diabetes mellitus type 2, controlled, with complications (HCC) ST elevation (STEMI) myocard ial infarction (CMS/HCC V24, CMS/HCC V28) DX:ST elevation (STEMI) myocardial infarction (HCC) Osteoarthritis DX:Osteoarthriti s Social History [...] Health Maintenance Due Date Last Done Comments Diabetes: Annual Foot Exam 1959 Diabetes: Annual Retina Eye Exam 1960 Pneumococcal Vaccine: 50+ Years (2 of 2 - PPSV23) 03/17/2019 03/17/2018 Zoster Vaccines (2 of 2) 06/25/2021 04/30/2021 Cholesterol Screening (Lipid Panel) 05/01/2022 Colorectal Cancer Screening: Colonoscopy 05/01/2022 Falls Risk Assessment 05/01/2022 Hepatitis C Screening 05/01/2022 Social Influencers of Health Screening 05/01/2022 COVID-19 Vaccine ( season) 2024 05/21/2022, 10/08/2021, 02/18/2021, Additional history exists Depression Screening 05/25/2024 Diabetes: Annual Urine Albumin-Creatinine Ratio (uACR) 09/30/2024 Diabetes: Blood Sugar Control Test (HGBA1C) 09/30/2024 Influenza Vaccine (#1) 2025 , 03/11/2023, 03/21/2022, Additional history exists Diabetes: Annual GFR (Glomerular Filtration Rate) 09/24/2025 09/24/2024, 09/23/2024 Hypertension/CHF/CAD Annual BMP Blood Test 09/24/2025 09/24/2024, 09/23/2024 DTaP,Tdap,and Td Vaccines (4 - Td or Tdap) 10/10/2031 10/09/2021, 01/07/2012, 12/25/2000 RSV Immunization Adult Patients Completed 05/27/2023 HIB Vaccines Aged Out No longer eligi [...] to complete this topic RSV Immunization Patients Under 20 months Aged Out No longer eligible based on patient's age to complete this topic Varicella Vaccines Aged Out No longer eligible based on patient's age to complete this topic Care Teams Mds Coordinator Relationship Specialty Start Date End Date Joaquin Talavera MD [address] [facility] [place] [phone] PCP - General Family Medicine 01/12/17
--- OUTSIDE RECORDS SUMMARY | 2024-12-29 10:20 | XMS_ITS | Clinical Summary ---
Author Organization [facility] Address [address] [place] [address] Phone Care Team Providers Care Corrective And Manual Arts Therapist Name Role Phone Teresa Chapman Primary Care Provider [phone] Santiago March MD Unavailable [phone] Rod Abdalla MD Unavailable [phone] Allergies No known active allergies Medications tamsulosin (Flomax) 0.4 MG 24 hr capsule Take 1 capsule by mouth in the morning and 1 capsule before bedtime. 1 Active sucralfate (Carafate) 1 g tablet take 1 tablet by mouth four times a day before meals and at bedtime Active rosuvastatin (Crestor) 10 MG tablet Take 10 mg by mouth daily. 1 Active nitroglycerin (Nitrostat) 0.4 MG SL tablet nitroglycerin 0.4 mg sublingual tablet Active levothyroxine (Synthroid, Levoxyl) 50 MCG tablet Take 1 tablet by mouth in the morning. 8 Active fenofibrate (Tricor) 145 MG tablet Take 1 tablet by mouth in the morning. 4 Active famotidine (Pepcid) 20 MG tablet Take 1 tablet by mouth in the morning and 1 tablet before bedtime. 5 Active clopidogrel (Plavix) 75 MG tablet Take 1 tablet by mouth in the morning. 08/17/201 7 Active cetirizine (ZyrTEC) 10 MG tablet Take 10 mg by mouth daily. 1 Active aspirin 81 MG EC tablet Take 81 mg by mouth daily. Active amLODIPine (Norvasc) 5 MG tablet Take 1 tablet by mouth in the morning. 4 Active [place]-3 Fatty Acids (FISH OIL CONCENTRATE PO) Take by mouth 2 (two) times a day. Active VITAMIN D, CHOLECALCIFEROL , PO Take by mouth Daily. Active Magnesium Oxide (MAG-CAPS PO) Take 400 mg by mouth daily. Active coenzyme Q-10 100 MG capsule Take 100 mg by mouth in the morning. Active HYDROXYCHLOROQU INE SULFATE PO Take 200 mg by mouth. Active acetaminophen (Tylenol) 325 MG tabletIndicatio ns:Atrioventric ular block, second degree Take 2 tablets (650 mg) by mouth every 6 (six) hours if needed for mild pain or moderate pain. 5 Active metoprolol succinate XL (Toprol-XL) 25 MG 24 hr tablet Take 25 mg by mouth daily. 5 Active pantoprazole (ProtoNix) 40 MG EC tablet Take 40 mg by mouth in the morning. Do not crush, chew, or split.. Active Active Problems Problem Noted Date Diagnosed Date CAD S/P percutaneous coronary angioplasty 2024 Near syncope 09/22/2024 Atrioventricular block, second degree 09/20/2024 Encounters Date Type Department Care Team Description 12/22/2024 12:00 PM EDT - 12/22/2024 1:00 PM EDT Surgery [facility]INE[facility] [address] [place] [address] Irvin Thao MD DG: Left heart catheterization [66452 (CPT )] 12/22/2024 11:48 AM EDT - 12/22/2024 9:06 PM EDT Hospital Encounter [facility] [address] [place] [address] Irvin Thao MD Atherosclerotic heart disease of rosebud coronary artery without angina pectoris (Primary Dx) Discharge Disposition: DISCHARGED TO HOME/ASSISTED LIVING/SELF CARE (ROUTINE DISCHARGE) 12/22/2024 Travel 10/04/2024 10:00 AM EDT - 10/04/2024 11:00 AM EDT Surgery [facility] [address] [place] [address] Gerardo Martinez MD AGENT: Left heart catheterization [46477 (CPT )] 10/04/2024 9:57 AM EDT - 10/05/2024 10:38 AM EDT Hospital Encounter [facility] CARDIOLOGY [address] [place] [address] Gerardo Martinez MD Atrioventricular block, second degree (Primary Dx); CAD S/P percutaneous coronary angioplasty Discharge Disposition: DISCHARGED TO HOME/ASSISTED LIVING/SELF CARE (ROUTINE DISCHARGE) 10/04/2024 Travel from Last 3 Months Family History Medical History Relation Name Comments Anesthesia problems Neg Hx Social History Tobacco Use Types Packs/Day Years Used Date Smoking Tobacco: Never Smokeless Tobacco: Never Tobacco Cessation:Counseling Given: Not Answered Alcohol Use Standard Drinks/Week Comments Not Currently 0 (1 standard drink = 0.6 oz pur e alcohol) quit 6 years ago B1300 Health Literacy Answer Date Recor ded How often do you need to hav e someone help you when you read instructions, pamphlets, or other written material from your doctor or pharmacy? Never 10/05/2024 [facility] Utilities Answer Date Recorded In the past 12 months has [facility] [employer], gas, oil, or water eBrevia threatened to shut off services in your home? No 10/05/2024 Humiliation, Afraid, Rape, and Kick questionnair e Answer Date Recorded Within the last year, have y ou been afraid of your partner or ex-partner? No 10/05/2024 Within the last year, have y ou been humiliated or emotionally abused in other ways by your partner or ex-partner? No Within the last year, have y ou been kicked, hit, slapped, or otherwise physically hurt by your partner or ex-partner? No 10/05/2024 Within the last year, have y ou been raped or forced to have any kind of sexual activity by your partner or ex-partner? No 10/05/2024 AUDIT-C Answer Date Recorded Q1: How often do you have a drink containing alcohol? Never 10/05/2024 Q2: How many drinks containi ng alcohol do you have on a typical day when you are drinking? Patient does not drink Q3: How often do you have si x or more drinks on one occasion? Never 10/05/2024 Hunger Vital Sign Answer Date Recorded Within the past 12 months, y ou worried that your food would run out before you got the money to buy more. Never true 10/06/19 25 Within the past 12 months, t he food you bought just didn't last and you didn't have money to get more. Never true 10/05/2024 PRAPARE - Transportation Answer Date Re corded In the past 12 months, has l ack of transportation kept you from medical appointments or from getting medications? No 09/22 In the past 12 months, has l ack of transportation kept you from meetings, work, or from getting things needed for daily living? No 10/05/2024 Housing Stability Vital Sign Answer Ulisses e Recorded In the last 12 months, was t here a time when you were not able to pay the mortgage or rent on time? No 10/05/2024 In the past 12 months, how m any times have you moved where you were living? 0 10/05/2024 At any time in the past 12 m [facility], were you homeless or living in a fpc (including now)? No 10/05/2024 Sex and Gender Information Value Date Recorded Sex Assigned at Not on file Legal Sex Male 3:00 PM EST Gender Identity Not on file Sexual Orientation Not on file Last Filed Vital Signs Vital Sign Reading Time Taken Comments Blood Pressure 167/95 12/22/2024 8:29 PM EDT Pulse 84 12/22/2024 8:29 PM EDT Temperature 36.1 C (97 F) 12/22/2024 5:30 PM EDT Respiratory Rate 9 12/22/2024 8:00 PM EDT Oxygen Saturation 97% 12/22/2024 8:29 PM EDT Inhaled Oxygen Concentration - - Weight 74.6 kg (164 lb 7.4 oz) 12/22/2024 1:06 P M EDT Height 180.3 cm (5' 11 ) 12/22/2024 1:06 PM EDT Body Mass Index 22.94 12/22/2024 1:06 PM EDT Plan of Treatment Health Maintenance Due Date Last Done Comments CT Colonography 1949 Cologuard 1950 Colonoscopy 1949 Colorectal Cancer Screening 1949 Diabetes: Hemoglobin A1C 1949 FIT 1949 FOBT 1949 Lipid Panel 1949 Medicare Annual Wellness (AWV) 1949 Sigmoidoscopy 1949 Diabetes: Foot Exam 1959 Diabetes: Retinopathy Screening 1959 Hepatitis C Screening 1967 Pneumococcal Vaccine: 50+ Years (2 of 2 - PPSV23) 05/12/2018 03/17/2018 Zoster Vaccines (2 of 2) 06/25/2021 04/30/2021 Influenza Vaccine (#1) 2025 4, 03/11/2023, 03/21/2022, Additional history exists Creatinine Level 12/22/2025 12/22/2024, , 10/04/2024, Additional history exists Potassium Level 12/22/2025 12/22/2024, 09/22, 10/04/2024, Additional history exists TD Vaccine (21+ Years) 10/10/2031 2, 01/07/2012, 12/25/2000 HIB Vaccines Aged Out No longer eligi [...] patient's age to complete this topic Meningococcal Vaccine Aged Out No darcy siobhan eligible based on patient's age to complete this topic Rotavirus Vaccines Aged Out No longer eligible based on patient's age to complete this topic Medical Devices Implanted Type Area Barrel Roller Device Identifier Shelf Expiration Date Model / Serial / Lot Pacemaker Cardiac Accolade Mri 15.8cc - [id number] - [id number] Implanted:Q ty: 1 on 09/23/2024 by Rod Abdalla MD at [facility] Cardiac Pacemaker Generators Or Cardiac Resynchronizati Left: Chest Wall [employer] 07/05/2026 [id number] / [id number] / System Coronary Stent Synergy Xd 2.75 X 12mm X 144cm - [id number] - [id number] Implanted:Q ty: 1 on 10/04/2024 by Gerardo Martinez MD at [facility] Coronary Stents-Y N/A: Coronary [employer] [id number] 06/02/2025 [id number] / [id number] / [id number] System Coronary Stent Synergy Xd 3.5 X 16mm X 144cm - [id number] Implanted:Q ty: 1 on 10/04/2024 by Gerardo Martinez MD at [facility] Coronary Stents-Y N/A: Coronary [employer] [id number] 02/08/2026 [id number] / / [id number] System Coronary Stent Synergy Xd 3.5 X 38mm X 144cm - [id number] - [id number] Implanted:Q ty: 1 on 10/04/2024 by Gerardo Martinez MD at [facility] Coronary Stents-Y N/A: Coronary [employer] [id number] 02/09/2026 [id number] / [id number] / [id number] Procedures Procedure Name Priority Date/Time Associated Diagnosis Comments FRACTIONAL FLOW RESERVE (FFR) Routine 12/22/2024 5:18 PM EDT Atherosclerotic heart disease of rosebud coronary artery without angina pectoris LEFT VENTRICULOGRAPHY Routine 12/22/2024 5:18 PM EDT Atherosclerotic heart disease of rosebud coronary artery without angina pectoris CORONARY ANGIOGRAPHY Routine 12/22/2024 5:18 PM EDT Atherosclerotic heart disease of rosebud coronary artery without angina pectoris RIGHT HEART CATH Routine 12/22/2024 5:18 PM EDT Atherosclerotic heart disease of rosebud coronary artery without angina pectoris LEFT HEART CATH Routine 12/22/2024 5:18 PM EDT Atherosclerotic heart disease of rosebud coronary artery without angina pectoris POCT GLUCOSE METER UNSOLICITED RESULTS Routine 12/22/2024 12:59 PM EDT ECG 12 LEAD Routine 12/22/2024 12:50 PM EDT Atherosclerotic heart disease of rosebud coronary artery without angina pectoris AUTOMATED DIFFERENTIAL Routine 12:19 PM EDT COMPLETE BLOOD COUNT Routine 12/22/2024 12:19 PM EDT BASIC METABOLIC PANEL Routine 12/22/2024 12:19 PM EDT CBC AUTO DIFFERENTIAL Routine 12/22/2024 12:19 PM EDT TYPE AND SCREEN Routine 12/22/2024 12:19 PM EDT TYPE AND SCREEN Routine 12/22/2024 12:19 PM EDT AUTOMATED DIFFERENTIAL Routine 2:55 AM EDT COMPLETE BLOOD COUNT Routine 10/05/2024 2:55 AM EDT CBC AUTO DIFFERENTIAL Routine 10/05/2024 2:55 AM EDT BASIC METABOLIC PANEL Routine 10/05/2024 2:55 AM EDT POCT GLUCOSE METER UNSOLICITED RESULTS Routine 10/04/2024 4:12 PM EDT AUTOMATED DIFFERENTIAL STAT 4:04 PM EDT COMPLETE BLOOD COUNT STAT 10/04/2024 4:04 PM EDT CBC AUTO DIFFERENTIAL STAT 10/04/2024 4:04 PM EDT ECG 12 LEAD Routine 10/04/2024 2:20 PM EDT CAD S/P percutaneous coronary angioplasty IVUS - CORONARY Routine 10/04/2024 2:07 PM EDT REECE STENT - CORONARY Routine 10/04/2024 2:07 PM EDT LEFT HEART CATH Routine 10/04/2024 2:07 PM EDT POCT GLUCOSE METER UNSOLICITED RESULTS Routine 10/04/2024 10:49 AM EDT TYPE AND SCREEN STAT 10/04/2024 10:28 AM EDT COMPREHENSIVE METABOLIC PANEL STAT 10/04/2024 10:28 AM EDT TYPE AND SCREEN STAT 10/04/2024 10:28 AM EDT CBC, NO DIFFERENTIAL STAT 10/04/2024 10:28 AM EDT ECG 12 LEAD STAT 10/04/2024 10:20 AM EDT Atrioventricular block, second degree from Last 3 Months Results * LEFT HEART CATH, RIGHT HEART CATH, CORONARY ANGIOGRAPHY, LEFT VENTRICULOGRAPHY, FRACTIONAL FLOW RESERVE (FFR) (12/22/2024 5:18 PM EDT) [facility] Cath EF Quantitative 60 % CHANGE_HEMO Anatomical Region Laterality Modality X-Ray Angiograph y Narrative 12/22/2024 8:21 PM EDT Diffuse CAD-patent stents angiographically in all THREE vessels. Branch vessel disease mild/moderate. Right dominant system. Nonischemic dFR Left Main through mid LAD. Normal LVEF. Borderline right heart pressures/preserved cardiac indices. Systemic hypertension with adequate filling pressures. Moderate conscious sedation monitored/administered from [id number] by Maryana Head RN as requested by Irvin Thao MD. Ost LAD lesion is 30% stenosed. Mid LAD lesion is 20% stenosed. Dist LM lesion is 25% stenosed. Mid Cx-1 lesion is 30% stenosed. 1st Mrg lesion is 30% stenosed. Mid RCA lesion is 20% stenosed. Dist RCA-2 lesion is 30% stenosed. RPDA lesion is 50% stenosed. The left ventricular systolic function is normal. The ejection fraction is calculated to be 60%. Recommendations: 1. Optimal medical therapy-augment hypertensive regimen. 2. Therapeutic lifestyle with ongoing risk factor modification. 3. Consider formal pulmonary assessment if clinical symptoms persist. Coronary Findings Diagnostic Dominance: Right Left Main: The vessel was visualized by angiography. Left main large-caliber with mild tapering distally. Dist LM lesion is 25% stenosed. Left Anterior Descending: LAD is a large-caliber Type II vessel with extensive stents noted proximal through mid vessel. Mid vessel appears to have overlapping stents noted. No obstructive disease noted angiographically. Diagonal branches are smaller caliber, patent with mild disease. Ost LAD lesion is 30% stenosed. iFR was measured. iFR ratio: 0.94. Previously placed Prox LAD drug eluting stent is widely patent. Previous treatment took place >2 years ago. Mid LAD lesion is 20% stenosed. The lesion was previously treated using a drug-eluting stent. Previous treatment took place >2 years ago. The lesion has no restenosis. Left Circumflex: Left circumflex is a medium caliber nondominant vessel with mild disease in the proximal segments. Prior stents noted mid through distal vessel appear patent. Smaller caliber OM branch with mild disease. Mid Cx-1 lesion is 30% stenosed. Previously placed Mid Cx-2 drug eluting stent is widely patent. Previous treatment took place 1-5 months ago. Previously placed Dist Cx drug eluting stent is widely patent. Previous treatment took place 1-5 months ago. First Obtuse Marginal Branch: 1st Mrg lesion is 30% stenosed. Right Coronary Artery: The vessel was visualized by angiography. RCA is a large-caliber, dominant vessel with extensive stents noted from proximal through distal vessel. These appear patent with mild narrowing mid vessel. Mild disease noted in distal RCA proper with moderate disease noted in the midportion of the right PDA. Previously placed Prox RCA drug eluting stent is widely patent. Previous treatment took place >2 years ago. Mid RCA lesion is 20% stenosed. The lesion was previously treated using a drug-eluting stent. Previous treatment took place 1-5 months ago. The lesion has no restenosis. Previously placed Dist RCA-1 drug eluting stent is widely patent. Previous treatment took place 1-5 months ago. Dist RCA-2 lesion is 30% stenosed. The lesion is eccentric and focal. Right Posterior Descending Artery: RPDA lesion is 50% stenosed. Intervention No interventions have been documented. Left Ventricle The left ventricular size is normal. The left ventricular systolic function is normal. LV systolic pressure is elevated. LV end diastolic pressure is normal. The ejection fraction is 60% by visual estimate. There are no wall motion abnormalities in the left ventricle. There is no evidence of mitral regurgitation. The outflow tract is normal. The aortic valve has a no gradient. Mitral Valve There is no mitral valve stenosis. Aortic Valve There is no aortic valve stenosis. Study Details Informed consent/ time out. R brachial vein- 5/6 F sheath, balloon tipped catheter without difficulty. R radial artery inadequate so RCFA accessed with 5F sheath. LV/AO Hemodynamics measured with a JR4 catheter. Bilateral selective coronary angiography was then performed in standard fashion. Left ventriculography was then performed utilizing pigtail catheter. To further assess distal LM, proximal LAD and mid LAD regions, dFR planned. 6F sheath/ EBU 4 catheter- IV Heparin/ Comet wire placed into mid LAD and dFR recorded- NONischemic. Catheters and sheaths were removed with manual pressure applied. Wall Motion The following segments are normal: basal anterior, basal inferior, mid anterior, mid inferior, apical anterior and apical inferior. us Irvin Thao MD CV CARDIAC CATH PROCEDURES Fi nal Result * (ABNORMAL) Glucose (POC) (12/22/2024 12:59 PM EDT) Only the most recent of3 resultswithin the time period is included. POC WB Glucose 114(H) 65 - 99 mg/dL 12/22/2024 1:05 PM EDT [facility] Blood Capillary blood / Unknown 12/22/2024 12:59 PM EDT 12/22/2024 1:05 PM EDT [facility] - 12/22/2024 1:05 PM EDT Performed at:[address] [place] [address] us Irvin Thao MD LAB POINT OF CARE TE ST DOCKED DEVICE UNSOLICITED RESULTS Final Result Performing Organization Address [facility] Co de Phone Number [facility] [address] [place] [address], [place] * EKG 12 lead (12/22/2024 12:50 PM EDT) Only the most recent of3 resultswithin the time period is included. Diagnosis Class Abnormal GE MUSE Ventricular Rate 83 BPM GE MUSE Atrial Rate 83 BPM GE MUSE QRS DURATION 174 ms GE MUSE QT Interval 436 ms GE MUSE QTC CALCULATION (BAZETT) 512 ms GE MUSE R Naylor 57 degrees GE MUSE T Wave Naylor -68 degrees GE MUSE 12/22/2024 12:4 5 PM EDT 12/23/2024 11:45 AM EDT Impressions GE MUSE - 12/23/2024 11:45 AM EDT AV dual-paced rhythm ABNORMAL ECG Confirmed by Keon Crowder ([id number]) on 12/23/2024 11:45:35 AM Narrative Procedure Note Keon Crowder MD PhD - 12/23/2024 IMPRESSION: AV dual-paced rhythm ABNORMAL ECG Confirmed by Keon Crowder ([id number]) on 12/23/2024 11:45:35 AM us Magda CUADRA ECG ORDERABLES Final Result Performing Organization Address City/[facility] Co de Phone Number GE MUSE * Type and Screen (12/22/2024 12:19 PM EDT) Only the most recent of2 resultswithin the time period is included. ABO/RH B Negative 12/22/2024 1:55 PM EDT [facility] Antibody Screen Negative 12/22/2024 1:55 PM EDT [facility] Comment:Reference range: Neg ative Specimen Expiration Date 12/25/2024 11:59:00 PM EDT 12/22/2024 1:55 PM EDT [facility] Blood Venous blood / Unknown Venipuncture / Unknown 12/22/2024 12:19 PM EDT 12/22/2024 1:11 PM EDT us Magda Radha CUADRA LAB BLOOD BANK TEST ORDERABLES F inal Result [facility] [address] [place] [address], [place] * (ABNORMAL) Automated Differential (12/22/2024 12:19 PM EDT) Only the most recent of3 resultswithin the time period is included. Neutrophils % 59.9 41.0 - 67.0 % 12/22/2024 1:40 PM EDT [facility] Lymphocytes % 28.1 28.0 - 42.0 % 12/22/2024 1:40 PM [facility] Monocytes % 9.2(H) 4.0 - 9.0 % 12/22/2024 1:40 PM [facility] Eosinophils % 1.7 0.0 - 5.0 % 12/22/2024 1:40 PM [facility] Basophils % 0.7 0.0 - 1.0 % 12/22/2024 1:40 PM [facility] Immature Granulocytes % 0.4 0.0 - 1.0 % 12/22/2024 1:40 PM [facility] Absolute Neutrophils 3.24 1.60 - 6.20 10*3/uL 12/22/2024 1:40 PM [facility] Absolute Lymphocytes 1.52 1.10 - 3.90 10*3/uL 12/22/2024 1:40 PM [facility] Absolute Monocytes 0.50 0.20 - 0.80 10*3/uL 12/22/2024 1:40 PM [facility] Absolute Eosinophils 0.09 0.00 - 0.50 10*3/uL 12/[facility]24 [facility] Absolute Basophils 0.04 0.00 - 0.10 10*3/uL 12/22/2024 1:40 PM EDT [facility] Absolute Immature Granulocytes 0.02 0.00 - 0.10 10*3/uL 12/22/2024 1:40 PM T [facility] Blood Venous blood / Unknown Venipuncture / Unknown 12/22/2024 12:19 PM EDT 12/22/2024 1:05 PM EDT us Irvin Thao MD LAB BLOOD ORDERABLES Final Re sult [facility] [address] [place] [address], [place] * (ABNORMAL) Complete Blood Count (12/22/2024 12:19 PM EDT) Only the most recent of3 resultswithin the time period is included. WBC 5.4 4.0 - 9.0 10*3/uL 12/22/2024 1:40 PM [facility] Hemoglobin 13.2(L) 13.6 - 16.7 g/dL 12/22/2024 1:40 PM [facility] Hematocrit 40.8 40.0 - 49.0 % 12/22/2024 1:40 PM [facility] RBC 4.84 4.50 - 5.70 10*6/uL 12/22/2024 1:40 PM [facility] MCV 84.3 82.3 - 93.2 fL 12/22/2024 1:40 PM [facility] MCH 27.3(L) 27.8 - 31.9 pg 12/22/2024 1:40 PM [facility] MCHC 32.4(L) 32.8 - 35.5 g/dL 12/22/2024 1:40 PM [facility] RDW 13.7 12.0 - 15.0 % 12/22/2024 1:40 PM [facility] Platelet Count 259 130 - 350 10*3/uL 12/22/2024 1:40 PM EDT [facility] MPV 10.7 7.5 - 10.7 fL 12/22/2024 1:40 PM EDT [facility] NRBC % 0.0 <=0.0 % 12/22/2024 1:40 PM EDT [facility] Absolute NRBC 0.00 <=0.00 10*3/uL 12/22/2024 1:40 PM EDT [facility] Blood Venous blood / Unknown Venipuncture / Unknown 12/22/2024 12:19 PM EDT 12/22/2024 1:05 PM EDT us Irvin Thao MD LAB BLOOD ORDERABLES Final Re sult [facility] [address] [place] [address], [place] * (ABNORMAL) Basic Metabolic Panel (12/22/2024 12:19 PM EDT) Only the most recent of2 resultswithin the time period is included. Sodium 139 135 - 145 mmol/L 12/22/2024 2:03 PM [facility] Potassium 4.8 3.4 - 5.2 mmol/L 12/22/2024 2:03 PM [facility] Chloride 104 99 - 109 mmol/L 12/22/2024 2:03 PM [facility] Carbon Dioxide 27 21 - 30 mmol/L 12/22/2024 2:03 PM [facility] Anion Gap 8 5 - 15 mmol/L 12/22/2024 2:03 PM [facility] Glucose 104(H) 65 - 99 mg/dL 12/22/2024 2:03 PM [facility] Calcium 10.3 8.6 - 10.3 mg/dL 12/22/2024 2:03 PM [facility] Blood Urea Nitrogen (BUN) 18 7 - 22 mg/dL 12/22/2024 2:03 PM [facility] Creatinine 1.18 0.70 - 1.30 mg/dL 12/22/2024 2:03 PM EDT [facility] eGFR 64 mL/min/1.7 3m*2 12/22/2024 2:03 PM EDT [facility] Comment: *This eGRF calculation is based on the 3747-AOJ-GSX creatinine equations for adults designed to estimate glomerular filtration rate (eGFR) without race adjustment factors. *This eGFR results are indexed to standard body surface area (BSA) 1.73 M(2). *eGFR results should only be used for adult patients >=18 years old. *Use of nonindexed eGFR values (mL/min) should be considered for drug dosing decisions. Hemolysis Interference 12/22/2024 2:03 PM EDT [facility] Icteric Interference 12/22/2024 2:03 PM EDT [facility] Lipemic Interference 12/22/2024 2:03 PM EDT [facility] Blood Venous blood / Unknown Venipuncture / Unknown 12/22/2024 12:19 PM EDT 12/22/2024 1:05 PM EDT us Irvin Thao MD LAB BLOOD ORDERABLES Final Re sult [facility] [address] [place] [address], * IVUS - CORONARY (10/04/2024 2:07 PM EDT) Anatomical Region Laterality Modality X-Ray Angiograph y Addenda Addendum by Gerardo Martinez MD on 10/06/2024 12:15 PM EDT S/p PCI of RCA, s/p DCB of Mid LAD, S/p PCI of OM1 Coronary angiography report: Indication: CAD s/p stents, Sustained VT Access: Rt Common Femoral artery Hemostasis: Angioseal to Rt [employer] Post cath diagnosis: Three Vessel Coronary Artery Disease s/p mLAD ISR - DCB, OM1- REECE x1; RCA - REECE x2 Procedural details Patient Consent: The risks, benefits and alternatives of cardiac catheterization and possible percutaneous coronary intervention were discussed with the patient. This includes but is not limited to , myocardial infarction, stroke, permanent kidney failure, and damage to the blood vessels or heart, or allergic reaction to IV dye. The patient would like to proceed based on our discussion. All questions were answered. After informed consent the patient was taken to the cardiac procedure laboratory and prepped and draped in usual sterile fashion. Lidocaine was used as a local anesthetic and a 6 Iraqi sheath was placed in the right femoral artery. A 5 Iraqi JR4 catheter was advanced over wire to the ascending aorta, the aortic valve was crossed, and LV pressures were measured . A pullback was recorded across the aortic valve. The right coronary system was engaged and angiography performed. The catheter was exchanged for a 5 solomon islander JL 3.5 catheter the left coronary system was engaged and angiography performed. Wires and catheters withdrawn. For PCI of the LAD, as well as LCX 6 fr q 4 guide used Luge wire For PCI of the RCA, 6 Fr JR used initially, and support was not good and then we switched to 6 Fr AL 0.75 with guideliner support Hemostatis was obtained using the angioseal Recommendations: >> Continue aspirin 81 mg daily and Plavix 71 mg daily >> GDMT for CAD high intensity statins >> Follow up EP recs for VT management. Coronary Findings Diagnostic Dominance: Right Left Main: The vessel was visualized by angiography and is angiographically normal. Left Anterior Descending: The vessel was visualized by angiography. There is prior stent in the mid LAD It has severe ISR Mid LAD lesion is 80% stenosed. Culprit lesion. NATASHA flow is 3. The lesion is type C. The lesion was previously treated using a stent of unknown type. Left Circumflex: The vessel was visualized by angiography. The vessel exhibits minimal luminal irregularities. OM1 has severe 80 % stenosis Previously placed Mid Cx to Dist Cx stent of unknown type is widely patent. NATASHA flow is 3. Previous treatment took place at an unknown date. First Obtuse Marginal Branch: 1st Mrg lesion is 50% stenosed. NATASHA flow is 3. Right Coronary Artery: Prox RCA lesion is 80% stenosed. Culprit lesion. Lesion length: 32 mm. NATASHA flow is 3. The lesion is type C and located at the bend. Mid RCA lesion is 90% stenosed. Culprit lesion. Lesion length: 32 mm. The lesion is type C. Dist RCA lesion is 80% stenosed. Right Posterior Descending Artery: RPDA lesion is 40% stenosed. Intervention Mid LAD lesion: Angioplasty: Angioplasty was performed independent of stent deployment. The balloon used was a CATHETER BALLOON DILATATION EMERGE 3 X 15MM X 144CM. Maximum pressure: 16 woodrow. Inflation time: 5 sec. Supplies Used: CATHETER GUIDING MACH1 Q4 6FR X 100CM; SHEATH INTRODUCER PINNACLE GUIDEWIRE .038 6FR X 10CM; CATHETER IMAGING OPTICROSS 6 HD 3.6FR X 135CM; GUIDEWIRE VASCULAR LUGE MODERATE J .014IN X 182 X 3CM; DEVICE INFLATION ENCORE 26 HIGH PRESSURE W/PRESSURE GAUGE 20ML Angioplasty: Angioplasty using a drug-coated balloon was performed independent of stent deployment. The balloon used was a CATHETER BALLOON DILATATION AGENT 3.5 X 30MM. Maximum pressure: 10 woodrow. Inflation time: 50 sec. Supplies Used: CATHETER BALLOON DILATATION AGENT 3.5 X 30MM; SHEATH INTRODUCER PINNACLE GUIDEWIRE .038 6FR X 10CM; GUIDEWIRE VASCULAR LUGE MODERATE J .014IN X 182 X 3CM Angioplasty: Angioplasty was performed independent of stent deployment. The balloon used was a CATHETER BALLOON DILATATION AGENT 3.5 X 30MM. Maximum pressure: 10 woodrow. Inflation time: 50 sec. Supplies Used: CATHETER GUIDING MACH1 Q4 6FR X 100CM Post-Intervention Lesion Assessment: The intervention was successful. Intentional subintimal strategy was not used. Embolic protection device was not deployed. The guidewire was not threaded through a graft to reach the lesion. The guidewire crossed the lesion. Post-intervention NATASHA flow is 3. There were no complications. Ultrasound (IVUS) was performed. There is a 0% residual stenosis post intervention. Prox RCA lesion: Stent: Stent was successfully placed. The stent used was a SYSTEM CORONARY STENT SYNERGY XD 3.5 X 16MM X 144CM. Stent was deployed by way of balloon expansion. Maximum pressure: 12 woodrow. Inflation time: 5 sec. Supplies Used: SYSTEM CORONARY STENT SYNERGY XD 3.5 X 16MM X 144CM Post-Intervention Lesion Assessment: The intervention was successful. Intentional subintimal strategy was not used. Embolic protection device was not deployed. The guidewire was not threaded through a graft to reach the lesion. The guidewire crossed the lesion. Device was deployed. Post-intervention NATASHA flow is 3. There were no complications. There is a 0% residual stenosis post intervention. Mid RCA lesion: Stent: Drug-eluting stent was successfully placed. The stent used was a SYSTEM CORONARY STENT SYNERGY XD 3.5 X 38MM X 144CM. Stent was deployed by way of balloon expansion. Maximum pressure: 18 woodrow. Inflation time: 5 sec. Supplies Used: SYSTEM CORONARY STENT SYNERGY XD 3.5 X 38MM X 144CM Post-Intervention Lesion Assessment: The intervention was successful. Intentional subintimal strategy was not used. Embolic protection device was not deployed. The guidewire was not threaded through a graft to reach the lesion. The guidewire crossed the lesion. Device was deployed. Post-intervention NATASHA flow is 3. There is a 0% residual stenosis post intervention. Dist RCA lesion: Angioplasty: Angioplasty was performed independent of stent deployment. The balloon used was a CATHETER BALLOON DILATATION EMERGE 3 X 15MM X 144CM. Maximum pressure: 18 woodrow. Inflation time: 5 sec. Supplies Used: CATHETER BALLOON DILATATION EMERGE 3.5 X 15MM X 144CM Post-Intervention Lesion Assessment: There is a 0% residual stenosis post intervention. 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 This includes but is not limited to , myocardial infarction, stroke, permanent kidney failure, and damage to the blood vessels or heart, or allergic reaction to IV dye. The patient would like to proceed based on our discussion. All questions were answered. After informed consent the patient was taken to the cardiac procedure laboratory and prepped and draped in usual sterile fashion. Lidocaine was used as a local anesthetic and a 6 Iraqi sheath was placed in the right femoral artery. A 5 Iraqi JR4 catheter was advanced over wire to the ascending aorta, the aortic valve was crossed, and LV pressures were measured . A pullback was recorded across the aortic valve. The right coronary system was engaged and angiography performed. The catheter was exchanged for a 5 solomon islander JL 3.5 catheter the left coronary system was engaged and angiography performed. Wires and catheters withdrawn. For PCI of the LAD, as well as LCX 6 fr q 4 guide used Luge wire For PCI of the RCA, 6 Fr JR used initially, and support was not good and then we switched to 6 Fr AL 0.75 with guideliner support Hemostatis was obtained using the angioseal Recommendations: >> Continue aspirin 81 mg daily and Plavix 71 mg daily >> GDMT for CAD high intensity statins >> Follow up EP recs for VT management. Coronary Findings Diagnostic Dominance: Right Left Main: The vessel was visualized by angiography and is angiographically normal. Left Anterior Descending: The vessel was visualized by angiography. There is prior stent in the mid LAD It has severe ISR Mid LAD lesion is 80% stenosed. Culprit lesion. NATASHA flow is 3. The lesion is type C. The lesion was previously treated using a stent of unknown type. Left Circumflex: The vessel was visualized by angiography. The vessel exhibits minimal luminal irregularities. OM1 has severe 80 % stenosis Previously placed Mid Cx to Dist Cx stent of unknown type is widely patent. NATASHA flow is 3. Previous treatment took place at an unknown date. First Obtuse Marginal Branch: 1st Mrg lesion is 50% stenosed. NATASHA flow is 3. Right Coronary Artery: Prox RCA lesion is 80% stenosed. Culprit lesion. Lesion length: 32 mm. NATASHA flow is 3. The lesion is type C and located at the bend. Mid RCA lesion is 90% stenosed. Culprit lesion. Lesion length: 32 mm. The lesion is type C. Dist RCA lesion is 80% stenosed. Right Posterior Descending Artery: RPDA lesion is 40% stenosed. Intervention Mid LAD lesion: Angioplasty: Angioplasty was performed independent of stent deployment. The balloon used was a CATHETER BALLOON DILATATION EMERGE 3 X 15MM X 144CM. Maximum pressure: 16 woodrow. Inflation time: 5 sec. Supplies Used: CATHETER GUIDING MACH1 Q4 6FR X 100CM; SHEATH INTRODUCER PINNACLE GUIDEWIRE .038 6FR X 10CM; CATHETER IMAGING OPTICROSS 6 HD 3.6FR X 135CM; GUIDEWIRE VASCULAR LUGE MODERATE J .014IN X 182 X 3CM; DEVICE INFLATION ENCORE 26 HIGH PRESSURE W/PRESSURE GAUGE 20ML Angioplasty: Angioplasty using a drug-coated balloon was performed independent of stent deployment. The balloon used was a CATHETER BALLOON DILATATION AGENT 3.5 X 30MM. Maximum pressure: 10 woodrow. Inflation time: 50 sec. Supplies Used: CATHETER BALLOON DILATATION AGENT 3.5 X 30MM; SHEATH INTRODUCER PINNACLE GUIDEWIRE .038 6FR X 10CM; GUIDEWIRE VASCULAR LUGE MODERATE J .014IN X 182 X 3CM Angioplasty: Angioplasty was performed independent of stent deployment. The balloon used was a CATHETER BALLOON DILATATION AGENT 3.5 X 30MM. Maximum pressure: 10 woodrow. Inflation time: 50 sec. Supplies Used: CATHETER GUIDING MACH1 Q4 6FR X 100CM Post-Intervention Lesion Assessment: The intervention was successful. Intentional subintimal strategy was not used. Embolic protection device was not deployed. The guidewire was not threaded through a graft to reach the lesion. The guidewire crossed the lesion. Post-intervention NATASHA flow is 3. There were no complications. Ultrasound (IVUS) was performed. There is a 0% residual stenosis post intervention. Prox RCA lesion: Stent: Stent was successfully placed. The stent used was a SYSTEM CORONARY STENT SYNERGY XD 3.5 X 16MM X 144CM. Stent was deployed by way of balloon expansion. Maximum pressure: 12 woodrow. Inflation time: 5 sec. Supplies Used: SYSTEM CORONARY STENT SYNERGY XD 3.5 X 16MM X 144CM Post-Intervention Lesion Assessment: The intervention was successful. Intentional subintimal strategy was not used. Embolic protection device was not deployed. The guidewire was not threaded through a graft to reach the lesion. The guidewire crossed the lesion. Device was deployed. Post-intervention NATASHA flow is 3. There were no complications. There is a 0% residual stenosis post intervention. Mid RCA lesion: Stent: Drug-eluting stent was successfully placed. The stent used was a SYSTEM CORONARY STENT SYNERGY XD 3.5 X 38MM X 144CM. Stent was deployed by way of balloon expansion. Maximum pressure: 18 woodrow. Inflation time: 5 sec. Supplies Used: SYSTEM CORONARY STENT SYNERGY XD 3.5 X 38MM X 144CM Post-Intervention Lesion Assessment: The intervention was successful. Intentional subintimal strategy was not used. Embolic protection device was not deployed. The guidewire was not threaded through a graft to reach the lesion. The guidewire crossed the lesion. Device was deployed. Post-intervention NATASHA flow is 3. There is a 0% residual stenosis post intervention. Dist RCA lesion: Angioplasty: Angioplasty was performed independent of stent deployment. The balloon used was a CATHETER BALLOON DILATATION EMERGE 3 X 15MM X 144CM. Maximum pressure: 18 woodrow. Inflation time: 5 sec. Supplies Used: CATHETER BALLOON DILATATION EMERGE 3.5 X 15MM X 144CM Post-Intervention Lesion Assessment: There is a 0% residual stenosis post intervention. Study Details Ventricular tachycardia Gerardo Martinez MD CV CARDIAC CATH PROCEDURES Edited Result - Final * (ABNORMAL) CBC, No Differential (10/04/2024 10:28 AM EDT) WBC 7.6 4.0 - 9.0 10*3/uL 10/04/2024 11:13 AM [facility] RBC 5.65 4.50 - 5.70 10*6/uL 10/04/2024 11:13 AM [facility] Hemoglobin 14.8 13.6 - 16.7 g/dL 10/04/2024 11:13 AM [facility] Hematocrit 46.9 40.0 - 49.0 % 10/04/2024 11:13 AM [facility] Platelet Count 293 130 - 350 10*3/uL 10/04/2024 11:13 AM [facility] MCV 83.0 82.3 - 93.2 fL 10/04/2024 11:13 AM [facility] MCH 26.2(L) 27.8 - 31.9 pg 10/04/2024 11:13 AM [facility] MCHC 31.6(L) 32.8 - 35.5 g/dL 10/04/2024 11:13 AM [facility] MPV 10.9(H) 7.5 - 10.7 fL 10/04/2024 11:13 AM [facility] RDW 13.6 12.0 - 15.0 % 10/04/2024 11:13 AM [facility] NRBC % 0.0 <=0.0 % 10/04/2024 11:13 AM [facility] Absolute NRBC 0.00 <=0.00 10*3/uL 10/04/2024 11:13 AM [facility] Blood Venous blood / Unknown Venipuncture / Unknown 10/04/2024 10:28 AM EDT 10/04/2024 10:31 AM EDT us Gerardo Martinez MD LAB BLOOD ORDERABLES Final Result Performing Organization Address City/State/[facility] Co de Phone Number [facility] [address] [place] [address], * (ABNORMAL) Comprehensive Metabolic Panel (10/04/2024 10:28 AM EDT) Sodium 140 135 - 145 mmol/L 10/04/2024 11:12 AM [facility] Potassium 4.9 3.4 - 5.2 mmol/L 10/04/2024 11:12 AM [facility] Chloride 104 99 - 109 mmol/L 10/04/2024 11:12 AM [facility] Carbon Dioxide 26 21 - 30 mmol/L 10/04/2024 11:12 AM [facility] Blood Urea Nitrogen (BUN) 31(H) 7 - 22 mg/dL 10/04/2024 11:12 AM [facility] Creatinine 1.61(H) 0.70 - 1.30 mg/dL 10/04/2024 11:12 AM [facility] Glucose 111(H) 65 - 99 mg/dL 10/04/2024 11:12 AM [facility] Calcium 10.0 8.6 - 10.3 mg/dL 10/04/2024 11:12 AM [facility] Anion Gap 10 5 - 15 mmol/L 10/04/2024 11:12 AM [facility] eGFR 44 mL/min/1. 73m*2 10/04/2024 11:12 AM [facility] Comment: Calculation based on the Chronic Kidney Disease Epidemiology Collaboration (CKD- EPI) equation refit without adjustment for race. *This eGRF calculation is based on the [id number]-[id number] creatinine equations for adults designed to estimate glomerular filtration rate (eGFR) without race adjustment factors. *This eGFR results are indexed to standard body surface area (BSA) 1.73 M(2). *eGFR results should only be used for adult patients >=18 years old. *Use of nonindexed eGFR values (mL/min) should be considered for drug dosing decisions. Total Protein 7.2 6.0 - 8.0 g/dL 10/04/2024 11:12 AM [facility] Albumin 4.4 3.5 - 5.2 g/dL 10/04/2024 11:12 AM [facility] Globulin, Total 2.8 g/dL 11:12 AM [facility] A/G Ratio 1.6 10/04/2024 11:12 AM [facility] Bilirubin, Total 0.5 0.1 - 1.2 mg/dL 10/04/2024 11:12 AM [facility] Alanine Aminotransferase (ALT) 14 7 - 52 U/L 10/04/2024 11:12 AM [facility] Aspartate Aminotransferase (AST) 18 5 - 45 U/L 10/04/2024 11:12 AM [facility] Alkaline Phosphatase 24(L) 34 - 104 U/L 10/04/2024 11:12 AM [facility] Blood Venous blood / Unknown Venipuncture / Unknown 10/04/2024 10:28 AM EDT 10/04/2024 10:31 AM EDT us Gerardo Martinez MD LAB BLOOD ORDERABLES Final Result [facility] [address] [place] [address], [place] from Last 3 Months Insurance MEDICARE Member Subscriber Plan / Payer (Ef fective 2019-Present) Name:Bonifacio Vergara Member ID:[id number] Relation to Subscriber:Self Name:Bonifacio Vergara Subscriber ID:[id number] Payer ID:[id number] Group ID:Not on file Type:Medicare Address: [address] [place]OSS on file Advance Directives For more information, please contact: [phone] (Available ) * Resuscitation Status (Latest Code Status on File) Date Activated Date Inactivated Comments 12/22/2024 12:17 PM 12/22/2024 11:06 PM Question Answer Comments If no pulse and/or not breathing: Attempt CPR If pulse and breathing present: Intubati on and longterm mechanical ventilation * Resuscitation Status Date Activated Date Inactivated Comments 10/04/2024 2:12 PM 10/05/2024 12:43 PM Question Answer Comments If no pulse and/or not breathing: Attempt CPR If pulse and breathing present: Intubati on and 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 exterminator mechanical ventilation * Resuscitation Status Date Activated Date Inactivated Comments 09/23/2024 11:42 AM 09/24/2024 4:44 PM Question Answer Comments If no pulse and/or not breathing: Attempt CPR If pulse and breathing present: Intubati on and longterm mechanical ventilation Healthcare Agents on File Name Relationship Healthcare Agent Relationship Communication Chica Vergara Spouse Health Care Proxy Care Teams Corrective And Manual Arts Therapist Relationship Specialty Start Date End Date Teresa Chapman [address] [facility] [place] [id number] PCP - General 09/09/24 Santiago March MD [address] [facility] [address] [place] [address] Consulting Physician Cardiology 09/09/24 Rod Abdalla MD [address] [facility] [place] [address] Surgeon Cardiothoracic Surgery 09/24/24
== END 2024-12-29 09:50 | disposition home or self-care (01) ==
LOC: HO.MRI 09:49
PROVIDERS: Visit Provider Orthopaedic Surgery
DX: M48.02 Spinal stenosis, cervical region (principal)
CPT/HCPCS: 72141

== ENCOUNTER → 2024-12-29 09:49 | Outpatient (BNV) | payer MEDICARE, SELFPAY | PROVIDERS: Visit Provider Radiology Diagnostic Radiology | DX: M48.02 Spinal stenosis, cervical region (principal) | CPT/HCPCS: 72141 ==

== ENCOUNTER 2025-01-11 08:59 | Outpatient (AMB) | payer MEDICARE, SELFPAY ==
--- NOTE | 2025-01-11 09:09 | A.SPINEOV_ITS ---
Vital Signs 01/11/25 09:13 Height 5 ft 11 in Weight 165 lb BMI 23.0 Intake Visit Reasons: cervical stenosis Intake Note: Mr. Vergara is here today c/o neck pain Associate Dean Of Women Required: No Allergies No Known Allergies Allergy (Verified 01/11/25 09:14) Assessment & Plan Assessment & Plan (1) Neck pain: Code(s): M54.2 - Cervicalgia Category: Medical Plan Dear Dr. Davies, Thank you for referring Bonifacio to our office today. He is a pleasant 74-year-old male who comes in today for evaluation of 6 months of posterior neck pain. He reports that this began without any known inciting incident. He states that he does have a previous history of 2 level ACDF C3-5 completed about [address] Castaneda. In addition to this he had a multilevel lumbar fusion completed by Dr. Parker some time after that. He reports that he was essentially neck pain-free for about 20 years, until it began flaring up about 6 months ago. He denies any shooting pain into his upper extremities, and reports the pain is well localized to his neck. Despite the pain, the patient reports that he is very active. 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 More importantly, the patient states that his main concern aside from his neck pain is that she has had issues with lightheadedness, dizziness and dyspnea since having a pacemaker placed in September of this year. He reports that if he walks up a set of stairs he will get profoundly dizzy and lightheaded to the point where he needs to sit down & rest. He reports he would like to know if this is due to an issue with his cervical spine. He has been to physical therapy for this which he reports was not helpful and only exacerbated his pain. He does utilize OTC Tylenol when his pain flares up. He denies any issues with balance, denies any numbness/tingling of his upper or lower extremities, and denies any issues with dexterity such as zipping up a zipper or buttoning buttons. PMH: Osteoarthritis, SI joint dysfunction, left-sided trochanteric bursitis, BPH, GERD, hypothyroidism, history of 16 stents placed in cardiac vasculature. Most recently had 4 stents placed + pacemaker placed in September 2024. Unspecified shoulder surgery, unspecified abdominal surgery. Social hx: The patient does not smoke, reports no substance use. Medications: See ReactX list, patient is on anticoagulants for pacemaker / stent placement. Allergies: NKDA Physical exam: The patient has 5/5 strength in his upper and lower extremities. He ambulates well with a non spastic nonantalgic gait. He uses no assistive devices to ambulate. He has no significant sensational deficits reported in light touch examination. Is bilateral patellar reflexes are 1+ hypoactive. The rest of his reflexes are 2+ intact. (-) Apodaca's, (-) clonus, (-) bilateral straight leg raise. Imaging review: MRI of the cervical spine completed here at [facility] shows evidence of previous C3-4, C4-5 ACDF. There is diffuse spondylosis of the cervical spine most notable directly underneath the fusion construct at C5-6 where there is moderate central canal and moderate-severe bilateral foraminal stenosis. In addition to this there is fairly signfiicant disc degeneration and posterior disc bulging at C6-7 and C7-T1. Impression: Bonifacio is a pleasant 74-year-old male who comes in today for evaluation of 6 months of posterior neck pain. He denies any issues with muscle weakness, balance issues, dexterity. He also denies any shooting pains down his bilateral upper extremities. On examination he has no myelopathic reflexes. I do believe that the patient is likely suffering from cervicalgia secondary to the adjacent segment degeneration seen at C5-6. Given this, I do not believe that treatment of this would result in resolution of his most concerning symptoms, which he reports as dyspnea, lightheadedness, and dizziness upon ambul ating up stairs. This seems to be closely correlated with his recent pacemaker placement, therefore I advised him to continue follow up with his emergency services director regarding this. I do not believe that this is related to any compression seen his cervical spine. In terms of treating his neck pain, I do not believe that he would be a good surgical candidate at this time, and would likely be best served by continuing follow up with our colleagues in pain management for consideration of pain control via medications or injections. Thank you for allowing us to care for your patient. The total time spent with this visit with this patient was 45 minutes reviewing history, physical exam, MRI imaging review, and implementation of treatment plan or further diagnostic testing Rory Roldan MD,PhD [facility] Coding Level of Care Code New Pt Level 4 (62889) Diagnoses Neck pain M54.2
[2025-01-11 09:13] VITALS: BMI 23.0
--- OUTSIDE RECORDS SUMMARY | 2025-01-11 09:43 | XMS_ITS | Clinical Summary ---
Author Organization [facility] Address [address] [place] [address] Care Team Providers Care Spinning Machine Operator Name Role Phone Joaquin Talavera MD Primary Care Provider [phone] Allergies Active Allergy Reactions Criticality Noted Date [...] Active famotidine (PEPCID) 20 MG tablet Acid Managed Services Sales Consultant (famotidine) 20 mg tablet 0 Active amLODIPine [...] age to complete this topic Care Teams Spinning Machine Operator Relationship Specialty Start Date End Date Joaquin Talavera MD [address] [facility] [place] [address] PCP - General Family Medicine 01/12/17
--- OUTSIDE RECORDS SUMMARY | 2025-01-11 09:43 | XMS_ITS ---
Author Name [facility] Organization Unknown Care Team Organization Name Specialty Phone Email Start Date End [facility] 04/24/2022 01/11/2024
--- OUTSIDE RECORDS SUMMARY | 2025-01-11 09:43 | XMS_ITS | Clinical Summary ---
Author Organization [employer] [facility] Address [address] [place] [address] Care Team Providers Care Knot Cutter Name Role Phone Joaquin Talavera MD Primary Care Provider [phone] Surgical History Surgery Date Site/Laterality Comments BACK SURGERY PROCEDURE: HISTORICAL BACK SURGERY; COMMENT: spinal fusion HERNIA REPAIR PROCEDURE: [place] RPR 1ST INGUN HRNA AGE 5 MO-5 [...] age to complete this topic Care Teams Knot Cutter Relationship Specialty Start Date End Date Joaquin Talavera MD [address] [place] [address] PCP - General Family Medicine 01/12/17
--- OUTSIDE RECORDS SUMMARY | 2025-01-11 09:43 | XMS_ITS | Clinical Summary ---
Author Organization [facility] Address [address] [place] [address] Phone Care Team Providers Care Ecd Name Role Phone Teresa Chapman Primary Care Provider [phone] Santiago March MD Unavailable [phone] Rod Abdalla MD Unavailable [phone] Allergies No known active allergies Medications [...] by mouth in the morning. 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 Never 10/05/2024 [email or web address] Util[employer] Answer Date Recorded In the past 12 months has e [employer], oil, or water [employer] threatened to shut off services in your [...] any time in the past [address] [facility], were you homeless or living in a fdc (including now)? No 10/05/2024 Sex and Gender [...] this topic Medical Devices Implanted Type Area Tool Room Attendant Device Identifier Shelf Expiration Date Model / Serial / Lot Pacemaker Cardiac Accolade Mri El 15.8cc - [id number] - [id number] Implanted:Q ty: 1 on 09/23/2024 by Rod Abdalla MD at [facility] Cardiac Pacemaker Generators Or Cardiac Resynchronizati Left: Chest Wall [employer] 07/05/2026 [id number] / [id number] / System Coronary Stent Synergy Xd 2.75 X 12mm X 144cm - [id number] - [id number] Implanted:Q ty: 1 on 10/04/2024 by Gerardo Martinez MD at [facility] Coronary Stents-Y N/A: Coronary [employer] [id number] 06/02/2025 [id number] / [id number] / [id number] 1 System Coronary Stent Synergy Xd 3.5 X 16mm X 144cm - [id number] Implanted:Q ty: 1 on 10/04/2024 by Gerardo Martinez MD at [facility] Coronary Stents-Y N/A: Coronary [employer] [id number] 02/08/2026 [id number] / / [id number] System Coronary Stent Synergy Xd 3.5 X 38mm X 144cm - [id number] - [id number] Implanted:Q ty: 1 on 10/04/2024 by Gerardo Martinez MD at [facility] Coronary Stents-Y N/A: Coronary [employer] [id number] 02/09/2026 [id number] / [id number] / [id number] Procedures Procedure Name Priority Date/Time Associated Diagnosis Comments FRACTIONAL FLOW RESERVE (FFR) Routine 12/22/2024 5:18 PM EDT Atherosclerotic heart disease of telida coronary artery without angina pectoris LEFT VENTRICULOGRAPHY Routine 12/22/2024 5:18 PM EDT Atherosclerotic heart disease of telida coronary artery without angina pectoris CORONARY ANGIOGRAPHY Routine 12/22/2024 5:18 PM EDT Atherosclerotic heart disease of telida coronary artery without angina pectoris RIGHT HEART CATH Routine 12/22/2024 5:18 PM EDT Atherosclerotic heart disease of telida coronary artery without angina pectoris LEFT HEART CATH Routine 12/22/2024 5:18 PM EDT Atherosclerotic heart disease of telida coronary artery without angina pectoris POCT GLUCOSE METER UNSOLICITED RESULTS Routine 12/22/2024 12:59 PM EDT ECG 12 LEAD Routine 12/22/2024 12:50 PM EDT Atherosclerotic heart disease of telida coronary artery without angina pectoris AUTOMATED DIFFERENTIAL Routine 12:19 PM EDT COMPLETE BLOOD COUNT Routine 12/22/2024 12:19 PM EDT BASIC METABOLIC PANEL Routine 12/22/2024 12:19 PM EDT CBC AUTO DIFFERENTIAL Routine 12/22/2024 12:19 PM EDT TYPE AND SCREEN Routine 12/22/2024 12:19 PM EDT TYPE AND SCREEN Routine 12/22/2024 12:19 PM EDT from Last 3 Months Results * LEFT HEART CATH, RIGHT HEART CATH, CORONARY ANGIOGRAPHY, LEFT VENTRICULOGRAPHY, FRACTIONAL FLOW RESERVE (FFR) (12/22/2024 5:18 PM EDT) Cath EF Quantitative 60 % CHANGE_HEMO Anatomical Region Laterality Modality X-Ray Angiograph y Narrative 12/22/2024 8:21 PM EDT Diffuse CAD-patent stents angiographically in all THREE vessels. Branch vessel disease mild/moderate. Right dominant system. Nonischemic dFR Left Main through mid LAD. Normal LVEF. Borderline right heart pressures/preserved cardiac indices. Systemic hypertension with adequate filling pressures. Moderate conscious sedation monitored/administered from [id number] by Maryana Head RN as requested by [...] Informed consent/ time out. R brachial vein- 09/27 F sheath, balloon tipped catheter without difficulty. [...] (ABNORMAL) Glucose (POC) (12/22/2024 12:59 PM EDT) [facility] POC WB Glucose 114(H) 65 - 99 mg/dL 12/22/2024 1:05 PM EDT [facility] Blood Capillary blood / Unknown 12/22/2024 12:59 PM EDT 12/22/2024 1:05 PM EDT Narrative [facility] - 12/22/2024 1:05 PM EDT Performed at:[address] [place] [address] us Irvin Thao MD LAB POINT OF CARE TE ST DOCKED DEVICE UNSOLICITED RESULTS Final Result [facility] [address] [place] [address], [place] * EKG 12 lead (12/22/2024 12:50 PM EDT) [facility] Diagnosis Class Abnormal GE MUSE Ventricular Rate 83 BPM GE MUSE Atrial Rate 83 BPM GE MUSE QRS DURATION 174 ms GE MUSE QT Interval 436 ms GE MUSE QTC CALCULATION (BAZETT) 512 ms GE MUSE R [place] 57 degrees GE MUSE T Wave [place] -68 degrees GE MUSE 12/22/2024 12:4 5 PM EDT 12/23/2024 11:45 AM EDT Impressions GE MUSE - 12/23/2024 11:45 AM EDT AV dual-paced rhythm ABNORMAL ECG Confirmed by Keon Crowder ([id number]) on 12/23/2024 11:45:35 AM Narrative Procedure Note Keon Crowder MD PhD - 12/23/2024 IMPRESSION: AV dual-paced rhythm ABNORMAL ECG Confirmed by Keon Crodwer ([id number]) on 12/23/2024 11:45:35 AM [facility] ECG ORDERABLES Final Result Performing Organization Address City/[facility]/ZIP Co de Phone Number GE MUSE * Type and Screen (12/22/2024 12:19 PM EDT) ABO/RH B Negative 12/22/2024 1:55 PM EDT [facility] Antibody Screen Negative 12/22/2024 1:55 PM EDT [facility] Comment:Reference range: Neg ative Specimen Expiration Date 12/25/2024 11:59:00 PM EDT 12/22/2024 1:55 PM EDT [facility] Blood Venous blood / Unknown Venipuncture / Unknown 12/22/2024 12:19 PM EDT 12/22/2024 1:11 PM EDT [facility] BLOOD BANK TEST ORDERABLES F inal Result Performing Organization Address City/[facility]/ZIP Co de Phone Number [facility] [address] [place] [address], * (ABNORMAL) Automated Differential (12/22/2024 12:19 PM EDT) Neutrophils % 59.9 41.0 - 67.0 % 12/22/2024 1:40 PM EDT [facility] Lymphocytes % 28.1 28.0 - 42.0 % 12/22/2024 1:40 PM EDT [facility] Monocytes % 9.2(H) 4.0 - 9.0 % 12/22/2024 1:40 PM EDT [facility] Eosinophils % 1.7 0.0 - 5.0 % 12/22/2024 1:40 PM EDT [facility] Basophils % 0.7 0.0 - 1.0 % 12/22/2024 1:40 PM EDT [facility] Immature Granulocytes % 0.4 0.0 - 1.0 % 12/22/2024 1:40 PM EDT [facility] Absolute Neutrophils 3.24 1.60 - 6.20 10*3/uL 12/22/2024 1:40 PM EDT [facility] Absolute Lymphocytes 1.52 1.10 - 3.90 10*3/uL 12/22/2024 1:40 PM EDT [facility] Absolute Monocytes 0.50 0.20 - 0.80 10*3/uL 12/22/2024 1:40 PM EDT [facility] Absolute Eosinophils 0.09 0.00 - 0.50 10*3/uL 12/22/2024 1:40 PM EDT [facility] Absolute Basophils 0.04 0.00 - 0.10 10*3/uL 12/22/2024 1:40 PM EDT [facility] Absolute Immature Granulocytes 0.02 0.00 - 0.10 10*3/uL 12/22/2024 1:40 PM EDT [facility] Blood Venous blood / Unknown Venipuncture / Unknown 12/22/2024 12:19 PM EDT 12/22/2024 1:05 PM EDT us Irvin Thao MD LAB BLOOD ORDERABLES Final Re sult [facility] [address] [place] [address], [place] * (ABNORMAL) Complete Blood Count (12/22/2024 12:19 PM EDT) WBC 5.4 4.0 - 9.0 10*3/uL 12/22/2024 1:40 PM EDT [facility] Hemoglobin 13.2(L) 13.6 - 16.7 g/dL 12/22/2024 1:40 PM EDT [facility] Hematocrit 40.8 40.0 - 49.0 % 12/22/2024 1:40 PM T [facility] RBC 4.84 4.50 - 5.70 10*6/uL 12/22/2024 1:40 [facility] MCV 84.3 82.3 - 93.2 fL 12/22/2024 1:40 PM [facility] MCH 27.3(L) 27.8 - 31.9 pg 12/22/2024 1:40 PM [facility] MCHC 32.4(L) 32.8 - 35.5 g/dL 12/22/2024 1:40 PM [facility] RDW 13.7 12.0 - 15.0 % 12/22/2024 1:40 PM [facility] Platelet Count 259 130 - 350 10*3/uL 12/22/2024 1:40 PM [facility] MPV 10.7 7.5 - 10.7 fL 12/22/2024 1:40 PM [facility] NRBC % 0.0 <=0.0 % 12/22/2024 1:40 PM [facility] Absolute NRBC 0.00 <=0.00 10*3/uL 12/22/2024 1:40 PM [facility] Blood Venous blood / Unknown Venipuncture / Unknown 12/22/2024 12:19 PM EDT 12/22/2024 1:05 PM EDT us Irvin Thao MD LAB BLOOD ORDERABLES Final Re sult [facility] [address] [place] [address], * (ABNORMAL) Basic Metabolic Panel (12/22/2024 12:19 PM EDT) Sodium 139 135 - 145 mmol/L 12/22/2024 2:03 PM EDT [facility] Potassium 4.8 3.4 - 5.2 mmol/L 12/22/2024 2:03 PM [facility] Chloride 104 99 - 109 mmol/L 12/22/2024 2:03 PM [facility] Carbon Dioxide 27 21 - 30 mmol/L 12/22/2024 2:03 PM [facility] Anion Gap 8 5 - 15 mmol/L 12/22/2024 2:03 PM [facility] Glucose 104(H) 65 - 99 mg/dL 12/22/2024 2:03 PM [facility] Calcium 10.3 8.6 - 10.3 mg/dL 12/22/2024 2:03 PM [facility] Blood Urea Nitrogen (BUN) 18 7 - 22 mg/dL 12/22/2024 2:03 PM [facility] Creatinine 1.18 0.70 - 1.30 mg/dL 12/22/2024 2:03 PM [facility] eGFR 64 mL/min/1.7 3m*2 12/22/2024 2:03 PM [facility] Comment: *This eGRF calculation is based on the 3108-TGR-[id number] creatinine equations for adults designed to estimate glomerular filtration rate (eGFR) without race adjustment factors. *This eGFR results are indexed to standard body surface area (BSA) 1.73 M(2). *eGFR results should only be used for adult patients >=18 years old. *Use of nonindexed eGFR values (mL/min) should be considered for drug dosing decisions. Hemolysis Interference 12/22/2024 2:03 PM [facility] Icteric Interference 12/22/2024 2:03 PM [facility] Lipemic Interference 12/22/2024 2:03 PM [facility] Blood Venous blood / Unknown Venipuncture / Unknown 12/22/2024 12:19 PM EDT 12/22/2024 1:05 PM EDT us Irvin Thao MD LAB BLOOD ORDERABLES Final Re sult [facility] [address] [place] [address], [place] from Last 3 Months Insurance MEDICARE Member Subscriber Plan / Payer (Ef fective 2019-Present) Name:Bonifacio Vergara Member ID:[id number] Relation to Subscriber:Self Name:Bonifacio Vergara Subscriber ID:[id number] Payer ID:[id number] Group ID:Not on file Type:Medicare Address: [address] CROSS on file Advance Directives For more information, please contact: [phone] (Available ) * Resuscitation Status (Latest Code Status on File) Date Activated Date Inactivated Comments 12/22/2024 12:17 PM 12/22/2024 11:06 PM Question Answer Comments If no pulse and/or not breathing: Attempt CPR If pulse and breathing present: Intubati on and long term care pharmacist mechanical ventilation * Resuscitation Status Date Activated Date Inactivated Comments 10/04/2024 2:12 PM 10/05/2024 12:43 PM Question Answer Comments If no pulse and/or not breathing: Attempt CPR If pulse and breathing present: Intubati on and long term care pharmacist mechanical ventilation * Resuscitation Status Date Activated Date Inactivated Comments 09/23/2024 11:42 AM 09/24/2024 4:44 PM Question Answer Comments If no pulse and/or not breathing: Attempt CPR If pulse and breathing present: Intubati on and detention mechanical ventilation Healthcare Agents on File Name Relationship Healthcare Agent Relationship Communication Chica Vergara Spouse Health Care Proxy Care Teams Ecd Relationship Specialty Start Date End Date Young, Teresa [address] [place] [address] PCP - General 09/09/24 Santiago March MD [address] [facility] [address] [address] Consulting Physician Cardiology 09/09/24 Rod Abdalla MD [address] [place] [address] [address] [place] [address] Surgeon Cardiothoracic Surgery 09/24/24
== END 2025-01-11 10:38 | disposition home or self-care (01) ==
LOC: HO.HNS 09:00
PROVIDERS: Referring Provider Orthopaedic Surgery; Visit Provider Physician Assistant
DX: M54.2 Cervicalgia (principal)
CPT/HCPCS: 99204

== ENCOUNTER → 2025-01-11 08:59 | Outpatient (BNVA) | payer MEDICARE, SELFPAY | PROVIDERS: Referring Provider Orthopaedic Surgery; Visit Provider Physician Assistant | DX: M54.2 Cervicalgia (principal); Z98.1 Arthrodesis status | CPT/HCPCS: 99202 ==

== ENCOUNTER 2025-02-03 09:10 | Outpatient (AMB) | payer MEDICARE, SELFPAY ==
--- NOTE | 2025-02-03 09:12 | MHC.OFFVIS ---
Vital Signs 02/03/25 09:13 Height 5 ft 11 in Weight 170 lb BMI 23.7 BP 124/68 Blood Pressure Location Lt brachial Position Sitting Respiration 16 Pulse 68 Pulse Source Pulse Oximeter Pulse Oximetry (%) 96 Oxygen Delivery Method Room Air Intake Visit Reasons: Follow Up/Discuss Inj. Front Office Director Required: No Accompanied by: Spouse Allergies No Known Allergies Allergy (Verified 02/03/25 09:16) Medication List - Last Reconciled 02/03/25 by Bette Valencia LPN amlodipine 5 mg PO DAILY aspirin 81 mg PO DAILY cetirizine (Zyrtec) 50 mg PO DAILY PRN cholecalciferol (vitamin D3) 50 mcg PO DAILY clopidogrel 75 mg PO DAILY famotidine 20 mg PO BID fenofibrate nanocrystallized 145 mg PO DAILY levothyroxine 50 mcg PO DAILY magnesium oxide 400 mg PO DAILY metoprolol succinate ER 25 mg PO DAILY omega-3 acid ethyl esters (Lovaza) 2 caps PO BID pantoprazole 40 mg PO DAILY rosuvastatin 10 mg PO BEDTIME tamsulosin 0.8 mg PO DAILY HPI HPI Follow Up/Discuss Inj.: Details: History of Present Illness The patient is a 75-year-old male presenting with trochanteric bursitis and cervical degenerative disc disease. He initially received relief from a left trochanteric bursa injection in October but has experienced a resurgence of pain from sitting since last week. Additionally, he has a history of cervical degenerative disc disease with persistent symptoms following previous neck surgery. The patient is exploring options for additional pain management injections. Pain Description - Onset: Last week for left hip; ongoing for neck. - Location: Left hip, trochanteric region; neck with potential radiation. - Exacerbating factors: Sitting for trochanteric bursitis. - Relieving factors: Previous injection for trochanteric bursitis. - Neck pain includes squeaking and snapping noises. Physical Exam - Appears afebrile. - Alert and oriented. - Mood and affect appropriate. - Follows and participates in conversation appropriately. - Respiratory effort is unlabored. - Able to transition from sit to stand unassisted. - Ambulates with bilaterally normal heel strike and toe off. - Able to stand and walk on toes and heels. Pain Management - Affect: Persistent pain impacting mood and quality of life. - Analgesia: Previous hip injection provided relief; exploring further options for both hip and neck. - Adverse Effects: None reported. - Activities of Daily Living: Pain affecting ability to sit comfortably. - Aberrant Drug Related Behaviors: None reported. - CLEMENT Neck Score: 48% Procedure - Left Greater Trochanteric Bursa Injection: Informed consent was obtained; the left side was confirmed. The patient was positioned in the lateral decubitus position. A 25-gauge needle guided by ultrasound was used to inject 40 mg of Kenalog mixed with 3 mL of propovacaine 0.5% into the bursa without pain on injection. US image saved. [facility] Medical History (Updated 11/17/24 @ 10:50 by Rafael Davies MD) Pacemaker Calcium pyrophosphate deposition disease (CPPD) Hypovitaminosis D Hypomagnesemia Screening for osteoporosis Osteoarthritis involving multiple joints on both sides of body Polyarthralgia Surgical History Hx of shoulder surgery Hx of neck surgery History of back surgery Hx of shoulder surgery Social History Alcohol intake: former Patient Tobacco Use Status: Never used Tobacco Current occupational status: retired Current occupation: Right hand dominate Physical Exam Vital Signs: Last Vital Signs Pulse 68 02/03/25 09:13 Resp 16 02/03/25 09:13 BP 124/68 02/03/25 09:13 Pulse Ox 96 02/03/25 09:13 Oxygen Delivery Method Room Air 02/03/25 09:13 BMI result Body Mass Index 23.7 Assessment & Plan Assessment & Plan (1) Cervical spondylosis: Code(s): M47.812 - Spondylosis without myelopathy or radiculopathy, cervical region Category: Medical (2) Trochanteric bursitis, left hip: Code(s): M70.62 - Trochanteric bursitis, left hip Category: Medical Plan Plan Patient was informed and verbally consented to the use of an ambient scribe for clinic note documentation during this visit. 1. Trochanteric Bursitis - Administered left trochanteric bursa injection to manage recurrent pain. 2. Cervical Degenerative Disc Disease/Spondylosis - Plan medial branch blocks for C4, C5, and C6 segments. - Consider temporary neck stimulator following initial treatment outcomes. Discussion Notes I discussed with the patient the recurrence of his trochanteric bursitis symptoms and arranged for a subsequent injection to alleviate pain. We reviewed his cervical degenerative disc disease, including persistent symptoms post-surgery and the influence of bone spurs. I outlined the option of cervical medial branch blocks and the possibility of a temporary cervical stimulator. We addressed insurance constraints affecting specific treatments and planned initial therapeutic injections. The patient consented to proceed with the discussed interventions. Patient Instructions - Follow up with the scheduled injections for both hip and neck pain. - Report back any changes or side effects following injections. - Maintain awareness of any increase in pain or new symptoms, and seek care if they arise. Coding Level of Care Code Procedure Only Diagnoses Cervical spondylosis M47.812 Trochanteric bursitis, left hip M70.62
[2025-02-03 09:13] VITALS: BP 124/68; PULSE 68; RESP 16; O2SAT 96; BMI 23.7
--- OUTSIDE RECORDS SUMMARY | 2025-02-03 10:05 | XMS_ITS | Clinical Summary ---
Author Organization [facility] Address [address] [place] [address] Care Team Providers Care Interpretative Dancer Name Role Phone Joaquin Talavera MD Primary Care Provider [phone] Allergies Active Allergy Reactions Criticality Noted Date [...] Active famotidine (PEPCID) 20 MG tablet Acid Clinical Leader (famotidine) 20 mg tablet 0 Active amLODIPine [...] Depression Screening 1961 Preventative Health Evaluation 1967 Fall Risk Assessment 2014 Pneumococcal Vaccine (2 of 2 - PPSV23 or PCV20) 03/17/2019 03/17/2018 Shingrix-Zoster Vaccine (2 of 2) 06/25/2021 04/30/2021 RSV Adult > 60+ Yrs or (1 - 1-dose 75+ series) 01/26/2024 COVID-19 Vaccine ( season) 2025 05/21/2022, 10/08/2021, 02/18/2021, Additional history exists Influenza Vaccine (#1) 2025 2, 03/19/2021, 03/08/2020, Additional history exists DTap / Tdap / Td (3 - Td or Tdap) 10/10/2031 10/09/2021, 01/07/2012, 12/25/2000 Hepatitis B Vaccines Aged Out No long er eligible based on patient's age to complete this topic RSV Ped < 20 months Aged Out No longe r eligible based on patient's age to complete this topic Insurance Payer Benefit Plan / Group Subscriber ID Effective Dates Phone Address Type [place] ONLY [id number] 1997-Pre sent [employer] [address] [place] [address] Medicare MEDICARE MEDICARE A&B [id number] 11/22/1997-Pre sent [phone] [address] [address] [place] [address] Medicare BLUE [place]OSS BLUE SHIELD BLUE [place] OUT OF [facility] [id number] 11/22/1997-Pre sent [address] [place] [address] PPO Care Teams Interpretative Dancer Relationship Specialty Start Date End Date Joaquin Talavera MD [address] [facility] [place] [address] PCP - General Family Medicine 01/12/17
--- OUTSIDE RECORDS SUMMARY | 2025-02-03 10:05 | XMS_ITS | Clinical Summary ---
Author Organization [facility] Address [address] [place] [address] Care Team Providers Care Tallow Pumper Name Role Phone Joaquin Talavera MD Primary Care Provider [phone] Surgical History Surgery Date Site/Laterality Comments BACK SURGERY PROCEDURE: HISTORICAL BACK SURGERY; COMMENT: spinal fusion HERNIA REPAIR PROCEDURE: MS RPR 1ST INGUN HRNA AGE 5 MO-5 [...] 06/25/2021 04/30/2021 Cholesterol Screening (Lipid Panel) 05/01/2022 Falls Risk Assessment 05/01/2022 Hepatitis C Screening 05/01/2022 Social Influencers of Health Screening 05/01/2022 Depression Screening 05/25/2024 Diabetes: Annual Urine Albumin-Creatinine Ratio (uACR) 09/30/2024 Diabetes: Blood Sugar Control Test (HGBA1C) 09/30/2024 COVID-19 Vaccine ( season) 2025 05/21/2022, 10/08/2021, 02/18/2021, Additional history exists Influenza Vaccine (#1) 2025 , 03/11/2023, 03/21/2022, [...] age to complete this topic Care Teams Tallow Pumper Relationship Specialty Start Date End Date Joaquin Talavera MD [address] [facility] [place] [address] PCP - General Family Medicine 01/12/17
--- OUTSIDE RECORDS SUMMARY | 2025-02-03 10:05 | XMS_ITS | Clinical Summary ---
Author Organization [facility] Address [address] [place] [address] Phone Care Team Providers Care Continuous Improvement Director Name Role Phone Teresa Chapman Primary Care Provider [phone] Santiago March MD Unavailable [phone] Rod Abdalla MD Unavailable [phone] Allergies No known active allergies Medications [...] by mouth in the morning. 4 Active Revere-3 Fatty Acids (FISH OIL CONCENTRATE PO) Take [...] EDT - 12/22/2024 1:00 PM EDT Surgery [facility] [address] [place] [address] Irvin Thao MD DG: Left heart catheterization [58180 (CPT )] 12/22/2024 11:48 AM EDT - 12/22/2024 9:06 PM EDT Hospital Encounter [facility] [address] [place] [address] Irvin Thao MD Atherosclerotic heart disease of [place] coronary artery without angina pectoris (Primary Dx) [...] from your doctor or pharmacy? Never 10/05/2024 [employer] Answer Date Recorded In the past 12 months has e [employer], oil, or water [email or web address] threatened to shut off services in your [...] any time in the past 12 [facility], were you homeless or living in a retirement (including now)? No 10/05/2024 Sex and Gender [...] Maintenance Due Date Last Done Comments Diabetes: Hemoglobin A1C 1950 Lipid Panel 1950 Medicare Annual Wellness (AWV) 1949 Diabetes: Foot Exam 1959 Diabetes: Retinopathy Screening 1959 Hepatitis C Screening 1967 Pneumococcal Vaccine: 50+ Years (2 of 2 - PPSV23) 05/12/2018 03/17/2018 Zoster Vaccines (2 of 2) 06/25/2021 04/30/2021 Influenza Vaccine (#1) 2025 , 03/11/2023, 03/21/2022, Additional history exists Creatinine Level 12/22/2025 12/22/2024, , 10/04/2024, Additional history exists Potassium Level 12/22/2025 12/22/2024, 09/22, 10/04/2024, Additional history exists TD Vaccine (21+ Years) 10/10/2031 , 01/07/2012, 12/25/2000 HIB Vaccines Aged Out No [...] this topic Medical Devices Implanted Type Area Hatch Boss Device Identifier Shelf Expiration Date Model / Serial / Lot Pacemaker Cardiac Accolade Mri El 15.8cc - [id number] - [id number] Implanted:Q ty: 1 on 09/23/2024 by Rod Abdalla MD at [facility] Cardiac Pacemaker Generators Or Cardiac Resynchronizati Left: Chest Wall [employer] 07/05/2026 [id number] / [id number] / System Coronary Stent Synergy Xd 2.75 X 12mm X 144cm - [id number] - [id number] Implanted:Q ty: 1 on 10/04/2024 by Gerardo Martinez MD at [facility] Coronary Stents-Y N/A: Coronary [employer] [id number] 06/02/2025 [id number] / [id number] / [id number] System Coronary Stent Synergy Xd 3.5 X 16mm X 144cm - [id number] Implanted:Q ty: 1 on 10/04/2024 by Gerardo Martinez MD at [facility] Coronary Stents-Y N/A: Coronary [employer] [id number] 02/08/2026 [id number] / [id number] System Coronary Stent Synergy Xd 3.5 X 38mm X 144cm - [id number] - [id number] Implanted:Q ty: 1 on 10/04/2024 by Gerardo Martinez MD at [facility] Coronary Stents-Y N/A: Coronary [employer] [id number] 02/09/2026 [id number] / [id number] / [id number] Procedures Procedure Name Priority Date/Time Associated Diagnosis Comments FRACTIONAL FLOW RESERVE (FFR) Routine 12/22/2024 5:18 PM EDT Atherosclerotic heart disease of [place] coronary artery without angina pectoris LEFT VENTRICULOGRAPHY Routine 12/22/2024 5:18 PM EDT Atherosclerotic heart disease of [place] coronary artery without angina pectoris CORONARY ANGIOGRAPHY Routine 12/22/2024 5:18 PM EDT Atherosclerotic heart disease of [place] coronary artery without angina pectoris RIGHT HEART CATH Routine 12/22/2024 5:18 PM EDT Atherosclerotic heart disease of [place] coronary artery without angina pectoris LEFT HEART CATH Routine 12/22/2024 5:18 PM EDT Atherosclerotic heart disease of [place] coronary artery without angina pectoris POCT GLUCOSE METER UNSOLICITED RESULTS Routine 12/22/2024 12:59 PM EDT ECG 12 LEAD Routine 12/22/2024 12:50 PM EDT Atherosclerotic heart disease of [place] coronary artery without angina pectoris AUTOMATED DIFFERENTIAL [...] filling pressures. Moderate conscious sedation monitored/administered from [id number] by Maryana Head RN as requested by [...] mid inferior, apical anterior and apical inferior. Irvin Thao MD CV CARDIAC CATH PROCEDURES Fi nal Result * (ABNORMAL) Glucose (POC) (12/22/2024 12:59 PM EDT) [facility] POC WB Glucose 114(H) 65 - 99 mg/dL 12/22/2024 1:05 PM EDT [facility] Blood Capillary blood / Unknown 12/22/2024 12:59 PM EDT 12/22/2024 1:05 PM EDT Narrative [facility] - 12/22/2024 1:05 PM EDT Performed at:[address] [place] [address] Irvin Thao MD LAB POINT OF CARE TE ST DOCKED DEVICE UNSOLICITED RESULTS Final Result [facility] [address] [place] [address], * EKG 12 lead (12/22/2024 12:50 PM EDT) [facility] Diagnosis Class Abnormal GE MUSE Ventricular Rate 83 BPM GE MUSE Atrial Rate 83 BPM GE MUSE QRS DURATION 174 ms GE MUSE QT Interval 436 ms GE MUSE QTC CALCULATION (BAZETT) 512 ms GE MUSE R [place] 57 degrees GE MUSE T Wave [place] -68 degrees GE MUSE 12/22/2024 12:4 5 PM EDT 12/23/2024 11:45 AM EDT Impressions GE MUSE - 12/23/2024 11:45 AM EDT AV dual-paced rhythm ABNORMAL ECG Confirmed by Keon Crowder ([id number]) on 12/23/2024 11:45:35 AM Narrative Procedure Note Keon Crowder MD PhD - 12/23/2024 IMPRESSION: AV dual-paced rhythm ABNORMAL ECG Confirmed by Keon Crodwer ([id number]) on 12/23/2024 11:45:35 AM Magda CUADRA ECG ORDERABLES Final Result Performing Organization Address City/[facility]/ZIP Co de Phone Number GE MUSE * Type and Screen (12/22/2024 12:19 PM EDT) ABO/RH B Negative 12/22/2024 1:55 PM EDT [facility] Antibody Screen Negative 12/22/2024 1:55 PM EDT [facility] Comment:Reference range: Neg ative Specimen Expiration Date 12/25/2024 11:59:00 PM EDT 12/22/2024 1:55 PM EDT [facility] Blood Venous blood / Unknown Venipuncture / Unknown 12/22/2024 12:19 PM EDT 12/22/2024 1:11 PM EDT Magda Garcia [place] LAB BLOOD BANK TEST ORDERABLES F inal Result Performing Organization Address City/[facility] Co de Phone Number [facility] [address] [place] [address], [place] * (ABNORMAL) Automated Differential (12/22/2024 12:19 PM EDT) Neutrophils % 59.9 41.0 - 67.0 % 12/22/2024 1:40 PM EDT [facility] Lymphocytes % 28.1 28.0 - 42.0 % 12/22/2024 1:40 PM EDT [facility] Monocytes % 9.2(H) 4.0 - 9.0 % 12/22/2024 1:40 PM EDT [facility] Eosinophils % 1.7 0.0 - 5.0 % 12/22/2024 1:40 PM EDT [facility] Basophils % 0.7 0.0 - 1.0 % 12/22/2024 1:40 PM EDT [facility] Immature Granulocytes % 0.4 0.0 - 1.0 % 12/22/2024 1:40 PM EDT [facility] Absolute Neutrophils 3.24 1.60 - 6.20 10*3/uL 12/22/2024 1:40 PM EDT [facility] Absolute Lymphocytes 1.52 1.10 - 3.90 10*3/uL 12/22/2024 1:40 PM EDT [facility] Absolute Monocytes 0.50 0.20 - 0.80 10*3/uL 12/22/2024 1:40 PM EDT [facility] Absolute Eosinophils 0.09 0.00 - 0.50 10*3/uL 12/22/2024 1:40 PM EDT [facility] Absolute Basophils 0.04 0.00 - 0.10 10*3/uL 12/22/2024 1:40 PM EDT [facility] Absolute Immature Granulocytes 0.02 0.00 - 0.10 10*3/uL 12/22/2024 1:40 PM T [facility] Blood Venous blood / Unknown Venipuncture / Unknown 12/22/2024 12:19 PM EDT 12/22/2024 1:05 PM EDT us Irvin Thao MD LAB BLOOD ORDERABLES Final Re sult Performing Organization Address City/State/[facility] Co de Phone Number [facility] [address] [place] [address], * (ABNORMAL) Complete Blood Count (12/22/2024 12:19 PM EDT) WBC 5.4 4.0 - 9.0 10*3/uL 12/22/2024 1:40 PM EDT [facility] Hemoglobin 13.2(L) 13.6 - 16.7 g/dL 12/22/2024 1:40 PM EDT [facility] Hematocrit 40.8 40.0 - 49.0 % 12/22/2024 1:40 PM EDT [facility] RBC 4.84 4.50 - 5.70 10*6/uL 12/22/2024 1:40 PM EDT [facility] MCV 84.3 82.3 - 93.2 fL 12/22/2024 1:40 PM EDT [facility] MCH 27.3(L) 27.8 - 31.9 pg 12/22/2024 1:40 PM EDT [facility] MCHC 32.4(L) 32.8 - 35.5 g/dL 12/22/2024 1:40 PM EDT [facility] RDW 13.7 12.0 - 15.0 % 12/22/2024 1:40 PM EDT [facility] Platelet Count 259 130 - 350 10*3/uL 12/22/2024 1:40 PM EDT [facility] MPV 10.7 7.5 - 10.7 fL 12/22/2024 1:40 PM EDT [facility] NRBC % 0.0 <=0.0 % 12/22/2024 1:40 PM EDT [facility] Absolute NRBC 0.00 <=0.00 10*3/uL 12/22/2024 1:40 PM T [facility] Blood Venous blood / Unknown Venipuncture / Unknown 12/22/2024 12:19 PM EDT 12/22/2024 1:05 PM EDT us Irvin Thao MD LAB BLOOD ORDERABLES Final Re sult Performing Organization Address City/State/[facility] Co de Phone Number [facility] [address] [place] [address], * (ABNORMAL) Basic Metabolic Panel (12/22/2024 12:19 PM EDT) Sodium 139 135 - 145 mmol/L 12/22/2024 2:03 PM EDT [facility] Potassium 4.8 3.4 - 5.2 mmol/L 12/22/2024 2:03 PM T [facility] Chloride 104 99 - 109 mmol/L 12/22/2024 2:03 PM EDT [facility] Carbon Dioxide 27 21 - 30 mmol/L 12/22/2024 2:03 PM [facility] Anion Gap 8 5 - 15 mmol/L 12/22/2024 2:03 PM [facility] Glucose 104(H) 65 - 99 mg/dL 12/22/2024 2:03 PM [facility] Calcium 10.3 8.6 - 10.3 mg/dL 12/22/2024 2:03 PM [facility] Blood Urea Nitrogen (BUN) 18 7 - 22 mg/dL 12/22/2024 2:03 PM [facility] Creatinine 1.18 0.70 - 1.30 mg/dL 12/22/2024 2:03 PM [facility] eGFR 64 mL/min/1.7 3m*2 12/22/2024 2:03 PM [facility] Comment: *This eGRF calculation is based on the 1450-KNP-SQR creatinine equations for adults designed to estimate glomerular filtration rate (eGFR) without race adjustment factors. *This eGFR results are indexed to standard body surface area (BSA) 1.73 M(2). *eGFR results should only be used for adult patients >=18 years old. *Use of nonindexed eGFR values (mL/min) should be considered for drug dosing decisions. Hemolysis Interference 12/22/2024 2:03 PM [facility] Icteric Interference 12/22/2024 2:03 PM [facility] Lipemic Interference 12/22/2024 2:03 PM [facility] Blood Venous blood / Unknown Venipuncture / Unknown 12/22/2024 12:19 PM EDT 12/22/2024 1:05 PM EDT us Irvin Thao MD LAB BLOOD ORDERABLES Final Re sult [facility] [address] [place] [address], from Last 3 Months Insurance MEDICARE Member Subscriber Plan / Payer (Ef fective 2019-Present) Name:Bonifacio Vergara Member ID:[id number] Relation to Subscriber:Self Name:Bonifacio Vergara Subscriber ID:[id number] Payer ID:[id number] Group ID:Not on file Type:Medicare Address: [address] on file Advance Directives For more information, please contact: [phone] (Available ) * Resuscitation Status (Latest Code Status on File) Date Activated Date Inactivated Comments 12/22/2024 12:17 PM 12/22/2024 11:06 PM Question Answer Comments If no pulse and/or not breathing: Attempt CPR If pulse and breathing present: Intubati on and care home mechanical ventilation * Resuscitation Status Date Activated Date Inactivated Comments 10/04/2024 2:12 PM 10/05/2024 12:43 PM Question Answer Comments If no pulse and/or not breathing: Attempt CPR If pulse and breathing present: Intubati on and care home mechanical ventilation * Resuscitation Status Date Activated Date Inactivated Comments 09/23/2024 11:42 AM 09/24/2024 4:44 PM Question Answer Comments If no pulse and/or not breathing: Attempt CPR If pulse and breathing present: Intubati on and care home mechanical ventilation Healthcare Agents on File Name Relationship Healthcare Agent Relationship Communication Chica Vergara Spouse Health Care Proxy Care Teams Continuous Improvement Director Relationship Specialty Start Date End Date Teresa Chapman [address] [facility] [place] [address] PCP - General 09/09/24 Santiago March MD [address] [facility] [address] [address] Consulting Physician Cardiology 09/09/24 Rod Abdalla MD [address] [facility] [place] [address] Surgeon Cardiothoracic Surgery 09/24/24
== END 2025-02-03 10:04 | disposition home or self-care (01) ==
LOC: HO.PMC 09:11
PROVIDERS: Visit Provider Internal Medicine
DX: M70.62 Trochanteric bursitis, left hip (principal); M47.812 Spondylosis without myelopathy or radiculopathy, cervical region
CPT/HCPCS: 20611

== ENCOUNTER → 2025-02-03 09:10 | Outpatient (BNVA) | payer MEDICARE, SELFPAY | PROVIDERS: Visit Provider Internal Medicine | DX: M70.62 Trochanteric bursitis, left hip (principal) | CPT/HCPCS: 20611; J2795; J3301 ==

== ENCOUNTER 2025-04-05 12:27 | Outpatient (AMB) | payer MEDICARE, SELFPAY ==
--- NOTE | 2025-04-05 12:28 | A.OFFVIS_ITS ---
Vital Signs 04/05/25 12:36 Height 5 ft 11 in Weight 172 lb 2.896 oz BMI 24.0 BP 132/90 H Blood Pressure Location Lt brachial Position Sitting Pulse 83 Pulse Source Pulse Oximeter Pulse Oximetry (%) 98 Oxygen Delivery Method Room Air Intake Visit Reasons: follow up Intake Note: Patient CPPD follow up. Allergies No Known Allergies Allergy (Verified 04/05/25 12:35) HPI Comments Details: Patient is a 75-year-old male with hypertension complicated by coronary artery disease status post 12 stents, diabetes, hypothyroidism, BPH and hyperlipidemia who presents for follow up of Presumed CPPD Interval History: Patient last seen 10/14/24 with me - On Hydroxychloroquine 200mg daily - Following up for his diagnosis of presumed CPPD. He did not tolerate colchicine and self-discontinued it. - But continued to have synovitis on examination and so he was started on Plaquenil. - Initially was on 2 tablets daily but then decreased it to 1 tablet daily due to GI issues. Overall doing much better on the Plaquenil. - Of note he has been having a lot of cardiac issues including pacemaker placement and 4 additional stents. He is still undergoing cardiac evaluation Today - Not currently on any DMARDs - Hydroxychloroquine 200mg stopped by cardiology due to problems with the pacemaker - Overall stable - Complaining of right 1st CMC pain for the past 1 week Rheumatologic History: CPPD based on history and chondrocalcinosis on XRs Initial history: Patient states that over 20 years ago he was seeing a wood floor layer and was diagnosed with rheumatoid arthritis. His treatment consisted of Celebrex and other NSAIDs. Was never on methotrexate or any other DMARD or biologic. When his wood floor layer retired he then [facility] and was told he does not have rheumatoid arthritis but osteoarthritis. Since then he has been getting series of steroid injections in various joints including his MCPs, MTPs, knees, shoulders, hips under fluoroscopic guidance. He is here today for a 2nd opinion With respect to his hands he does report morning stiffness sometimes lasting up to an hour but he also reports worsening stiffness and pain at the end of the day and this sometimes wakes him up at night. Right now his main complaint are his hips and his knees. He denies any history of recurrent monoarticular arthritis involving the wrists, elbows or knees. But does note that he gets swelling to these areas at times. Has never had arthrocentesis. Denies any extra articular manifestations of rheumatoid arthritis. Currently he takes Tylenol which does not help. Sometimes he will take oxycodone or Vicodin. Was told that he could no longer take Celebrex or naproxen because of his heart condition and his age. Current Rheumatology Medication(s): Plaquenil 200mg (stopped by cardiology) [facility] Medical History (Updated 04/05/25 @ 13:59 by Claire Vazquez MD) Pacemaker Calcium pyrophosphate deposition disease (CPPD) Hypovitaminosis D Hypomagnesemia Screening for osteoporosis Osteoarthritis involving multiple joints on both sides of body Polyarthralgia Surgical History Hx of shoulder surgery Hx of neck surgery History of back surgery Hx of shoulder surgery Social History Alcohol intake: former Patient Tobacco Use Status: Never used Tobacco Current occupational status: retired Current occupation: Right hand dominate Review of Systems Narrative Review of Systems Constitutional: Denies fever, chills, weight loss ENT: Denies vision changes, eye pain or eye redness, dental caries, dry mouth GI: Denies nausea, vomiting, diarrhea, abdominal pain, change in BM Pulm: Denies SOB, ROQUE, hemoptysis, wheezing Cards: Denies chest pain, palpitations Skin: Denies Raynaud's, rash, nail changes, photosensitivity, MEDICAL INSURANCE CODER: Denies headaches, weakness, paresthesias, recurrent falls MSK: as per HPI All other systems reviewed and are unremarkable except noted above Physical Exam Exam Exam: Vital signs reviewed Physical Examination CONSTITUITIONAL Patient alert and cooperative. Well appearing and in no apparent painful distress MSK Hands * Right Hand: Able to make a fist. No swelling or tenderness to palpation of the MCPs, PIPs or DIPs. TTP of the 1st CMC * Left Hand: Able to make a fist. No swelling or tenderness to palpation of the MCPs, PIPs or DIPs. * Herbedens nodes noted bilaterally especially the 4th and 5th DIPs Wrists * Right Wrist: Full ROM to flexion and extension. No swelling or TTP * Left Wrist: Full ROM to flexion and extension. No swelling or TTP Elbows * Right Elbow: Full ROM. No swelling or TTP. No TTP of the medial epicondyle. No TTP of the lateral epicondyle * Left Elbow: Full ROM. No swelling or TTP. No TTP of the medial epicondyle. No TTP of the lateral epicondyle Shoulders * Right shoulder: No swelling noted. No TTP of the AC joint. No TTP of the subacromial bursa. No TTP of the posterior shoulder * Left shoulder: No swelling noted. No TTP of the AC joint. No TTP of the subacromial bursa. No TTP of the posterior shoulder Knees * Right knee: No swelling noted. No TTP of the knee joint line. No TTP of pes anserine bursa * Left knee: No swelling noted. No TTP of the knee joint line. No TTP of pes anserine bursa. * Crepitations felt bilaterally Ankles * Right ankle: Good ankle dorsiflexion and plantar flexion. No swelling. No TTP of the ankle joint * Left ankle: Good ankle dorsiflexion and plantar flexion. No swelling. No TTP of the ankle joint Feet * Right foot: Negative squeeze test * Left foot: Negative squeeze test Tender points? * No tenderness to palpation of the bilateral trapezius, supraspinatus, anterior costochondral junctions, bilateral suboccipital muscle insertions SKIN No rashes Vital Signs: Last Vital Signs Pulse 83 04/05/25 12:36 BP 132/90 H 04/05/25 12:36 Pulse Ox 98 04/05/25 12:36 Oxygen Delivery Method Room Air 04/05/25 12:36 BMI result Body Mass Index 24.0 Office Procedures AMB Joint Injection/Aspiration Joint Injection/Aspiration Details: Procedure was explained to the patient and informed consent was obtained. ? Risks associated with the procedure were discussed with the patient including but not limited to bleeding, infection, drug reactions and reactions to the topical anesthetic. Patient made aware of signs to look out for infectious complications. The area of interest was identified and confirmed with patient. ?This was subsequently cleaned with chlorhexidine x 2. ? The area was then anesthetized using ethyl chloride spray. 40 mg Kenalog with 1 cc 1% lidocaine was injected without issue. ?Minimal to no bleeding. ?Patient tolerated procedure. Primary Site: right thumb Prep: site was prepped using aseptic technique and ethochloride spray was applied Injected: 40 mg of, Kenalog, with 1 mL of, 1% plain lidocaine and in the joint Procedure: The patient tolerated the procedure well Coding - Small Joint Procedure code (CPT) selection complete Office Meds lidocaine (PF) 10 mg/mL (1 %) injection solution Performing Provider: Claire Vazquez MD Performing Location: [facility] Administered by: Ellen Sidhu RN on 04/05/25 13:42 Dose Route Admin Location Dispensed Lot Number Expiration Date [place] Meat Team Lead 1 mL Infiltration right 1st cmc joint 2 mL [id number] 10/22/26 35945- 492-04 [employer] Total Dispensed Waste 2 mL 50 % Kenalog 40 mg/mL suspension for injection Performing Provider: Claire Vazquez MD Performing Location: [facility] Administered by: Ellen Sidhu RN on 04/05/25 13:42 Dose Route Admin Location Dispensed Lot Number Expiration Date [facility] Meat Team Lead 40 mg intra-articular right 1st cmc joint 1 mL [id number] 11/21/26 70 121-1049-1 [employer] Total Dispensed Waste 1 mL 0 % Results Reviewed Results Reviewed: 03/28/25 [facility] WBC 6.4 Hb 13.4 Plt 265 BUN 22 Cr 1.19 eGFR 63 AST 22 ALT 26 Magnesium 1.8 ESR 2 CRP <3.0 XR Bilateral Hands and Wrists 03/2024 FINDINGS: Normal bone mineralization. No fracture, dislocation, or focal bone abnormality. There are mild to moderate changes of arthritis in the first through third MCP joints, without periarticular osteopenia or erosions. There is a small hooked osteophyte of the third metatarsal head. Soft tissue calcifications are present at the capsular insertions of the second and third metatarsal heads. Mild degenerative arthritis throughout the DIP joints, worst in the fifth digit. Mild degenerative arthritis particularly in the third and fourth PIP joints. No mild degenerative arthritis in the radiocarpal joint, first CMC joint, and STT joints. Subtle chondrocalcinosis noted within the wrist suggesting possible CPPD. Carpal bones are otherwise normally aligned and intact. No discrete additional soft tissue abnormalities. Vascular calcifications are present. IMPRESSION: 1. No acute findings right hand and wrist. 2. Findings likely representing a mix of degenerative and inflammatory arthritis, either psoriatic or CPPD arthropathy. See above for details. Assessment & Plan Assessment & Plan (1) Calcium pyrophosphate deposition disease (CPPD): Comment: Did not tolerate colchicine Plaquenil 06/2024 - Code(s): M11.20 - Other chondrocalcinosis, unspecified site Category: Medical Plan: #CPPD Patient is a 75-year-old male with the presumed CPPD based on chondrocalcinosis, monoarticular arthritis and elevated inflammatory markers. Did not tolerate colchicine. Was tolerating the plaquenil but same discontinued by cardiology due to concerns of his pacemaker and likely QT interval issues Discussed with patient and that given the mild inflammatory arthritis that the patient has I would prefer to not escalate therapy at this time Will continue to monitor off therapy and consider restarting if okay with cardiology Plan - Monitor off DMARDs - RTC 6 months - Labs prior to visit: CBC, CMP, ESR, CRP (2) Osteoarthritis of hands, bilateral: Code(s): M19.041 - Primary osteoarthritis, right hand; M19.042 - Primary osteoarthritis, left hand Qualifiers: Osteoarthritis type: primary Qualified Code(s): M19.041 - Primary osteoarthritis, right hand; M19.042 - Primary osteoarthritis, left hand Plan: #Bilateral Hand OA Bilateral hand OA Complaining of significant pains of the right 1st CMC joint. Status post steroid injection today Plan - s/p 1st CMC joint injection on the right - 1st CMC splinting Plan I spent 30 minutes reviewing the record and labs, taking a history, examining the patient, discussing the treatment plan and documenting in the medical record Orders: Orders AMB Joint Injection/Aspiration Today M19.041 - Primary osteoarthritis, right hand Coding Level of Care Code Est Pt Level 4 (06105) Complex EM visit Add On G2211 Diagnoses Calcium pyrophosphate deposition disease (CPPD) M11.20 Primary osteoarthritis of both hands M19.041; M19.042 Osteoarthritis type: primary CPT Codes Coding - - Small joint: 30741 - Small Joint ([id number])
[2025-04-05 12:36] VITALS: BP 132/90; PULSE 83; O2SAT 98; BMI 24.0
--- OUTSIDE RECORDS SUMMARY | 2025-04-05 15:06 | XMS_ITS | Clinical Summary ---
Author Organization [facility] Address [address] [place] [address] Phone Care Team Providers Care Restorative Art Embalmer Name Role Phone Teresa Chapman Primary Care Provider [phone] Santiago March MD Unavailable [phone] Rod Abdalla MD Unavailable [phone] Allergies No known active allergies Medications [...] by mouth in the morning. 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 Never 10/05/2024 [facility] Utilities Answer Date Recorded In the past 12 months has e imo[employer]im, gas, oil, or water [employer] threatened to shut off services in your [...] any time in the past 12 m [facility], were you homeless or living in a jail (including now)? No 10/05/2024 Sex and Gender [...] Vaccine (21+ Years) 10/10/2031 , 01/07/2012, 12/25/2000 RSV Vaccines Completed 05/27/2023 HIB Vaccines Aged Out No [...] this topic Medical Devices Implanted Type Area Real Estate Paralegal Device Identifier Shelf Expiration Date Model / Serial / Lot Pacemaker Cardiac Accolade Mri El 15.8cc - [id number] - [id number] Implanted:Q ty: 1 on 09/23/2024 by Rod Abdalla MD at [facility] Cardiac Pacemaker Generators Or Cardiac Resynchronizati Left: Chest Wall [employer] 07/05/2026 [id number] / System Coronary Stent Synergy Xd 2.75 X 12mm X 144cm - [id number] - [id number] Implanted:Q ty: 1 on 10/04/2024 by Gerardo Martinez MD at [facility] Coronary Stents-Y N/A: Coronary [employer] [id number] 06/02/2025 [id number] / [id number] / [id number] System Coronary Stent Synergy Xd 3.5 X 16mm X 144cm - [id number] Implanted:Q ty: 1 on 10/04/2024 by Gerardo Martinez MD at [facility] Coronary Stents-Y N/A: Coronary [employer] [id number] 02/08/2026 [id number] / / [id number] System Coronary Stent Synergy Xd 3.5 X 38mm X 144cm - [id number] - [id number] Implanted:Q ty: 1 on 10/04/2024 by Gerardo Martinez MD at [facility] Coronary Stents-Y N/A: Coronary [employer] [id number] 02/09/2026 [id number] / [id number] / [id number] Procedures Procedure Name Priority Date/Time Associated Diagnosis Comments BASIC METABOLIC PANEL Routine 12/22/2024 12:19 PM EDT from Last 3 Months or Most Recently Relevant to Health Maintenance Results * (ABNORMAL) Basic Metabolic Panel (12/22/2024 12:19 PM EDT) Sodium 139 135 - 145 mmol/L 12/22/2024 2:03 PM [facility] Potassium 4.8 3.4 - 5.2 mmol/L 12/22/2024 2:03 PM [facility] Chloride 104 99 - 109 mmol/L 12/22/2024 2:03 PM [facility] Carbon Dioxide 27 21 - 30 mmol/L 12/22/2024 2:03 PM [facility] Anion Gap 8 5 - 15 mmol/L 12/22/2024 2:03 PM [facility] Glucose 104(H) 65 - 99 mg/dL 12/22/2024 2:03 PM [facility] Calcium 10.3 8.6 - 10.3 mg/dL 12/22/2024 2:03 PM [facility] Blood Urea Nitrogen (BUN) 18 7 - 22 mg/dL 12/22/2024 2:03 PM [facility] Creatinine 1.18 0.70 - 1.30 mg/dL 12/22/2024 2:03 PM [facility] eGFR 64 mL/min/1.7 3m*2 12/22/2024 2:03 PM [facility] Comment: *This eGRF calculation is based on the 0064-JOQ-BFY creatinine equations for adults designed to estimate glomerular filtration rate (eGFR) without race adjustment factors. *This eGFR results are indexed to standard body surface area (BSA) 1.73 M(2). *eGFR results should only be used for adult patients >=18 years old. *Use of nonindexed eGFR values (mL/min) should be considered for drug dosing decisions. Hemolysis Interference 12/22/2024 2:03 PM [facility] Icteric Interference 12/22/2024 2:03 PM [facility] Lipemic Interference 12/22/2024 2:03 PM [facility] Blood Venous blood / Unknown Venipuncture / Unknown 12/22/2024 12:19 PM EDT 12/22/2024 1:05 PM EDT us Irvin Thao MD LAB BLOOD ORDERABLES Final Re sult [facility] [address] [facility] [place] [address], [place] from Last 3 Months or Most Recently Relevant to Health Maintenance Insurance MEDICARE Member Subscriber Plan / Payer (Ef fective 2019-Present) Name:Ursula Bonifacio Member ID:[id number] Relation to Subscriber:Self Name:Bonifacio Vergara Subscriber ID:[id number] Payer ID:[id number] Group ID:Not on file Type:Medicare Address: [address] on file Advance Directives For more information, please contact: [phone] (Available ) * Resuscitation Status (Latest Code Status on File) Date Activated Date Inactivated Comments 12/22/2024 12:17 PM 12/22/2024 11:06 PM Question Answer Comments If no pulse and/or not breathing: Attempt CPR If pulse and breathing present: Intubati on and intermediate teacher mechanical ventilation * Resuscitation Status Date Activated Date Inactivated Comments 10/04/2024 2:12 PM 10/05/2024 12:43 PM Question Answer Comments If no pulse and/or not breathing: Attempt CPR If pulse and breathing present: Intubati on and intermediate teacher mechanical ventilation * Resuscitation Status Date Activated Date Inactivated Comments 09/23/2024 11:42 AM 09/24/2024 4:44 PM Question Answer Comments If no pulse and/or not breathing: Attempt CPR If pulse and breathing present: Intubati on and intermediate teacher mechanical ventilation Healthcare Agents on File Name Relationship Healthcare Agent Relationship Communication Chica Vergara Spouse Health Care Proxy Care Teams Restorative Art Embalmer Relationship Specialty Start Date End Date Teresa Chapman [address] [facility] [place] [address] PCP - General 09/09/24 Santiago March MD [address] [place] [address] [address] [place] [address] Consulting Physician Cardiology 09/09/24 Rod Abdalla MD [address] [place], [place] [id number] [address] [place] [address] Surgeon Cardiothoracic Surgery 09/24/24
--- OUTSIDE RECORDS SUMMARY | 2025-04-05 15:06 | XMS_ITS | Clinical Summary ---
Author Organization [address] [place] [address] Address [address] [place] [address] Phone Care Team Providers Care Slab Off Mill Tender Name Role Phone Joaquin Talavera MD Primary Care Provider Encounters Date Type Department Care Team Description 03/20/2025 Telephone Neurosurgery [facility] [address] [facility] [address] [place] [phone] Dang Herrera MA from Last 3 Months Surgical History Surgery Date Site/Laterality Comments BACK SURGERY PROCEDURE: HISTORICAL BACK SURGERY; COMMENT: spinal fusion HERNIA REPAIR PROCEDURE: TX RPR 1ST INGUN HRNA AGE 5 MO-5 [...] Vaccine: 50+ Years (2 of 2 - PCV20 or PCV21) 03/17/2019 03/17/2018 Zoster Vaccines (2 of 2) 06/25/2021 04/30/2021 Cholesterol Screening (Lipid Panel) 05/01/2022 Falls Risk Assessment 05/01/2022 Hepatitis C Screening 05/01/2022 Medicare Annual Wellness Visit 05/01/2022 Social Influencers of Health Screening 05/01/2022 [...] patient's age to complete this topic Insurance MEDICARE [facility] Care Teams Slab Off Mill Tender Relationship Specialty Start Date End Date Joaquin Talavera MD [address] [place] [address] PCP - General Family Medicine 01/12/17
--- OUTSIDE RECORDS SUMMARY | 2025-04-05 15:06 | XMS_ITS | Clinical Summary ---
Author Organization [facility] Address [address] [place] [address] Care Team Providers Care Multi Spindle Operator Name Role Phone Joaquin Talavera MD Primary Care Provider [phone] Allergies Active Allergy Reactions Criticality Noted Date [...] Active famotidine (PEPCID) 20 MG tablet Acid [facility] Director (famotidine) 20 mg tablet 0 Active amLODIPine [...] age to complete this topic Care Teams Multi Spindle Operator Relationship Specialty Start Date End Date Joaquin Talavera MD [address] [facility] [place] [phone] PCP - General Family Medicine 01/12/17
--- OUTSIDE RECORDS SUMMARY | 2025-04-05 15:06 | XMS_ITS | Data Portability ---
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 Plan of Treatment Reminders Order Date Submit Date Provider Last Modified By Organization Details Last Modified Time Details Appointments None recorded . Lab HbA1c (hemoglo bin A1c), blood [address] [address], [address], 4 13:12:05 magnesiu m, serum or plasma [address] [address], [address], 4 13:12:04 noninvas eder colorect al cancer DNA + occult blood screenin g, QL, stool - Certific ation I am a licensed medical professi onal authoriz ed to order Cologuar d. This test is medicall y necessar y and the patient is eligible to use Cologuar d. I will maintain the privacy of test results and related informat ion as required by HIPAA. I authoriz e [facility] to obtain reimburs ement for Cologuar d and to directly contact and collect a second sample from the patient as appropri ate. ICD-10 Code: Z12.11 2023 [email or web address] [facility], [address], [address], [place], [address], 5 11:16:16 BMP, serum or plasma 2023 024 [facility], [address] [place] [address], [address], 5 13:23:26 erythroc yte sediment ation rate by westergr en method 2023 024 [facility], [address] [place] [address], [address], 4 13:12:04 lipid panel, serum 2023 024 [facility], [address] [place] [address], [address], 4 13:12:03 magnesiu m, serum or plasma 2023 [facility]24 [facility] [address] [place] [address], [address], 4 10:44:03 magnesiu m, serum or plasma 2023 024 [facility], [address] [place] [address], [address], 5 14:42:21 Referral None recorded . Procedures None recorded . Surgeries None recorded . Imaging None recorded . Medication Orders famotidi ne 20 mg tablet 2023 024 [email or web address] [id number], [address] [place], [address], 4 10:38:01 Patient TargetsNo targets recorded. Patient Instructions Encounter Date Encounter Id Patient Instructions Last Modified By Organization Details Last Modified Time 05/10/2024 [id number] learning about type 2 diabetes [email or web address] Not available 05/10/2024 10:56:57 type 2 diabetes: care instructions Not available 05/10/2024 10:56:57 05/12/2024 [id number] learning about type 2 diabetes Not available 05/12/2024 10:45:28 type 2 diabetes: care instructions [email or web address] Not available 05/12/2024 10:45:28 Reason for Referral None Reported. Results Created Date Observation Date Name Description Value Unit Range Abnormal Flag Note LastModifiedBy Organization Detail LastModifiedTime 02/23/2002/23/2024 COMPL ETE BLOOD COUNT W/ DIFF white blood count 7.0 K/mm3 4.0-11 .0 normal Not Available [address], [address], 02/23/2024 14:33:32 02/23/2002/23/2024 COMPL ETE BLOOD COUNT W/ DIFF red blood count 4.56 M/uL 4.20-5 .80 normal Not Available [address], [address], 02/23/2024 14:33:32 02/23/2002/23/2024 COMPL ETE BLOOD COUNT W/ DIFF hemoglobin 12.8 gm/dL 12.5-1 7.0 normal Not Available [address], [address], 02/23/2024 14:33:32 02/23/2002/23/2024 COMPL ETE BLOOD COUNT W/ DIFF hematocrit 39.1 % 37.0-5 0.0 normal Not Available [address], [address], 02/23/2024 14:33:32 02/23/2002/23/2024 COMPL ETE BLOOD COUNT W/ DIFF mean corpuscular volume 85.7 fL 80.0-1 00.0 normal Not Available [address], [address], 02/23/2024 14:33:32 02/23/2002/23/2024 COMPL ETE BLOOD COUNT W/ DIFF MCHC 32.7 % 32-37 normal Not Available [address], [address], 02/23/2024 14:33:32 02/23/2002/23/2024 COMPL ETE BLOOD COUNT W/ DIFF red cell distribution width 13.2 % 11.5-1 6.0 normal Not Available [address], [address], 02/23/2024 14:33:32 02/23/2002/23/2024 COMPL ETE BLOOD COUNT W/ DIFF platelet count 234 K/uL 140-40 0 normal Not Available [address], [address], 02/23/2024 14:33:32 02/23/2002/23/2024 COMPL ETE BLOOD COUNT W/ DIFF mean platelet volume 11.4 fL 8.6-12 .5 normal Not Available [address], [address], 02/23/2024 14:33:32 02/23/2002/23/2024 COMPL ETE BLOOD COUNT W/ DIFF %nucleated RBC auto 0.0 % 0.0-0. 7 normal Not Available [address], [address], 02/23/2024 14:33:32 02/23/2002/23/2024 COMPL ETE BLOOD COUNT W/ DIFF %neutrophils auto 64.4 % Not Available [address], [address], 02/23/2024 14:33:32 02/23/2002/23/2024 COMPL ETE BLOOD COUNT W/ DIFF %lymphocytes auto 27.1 % Not Available [address], [address], 02/23/2024 14:33:32 02/23/2002/23/2024 COMPL ETE BLOOD COUNT W/ DIFF %monocytes auto 6.6 % Not Available [address], [address], 02/23/2024 14:33:32 02/23/20 24 02/23/2024 COMPL ETE BLOOD COUNT W/ DIFF %eosinophils auto 0.6 % Not Available [address], [address], 02/23/2024 14:33:32 02/23/2002/23/2024 COMPL ETE BLOOD COUNT W/ DIFF %basophils auto 0.9 % Not Available [address], [address], 02/23/2024 14:33:32 02/23/2002/23/2024 COMPL ETE BLOOD COUNT W/ DIFF %immature granulocytes auto 0.4 % Not Available [address], [address], 02/23/2024 14:33:32 02/23/2002/23/2024 COMPL ETE BLOOD COUNT W/ DIFF #neutrophils auto 4.48 K/uL 1.50-7 .50 normal Not Available [address], [address], 02/23/2024 14:33:32 02/23/20 24 02/23/2024 COMPL ETE BLOOD COUNT W/ DIFF #lymphocytes auto 1.88 K/uL 1.00-4 .50 normal Not Available [address], [address], 02/23/2024 14:33:32 02/23/20 24 02/23/2024 COMPL ETE BLOOD COUNT W/ DIFF #monocytes auto 0.46 K/uL 0.00-0 .80 normal Not Available [address], [address], 02/23/2024 14:33:32 02/23/20 24 02/23/2024 COMPL ETE BLOOD COUNT W/ DIFF #eosinophils auto 0.04 K/uL 0.00-0 .40 normal Not Available [address], [address], 02/23/2024 14:33:32 02/23/20 24 02/23/2024 COMPL ETE BLOOD COUNT W/ DIFF #basophils auto 0.06 K/uL 0.00-0 .20 normal Not Available [address], [address], 02/23/2024 14:33:32 02/23/20 24 02/23/2024 COMPL ETE BLOOD COUNT W/ DIFF #immature granulocytes auto 0.03 K/uL 0.00-0 .10 normal Not Available [address], [address], 02/23/2024 14:33:32 02/23/20 24 02/23/2024 COMPR EHENS EEDR METAB OLIC PANEL sodium 139 mEq/L 133-14 5 normal Not Available [address], [address], 02/23/2024 15:00:11 02/23/20 24 02/23/2024 COMPR EHENS EDER METAB OLIC PANEL potassium 4.4 mEq/L 3.5-5. 1 normal Not Available [address], [address], 02/23/2024 15:00:11 02/23/20 24 02/23/2024 COMPR EHENS EDER METAB OLIC PANEL chloride 105 mEq/L 98-112 normal Pleas e note new refer ence range . Not Available [address], [address], 02/23/2024 15:00:11 02/23/20 24 02/23/2024 COMPR EHENS EDER METAB OLIC PANEL carbon dioxide 23 mEq/L 22-31 normal Not Available [address], [address], 02/23/2024 15:00:11 02/23/20 24 02/23/2024 COMPR EHENS EDER METAB OLIC PANEL anion gap 11 mEq/L 5-15 normal Not Available [address], [address], 02/23/2024 15:00:11 02/23/20 24 02/23/2024 COMPR EHENS EDER METAB OLIC PANEL blood urea nitrogen (BUN) 15 mg/dL 8-26 normal Not Available [address], [address], 02/23/2024 15:00:11 02/23/20 24 02/23/2024 COMPR EHENS EDER METAB OLIC PANEL creatinine 1.03 mg/dL 0.70-1 .18 normal Not Available [address], [address], 02/23/2024 15:00:11 02/23/20 24 02/23/2024 COMPR EHENS [...] G5 (kidn ey failu re). Not Available [address], [address], 02/23/2024 15:00:11 02/23/20 24 02/23/2024 COMPR EHENS EDER METAB OLIC PANEL glucose 145 mg/dL 70-100 high Fasti ng Refer ence Inter elizabeth: 70-10 0mg/d L Non-f astin g Refer ence Inter elizabeth: 70-14 0mg/d L Not Available [address], [address], 02/23/2024 15:00:11 02/23/20 24 02/23/2024 COMPR EHENS EDER METAB OLIC PANEL calcium 9.8 mg/dL 8.4-10 .4 Not Available [address], [address], 02/23/2024 15:00:11 02/23/2002/23/2024 COMPR EHENS EDER METAB OLIC PANEL bilirubin total 0.6 mg/dL 0.2-1. 2 normal Not Available [address], [address], 02/23/2024 15:00:11 02/23/20 24 02/23/2024 COMPR EHENS EDER METAB OLIC PANEL aspartate amino transferase 24 IU/L 5-34 normal Not Available [address], [address], 02/23/2024 15:00:11 02/23/20 24 02/23/2024 COMPR EHENS EDER METAB OLIC PANEL alanine aminotransfe rase 23 IU/L 0-55 normal Not Available [address], [address], 02/23/2024 15:00:11 02/23/20 24 02/23/2024 COMPR EHENS EDER METAB OLIC PANEL total protein 7.0 g/dL 5.8-8. 1 normal Not Available [address], [address], 02/23/2024 15:00:11 02/23/20 24 02/23/2024 COMPR EHENS EDER METAB OLIC PANEL albumin 4.3 g/dL 2.8-5. 4 normal Not Available [address], [address], 02/23/2024 15:00:11 02/23/20 24 02/23/2024 COMPR EHENS EDER METAB OLIC PANEL alkaline phosphatase 28 IU/L 40-150 low Not Available [address], [address], 02/23/2024 15:00:11 02/23/20 24 02/23/2024 LYME AB [...] days is recom toribio d. Not Available [address], [address], 02/23/2024 15:29:24 02/23/20 24 02/24/2024 ANAPL ASMA [...] e kim cteri stics deter mined by [facility]. It has not been clear ed or appro mukesh by the FDA. The labor atory is regul ated under CLIA as quali fied to perfo rm high- compl exity testi ng. This test is used for clini francis purpo ses. It shoul d not be regar ded as inves tigat ional or for resea rch. Not Available [address], [address], 02/25/2024 11:25:29 02/23/2002/25/2024 BABES IA MICRO TI [...] e kim cteri stics deter mined by [facility]. It has not been clear ed or appro mukesh by the FDA. The labor atory is regul ated under CLIA as quali fied to perfo rm high- compl exity testi ng. This test is used for clini francis purpo ses. It shoul d not be regar ded as inves tigat ional or for resea rch. Not Available [address], [address], 02/25/2024 11:25:31 02/23/2002/27/2024 LYME DISEA SE DNA (PCR) specimen source NOT GIVEN Not Available [address], [address], 02/27/2024 16:45:13 02/23/2002/27/2024 LYME DISEA SE DNA (PCR) lyme disease DNA (PCR) NOT DETECT ED not detect ed normal This test was devel oped and its kole tical perfo rmanc e kim cteri stics have been deter mined by [facility]. It has not been clear ed or appro mukesh by the FDA. This assay has been valid ated pursu ant to the CLIA regul ation s and is used for clini francis purpo ses. For addit ional infor adam lanier refer to https ://ed ucati on.qu estThinker Thing. com/f aq/fa q224 (This link is being provi ded for infor antonio benítez/ educjanis dowdcarlie l purpo ses only. ) THIS TEST WAS PERFO RMED AT: [facility] [address] [place] [address] RINA SPAULDING MD Not Available [address], [address], 02/27/2024 16:45:13 02/23/20 24 03/01/2024 SHEEBA RENAE SPECI ES AB IGG&I GM bartonella henselae IgG NEGATI VE Not Available [address], [address], 03/02/2024 14:50:04 02/23/20 24 03/01/2024 SHEEBA RENAE SPECI ES AB IGG&I GM bartonella henselae IgM NEGATI VE Not Available [address], [address], 03/02/2024 14:50:04 02/23/20 24 03/01/2024 SHEEBA RENAE SPECI ES AB IGG&I GM bartonella clark IgG NEGATI VE Not Available [address], [place], [address], 03/02/2024 14:50:04 02/23/20 24 03/01/2024 SHEEBA RENAE [...] thi in the sveta l adult popul ation . Indiv idual s infec thi with [...] IgG posit eder but IgM negat eder will caldwell rn. This test was devel oped and its kole tical perfo rmanc e kim cteri stics have been deter mined by [facility]elly Shipleyi Dorothy roblero [place]. It has not been clear ed or appro mukesh by the U.S. Food and Drug Admin istra tion. This assay has been valid ated pursu ant to the CLIA regul ation s and is used for clini francis purpo ses. THIS TEST WAS PERFO RMED AT: [facility] [place] [address] [facility] [place] NANDO LIMA MD,P HD Not Available [address], [address], 03/02/2024 14:50:04 02/23/20 24 03/02/2024 EHRLI SINA ANTIB TITA PANEL anaplasma phagocytophi la IgG <1:64 <1:64 normal Not Available [address], [address], 03/02/2024 14:50:05 02/23/20 24 03/02/2024 EHRLI SINA ANTIB TITA PANEL anaplasma phagocytophi la IgM <1:20 <1:20 normal Not Available [address], [address], 03/02/2024 14:50:05 02/23/20 24 03/02/2024 EHRLI SINA ANTIB TITA PANEL A. phagocytophi la interp ANTIB ITTA NOT DETEC THI Not Available [address], [address], 03/02/2024 14:50:05 02/23/20 24 03/02/2024 EHRLI SINA [...] [facility] [address] [place] [address] RINA SPAULDING MD Not Available [address], [address], 03/02/2024 14:50:05 02/23/20 24 03/02/2024 EHRLI SINA ANTIB TITA PANEL ehrlichia chaffeensis IgG Ab <1:64 <1:64 normal Not Available [address], [address], 03/02/2024 14:50:05 02/23/20 24 03/02/2024 EHRLI SINA ANTIB TITA PANEL ehrlichia chaffeensis IgM Ab <1:20 <1:20 normal Not Available [address], [address], 03/02/2024 14:50:05 02/23/20 24 03/02/2024 EHRLI SINA ANTIB TITA PANEL ehrlichia interpretati on ANTIB TITA NOT DETEC THI Not Available [address], [address], 03/02/2024 14:50:05 02/23/20 24 03/02/2024 EHRLI SINA [...] cteri stics have been deter mined by [facility]. It has not been clear ed or appro mukesh by the U.S. Food and Drug Admin istra tion. This assay has been valid ated pursu ant to the CLIA regul ation s and is used for clini francis purpo ses. THIS TEST WAS PERFO RMED AT: [facility] [address] [place] [address] RINA SPAULDING MD Not Available [address], [address], 03/02/2024 14:50:05 04/12/20 24 04/13/2024 MAGNE SIUM magnesium 1.1 mg/dL 1.5-2. 5 low Not Available [facility] [place] [facility] [address], [place], [address], 04/13/2024 05:38:27 04/12/20 24 04/13/2024 COMPR EHENS EDER METAB OLIC PANEL glucose 103 mg/dL 65-99 high Fasti ng refer ence inter elizabeth For someo ne witho ut known diabe jesus, a gluco se value betwe en 100 and 125 mg/dL is consi stent with predi abete s and shoul d be confi rmed with a follo w-up test. Not Available [facility] [address], [place], [address], 04/13/2024 05:38:27 04/12/20 24 04/13/2024 COMPR EHENS EDER METAB OLIC PANEL urea nitrogen (BUN) 11 mg/dL 7-25 normal Not Available [facility] [place] [facility] [address], [place], [address], 04/13/2024 05:38:27 04/12/20 24 04/13/2024 COMPR EHENS EDER METAB OLIC PANEL creatinine 0.99 mg/dL 0.70-1 .28 normal Not Available [facility] [address], [place], [address], 04/13/2024 05:38:27 04/12/20 24 04/13/2024 COMPR EHENS EDER METAB OLIC PANEL eGFR 79 mL/mi n/1.7 3m2 > or = 60 normal Not Available [facility] [address], [place], [address], 04/13/2024 05:38:27 04/12/20 24 04/13/2024 COMPR EHENS EDER METAB OLIC PANEL BUN/creatini ne ratio SEE NOTE: (calc ) 6-22 Not Repor thi: BUN and Creat inine are withi n refer ence range . Not Available [facility] [address], [place], [address], 04/13/2024 05:38:27 04/12/20 24 04/13/2024 COMPR EHENS EDER METAB OLIC PANEL sodium 141 mmol/ L 135-14 6 normal Not Available [facility] [address], [place], [address], 04/13/2024 05:38:27 04/12/20 24 04/13/2024 COMPR EHENS EDER METAB OLIC PANEL potassium 4.5 mmol/ L 3.5-5. 3 normal Not Available [facility] [address], [place], [address], 04/13/2024 05:38:27 04/12/20 24 04/13/2024 COMPR EHENS EDER METAB OLIC PANEL chloride 104 mmol/ L 98-110 normal Not Available [facility] [address], [place], [address], 04/13/2024 05:38:27 04/12/20 24 04/13/2024 COMPR EHENS EDER METAB OLIC PANEL carbon dioxide 29 mmol/ L 20-32 normal Not Available [facility] [address], [place], [address], 04/13/2024 05:38:27 04/12/20 24 04/13/2024 COMPR EHENS EDER METAB OLIC PANEL calcium 10.1 mg/dL 8.6-10 .3 normal Not Available [facility] [address], [place], [address], 04/13/2024 05:38:27 04/12/20 24 04/13/2024 COMPR EHENS EDER METAB OLIC PANEL protein, total 7.1 g/dL 6.1-8. 1 normal Not Available [facility] [address], [place], [address], 04/13/2024 05:38:27 04/12/20 24 04/13/2024 COMPR EHENS EDER METAB OLIC PANEL albumin 4.7 g/dL 3.6-5. 1 normal Not Available [facility] [address], [place], [address], 04/13/2024 05:38:27 04/12/20 24 04/13/2024 COMPR EHENS EDER METAB OLIC PANEL globulin 2.4 g/dL_ (calc ) 1.9-3. 7 normal Not Available [facility] [address], [place], [address], 04/13/2024 05:38:27 04/12/20 24 04/13/2024 COMPR EHENS EDER METAB OLIC PANEL albumin/glob ulin ratio 2.0 (calc ) 1.0-2. 5 normal Not Available [facility] [place] [facility] [address], [place], [address], 04/13/2024 05:38:27 04/12/20 24 04/13/2024 COMPR EHENS EDER METAB OLIC PANEL bilirubin, total 0.5 mg/dL 0.2-1. 2 normal Not Available [facility] [address], [place], [address], 04/13/2024 05:38:27 04/12/20 24 04/13/2024 COMPR EHENS EDER METAB OLIC PANEL alkaline phosphatase 22 U/L 35-144 low Not Available [facility] [address], [place], [address], 04/13/2024 05:38:27 04/12/20 24 04/13/2024 COMPR EHENS EDER METAB OLIC PANEL AST 21 U/L 10-35 normal Not Available [facility] [address], [place], [address], 04/13/2024 05:38:27 04/12/20 24 04/13/2024 COMPR EHENS EDER METAB OLIC PANEL ALT 19 U/L 9-46 normal Not Available [facility] [address], [place], [address], 04/13/2024 05:38:27 04/19/20 24 04/20/2024 MAGNE SIUM magnesium 1.1 mg/dL 1.5-2. 5 low Not Available [facility] [address], [place], [address], 04/20/2024 07:55:46 04/19/20 24 04/20/2024 COMPR EHENS EDER METAB OLIC PANEL glucose 105 mg/dL 65-99 high Fasti ng refer ence inter elizabeth For someo ne witho ut known diabe jesus, a gluco se value betwe en 100 and 125 mg/dL is consi stent with predi abete s and shoul d be confi rmed with a follo w-up test. Not Available [facility] [place] [facility] [address], [place], [address], 04/20/2024 07:55:47 04/19/20 24 04/20/2024 COMPR EHENS EDER METAB OLIC PANEL urea nitrogen (BUN) 15 mg/dL 7-25 normal Not Available [facility] [place] [facility] [address], [place], [address], 04/20/2024 07:55:47 04/19/20 24 04/20/2024 COMPR EHENS EDER METAB OLIC PANEL creatinine 0.84 mg/dL 0.70-1 .28 normal Not Available [facility] [place] [facility] [address], [place], [address], 04/20/2024 07:55:47 04/19/20 24 04/20/2024 COMPR EHENS EDER METAB OLIC PANEL eGFR 91 mL/mi n/1.7 3m2 > or = 60 normal Not Available [facility] [address], [place], [address], 04/20/2024 07:55:47 04/19/20 24 04/20/2024 COMPR EHENS EDER METAB OLIC PANEL BUN/creatini ne ratio SEE NOTE: (calc ) 6-22 Not Repor thi: BUN and Creat inine are withi n refer ence range . Not Available [facility] [place] [facility] [address], [place], [address], 04/20/2024 07:55:47 04/19/20 24 04/20/2024 COMPR EHENS EDER METAB OLIC PANEL sodium 141 mmol/ L 135-14 6 normal Not Available [facility] [address], [place], [address], 04/20/2024 07:55:47 04/19/2004/20/2024 COMPR EHENS EDER METAB OLIC PANEL potassium 4.5 mmol/ L 3.5-5. 3 normal Not Available [facility] [address], [place], [address], 04/20/2024 07:55:47 04/19/2004/20/2024 COMPR EHENS EDER METAB OLIC PANEL chloride 104 mmol/ L 98-110 normal Not Available [facility] [address], [place], [address], 04/20/2024 07:55:47 04/19/2004/20/2024 COMPR EHENS EDER METAB OLIC PANEL carbon dioxide 28 mmol/ L 20-32 normal Not Available [facility] [address], [place], [address], 04/20/2024 07:55:47 04/19/2004/20/2024 COMPR EHENS EDER METAB OLIC PANEL calcium 9.8 mg/dL 8.6-10 .3 normal Not Available [facility] [address], [place], [address], 04/20/2024 07:55:47 04/19/2004/20/2024 COMPR EHENS EDER METAB OLIC PANEL protein, total 6.9 g/dL 6.1-8. 1 normal Not Available [facility] [address], [place], [address], 04/20/2024 07:55:47 04/19/20 24 04/20/2024 COMPR EHENS EDER METAB OLIC PANEL albumin 4.8 g/dL 3.6-5. 1 normal Not Available [facility] [address], [place], [address], 04/20/2024 07:55:47 04/19/20 24 04/20/2024 COMPR EHENS EDER METAB OLIC PANEL globulin 2.1 g/dL_ (calc ) 1.9-3. 7 normal Not Available [facility] [address], [place], [address], 04/20/2024 07:55:47 04/19/20 24 04/20/2024 COMPR EHENS EDER METAB OLIC PANEL albumin/glob ulin ratio 2.3 (calc ) 1.0-2. 5 normal Not Available [facility] [address], [place], [address], 04/20/2024 07:55:47 04/19/20 24 04/20/2024 COMPR EHENS EDER METAB OLIC PANEL bilirubin, total 0.5 mg/dL 0.2-1. 2 normal Not Available [facility] [address], [place], [address], 04/20/2024 07:55:47 04/19/20 24 04/20/2024 COMPR EHENS EDER METAB OLIC PANEL alkaline phosphatase 24 U/L 35-144 low Not Available [facility] [address], [place], [address], 04/20/2024 07:55:47 04/19/20 24 04/20/2024 COMPR EHENS EDER METAB OLIC PANEL AST 25 U/L 10-35 normal Not Available [facility] [address], [place], [address], 04/20/2024 07:55:47 04/19/20 24 04/20/2024 COMPR EHENS EDER METAB OLIC PANEL ALT 24 U/L 9-46 normal Not Available [facility] [address], [place], [address], 04/20/2024 07:55:47 05/10/20 24 05/11/2024 LIPID PANEL , STAND JAYLA cholesterol, total 95 mg/dL <200 normal Not Available [facility] [place] [facility] [address], [place], [address], 05/11/2024 06:03:25 05/10/20 24 05/11/2024 LIPID PANEL , STAND JAYLA HDL cholesterol 58 mg/dL > or = 40 normal Not Available [facility] [place] [facility] [address], [place], [address], 05/11/2024 06:03:25 05/10/20 24 05/11/2024 LIPID PANEL , STAND JAYLA triglyceride s 108 mg/dL <150 normal Not Available [facility] [address], [place], [address], 05/11/2024 06:03:25 05/10/20 24 05/11/2024 LIPID PANEL , STAND JAYLA LDL-choleste rol 18 mg/dL _(francis c) normal Refer ence range : <100 Corina able range <100 mg/dL for prima ry preve ntion ; <70 mg/dL for patie nts with CHD or diabe tic patie nts with > or = 2 CHD risk facto rs. LDL-C is now calcu lated using the Laurie judd-Hop kins jaylen salamanca n, which is a valid ated novel beverly atkins r accur acy than the Fried ko equat ion in the estim ation of LDL-C . Laurie HAMILTON et al. DEEPALI. 2013; 310(1 9): 2061- 2068 (http ://ed cindyati on.Qu Angelique lamberts. com/f aq/FA Q164) Not Available [facility] [address], [place], [address], 05/11/2024 06:03:25 05/10/20 24 05/11/2024 LIPID PANEL , STAND JAYLA chol/HDLC ratio 1.6 (calc ) <5.0 normal Not Available [facility] [address], [place], [address], 05/11/2024 06:03:25 05/10/20 24 05/11/2024 LIPID PANEL , STAND JAYLA non HDL cholesterol 37 mg/dL _(francis c) <130 normal For patie nts with diabe jesus plus 1 major ASCVD risk facto r, treat ing to a non-H DL-C goal of <100 mg/dL (LDL- C of <70 mg/dL ) is consi dered a thera pemorroi c optio n. Not Available [facility] [facility] [address], [place], [address], 05/11/2024 06:03:25 05/10/20 24 05/11/2024 MAGNE SIUM magnesium 1.7 mg/dL 1.5-2. 5 normal Not Available [facility] [address], [place], [address], 05/11/2024 06:03:26 05/10/20 24 05/11/2024 SED RATE BY MODIF IED WESTE RGREN sed rate by modified westergren 2 mm/h < or = 20 normal Not Available [facility] [address], [place], [address], 05/11/2024 04:58:24 05/10/20 24 05/10/2024 TEST AUTHO RIZAT ION test name: MAGNLISS IUM Not Available [facility] [address], [place], [address], 05/10/2024 13:12:05 05/10/20 24 05/10/2024 TEST AUTHO RIZAT ION test code: 622 Not Available [facility] [address], [place], [address], 05/10/2024 13:12:05 05/10/20 24 05/10/2024 TEST AUTHO RIZAT ION client contact: KEYON CHEW, LINK Not Available [facility] [address] [place], [place], [address], 05/10/2024 13:12:05 05/10/20 24 05/10/2024 TEST AUTHO RIZAT ION report always message signature The labor atory testi ng on this patie nt was verba lly reque sted or confi rmed by the order ing physi chinyere or his or her autho rized repre senta tive after conta ct with an emplo mir of [facility] al regul ation s requi re that we maint ain on file writt en autho rizat ion for all labor atory testi ng. Accor dingl y we are askin g that the order ing physi chinyere or his or her autho rized repre senta tive sign a copy of this repor t and promp tly retur n it to the clien t servi ce repre senta tive. Signa ture: __ Not Available [facility] [address], [place], [address], 05/10/2024 13:12:05 05/10/20 24 05/10/2024 TEST AUTHO RIZAT ION comment Adam dallas fax this ana d form to [phone]. Adam dallas do not attem pt to retur n this docum ent by other metho ds. Docum ents will not be viewe d by a repre senta tive. Adam dallas do not use this fax numbe r for other servi ce reque sts. Not Available [facility] [address], [place], [address], 05/10/2024 13:12:05 05/10/20 24 05/11/2024 HEMOG LOBIN [...] Curre ntly, no conse nsus exist s regar ding use of hemog lobin A1c for diagn osis of diabe jesus for child ingrid. Not Available [facility] [place] [facility] [address], [place], [address], 05/11/2024 05:48:05 02/29/20 25 03/01/2025 COMPR EHENS EDER METAB OLIC PANEL glucose 117 mg/dL 65-99 high Fasti ng refer ence inter elizabeth For someo ne witho ut known diabe jesus, a gluco se value betwe en 100 and 125 mg/dL is consi stent with predi abete s and shoul d be confi rmed with a follo w-up test. Not Available [facility] [place] [facility] [address], [place], [address], 03/01/2025 10:46:39 02/29/20 25 03/01/2025 COMPR EHENS EDER METAB OLIC PANEL urea nitrogen (BUN) 18 mg/dL 7-25 normal Not Available [facility] [place] [facility] [address], [place], [address], 03/01/2025 10:46:39 02/29/20 25 03/01/2025 COMPR EHENS EDER METAB OLIC PANEL creatinine 1.11 mg/dL 0.70-1 .28 normal Not Available [facility] [address] [place], [place], [address], 03/01/2025 10:46:39 02/29/20 25 03/01/2025 COMPR EHENS EDER METAB OLIC PANEL eGFR 69 mL/mi n/1.7 3m2 > or = 60 normal Not Available [facility] [address] [place], [place], [address], 03/01/2025 10:46:39 02/29/20 25 03/01/2025 COMPR EHENS EDER METAB OLIC PANEL BUN/creatini ne ratio SEE NOTE: (calc ) 6-22 Not Repor thi: BUN and Creat inine are withi n refer ence range . Not Available [facility] [address] [place], [place], [address], 03/01/2025 10:46:39 02/29/20 25 03/01/2025 COMPR EHENS EDER METAB OLIC PANEL sodium 139 mmol/ L 135-14 6 normal Not Available [facility] [address], [place], [address], 03/01/2025 10:46:39 02/29/20 25 03/01/2025 COMPR EHENS EDER METAB OLIC PANEL potassium 4.8 mmol/ L 3.5-5. 3 normal Not Available [facility] [address], [place], [address], 03/01/2025 10:46:39 02/29/20 25 03/01/2025 COMPR EHENS EDER METAB OLIC PANEL chloride 103 mmol/ L 98-110 normal Not Available [facility] [address], [place], [address], 03/01/2025 10:46:39 02/29/2003/01/2025 COMPR EHENS EDER METAB OLIC PANEL carbon dioxide 30 mmol/ L 20-32 normal Not Available [facility] [place] [facility] [address], [place], [address], 03/01/2025 10:46:39 02/29/2003/01/2025 COMPR EHENS EDER METAB OLIC PANEL calcium 9.7 mg/dL 8.6-10 .3 normal Not Available [facility] [address], [place], [address], 03/01/2025 10:46:39 02/29/2003/01/2025 COMPR EHENS EDER METAB OLIC PANEL protein, total 7.3 g/dL 6.1-8. 1 normal Not Available [facility] [address], [place], [address], 03/01/2025 10:46:39 02/29/2003/01/2025 COMPR EHENS EDER METAB OLIC PANEL albumin 4.5 g/dL 3.6-5. 1 normal Not Available [facility] [address], [place], [address], 03/01/2025 10:46:39 02/29/2003/01/2025 COMPR EHENS EDER METAB OLIC PANEL globulin 2.8 g/dL_ (calc ) 1.9-3. 7 normal Not Available [facility] [address], [place], [address], 03/01/2025 10:46:39 02/29/20 25 03/01/2025 COMPR EHENS EDER METAB OLIC PANEL albumin/glob ulin ratio 1.6 (calc ) 1.0-2. 5 normal Not Available [facility] [employer] [place] [facility] [address], [place], [address], 03/01/2025 10:46:39 02/29/20 25 03/01/2025 COMPR EHENS EDER METAB OLIC PANEL bilirubin, total 0.5 mg/dL 0.2-1. 2 normal Not Available [facility] [place] [facility] [address], [place], [address], 03/01/2025 10:46:39 02/29/20 25 03/01/2025 COMPR EHENS EDER METAB OLIC PANEL alkaline phosphatase 27 U/L 35-144 low Not Available [facility] [place] [facility] [address], [place], [address], 03/01/2025 10:46:39 02/29/20 25 03/01/2025 COMPR EHENS EDER METAB OLIC PANEL AST 26 U/L 10-35 normal Not Available [facility] [place] [facility] [address], [place], [address], 03/01/2025 10:46:39 02/29/20 25 03/01/2025 COMPR EHENS EDER METAB OLIC PANEL ALT 27 U/L 9-46 normal Not Available [facility] [address], [place], [address], 03/01/2025 10:46:39 05/23/20 24 05/04/2024 MRI, brain , w/wo contr ast No observ ation record ed. Not Available 2023 07:43:31 05/23/2005/03/2024 CT, angio gram, carot id arter ies, w/ contr ast No observ ation record ed. [email or web address] Not Available 2023 07:43:31 05/23/20 24 05/03/2024 CT, head, w/ contr ast No observ ation record ed. Not Available 2023 07:43:32 05/23/20 24 05/03/2024 shyam waddell am No observ ation record ed. [email or web address] Not Available 2023 07:43:32 04/04/20 25 04/04/2025 imagi ng/di agnos tic resul t No observ ation record ed. [facility] [address] [place], [address], 04/04/2025 16:29:05 04/05/20 25 04/05/2025 imagi ng/di agnos tic resul t No observ ation record ed. [facility] [address] [place], [address], 04/05/2025 14:59:58 04/05/2004/04/2025 imagi ng/di agnos tic resul t No observ ation record ed. [facility] [address] [place], [address], 04/05/2025 15:03:57 Result Notes None recorded. Problems Name Problem SNOMED Code Status Onset Date Resolution Date Notes Provider Name and Address Organization Details Recorded Time Viral bronchit is 00936470 Completed 01/06/2014 GREG Solomon [address] [place] [address], [address], [facility] [employer] 6 13:39:43 Malaise 509583093 Completed 06/05/2015 GREG Falcon [address] [place] [address], [address], [facility] [employer] 6 13:39:43 Benign prostati c hyperpla feliciano 261891820 Active Hollie Wakefield [facility], [facility] [employer] [facility] 3 07:31:16 Impaired fasting glycemia 540156076 Completed 06/05/2015 GREG Solomon [address] [place] [address], [address], [facility] [employer] 6 13:39:44 Chest pain 21573859 Completed 06/05/2015 GREG Caballero [address] [place] [address], [address], [facility] [employer] 4 15:19:36 Sinusiti s 82666436 Completed 06/05/2015 GREG Solomon [address] [place] [address], [address], [facility] [employer] 6 13:39:43 Recurren t sinusiti s 697968210 Completed 04/13/2024 GREG Caballero [address] [place] [address], [address], [facility] [employer] 4 15:18:56 External hordeolu m 9399258 Completed 06/05/[address], [address], [facility] [employer] 6 13:39:43 Dyspnea 092617144 Completed 06/05/[address], [address], [facility] [employer] 4 15:17:28 Injury of kidney 83243169 Completed 06/05/[address], [address], [facility] [employer] 6 13:39:44 Upper respirat ory infectio n 43698633 Completed 06/05/2015 GREG Caballero [address] [place] [address], [address], [facility] [employer] 4 15:19:12 Keratosi s 989269477 Completed 04/13/[address], [address], [facility] [employer] 4 15:18:47 Low back pain 948063126 Completed 04/13/2024 GREG Caballero [address] [place] [address], [address], [facility] [employer] 4 15:18:51 Eczema 87046868 Active Hollie Wakefield [employer] null, [place] - [employer] 3 07:31:16 Upper respirat ory infectio n 45447500 Completed 04/13/2024 GREG Caballero [address] [place] [address], [address], [facility] [employer] 4 15:19:11 Jaw pain 094258646 Completed 04/13/2024 GREG Caballero [address] [place] [address], [address], [facility] [employer] 4 15:18:41 Allergic rhinitis 54936307 Active Hollie Wakefield CMA null, [facility] [employer] [facility] 3 07:31:16 Mixed hyperlip idemia 903860427 Completed 06/05/2015 GREG Solomon [address] [place] [address], [address], [facility] [employer] [facility] 6 13:39:43 Bunion 329480858 Completed 01/06/2014 GREG Falcon [address] [place] [address], [address], [facility] [employer] [facility] 6 13:39:43 Chronic pain syndrome 162261637 Completed 01/06/2014 GREG Solomon [address] [place] [address], [address], [facility] [employer] 6 13:39:43 Hordeolu m 651648943 Completed 01/06/2014 GREG Solomon [address] [place] [address], [address], [facility] [employer] 6 13:39:43 Dysphagi a 74997197 Completed 01/06/2014 GREG Solomon [address] [place] [address], [address], [facility] [employer] 6 13:39:44 Epigastr ic pain 11748162 Completed 01/06/2014 GREG Caballero [address] [place] [address], [address], [facility] [employer] [facility] 4 15:17:09 Benign essentia l hyperten andrea 5883326 Active Hollie Wakefield CMA null, [facility] [employer] [facility] 3 07:31:16 Hyperlip idemia 41141034 Active 08/2020 ASCVD 33.3-39. 9% on statin 01/2023 ASCVD 49.7% on statin and follow with cardiolo gy Hollie Wakefield CMA null, [facility] [employer] [facility] 3 07:31:16 Impaired fasting glycemia 329579715 Completed 01/06/2014 Reina Cantu [address], [address], [facility] [employer] [facility] 6 13:39:44 Primary fibromya lgia syndrome 77107808 Active Hollie Wakefield CMA null, [facility] [employer] [facility] 3 07:31:16 Malaise and fatigue 300637894 Completed 01/06/2014 GREG Solomon [address] [place] [address], [address], [facility] [employer] [facility] 6 13:39:43 History of arthrode sis 748492591 Completed 04/13/2024 Teresa Chapman [address], [address] [place] [address], [facility] [employer] [facility] 4 15:18:16 Dyspnea 252365019 Completed 04/13/[address], [address] [place] [address], [facility] [employer] [facility] 4 15:17:28 Chest pain 71487448 Completed 04/13/2024 Teresa Chapman [address], [address], [facility] [employer] [facility] 4 15:19:36 Hyperten sive disorder 17255023 Active Hollie Wakefield CMA null, [facility] [employer] [facility] 3 07:31:16 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 458817127 Active Hollie Wakefield CMA null, [facility] [employer] [facility] 3 07:31:16 Coronary atherosc lerosis 625756516 Completed 04/13/2024 Teresa Chapman, [address], [address], [facility] [employer] [facility] 4 15:19:43 High troponin I level 955437148 Completed 04/13/2024 Teresa Chapman, [address], [address], [facility] [employer] [facility] 4 15:17:58 History of spinal fusion 8797861654 9107 Active Hollie Wakefield CMA null, [facility] [employer] [facility] 3 07:31:16 Coronary arterios clerosis 57277440 Active Echo 2022 EF 60% mild LV hypertro phy Mild MV and Tricuspi d regurg no change from 2017 Hollie Wakefield CMA null, [facility] [employer] [facility] 3 07:31:16 Hypothyr oidism 80584511 Active Hollie Wakefield CMA null, [place] [employer] [facility] 3 07:31:16 Degenera tion of lumbar interver tebral disc 28154996 Active Hollie Wakefield CMA null, [facility] [employer] [facility] 3 07:31:16 Rheumato id arthriti s 45814918 Active Hollie Wakfeield CMA null, [facility] [employer] [facility] 3 07:31:16 Epigastr ic pain 66036219 Completed 201504/13/2024 Teresa Chapman [address], [address], [facility] [employer] [facility] 4 15:17:09 Type 2 diabetes mellitus 34563327 Active 2019 with diabetic neuropat hy 0. Hollie Wakefield CMA null, [place] [employer] [facility] 3 07:31:16 Diabetes mellitus 88087607 Completed 201904/13/2024 Teresa Chapman, [address], [place], [address], [facility] [employer] [facility] 4 15:19:57 Second degree atrioven tricular block 660347382 Active 2020 Raad ch. Found in 2019 by [facility]. 02/2021, found to be stable. 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 2022 Hollie Wakefield CMA null, [facility] [employer] [facility] 3 07:31:16 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 deposits noted on brain MRI 02/2023 BIPIN Chowdhury, [facility] [employer] [facility] 3 07:31:16 Dry eyes 271434639 Active 2023 Reina Cantu, [address], [address], [facility] [employer] [facility] 4 09:04:29 Acid reflux 653262436 Active 2023 Reina Cantu, [address], [place], [address], [facility] [employer] [facility] 4 09:09:30 Forgetfu l 85600244 Active 2023 Reina Cantu, [address], [address], [facility] [employer] [facility] 4 09:09:32 Notes:Some problems listed i n Document: #[id number] could not be added to this patient's chart. Please review this document and add these problems to the patient's chart manually as needed. Problem Notes None recorded. Procedures Surgical History Date Name Laterality Status Provider Name and Address Organization Details Recorded Time 025 cardiac catheterization completed GREG Galindo [address] [place] [address], [address], [facility] [employer] 10/06/2024 09:02:54 025 Pacemaker/ICD completed GREG Galindo [address] [place] [address], [address], [facility] [employer] [facility] 10/04/2024 07:57:13 023 Telehealth appt via VIDEO or phone time-based E&M completed Jennifer Moyer [address] [place] [address], [address], [facility] [employer] 04/28/2023 10:17:47 019 cardiac catheterization completed GREG Solomon [address] [place] [address], [address], [facility] [employer] [facility] 03/12/2021 08:21:45 014 Cardiac catheterization completed Rachel Talavera MD [address] [place] [address], [address], [facility] [employer] 10/07/2013 10:50:22 013 Colonoscopy completed Rachel Talavera MD [address] [place] [address], [address], [facility] [employer] 10/07/2013 10:50:22 012 Other completed GREG Galindo [address] [place] [address], [address], [facility] [employer] 12/10/2011 15:16:43 009 Orthopedic Surgery completed GREG Galindo [address] [place] [address], [address], [facility] [employer] 12/10/2011 15:16:43 008 Orthopedic Surgery completed GREG Galindo [address] [place] [address], [address], [facility] 12/10/2011 15:16:43 008 Laparoscopy completed Rachel Santizo, [address], [address], [facility] 12/10/2011 15:13:31 006 Orthopedic Surgery completed Rachel Santizo , [address], [address], [facility] 12/10/2011 15:13:31 004 Orthopedic Surgery completed Rachel Santizo , [address], [address], [facility] 12/10/2011 15:16:43 002 Laparoscopy completed Rachel Santizo, [address], [address], [facility] 12/10/2011 15:13:31 956 Appendectomy completed Rachel Talavera MD [address] [place] [address], [address], [facility] 10/07/2013 10:50:22 EGD completed Rachel Santizo, [address], [address], [facility] 12/10/2011 15:13:31 Imaging Results None recorded. Procedure Notes None recorded. Medical Equipment None [...] Available No t Available vitamin d cap 23678snt active Not Available Not Available Not Available [...] Not Available cyclobenz aprine 10 mg tablet Take 1 tablet twice a day by oral route. 08/31 completed Not Available Not Available Not Available amoxicill in 500 mg capsule 02/11 [...] 1 tablet every day by oral route. 09/20/ 2023 12/17 /2024 completed Not Available Not Available Not [...] de 25 mcg (0.025 %) nasal spray [place] 2 sprays twice a day by intranas [...] tablet TAKE 1 TABLET BY MOUTH DAILY 2024 active Not Available Not Available Not Avai lable duloxetin e 30 mg capsule,d elayed release [...] TAKE ONE TABLET BY MOUTH EVERY DAY 2024 active Not Available Not Available Not Avai lable cholecalc iferol (vitamin D3) 25 mcg (1,000 unit) tablet 09/11 completed Not Available Not Available Not Available Veramyst 27.5 mcg/actua tion nasal spray,neeraj pension [place] 2 sprays every day by intranas al route. 03/07 completed Not Available Not Available Not Available ranolazin e ER 1,000 mg tablet,ex tended release,1 2 hr 02/02 completed Not Available Not Available Not Available Addison 3-6-9 (with lipase) 40 mg-60 mg-10 unit [...] Available Not Available Not Available Fluad Quad 8812-8603 (65yr up)(PF) 60 mcg (15 mcg x 4)/0.5mL IM syringe PHARMACY ADMINIST ERED 08/31 completed Not Available Not Available Not Available Pfizer-Bi oNTech COVID-19 Vaccine (PF) 30 mcg/0.3 mL IM susp (purple) ADMINIST ER 0.3ML IN THE MUSCLE DIRECTED 08/31 completed Not Available Not Available Not Available Vitals Date Recorded Body mass index (BMI) Body weight Provider Name and Address Organization Details Last Updated DateTime 05/10/2024 24.2 kg/m2 24857.18 g Fani Chew, [address], [address], [facility] [employer] 05/10/2024 10:23:30 Date Recorded Body height Body temperature Heart rate Oxygen saturation Oxygen saturation in Arterial blood by Pulse oximetry Systolic And Diastolic Provider Name and Address Organization Details Last Updated DateTime 4 173.36 cm 99.2 [degF] 41 /min 95 % 95 % 142/64 mm[Hg] Amy Blackwell [facility] [employer] 4 10:13:33 Social History Question Answer Notes LastModified by Organizat ion Details LastModified Time Tobacco Smoking Status Never 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 Yes Information not available 06/14/2013 Are You Blind Or Do You Have Difficulty Seeing? No Information not available 03/12/2021 What Is Your Level Of Caffeine Consumption? Occasional 1 Cup Of Coffee/week [email or web address] Information not available 05/10/2024 How Much Tobacco [...] You Used? None Information not available 06/05/2020 Hard Of Hearing Or Deaf In One Or Both Ears? No Information not available 06/14/2013 Legally Blind In One Or Both Eyes? No Information not available 06/14/2013 Foreign Travel No Informatio n not available 03/07/2016 Do You Have A Family History Of Mental Health Or Substance Abuse? No Information not available 06/14/2013 Other Recreational Drugs No Information not available 06/05/2020 Language Mohawk Information no t available 03/07/2016 Country Of Origin [place] Information not available 03/07/2016 Dietary Regular Information no t available 03/07/2016 Marital Status [email or web address] Informatio n not available 12/08/2011 What Was The Date Of Your Most Recent Tobacco Screening? 05/10/2024 [email or web address] Information not available 05/10/2024 How Many Children [...] To Smoke? No Information not available 03/07/2016 How Much Tobacco Do You Smoke? No Information not available 2016 General Stress Level Medium Information not available 09/30/2017 Do You Use Sunscreen Routinely? No Information not available 03/07/2016 How Many Years Have You Smoked Tobacco? 0 Information not available 2016 Sex: Male Functional Status Question Answer Note LastModified by Organizat ion Details LastModified Time Do you use any illicit or recreational drugs? No [email or web address] Information not available 03/12/2021 Do you or have you ever used any other forms of tobacco or nicotine? No [email or web address] Information not available 09/30/2021 What is your level of alcohol consumption? None Information not available 06/14/2013 Do you or have you ever used smokeless tobacco? Never used smokeless tobacco Information not available 02/02/2019 What is your occupation? Retired Information not available 2016 Do you or have you ever used e-cigarettes or vape? Never used electronic cigarettes Information not available 02/02/2019 What is your exercise level? Occasional Information not available 2016 Mental Status None recorded. Family History Relationship Description Onset Age of this Age Resolved Age Notes LastModified by Organization Details LastModified Time Mother Myocardial infarction 62 [email or web address] Not available 07/24 13:27:50 Father Malignant neoplasm of lung 85 [email or web address] Not available 08/13 13:27:50 Medical History Condition Response Cardiac History, Heart Murmur, NC Y Arthritis Y Chronic Pain Y Blood Pressure High or Low Y Immunizations Vaccine Type Date Status Note Provider Nam e and Address Organization Details Recorded Time Influenza, MDCK, quadrivalent, preservative 7 completed Not Available [facility] 06/11/2019 02:39:49 Influenza, MDCK, quadrivalent, preservative 8 completed Not Available [facility] 06/11/2019 02:40:35 Influenza, MDCK, quadrivalent, preservative 9 completed Not Available [facility] 06/11/2019 02:41:37 Influenza, MDCK, quadrivalent, preservative 1 completed Vic Live RN null, [facility] 03/19/2021 09:10:23 zoster recombinant 1 completed Vic Live RN null, [facility] 04/30/2021 14:54:36 COVID-19, mRNA, LNP-S, PF, 30 mcg/0.3 mL dose, maritza-sucrose 2 completed Michael Dickens [address] [place] [address], [phone], [facility] 10/08/2021 15:40:50 Td (adult), 2 Lf tetanus toxoid, preservative free, adsorbed 2 completed Carito Menendez CMA [facility], [facility] 10/09/2021 08:18:50 Influenza, split virus, quadrivalent, PF 2 completed La Hickman RN [address] [place] [address], [id number], [facility] [employer] [facility] 03/21/2022 13:46:25 COVID-19, mRNA, LNP-S, bivalent, PF, 30 mcg/0.3 mL dose 2 completed Bette Yao [address] [place] [address], [phone], [facility] 05/21/2022 10:41:32 Influenza, split virus, quadrivalent, PF 3 completed La Hickman RN [address] [place] [address], [id number], [facility] 03/11/2023 11:08:35 Tdap 2 completed Not Available [facility] 06/11/2019 02:40:05 RSV, recombinant, protein subunit RSVpreF, adjuvant reconstituted, 0.5 mL, PF 4 completed GREG Solomon [address] [place], [phone], [facility] [employer] [facility] 05/27/2023 09:25:56 Influenza, split virus, trivalent, PF 4 completed Jennifer Moyer [address] [place], [phone], [facility] [employer] [facility] 03/11/2024 11:18:14 Influenza, split virus, trivalent, preservative 3 completed Not Available [facility] 06/11/2019 02:38:29 Influenza, split virus, trivalent, preservative 4 completed Not Available [facility] 06/11/2019 02:38:39 Influenza, split virus, quadrivalent, preservative 0 completed BIPIN Chowdhury, [facility] [employer] [facility] 09/11/2023 10:29:49 COVID-19, mRNA, LNP-S, PF, 30 mcg/0.3 mL dose 1 completed Hollei Wakefield CMA null, [facility] [employer] [facility] 03/18/2023 07:31:17 COVID-19, mRNA, LNP-S, PF, 30 mcg/0.3 mL dose 1 completed BIPIN Chowdhury, [facility] 03/18/2023 07:31:17 COVID-19, mRNA, LNP-S, PF, 100 mcg/0.5mL dose or 50 mcg/0.25mL dose 1 completed BIPIN Chowdhury, [facility] [employer] [facility] 03/18/2023 07:31:17 Pneumococcal conjugate PCV 13 8 completed BIPIN Chowdhury, [facility] 03/18/2023 07:31:17 Tdap 2 completed Not Available [facility] 06/11/2019 02:40:18 Td(adult) unspecified formulation 1 completed Hollie Wakefield CMA null, [place] [facility] 03/18/2023 07:31:17 Influenza, adjuvanted, quadrivalent, PF 0 completed Hollie Wakefield CMA null, [place] [facility] 09/11/2023 10:29:49 Influenza, split virus, trivalent, preservative 2 completed Not Available [facility] 06/11/2019 02:38:27 Past Encounters Encounter ID Performer Location Encounter Start Date Encounter Closed Date Diagnosis/Indication Diagnosis SNOMED-CT Code Diagnosis ICD10 Code Diagnosis IMO Codes Diagnosis Note [id number] Rachel Santizo [employer] [address] [address] 12/08/2011 10:32:39 12/08/2011 11:42:43 [id number] Rachel Santizo [address] [address] 01/07/2012 07:18:06 01/07/2012 08:27:42 [id number] Rachel Santizo [employer] [address] [address] 02/25/2012 08:52:31 02/25/2012 10:19:59 [id number] Rachel Talavera MD [address] [address] 07/19/2012 09:54:54 07/19/2012 10:37:39 [id number] Reina Cantu [employer] [address] [address] 10/22/2012 07:54:28 10/22/2012 08:49:20 [id number] Reina Cantu [employer] [address] [address] 11/03/2012 08:23:38 11/03/2012 09:11:30 [id number] Rachel Talavera MD [address] [address] 03/14/2013 09:10:37 03/14/2013 09:27:51 Influenza vaccine needed [id number] Rachel Talavera MD [address] [address] 06/14/2013 11:04:46 06/14/2013 12:08:42 Coronary arteriosclerosis 68481003 continue meds as recommende d leslie [facility] Benign ess ential hypertension 9501970 BP contol [place] Hyperlipidemia 07164875 wo uld keep him on the fenofibrat e plus statin Impaired f asting glycemia 049601428 a1c was 6.3 prediabete s present Hypothyroidism 43780623 [id number] Anahi Vivar RDN, LDN [address] [address] 07/14/2013 09:56:31 07/14/2013 11:59:29 Coronary arteriosclerosis 70636471 Mixed hyperlipidemia 188247159 Benign ess ential hypertension 4891142 Hyperlipidemia 48377324 Impaired f asting glycemia 734164986 [id number] Rachel Talavera MD [address] [address] 08/05/2013 10:13:37 08/05/2013 10:56:45 Coronary arteriosclerosis 87621905 reviewed records from 06/28/13 Benign ess ential hypertension 1102065 BP contol [place] Hyperlipidemia 39722251 li pid results were quite low Degenerati on of lumbar intervertebral disc 91690352 might benefit from aquatic rx but declines referral at this time Rheumatoid arthritis 61868793 stable on no meds [id number] Anahi Vivar RDN, LDN [address] [address] 08/11/2013 09:55:30 08/11/2013 11:41:19 Hyperlipidemia 87836897 Impaired f asting glycemia 194206868 Mixed hyperlipidemia 659303502 [id number] Rachel Talavera MD [address] [address] 10/07/2013 07:22:10 10/07/2013 11:08:28 Viral bronchitis 18768948 likely viral usual recs Malaise 260760522 doubt Lyme, tick bites at least 3 weeks ago so will test also TSH and CBC [id number] Rachel Talavera MD [address] [address] 01/06/2014 09:56:19 01/06/2014 10:41:12 Malaise 681037241 may be related to sleep issues trial trazodone seems worthwhile side effects discussed Hyperlipidemia 78574451 li pid results were quite low Benign pro static hyperplasia 753960170 likely trial Javier Conteetto will contact me if ineffectiv e will check prostate on annual exam Coronary arteriosclerosis 94887896 I do not suspect significan t angina he will contact me if any change declined an EKG today will be seeing Dr Prasad next mo [id number] Reina Cantu [employer] [address] [address] 03/14/2014 13:35:22 03/14/2014 14:07:32 Influenza vaccine needed 8326899467 [id number] Bonifacio Garduno MD [address] [address] 07/28/2014 09:54:54 07/28/2014 10:23:23 Sinusitis 15362161 Patient with 1.5 weeks of URI symptoms with initial improvemen t, then developing left facial and teeth pain. Exam with focal left maxillary sinus tenderness , concerning of acute bacterial infection. Will treat at this time. Advised against oral decongesta nts 2/2 cardiac history. Return precaution s given. [id number] Bonifacio Garduno MD [address] [address] 08/23/2014 10:53:25 08/23/2014 11:35:37 Recurrent sinusitis 165156681 Treated / for bacterial sinusitis with 5 [...] proceed with CT sinuses and ENT referral. [id number] Allyssa Pearson MD [address] [address] 01/16/2015 09:30:58 01/16/2015 10:32:31 External hordeolum 3013009 [id number] Bonifacio Garduno MD [address] [address] 01/30/2015 14:24:13 01/30/2015 14:49:34 External hordeolum 5598466 Left eye x 2 weeks ~1cm, Right eye x 1-2 days, <0.5cm. No sign of superinfec tion. Patient did not use compresses as directed. -Cont abx treatment to both eyes -Trial zyrtec for itching and potential allergic component. -Warm compresses QID until improved. -If no relief in 2-4 more weeks consider Optho referral for surgical drainage or intralesio n steroid injection. [id number] Allyssa Pearson MD [address] [address] 05/29/2015 10:22:32 05/29/2015 11:25:04 Dyspnea 244496683 R06.00 Injury of kidney 3622359 3 S37.009A Upper resp iratory infection 79663902 J06.9 [id number] Rachel Talavera MD [address] [address] 06/05/2015 13:27:43 06/05/2015 14:08:12 Keratosis 625153932 L57.0 The one on his temples likely seborrheic but he wants Dr. Molina to check it. Low back pain 705779662 M54.5 Usual exercise regimen recommende d. Eczema 27344519 L30.9 Fairly significan t area about 4 cm across with some central clearing that is thickened. As he has itching will give him a potent triamcinol one cream to apply twice a day, and follow-up will be here or with Dr. Molina. Coronary arteriosclerosis 97952904 I25.10 Seems under control at this time on current medication s. Degenerati on of lumbar intervertebral disc 05550988 M51.36 Hyperlipidemia 52576773 E78.5 Had concerns about elevated triglyceri de we discussed diet and he has already had recommenda tions from nutrition on this and he understand s he needs to cut back on carbohydra jesus but I did not feel it was of concern. [id number] Rachel Talavera MD [address] [address] 06/25/2015 11:06:12 06/25/2015 11:53:13 Upper respiratory infection 82210713 J06.9 I told him that I did not think antibiotic s are indicated that should resolve on its own I encouraged using vitamin C supplement s zinc fluids etc. He will call me if he is not improving over the next week. [id number] Allyssa Pearson MD [address] [address] 08/14/2015 13:18:48 08/14/2015 14:00:09 Jaw pain 500259303 R68.84 Allergic rhinitis 562622 04 J30.9 [id number] Allyssa Pearson MD [address] [address] 2016 13:52:04 2016 14:33:04 Cellulitis 066809838 L03.90 Area explored for FB and none found. Area washed with soap and water and bacitracin and DSD applied. Wound marked for comparison . Tdap 2011 Fatigue 74055502 R53.83 Some basic fatigue labs. Dr. Talavera and follow from here if she wishes to pursue further studies. [id number] Bonifacio Garduno MD [address] [address] 01/30/2016 10:15:04 01/30/2016 10:48:44 Cellulitis 271782036 L03.90 Left forearm cellulitis resolving on bactrim. Advised to complete course. Small subcutaneo us nodule remains, mildly tender. If persistent or worsening consider U/S. Lymph node v. reactive tissue v. embedded foreign body. Low back pain 956110827 M54.5 Bilateral intermitte nt iliac crest pain. Not SI joint. Long history of back surgery and loss of lumbar lordosis. Patient is going to check already ordered labs. Was told at one time not to take NSAIDs due to his heart, unclear reasoning at this time. He will discuss with his PCP. [id number] GREG Solomon [address] [address] 03/07/2016 10:28:08 03/07/2016 11:32:21 Atypical facial pain 88737861 G50.1 I think that this may be allergies, because this is the 3rd year in the early fall he has had it. He may have contact dermititis on eye lids. Avoid rubbing. Conjunctivitis 1304637 H 10.9 Will treat for conjunctiv itis of the left eye Allergic rhinitis 562792 04 J30.9 Supportive measures and will try the name brand here to try to reduce histamine filled tears from running down nose to improve nasal/faci al symptoms. If insurance will not cover it, will use another nasal steriod. He did report improvemen t last time. Netti pot as well. Addendum: Veramyst not covered, so sent in fluticason e nasal spray [id number] Bonifacio Garduno MD [address] [address] 03/18/2016 13:50:35 03/18/2016 14:49:51 Jaw pain 061806717 R68.84 encouraged gum and sucking use for stretching masseter muscles. We will refer him to ENT and dental for likely TMJ. It is only on the left side. May be arthritic changes secondary to old trauma. Unsure of its etiology or why it occurs only in the fall. [id number] Bonifacio Garduno MD [address] [address] 06/13/2016 11:01:40 06/13/2016 12:00:40 Acute sinusitis 61271384 J01.90 I think this is reactivati on of his sinusitis. He is going to call Dr. Jane and move his appointmen t up. Supportive measures. [id number] Bonifacio Garduno MD [address] [address] 07/01/2016 09:43:35 07/01/2016 10:28:11 Chronic sinusitis 80612612 J32.[address] Alonso. He will get records from Dr. Jane. Same supportive measures. Will treat for 14 days with antibiotic and probiotics . Discussed the diarrhea risk. [id number] Allyssa Pearson MD [address] [address] 12/24/2016 07:58:17 12/24/2016 09:13:33 Coronary arteriosclerosis 87869320 I25.10 will get another EKG today to make sure there are no changes. Note prolonged abel. If he has another episode, use NTG and go to ED. He will try the BB at night to reduce symptoms. Chest pain 11035059 R07. 9 Negative work up in ED. Will follow with cardiology next week. [id number] Rachel Talavera MD [address] [address] 12/29/2016 13:30:53 12/29/2016 14:27:07 Chest pain 14854813 R07.9 I suspect the cardiogram done on December 24 had the wrong lead placement and should be discarded. There are no changes in his recent cardiogram and he says he feels well without recurrent episodes of chest pain different from baseline. [id number] Bonifacio Garduno MD [address] [address] 03/18/2017 10:23:17 03/18/2017 10:49:40 Administration of influenza vaccine 48103607 Z23 [id number] Allyssa Pearson MD [address] [address] 04/10/2017 12:20:02 04/10/2017 13:07:21 Contact dermatitis 16615856 L25.9 Likely a contact dermatitis on his left hand. Suggest he throw away his work gloves. Use the cream bid, avoid getting it on his face-so get a white cotton glove for the left hand. Will follow in 2 weeks. [id number] Rachel Talavera MD [address] [address] 05/26/2017 10:57:19 05/26/2017 11:21:43 Cough 83606552 R05 Discussion , doubt antibiotic s indicated, codeine for cough, if not improving over the next week he will contact me. Benign ess ential hypertension 2240252 I10 BP contol OK Coronary arteriosclerosis 95602544 I25.10 Followed by cardiology [id number] Rachel Talavera MD [address] [address] 06/02/2017 14:26:10 06/02/2017 15:10:32 Low back pain 470036100 M54.5 using Tylenolsho uld improve Recurrent sinusitis 7 21280 J32.9 Agree to give a course of antibiotic s, he will contact us if he is not improving. [id number] Rachel Talavera MD [address] [address] 07/16/2017 10:00:08 07/16/2017 10:40:41 Right flank pain 915792680 R10.9 Negative dipstick, will send urine and order an ultrasound of the kidney to look for cause of his pain. He says he is going to use Tylenol for pain and did not request anything else. Encourage fluids, straining urine etc. He will contact us if he is not improving. Degenerati on of lumbar intervertebral disc 20041500 M51.36 Results of MRI pending, he will contact us about recommenda tions. [id number] Allyssa Pearson MD [address] [address] 07/28/2017 10:55:44 07/28/2017 11:43:44 Herpes zoster 7522675 B02.9 Will treat with gabapentin and Shingles cream from [employer]. Discussed side effects. No driving or use of tractor. RTO as noted SChedule written out for pt.. [id number] Allyssa Pearson MD [address] [address] 08/19/2017 08:13:39 08/19/2017 08:49:11 Herpes zoster 8416516 B02.9 He is decreasing his dose of gabapentin . Currently 300 mg tid. Will decrease next week to 300/0/300 mg, then 0/0/300mg, then finally stop. They dose changes can be 5-7 days apart. Continue using the cream . Shingrix in November. [id number] Allyssa Pearson MD [address] [address] 09/11/2017 08:59:22 09/11/2017 10:06:21 Dyspnea 184768171 R06.00 Coronary arteriosclerosis 88203468 I25.10 will get another EKG today to make sure there are no changes.09 35 hrs: 0.4 mg NTG [id number] hrs: 110/80-68- pt feels much better-SOB resolved. NO CP -slight lightheade [id number] hrs: 124/80-64- Spoke to Dr. Crowley of cardiology . Discussed the case with him and wants the patient transferre d to ED. Discussed case with patient and . Pt refuses EMS. will bring pt to ED. Staff called report to [facility] ED. copies of VS and EKG given to .0955 hrs: 122/84-641 000 hrs 124/82-65 Pt will f/u here upon release from [facility] [id number] Allyssa Pearson MD [address] [address] 09/30/2017 10:42:34 09/30/2017 11:48:17 Acute sinusitis 90832742 J01.90 Will treat move aggressive ly for several reasons:-h e is scheduled for a cardiac cath in [...] but will schedule after the cardiac cath [id number] Rachel Talavera MD [address] [address] 02/24/2018 14:11:49 02/24/2018 15:15:04 Pruritic rash 07628414 L28.2 Will refer to Derm. He will get us the name of the Derm he wants to see Influenza vaccine needed 8374770376 106 Z23 flu today Active or passive immunization 199021675 Z23 PCV 13 ordered. Discussed immunizati ons in detaio. Hypothyroidism 64320055 E03.9 will check labs as part of the fatigue work up Fatigue 77867996 R53.83 I believe his fatigue is multi-fact [...] his experience with the cardiology office in [place] . I am sorry for that. Always sleepy 176378106 G47.10 [id number] Reina Cantu [employer] [address] [address] 03/30/2018 10:43:25 03/30/2018 16:13:24 Acute sinusitis 34801060 J01.90 He should continue his claritin daily and should restart his flonase. Will treat for sinusitis, he has a cardiac procedure scheduled for Thursday and it is important he can tolerate it.Discuss ed supportive care measures including saline nasal spray, steam therapy, warm compresses . [id number] GREG Solomon [address] [address] 04/13/2018 10:09:49 04/13/2018 10:45:16 Acute sinusitis 54706434 J01.90 He should continue his claritin daily. Will treat for sinusitis, he has a cardiac procedure scheduled for Thursday and it is important he can tolerate it.Teachin g included netti pot use. Discussed supportive care measures including saline nasal spray, steam therapy, warm compresses . [id number] Rachel Talavera MD [address] [address] 04/27/2018 08:55:21 04/27/2018 15:37:10 Chronic sinusitis 17667523 J32.[address] Alonso, has seen him in the past. Same supportive measures, continue claritin and mucinex OTC. Benign ess ential hypertension 7909821 I10 His BP is elevated at this visit. Pt reports seeing cardiology yesterday who increased his medication , suspect his Isosorbide . No further medication changes at this time, will loan review officer note when available. Close follow-up. Discussed cardiovasc ular risk re: HTN. Continue TLC: low sodium diet, exercise as tolerated, medication adherence. [id number] Allyssa Pearson MD [address] [address] 11/09/2018 10:51:51 11/09/2018 11:30:53 Tick bite 07879232 W57.XXXA -will cover for the tick bite-he will be out on the tractor if the weather clears, so will try Ceftin-he will let u know if he develops a fever and body aches [id number] Allyssa Pearson MD [address] [address] 02/02/2019 10:41:20 02/02/2019 11:15:41 Osteoarthritis of hip 015626406 M16.9 -prednison e burst for pain-STAT referral back to Ortho-topi francis CBD cream and heat.-RTO as noted [id number] Hi Padron MD [address] [address] 03/09/2019 10:56:54 03/09/2019 11:17:21 Influenza vaccine needed 9329393896 106 Z23 [id number] Allyssa Pearson MD [address] [address] 10/28/2019 09:24:37 10/28/2019 10:39:02 Myalgia/myositis - multiple 658377190 M79.10 -multiple concerns for the cramps-antony k related, began before fall, but after first-also concerned because he is on a statin and fibrate-RL S is also a possibilit y-will also check electrolyt es,etc-uri ne looks good, will send for study-labs as noted Pseudomeningocele 355717 005 G96.19 -will have hime f/u with NS Dyslipidemia 202176263 E 78.5 -will check his lipid panel Backache 140424877 M54.9 -XRs for occult fx-he will not get the muscle relaxers until labs back Anemia screening 8805850 07 Z13.0 Lead screening 42265212 Z13.88 Dysuria 20100522 R30.9 -will check urine [id number] Allyssa Pearson MD [address] [address] 06/05/2020 14:11:56 06/05/2020 14:54:15 Screening for malignant neoplasm of prostate 308750978 Z12.5 -it has been several years since he has had a PSA. -will check given c/o Type 2 melissa betes mellitus without complication 001486633 E11.9 -he is due for labs Dysuria 61367105 R30.9 -will check urine - will bring in to the office in the AM. -will do urine dip, u/a and urine culture. --if all testing looks good, will consider tamsulosin [id number] Allyssa Pearson MD [address] [address] 06/20/2020 12:43:25 06/20/2020 13:25:14 Benign prostatic hyperplasia 896467354 N40.1 -Will try to increase the dose and have him split it to BID as daytime is the worse -it has improved night time some; down to twice nightly -will have him let me know in about 2 weeks -if not improved, consider referral -given his cardiac hx, am concerned about using other meds without speciality consultati on. [id number] Allyssa Pearson MD [address] [address] 07/10/2020 07:17:49 07/10/2020 08:14:30 Respiratory tract congestion and cough 195856504 R05 - from his descriptio ns, he [...] allergy component . Gastroesop hageal reflux disease 535582238 K21.9 -the burping and flatus, could be isolated, or it may relate to the the cold/aller gies he is experienci ng -it also may be food related -will give him a trial of famotidine to see if that calms down the acid. Benign pro static hyperplasia 369767771 N40.1 -much improved -no further treatment for now -PSA WNL [id number] Allyssa Pearson MD [address] [address] 07/20/2020 11:53:49 07/20/2020 12:58:48 Chronic sinusitis 86326570 J32.9 -Antibioti cs x 21 days -Netti pot -Align 2 tabs bid while onantibiot ics, but not taken at same time of day at antibiotic s -Will not improved, discussed that pt may need to go back to ENT; Dr. Alonso or other ENT of his choice. -Pt agrees -RTO as noted [id number] Reina Cnatu [employer] [address] [address] 08/08/2020 08:33:43 08/08/2020 09:05:25 Chronic sinusitis 76266199 J32.9 -Augmentin not helpful -will try 7 days of doxycyline -referral to ENT -CT of sinus -fluticaso ne nasal spray -discussed his know pathology in detail; he has turbinate hypertroph y, deviated septum and chronic sinusitis. Dr. Alonso wanted surgery in 2019 and he did not want it. I am afraid it is getting worse -will check in in about 10-14 days [id number] Allyssa Pearson MD [address] [address] 08/31/2020 10:46:41 08/31/2020 14:43:12 Dysuria 47196608 R30.0 -will check urine - will bring [...] Type 2 melissa betes mellitus without complication 441201219 E11.9 [id number] Ellen Vides, [employer] [address] [address] 10/10/2020 07:47:22 10/10/2020 09:57:24 Vertigo 748829909 R42 resolved continue meclizine at night to avoid daytime fatigue Dysfunctio n of eustachian tube 18328763 H69.[address] of the head in July with mild paranasal sinus disease, nom other significan t intracrani al findings Still has middle ear fluid on the left Discussed with patient the sound conduction of inner ear fluid, and why the heartbeat sounds resolved when fluid drains He will continue nightly meclizine for another week to ensure this fully drains Allergic rhinitis 587524 04 J30.9 Continue daily fluticason e and loratidine Follow up with ENT Coronary arteriosclerosis 71131295 I25.10 January follow up with cardiology scheduled EKG in the office today is normal ED precaution s reviewed [id number] Reina Cantu, POSTDOCTORAL RESEARCH FELLOW P [facility] [address] [place] [address] 03/12/2021 07:43:35 03/12/2021 09:12:29 Cardiac arrhythmia 759276260 I49.9 -Heart rhythm is irregular- will check [...] e is a high surgical risk Hyperglycemia 55588582 R 73.9 -labs done too soon for surgery-wi ll repeat in early March Fatigue 68661344 R53.83 -check CBC Hypothyroidism 76483778 E03.9 will check labs as part of the fatigue work up Easy bruising 950734170 R58 -repeat labs Pain of to e of left foot [id number] 00037 M79.675 -BTEH risk is 1.8 %-definite ly needs cardiology clearance, which is scheduledg ave him list of meds to hold:Cardi ology will advise on ASA and PLAVIXLova za 7 days priorMetfo rmin 48 hrs prior to surgery, day of surgery and 48 hrs after surgery Coronary arteriosclerosis 28291011 I25.10 -Pt has 12 stents, of which 7 are in the LAD-he is followed by cardiology closely-he is a high surgical risk Diabetes mellitus 573917 09 E13.42 -hemoglobi n A1C 6.3-contro lled on oral medication s and lifestyle modificati ons Benign ess ential hypertension 4487407 I10 -BP 122/80 today-he is taking his medication s Hyperlipidemia 60786390 E78.5 -Lipids as of 08/2020, his ASCVD risk was 33-39%-he is on a statin-he follows with cardiology Chronic sinusitis 541791 00 J32.9 -currently receiving treatment for sinusitis- he has a nasal polyp and mucosal thickening that leads to recurrent episodes of sinusitiso n Augmentin beginning 03/08/2021 [id number] Hi Padron MD [address] [address] 03/19/2021 08:54:43 03/19/2021 09:10:57 Influenza vaccine needed 7658360271 106 Z23 [id number] Reina Cantu POSTDOCTORAL RESEARCH FELLOW [address] [address] 04/30/2021 14:21:11 04/30/2021 14:56:53 Administration of viral vaccine 11301803 Z23 [id number] Anabell Chaudhary DNP, 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 Floaters i n visual field 797685862 H43.399 It also could be retinal so I suggested to him seeing ophthalmol jeremy and he has agreed. [id number] Hi Padron MD [address] [address] 10/08/2021 15:35:38 10/08/2021 16:42:11 Administration of SARS-CoV-2 antigen vaccine 574925456 Z23 Patient monitored for <5 min, no hx adverse reactions to previous COVID vaccinatio ns. No adverse reactions noted. Patient tolerated injection well. Common side effects reviewed and vaccinatio n card with patient info sheet given. Patient demonstrat es understand ing that optimal immunity following booster dose occurs at 10-14 days. COVID immunizati on series is complete at this time [id number] GREG Solomon [address] [address] 10/09/2021 07:26:54 10/09/2021 08:15:34 Cellulitis 508951779 L03.90 -area washed with soap and water-bact ericin applied-an tibiotics both topical and oral-juhi rned about infection given his T2DM and age-direct ions given-soak foot 3x daily-Td update today-RTO if it worsens Administra tion of diphtheria and tetanus vaccine 01300145 Z23 -given today [id number] GREG Solomon [address] [address] 11/19/2021 07:10:49 11/19/2021 08:01:06 Insect bite reaction 148657473 T63.481A -3 days of steriod-to pical benadryl spray-sun screen-lianet id further exposure=w atch for signs fo inections; redness, swelling, d/c fever, etc [id number] Hi Padron MD [address] [address] 03/06/2022 08:31:59 03/06/2022 09:23:21 COVID-19 494246166 U07.1 resolving symptoms of covid 19should delay any vaccine booster for 90 days after getting antibody infusion Postviral cough 52667219 4 R05.3 continue benzonatat ewarned it could be present for a few months [id number] Allyssa Pearson MD [address] [address] 03/13/2022 11:09:51 03/13/2022 14:57:29 Acute sinusitis 02611124 J01.90 [id number] Ellen Vides [address] [address] 03/21/2022 13:24:41 03/21/2022 13:49:24 Influenza vaccine needed 6733557403 106 Z23 [id number] Reina Cantu POSTDOCTORAL RESEARCH FELLOW [address] [address] 05/21/2022 10:31:24 05/21/2022 10:45:51 Administration of SARS-CoV-2 antigen vaccine 619182758 Z23 Patient monitored for <5 min, no hx adverse reactions to previous COVID vaccinatio ns. No adverse reactions noted. Patient tolerated injection well. Common side effects reviewed and vaccinatio n card with patient info sheet given. Patient demonstrat es understand ing that optimal immunity following booster dose occurs at 10-14 days. COVID immunizati on series is complete at this time [id number] GREG Solomon [address] [address] 06/06/2022 07:40:06 06/06/2022 08:13:01 Osteoarthritis 039241392 M19.90 -warm water exercises- steriod burst-decl [facility] f/u-Ortho can't do much-wear mitten and use hand warmers-wi ll call if nto resolved [id number] GREG Solomon [address] [address] 08/29/2022 07:27:23 08/29/2022 10:07:27 Hypertensive emergency 8545832470 49264 I16.1 -likely 2/2 medication given by dentist-he is following with Dr. 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 from Plavix-ele ology unknown-he will follow with Neuro [id number] GREG Solomon [address] [address] 09/05/2022 10:27:20 09/05/2022 10:28:10 [id number] GREG Solomon [address] [address] 09/05/2022 10:30:07 09/05/2022 11:37:34 Diarrhea 59452380 R19.7 -will check stools for infection and blood-cups and forms given to pt-discuss ed how to do testing Abdominal pain 78437844 R10.9 -unsure of etiology of the cramping, diarrhea and back pain-will get CT abdomen/pe lvis-to ED for CP/SOB , fever or severe pain Angina pectoris 64595293 0 I20.9 -he needed a new RX Pain of left eye 3752622 001 48511 H57.12 -will have [facility] see him-To ED for vision loss [id number] GREG Solomon [address] [address] 09/16/2022 07:08:28 09/16/2022 07:40:14 Abdominal pain 52954732 R10.9 -completel y resolved-l ikely viral or lactose intoleranc e in origin-drew l cancel CT-he will let me know how he is doing. [id number] GREG Sloomon [address] [address] 02/11/2023 08:27:54 02/11/2023 09:21:51 Chronic insomnia 745555202 F51.04 -melatonin trial for sleep-thin k there is a component of anxiety about the cerebral aneurysm that is keep him awake.-cou ld also increase the duloxetine .-reached out to Eula Hernandez for other sleep med ideas and/or other ideas to try to enhance sleep Nasal infection 89545044 3 J32.9 -will try mupirocin topically Allergic rhinitis 032185 04 J30.9 -fluticaso ne nasal spray 2 puffs once daily-ceti rizine 10 mg once daily-disc ussed supportive measures of heat, gum chewing, etc-reassu red him that it would resolve as weather changes Hypothyroidism 16642413 E03.9 will check labs as part of the fatigue work up Dyslipidemia 706580102 E 78.5 -will up date labs Vitamin D deficiency 347 57825 E55.9 -will check Vit D Screening for malignant neoplasm of prostate 062415305 Z12.5 -given his complaint of frequent urination (understan ding that the steriod is the big issues now, will check PSA [id number] GREG Solomon [address] [address] 03/18/2023 07:29:22 03/18/2023 08:18:04 Bilateral hearing loss 96221295 H91.93 -discussed in detail-drew burch refer him back to ENT-Encour aged him not to buy OTC hearing aids, as they may not work for him Memory impairment 894754 006 R41.3 -also discussed the uncertaint y of not hearing conversati on vs. not rememberin g, v anxiety-ex plained normal memory loss-rwill refer back to [facility] for evaluaton Anxiety 86868415 F41.9 -discussed in detail-dis cussed the physiology of anxiety as well-he agreed to try sertraline -will watch for increased bruising Allergic rhinitis 663941 04 J30.9 -fluticaso ne nasal spray 2 puffs once daily-ceti rizine 10 mg once daily-Pata day or [place] eye drops and follow package directions -likely resolve with strong [place] [id number] Hi Padron MD P [address] [address] 03/11/2023 10:50:59 03/11/2023 11:31:01 Influenza vaccine needed 5659836170 106 Z23 [id number] Reina Cantu POSTDOCTORAL RESEARCH FELLOW [address] [place] [address] 04/28/2023 10:14:25 04/28/2023 11:49:12 Burping 439267199 R14.2 -will add famotidine 20 mg bid to the PPI x 1 mos-he can add milk or milk products-e at slowly and chew the food-stay upright after eating-silvia e probiotics 1 tab bid [id number] GREG Solomon [address] [place] [address] 05/27/2023 08:24:48 05/27/2023 10:16:14 Dry eyes 317158158 H04.123 -will refer to [facility].-he can call for appt.-He will let us know how the eye drops are doing. If still having issues, he will help with an appt.-will check for other disease entities that have dry eye has a symptom Anxiety 06743139 F41.9 -discussed in detail-dis cussed that the fatigue may be a side effect of the medication -it should improve with time Hyperglycemia 52961110 R 73.9 -last labs Jan 2023-will repeat Malaise and fatigue 2717 80526 R53.83 -will check for any inflammati on Primary fi bromyalgia syndrome 02972813 M79.7 -will check for occult cause of both his fatigue and dry eye Administra tion of viral vaccine 08527019 Z23 -RSV today Aneurysm 056919279 I72.9 -2.4 mm aneurysm anterior Adin of Lazo-saw NS at [facility]-n o interventi on needed- it is a source of much anxiety for him Forgetful 65383905 R41.3 -reassured by Dr. Smith-w ill see her in one year Acid reflux 350033209 K2 1.9 -resolved with famotidine -will drop one dose, then the 2nd in two weeks-can use prn for highly spiced or high acid foods [id number] Hi Padron MD [address] [place] [address] 09/09/2023 09:22:12 09/09/2023 10:17:39 Suspected COVID-19 927408402 Z20.822 Influenza- like illness 93356379 B34.9 [id number] Reina Cantu POSTDOCTORAL RESEARCH FELLOW [address] [address] 09/11/2023 10:20:39 09/11/2023 11:08:26 Acute sinusitis 93324897 J01.90 -Netti pot-Aste-p ro, start with one puff-cetir izine-use those treatments first; if in 4-5 more days he is not better, then he can sheepskin pickler the antibiotic s and use them Tick bite 44248346 W57.X XXA -will cover for the tick bite-he will be out on the tractor if the weather clears,-he will let u know if he develops a fever and body aches-inst ructed him to call here for tick bites [id number] Reina Cantu POSTDOCTORAL RESEARCH FELLOW [address] [address] 10/06/2023 07:09:01 10/06/2023 08:33:13 Fatigue 57213488 R53.83 -will update labs-may be able to increase levothyrox ine depending on TSH-last blood sugar was slightly elevated, will recheck in fasting state-did discuss that allergies can make you fatigued-h e may increase cetirizine to bid for 2 weeks-cont inue Astepro-al so need to consider anxiety/de pression and will discuss after lab results Dyslipidemia 595586945 E 78.5 -will up date labs.-he will follow with [facility] in November-he is on a BB and can discuss that with cardiology Infection of tick bite 459507203 L08.9 -will check complete tick panel [id number] GREG Solomon Karlo [address] [address] 10/20/2023 07:02:32 10/20/2023 09:15:34 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 -discussed the results with the pt-discuss ed the treatment with the pt-discuss ed avoiding colchicine while on azithromyc in and separate it from the sertraline -they will monitor his HR-he does have a f/u with cardiology next week-copy of labs and precaution s, given to his [id number] GREG Caballero [address] [place] [address] 03/11/2024 10:15:35 03/11/2024 11:23:02 Influenza vaccine needed 9850684000 106 Z23 [id number] RACHEL WHITE PA-C [facility] [address] [address] 03/26/2024 11:41:42 03/26/2024 12:44:05 Felix 758779271 R14.2 Of note entirety of this encounter was conducted via telephone. The limitation s of telehealth consultati on was explained to the patient. The patient and provider were located in the [facility]. Call lasted approximat yasir 15 minutes 15 minutes Discussed at length with patient. Biggest concern with indigestio n and his history would be an NC. Patient states that this feels different than [...] department if his symptoms worsen or change. [id number] GREG Caballero Karlo [address] [place] [address] 04/14/2024 07:12:59 04/14/2024 09:37:44 Hypomagnesemia 359193266 E83.42 9931 Magnesium low at 1.0 according to rheum [...] maintain.F /u once results received, sooner prn. [id number] GREG Salinas [address] [place] [address] 05/10/2024 09:40:17 05/10/2024 11:09:36 Acute diarrhea 458169139 R19.7 63965 hold metformin and stop colchicine and decrease pantoprozo le to qd, wants to wait for colonoscop y, last one normal 2012, order cologuard, labs today Hypomagnesemia 749472491 E83.42 9931 taking 400 mg, recheck today Acid reflux 563552720 K2 1.9 on famotidine 20 bid and pantoprazo le 40 bid Type 2 melissa betes mellitus 54333781 E11.9 hold metformin due to diarrhea, check A1c 6.7 09/2023 Screening for malignant neoplasm of colon 753482924 Z12.11 Z12.12 Coronary arteriosclerosis 92535028 I25.10 fasting lipids today [id number] GREG Salinas [address] [place] [address] 05/12/2024 09:47:05 05/12/2024 10:59:50 Diarrheal disorder 845965864 K52.9 471309 last egd 2014 and polyp removed, last colonoscop y normal 2012, offered referral to be scoped again, med changes discussed with after labs back to hopefully improve diarrhea which seemed to start with addition of colchicine . Coronary arteriosclerosis 69678780 I25.10 fasting lipids very low cholestero l, taking crestor 20 mg and tricor, rec. decrease crestor to 10 mg but discuss with cardiology Type 2 melissa betes mellitus 06256394 E11.9 hold metformin due to diarrhea, check A1c 6.7 09/2023, now 6.1 with unintended weight loss, continue to hold Health Concerns Section Related Observation LastModified by Organization Chacha mcgee LastModified Time None Recorded Concern Status LastModified by Organization Details LastModified Time None Recorded Advance Directives Directive Y: Payers Insurance Date Sequence Insurance Name Policy Number Policy Lozano Covered Member ID Lozano Member ID Guarantor Name 05/07/2024 1 [place] Bonifacio Vergara [id number] Chica Vergara 05/07/2024 [place] [employer] Bonifacio Vergara [id number] Chica Vergara 02/01/2019 1 [facility] [id number] Chica Vergara [id number] Chica Vergara 06/16/2016 1 [place] [facility] BLUE (HMO) [id number] Chcia Vergara [id number] Chica Vergara 05/13/2024 2 [place] [id number] Bonifacio Vergara [id number] Chica Vergara 05/07/2024 MEDICARE A-[place]: [facility] Bonifacio Vegrara [id number] Chica Vergara 03/11/2024 1 [place] NATIONAL [employer]MENT [employer] Bonifacio Vergara [id number] Chicabethany Vergara 03/11/2024 3 [place] Bonifacio Vergara [id number] Callenderbethany Vergara 03/11/2024 1 [facility] (O) [id number] Bonifacio Vergara [id number] Chica Vergara 03/11/2024 MEDICARE A-MA: [facility] Bonifacio Vergara [id number] Chica Vergara Notes Date Note Type Note Provider Name and Address Organization Details Recorded Time 4 text/htm l pt seen by nursing for influenza vaccineprevaccination screening sheet completedpt tolerated well. 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 . Since [...] with minimal relief RACHEL WHITE PA-C [address] [place], [address], [facility] [employer] 03/26/2024 11:45:13 4 text/htm l ROS as noted in the HPI 74yo M presents today via phone for [...] supplement at night - unsure of dose. GREG Caballero [address] [place], [address], [facility] 04/14/2024 09:37:08 4 text/htm l DiarrheaReported by PatientHPIFor quality, patient reportswatery,soft, andloosebut reportsimproving,frequent , andintermittent. For onset/timing, patient reportsnocturnal diarrheaandstarted after an event (after eating spaghetti with red sauce)but reportsabrupt onsetand4-10 times a day. For aggravating factors, patient reportseating. For associated symptoms, patient reportsexcess gas,weight loss (15 lbs), andnutrient deficiency (low magnesium)but reportsno abdominal pain,no fever,no rash,no joint pain,no nausea,no vomiting,no heartburn,no blood in stool,no mucus in stool, andno black or tarry stools. For duration, patient reportspresent for 1 month. For severity, patient reportsmoderate. For context, patient reportsno one else with similar symptoms,no recent camping,no recent picnic,no possible food sources,no recent travel, andno recent antibiotic use. Pt comes in with one month acute onset of diarrhea, anorexia, lots of GI noise. He denies any recent antibiotics or foreign travel. He was recently in the hospital with a second episode of transient global amnesia. We reviewed his medications and he was started on colchicine about a month ago from a new director of corporate communications but no note is available. GREG Salinas [address] [place], [address], [employer] 05/10/2024 13:17:30 4 text/htm kiersten Espinoza to re lab results. Magnesium now normal, [...] qd he continutes to have gi issues. GREG Salinas [address] [facility], [place], [address], [facility] [employer] 05/12/2024 10:45:41
== END 2025-04-05 13:12 | disposition home or self-care (01) ==
LOC: HO.RHES 12:28
PROVIDERS: PCP Nurse Practitioner Family; Visit Provider Student in an Organized Health Care Education/Training Program
DX: M18.11 Unilateral primary osteoarthritis of first carpometacarpal joint, right hand (principal); M19.042 Primary osteoarthritis, left hand; M11.20 Other chondrocalcinosis, unspecified site
CPT/HCPCS: 20600; 99213

== ENCOUNTER → 2025-04-05 12:27 | Outpatient (BNVA) | payer MEDICARE, SELFPAY | PROVIDERS: PCP Nurse Practitioner Family; Visit Provider Student in an Organized Health Care Education/Training Program | DX: M11.20 Other chondrocalcinosis, unspecified site (principal); M19.041 Primary osteoarthritis, right hand; M19.042 Primary osteoarthritis, left hand | CPT/HCPCS: 20600; 99212; J2003; J3301 ==

== ENCOUNTER 2025-04-27 06:30 | Outpatient (REF) | payer MEDICARE, SELFPAY ==
--- NOTE | ~2025-04-27 | FL_ITS ---
EXAMINATION: FL GUIDANCE ONLY HISTORY: M47.812 - Spondylosis without myelopathy or radiculopathy, cervical region COMPARISON: Correlation is made with plain films of the cervical spine dated 11/17/2024. TECHNIQUE: Fluoroscopy time: 17 seconds. Cumulative Dose: 4.60 mGy. DAP: 593.10 mGycm2 Images: 3. FINDINGS: Fluoroscopic spot films of the cervical spine demonstrate needles and contrast material in place. FL/FL guidance in treatment room IMPRESSION: Fluoroscopy during procedure. Please see procedure report for additional information. Electronically signed by: Bonifacio Bradley MD 04/27/2025 02:21 PM LANA
--- OUTSIDE RECORDS SUMMARY | 2025-04-27 06:31 | XMS_ITS | Clinical Summary ---
Author Organization 175 [facility] Address [address] [place] [address] Phone Care Team Providers Care Compensation Administrator Name Role Phone Joaquin Talavera MD Primary Care Provider [phone] Encounters Date Type Department Care Team Description 03/20/2025 Telephone Neurosurgery [facility] [address] [address] Dang Herrera MA from Last 3 Months Surgical History Surgery Date Site/Laterality Comments BACK SURGERY PROCEDURE: HISTORICAL BACK SURGERY; COMMENT: spinal fusion HERNIA REPAIR PROCEDURE: [place] RPR 1ST INGUN HRNA AGE 5 MO-5 [...] 07/30/2022 11:52 AM EST Plan of Treatment Upcoming Encounters Date Type Department Care Team (Late st Contact Info) Description 05/12/2025 3:00 PM EST Office Visit [facility] [address] [facility] [address] [place] [phone] Jessi Parkre MD [address] [place] [address] Health Maintenance Due Date Last Done Comments [...] age to complete this topic Insurance MEDICARE [facility] Care Teams Compensation Administrator Relationship Specialty Start Date End Date Joaquin Talavera MD [address] [place] [phone] PCP - General Family Medicine 01/12/17
--- OUTSIDE RECORDS SUMMARY | 2025-04-27 06:31 | XMS_ITS | Clinical Summary ---
Author Organization [facility] Prior to 10/22/[address] [place] [address] Care Team Providers Care Whipper Beater Name Role Phone Joaquin Talavera MD Primary Care Provider + [phone] Allergies Active Allergy Reactions Criticality Noted Date [...] Active famotidine (PEPCID) 20 MG tablet Acid Felt Checker (famotidine) 20 mg tablet 0 Active amLODIPine [...] history exists Influenza Vaccine (#1) 2025 , 03/19/2021, 03/08/2020, Additional history exists DTap / Tdap / Td (3 - Td or Tdap) 10/10/2031 10/09/2021, 01/07/2012, 12/25/2000 Hepatitis B Vaccines Aged Out No long er eligible based on patient's age to complete this topic RSV Ped < 20 months Aged Out No longe r eligible based on patient's age to complete this topic Care Teams Whipper Beater Relationship Specialty Start Date End Date Joaquin Talavera MD [address] [facility] [place] [address] PCP - General Family Medicine 01/12/17
--- OUTSIDE RECORDS SUMMARY | 2025-04-27 06:32 | XMS_ITS | Clinical Summary ---
Author Organization [facility], operated [facility] Address [address] [place] [address] Phone Care Team Providers Care Superintendent Colliery Name Role Phone Teresa Chapman Primary Care Provider [phone] Santiago March MD Unavailable [phone] Rod Abdalla MD Unavailable [phone] Allergies No known active allergies Medications [...] by mouth in the morning. 4 Active [place]-3 Fatty Acids (FISH OIL CONCENTRATE PO) Take [...] from your doctor or pharmacy? Never 10/05/2024 [facility] Utilities Answer Date Recorded In the past 12 months has e [employer], gas, oil, or water [employer] threatened to shut off services in your [...] any time in the past 12 m [facility], were you homeless or living in a intermediate (including now)? No 10/05/2024 Sex and Gender [...] Vaccine: 50+ Years (2 of 2 - PPSV23, PCV20, or PCV21) 05/12/2018 03/17/2018 Zoster Vaccines (2 of 2) 06/25/2021 04/30/2021 Influenza Vaccine (#1) 2025 , 03/11/2023, 03/21/2022, Additional history exists Creatinine Level 12/22/2025 12/22/2024, , 10/04/2024, Additional history exists Potassium Level 12/22/2025 12/22/2024, 0508/2024, 10/04/2024, Additional history exists TD Vaccine (21+ Years) 10/10/2031 2, 01/07/2012, 12/25/2000 RSV Vaccines Completed 05/27/2023 HIB [...] this topic Medical Devices Implanted Type Area Building And Construction Manager Device Identifier Shelf Expiration Date Model / Serial / Lot Pacemaker Cardiac Accolade Mri El 15.8cc - [id number] - [id number] Implanted:Q ty: 1 on 09/23/2024 by oRd Abdalla MD at [facility] Cardiac Pacemaker Generators Or Cardiac Resynchronizati Left: Chest Wall [employer] 07/05/2026 [id number] / System Coronary Stent Synergy Xd 2.75 X 12mm X 144cm - [id number] - [id number] Implanted:Q ty: 1 on 10/04/2024 by Gerardo Martinez MD at [facility] Coronary Stents-Y N/A: Coronary [employer] [id number] 06/02/2025 [id number] / [id number] / [id number] System Coronary Stent Synergy Xd 3.5 X 16mm X 144cm - [id number] Implanted:Q ty: 1 on 10/04/2024 by Gerardo Martinez MD at [facility] Coronary Stents-Y N/A: Coronary [employer] [id number] 02/08/2026 [id number] / [id number] System Coronary Stent Synergy Xd 3.5 X 38mm X 144cm - [id number] - [id number] Implanted:Q ty: 1 on 10/04/2024 by Gerardo Martinez MD at [facility] Coronary Stents-Y N/A: Coronary [employer] [id number] 02/09/2026 [id number] / [id number] / [id number] Procedures Procedure Name Priority Date/Time Associated Diagnosis Comments BASIC METABOLIC PANEL Routine 12/22/2024 12:19 PM EDT from Last 3 Months or Most Recently Relevant to Health Maintenance Results * (ABNORMAL) Basic Metabolic Panel (12/22/2024 12:19 PM ED) Sodium 139 135 - 145 mmol/L 12/22/2024 2:03 PM [facility] Potassium 4.8 3.4 - 5.2 mmol/L 12/22/2024 2:03 PM [facility] Chloride 104 99 - 109 mmol/L 12/22/2024 2:03 PM [facility] Carbon Dioxide 27 21 - 30 mmol/L 12/22/2024 2:03 PM [facility] Anion Gap 8 5 - 15 mmol/L 12/22/2024 2:03 PM [facility] Glucose 104(H) 65 - 99 mg/dL 12/22/2024 2:03 PM [facility] Calcium 10.3 8.6 - 10.3 mg/dL 12/22/2024 2:03 PM [facility] Blood Urea Nitrogen (BUN) 18 7 - 22 mg/dL 12/22/2024 2:03 PM [facility] Creatinine 1.18 0.70 - 1.30 mg/dL 12/22/2024 2:03 PM [facility] eGFR 64 mL/min/1.7 3m*2 12/22/2024 2:03 PM [facility] Comment: *This eGRF calculation is based on the 2785-TUZ-WHA creatinine equations for adults designed to estimate [...] [facility] Icteric Interference 12/22/2024 2:03 PM [facility] Lipemic Interference 12/22/2024 2:03 PM [facility] Blood Venous blood / Unknown Venipuncture / Unknown 12/22/2024 12:19 PM EDT 12/22/2024 1:05 PM EDT us rIvin Thao MD LAB BLOOD ORDERABLES Final Re sult [facility] [address] [facility] [place] [address], [place] from Last 3 Months or Most Recently Relevant to Health Maintenance Insurance MEDICARE Member Subscriber Plan / Payer (Ef fective 2019-Present) Name:Ursula Bonifacio Member ID:[id number] Relation to Subscriber:Self Name:Bonifacio Vergara Subscriber ID:[id number] Payer ID:[id number] Group ID:Not on file Type:Medicare Address: [address] on file Advance Directives For more information, please contact: [phone] (Available ) * Resuscitation Status (Latest Code Status on File) Date Activated Date Inactivated Comments 12/22/2024 12:17 PM 12/22/2024 11:06 PM Question Answer Comments If no pulse and/or not breathing: Attempt CPR If pulse and breathing present: Intubati on and mcc mechanical ventilation * Resuscitation Status Date Activated Date Inactivated Comments 10/04/2024 2:12 PM 10/05/2024 12:43 PM Question Answer Comments If no pulse and/or not breathing: Attempt CPR If pulse and breathing present: Intubati on and mcc mechanical ventilation * Resuscitation Status Date Activated Date Inactivated Comments 09/23/2024 11:42 AM 09/24/2024 4:44 PM Question Answer Comments If no pulse and/or not breathing: Attempt CPR If pulse and breathing present: Intubati on and mcc mechanical ventilation Healthcare Agents on File Name Relationship Healthcare Agent Relationship Communication Chica Vergara Spouse Health Care Proxy Care Teams Superintendent Colliery Relationship Specialty Start Date End Date Teresa Chapman [address] [place] [address] PCP - General 09/09/24 Santiago March MD [address] [facility] [address] [place] [address] Consulting Physician Cardiology 09/09/24 Rod Abdalla MD [address] [facility] [place] [address] Surgeon Cardiothoracic Surgery 09/24/24
--- OUTSIDE RECORDS SUMMARY | 2025-04-27 06:32 | XMS_ITS | Data Portability ---
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 Plan of Treatment Reminders Order Date Submit Date Provider Last Modified By Organization Details Last Modified Time Details Appointments None recorded . Lab HbA1c (hemoglo bin A1c), blood [address], [address], 4 13:12:05 magnesiu m, serum or plasma [address], [address], 4 13:12:04 noninvas eder colorect al cancer [...] as required by HIPAA. I authoriz e [facility] to obtain reimburs ement for Cologuar d and to directly contact and collect a second sample from the patient as appropri ate. ICD-10 Code: Z12.11 2023 [email or web address] [employer], [address], [address], [place], [address], 5 11:16:16 BMP, serum or plasma 2023 024 [facility], [address] [place] [address], [address], 5 13:23:26 erythroc yte sediment ation rate by westergr en method 2023 024 [facility] [facility], [address] [place] [address], [address], 4 13:12:04 lipid panel, serum 2023 024 [facility], [address] [place] [address], [address], 4 13:12:03 magnesiu m, serum or plasma [facility]23 [facility], [address] [place] [address], [address], 4 10:44:03 magnesiu m, serum or plasma 2023 024 [facility], [address] [place] [address], [address], 5 14:42:21 Referral None recorded . Procedures None recorded . Surgeries None recorded . Imaging None recorded . Medication Orders famotidi ne 20 mg tablet 2023 024 [id number], [address] [place], [address], 4 10:38:01 Patient TargetsNo targets recorded. Patient Instructions Encounter Date Encounter Id Patient Instructions Last Modified By Organization Details Last Modified Time 05/10/2024 [id number] learning about type 2 diabetes [email or web address] Not available 05/10/2024 10:56:57 type 2 diabetes: care instructions [email or web address] Not available 05/10/2024 10:56:57 05/12/2024 [id number] learning about type 2 diabetes [email or web address] Not available 05/12/2024 10:45:28 type 2 diabetes: care instructions [email or web address] Not available 05/12/2024 10:45:28 Reason for Referral None Reported. Results Created Date Observation Date Name Description Value Unit Range Abnormal Flag Note LastModifiedBy Organization Detail LastModifiedTime 02/23/2002/23/2024 COMPL ETE BLOOD COUNT W/ DIFF white blood count 7.0 K/mm3 4.0-11 .0 normal Not Available [address], [address], 02/23/2024 14:33:32 02/23/2002/23/2024 COMPL ETE BLOOD COUNT W/ DIFF red blood count 4.56 M/uL 4.20-5 .80 normal Not Available [address], [address], 02/23/2024 14:33:32 02/23/2002/23/2024 COMPL ETE BLOOD COUNT W/ DIFF hemoglobin 12.8 gm/dL 12.5-1 7.0 normal Not Available [address], [address], 02/23/2024 14:33:32 02/23/2002/23/2024 COMPL ETE BLOOD COUNT W/ DIFF hematocrit 39.1 % 37.0-5 0.0 normal Not Available [address], [address], 02/23/2024 14:33:32 02/23/2002/23/2024 COMPL ETE BLOOD COUNT W/ DIFF mean corpuscular volume 85.7 fL 80.0-1 00.0 normal Not Available [address], [address], 02/23/2024 14:33:32 02/23/2002/23/2024 COMPL ETE BLOOD COUNT W/ DIFF MCHC 32.7 % 32-37 normal Not Available [address], [address], 02/23/2024 14:33:32 02/23/2002/23/2024 COMPL ETE BLOOD COUNT W/ DIFF red cell distribution width 13.2 % 11.5-1 6.0 normal Not Available [address], [address], 02/23/2024 14:33:32 02/23/2002/23/2024 COMPL ETE BLOOD COUNT W/ DIFF platelet count 234 K/uL 140-40 0 normal Not Available [address], [address], 02/23/2024 14:33:32 02/23/2002/23/2024 COMPL ETE BLOOD COUNT W/ DIFF mean platelet volume 11.4 fL 8.6-12 .5 normal Not Available [address], [address], 02/23/2024 14:33:32 02/23/2002/23/2024 COMPL ETE BLOOD COUNT W/ DIFF %nucleated RBC auto 0.0 % 0.0-0. 7 normal Not Available [address], [address], 02/23/2024 14:33:32 02/23/2002/23/2024 COMPL ETE BLOOD COUNT W/ DIFF %neutrophils auto 64.4 % Not Available [address], [address], 02/23/2024 14:33:32 02/23/2002/23/2024 COMPL ETE BLOOD COUNT W/ DIFF %lymphocytes auto 27.1 % Not Available [address], [address], 02/23/2024 14:33:32 02/23/2002/23/2024 COMPL ETE BLOOD COUNT W/ DIFF %monocytes auto 6.6 % Not Available [address], [address], 02/23/2024 14:33:32 02/23/2002/23/2024 COMPL ETE BLOOD COUNT W/ DIFF %eosinophils auto 0.6 % Not Available [address], [address], 02/23/2024 14:33:32 02/23/2002/23/2024 COMPL ETE BLOOD COUNT W/ DIFF %basophils auto 0.9 % Not Available [address], [address], 02/23/2024 14:33:32 02/23/2002/23/2024 COMPL ETE BLOOD COUNT W/ DIFF %immature granulocytes auto 0.4 % Not Available [address], [address], 02/23/2024 14:33:32 02/23/2002/23/2024 COMPL ETE BLOOD COUNT W/ DIFF #neutrophils auto 4.48 K/uL 1.50-7 .50 normal Not Available [address], [address], 02/23/2024 14:33:32 02/23/2002/23/2024 COMPL ETE BLOOD COUNT W/ DIFF #lymphocytes auto 1.88 K/uL 1.00-4 .50 normal Not Available [address], [address], 02/23/2024 14:33:32 02/23/20 24 02/23/2024 COMPL ETE BLOOD COUNT W/ DIFF #monocytes auto 0.46 K/uL 0.00-0 .80 normal Not Available [address], [address], 02/23/2024 14:33:32 02/23/2002/23/2024 COMPL ETE BLOOD COUNT W/ DIFF #eosinophils auto 0.04 K/uL 0.00-0 .40 normal Not Available [address], [address], 02/23/2024 14:33:32 02/23/20 24 02/23/2024 COMPL ETE BLOOD COUNT W/ DIFF #basophils auto 0.06 K/uL 0.00-0 .20 normal Not Available [address], [address], 02/23/2024 14:33:32 02/23/20 24 02/23/2024 COMPL ETE BLOOD COUNT W/ DIFF #immature granulocytes auto 0.03 K/uL 0.00-0 .10 normal Not Available [address], [address], 02/23/2024 14:33:32 02/23/2002/23/2024 COMPR EHENS EDER METAB OLIC PANEL sodium 139 mEq/L 133-14 5 normal Not Available [address], [address], 02/23/2024 15:00:11 02/23/20 24 02/23/2024 COMPR EHENS EDER METAB OLIC PANEL potassium 4.4 mEq/L 3.5-5. 1 normal Not Available [address], [address], 02/23/2024 15:00:11 02/23/20 24 02/23/2024 COMPR EHENS EDER METAB OLIC PANEL chloride 105 mEq/L 98-112 normal Pleas e note new refer ence range . Not Available [address], [address], 02/23/2024 15:00:11 02/23/20 24 02/23/2024 COMPR EHENS EDER METAB OLIC PANEL carbon dioxide 23 mEq/L 22-31 normal Not Available [address], [address], 02/23/2024 15:00:11 02/23/20 24 02/23/2024 COMPR EHENS EDER METAB OLIC PANEL anion gap 11 mEq/L 5-15 normal Not Available [address], [address], 02/23/2024 15:00:11 02/23/20 24 02/23/2024 COMPR EHENS EDER METAB OLIC PANEL blood urea nitrogen (BUN) 15 mg/dL 8-26 normal Not Available [address], [address], 02/23/2024 15:00:11 02/23/20 24 02/23/2024 COMPR EHENS EDER METAB OLIC PANEL creatinine 1.03 mg/dL 0.70-1 .18 normal Not Available [address], [address], 02/23/2024 15:00:11 02/23/20 24 02/23/2024 COMPR EHENS [...] G5 (kidn ey failu re). Not Available [address], [address], 02/23/2024 15:00:11 02/23/20 24 02/23/2024 COMPR EHENS EDER METAB OLIC PANEL glucose 145 mg/dL 70-100 high Fasti ng Refer ence Inter elizabeth: 70-10 0mg/d L Non-f astin g Refer ence Inter elizabeth: 70-14 0mg/d L Not Available [address], [address], 02/23/2024 15:00:11 02/23/20 24 02/23/2024 COMPR EHENS EDER METAB OLIC PANEL calcium 9.8 mg/dL 8.4-10 .4 Not Available [address], [address], 02/23/2024 15:00:11 02/23/2002/23/2024 COMPR EHENS EDER METAB OLIC PANEL bilirubin total 0.6 mg/dL 0.2-1. 2 normal Not Available [address], [address], 02/23/2024 15:00:11 02/23/20 24 02/23/2024 COMPR EHENS EDER METAB OLIC PANEL aspartate amino transferase 24 IU/L 5-34 normal Not Available [address], [address], 02/23/2024 15:00:11 02/23/20 24 02/23/2024 COMPR EHENS EDER METAB OLIC PANEL alanine aminotransfe rase 23 IU/L 0-55 normal Not Available [address], [address], 02/23/2024 15:00:11 02/23/20 24 02/23/2024 COMPR EHENS EDER METAB OLIC PANEL total protein 7.0 g/dL 5.8-8. 1 normal Not Available [address], [address], 02/23/2024 15:00:11 02/23/20 24 02/23/2024 COMPR EHENS EDER METAB OLIC PANEL albumin 4.3 g/dL 2.8-5. 4 normal Not Available [address], [address], 02/23/2024 15:00:11 02/23/20 24 02/23/2024 COMPR EHENS EDER METAB OLIC PANEL alkaline phosphatase 28 IU/L 40-150 low Not Available [address], [address], 02/23/2024 15:00:11 02/23/20 24 02/23/2024 LYME AB [...] days is recom toribio d. Not Available [address], [address], 02/23/2024 15:29:24 02/23/20 24 02/24/2024 ANAPL ASMA [...] e kim cteri stics deter mined by [facility]. It has not been clear ed or appro mukesh by the FDA. The labor atory is regul ated under CLIA as quali fied to perfo rm high- compl exity testi ng. This test is used for clini francis purpo ses. It shoul d not be regar ded as inves tigat ional or for resea rch. Not Available [address], [address], 02/25/2024 11:25:29 02/23/2002/25/2024 BABES IA MICRO TI [...] e kim cteri stics deter mined by [facility]. It has not been clear ed or appro mukesh by the FDA. The labor atory is regul ated under CLIA as quali fied to perfo rm high- compl exity testi ng. This test is used for clini francis purpo ses. It shoul d not be regar ded as inves tigat ional or for resea rch. Not Available [address], [address], 02/25/2024 11:25:31 02/23/2002/27/2024 LYME DISEA SE DNA (PCR) specimen source NOT GIVEN Not Available [address], [address], 02/27/2024 16:45:13 02/23/2002/27/2024 LYME DISEA SE DNA [...] lanier refer to https ://ed ucati on.qu estDepop. com/f aq/fa q224 (This link is being provi ded for infor antonio benítez/ educa carlie l purpo ses only. ) THIS TEST WAS PERFO RMED AT: [facility] [address] [place] [address] RINA SPAULDING MD Not Available [address], [address], 02/27/2024 16:45:13 02/23/20 24 03/01/2024 SHEEBA RENAE SPECI ES AB IGG&I GM bartonella henselae IgG NEGATI VE Not Available [address], [address], 03/02/2024 14:50:04 02/23/20 24 03/01/2024 SHEEBA RENAE SPECI ES AB IGG&I GM bartonella henselae IgM NEGATI VE Not Available [address], [address], 03/02/2024 14:50:04 02/23/2003/01/2024 SHEEBA RENAE SPECI ES AB IGG&I GM bartonella clark IgG NEGATI VE Not Available [facility] [address], [place], [address], 03/02/2024 14:50:04 02/23/20 24 03/01/2024 SHEEBA RENAE [...] PERFO RMED AT: [facility] DOROTHY HOFFMANN [address] [facility] [place], [place] NANDO LIMA MD,P HD Not Available [address], [address], 03/02/2024 14:50:04 02/23/20 24 03/02/2024 EHRLI SINA ANTIB TITA PANEL anaplasma phagocytophi la IgG <1:64 <1:64 normal Not Available [address], [address], 03/02/2024 14:50:05 02/23/20 24 03/02/2024 EHRLI SINA ANTIB TITA PANEL anaplasma phagocytophi la IgM <1:20 <1:20 normal Not Available [address], [address], 03/02/2024 14:50:05 02/23/20 24 03/02/2024 EHRLI SINA ANTIB TITA PANEL A. phagocytophi la interp ANTIB TITA NOT DETEC THI Not Available [address], [address], 03/02/2024 14:50:05 02/23/20 24 03/02/2024 EHRLI SINA [...] [address] [place] [address] RINA SPAULDING MD Not Available [address], [address], 03/02/2024 14:50:05 02/23/20 24 03/02/2024 EHRLI SINA ANTIB TITA PANEL ehrlichia chaffeensis IgG Ab <1:64 <1:64 normal Not Available [address], [address], 03/02/2024 14:50:05 02/23/20 24 03/02/2024 EHRLI SINA ANTIB TITA PANEL ehrlichia chaffeensis IgM Ab <1:20 <1:20 normal Not Available [address], [address], 03/02/2024 14:50:05 02/23/20 24 03/02/2024 EHRLI SINA ANTIB TITA PANEL ehrlichia interpretati on ANTIB TITA NOT DETEC THI Not Available [address], [address], 03/02/2024 14:50:05 02/23/20 24 03/02/2024 EHRLI SINA [...] cteri stics have been deter mined by [facility]. It has not been clear ed or appro mukesh by the U.S. Food and Drug Admin istra tion. This assay has been valid ated pursu ant to the CLIA regul ation s and is used for clini francis purpo ses. THIS TEST WAS PERFO RMED AT: [facility] [address] [place] [address] RINA SPAULDING MD Not Available [facility] [address] [place], [address], 03/02/2024 14:50:05 04/12/20 24 04/13/2024 MAGNE SIUM magnesium 1.1 mg/dL 1.5-2. 5 low Not Available [facility] [place] [facility] [address], [place], [address], 04/13/2024 05:38:27 04/12/20 24 04/13/2024 COMPR EHENS EDER METAB OLIC PANEL glucose 103 mg/dL 65-99 high Fasti ng refer ence inter elizabeth For someo ne witho ut known diabe jesus, a gluco se value betwe en 100 and 125 mg/dL is consi stent with predi abete s and shoul d be confi rmed with a follo w-up test. Not Available [facility] [address], [place], [address], 04/13/2024 05:38:27 04/12/20 24 04/13/2024 COMPR EHENS EDER METAB OLIC PANEL urea nitrogen (BUN) 11 mg/dL 7-25 normal Not Available [facility] [place] [facility] [address], [place], [address], 04/13/2024 05:38:27 04/12/20 24 04/13/2024 COMPR EHENS EDER METAB OLIC PANEL creatinine 0.99 mg/dL 0.70-1 .28 normal Not Available [facility] [address], [place], [address], 04/13/2024 05:38:27 04/12/20 24 04/13/2024 COMPR EHENS EDER METAB OLIC PANEL eGFR 79 mL/mi n/1.7 3m2 > or = 60 normal Not Available [facility] [address], [place], [address], 04/13/2024 05:38:27 04/12/20 24 04/13/2024 COMPR EHENS EDER METAB OLIC PANEL BUN/creatini ne ratio SEE NOTE: (calc ) 6-22 Not Repor thi: BUN and Creat inine are withi n refer ence range . Not Available [facility] [address], [place], [address], 04/13/2024 05:38:27 04/12/20 24 04/13/2024 COMPR EHENS EDER METAB OLIC PANEL sodium 141 mmol/ L 135-14 6 normal Not Available [facility] [address], [place], [address], 04/13/2024 05:38:27 04/12/20 24 04/13/2024 COMPR EHENS EDER METAB OLIC PANEL potassium 4.5 mmol/ L 3.5-5. 3 normal Not Available [facility] [address], [place], [address], 04/13/2024 05:38:27 04/12/20 24 04/13/2024 COMPR EHENS EDER METAB OLIC PANEL chloride 104 mmol/ L 98-110 normal Not Available [facility] [address], [place], [address], 04/13/2024 05:38:27 04/12/20 24 04/13/2024 COMPR EHENS EDER METAB OLIC PANEL carbon dioxide 29 mmol/ L 20-32 normal Not Available [facility] [address], [place], [address], 04/13/2024 05:38:27 04/12/20 24 04/13/2024 COMPR EHENS EDER METAB OLIC PANEL calcium 10.1 mg/dL 8.6-10 .3 normal Not Available [facility] [address], [place], [address], 04/13/2024 05:38:27 04/12/20 24 04/13/2024 COMPR EHENS EDER METAB OLIC PANEL protein, total 7.1 g/dL 6.1-8. 1 normal Not Available [facility] [address], [place], [address], 04/13/2024 05:38:27 04/12/20 24 04/13/2024 COMPR EHENS EDER METAB OLIC PANEL albumin 4.7 g/dL 3.6-5. 1 normal Not Available [facility] [address], [place], [address], 04/13/2024 05:38:27 04/12/20 24 04/13/2024 COMPR EHENS EDER METAB OLIC PANEL globulin 2.4 g/dL_ (calc ) 1.9-3. 7 normal Not Available [facility] [address], [place], [address], 04/13/2024 05:38:27 04/12/20 24 04/13/2024 COMPR EHENS EDER METAB OLIC PANEL albumin/glob ulin ratio 2.0 (calc ) 1.0-2. 5 normal Not Available [facility] [place] [facility] [address], [place], [address], 04/13/2024 05:38:27 04/12/20 24 04/13/2024 COMPR EHENS EDER METAB OLIC PANEL bilirubin, total 0.5 mg/dL 0.2-1. 2 normal Not Available [facility] [address], [place], [address], 04/13/2024 05:38:27 04/12/20 24 04/13/2024 COMPR EHENS EDER METAB OLIC PANEL alkaline phosphatase 22 U/L 35-144 low Not Available [facility] [employer] [facility] [address], [place], [address], 04/13/2024 05:38:27 04/12/20 24 04/13/2024 COMPR EHENS EDER METAB OLIC PANEL AST 21 U/L 10-35 normal Not Available [facility] [address], [place], [address], 04/13/2024 05:38:27 04/12/20 24 04/13/2024 COMPR EHENS EDER METAB OLIC PANEL ALT 19 U/L 9-46 normal Not Available [facility] [address], [place], [address], 04/13/2024 05:38:27 04/19/20 24 04/20/2024 MAGNE SIUM magnesium 1.1 mg/dL 1.5-2. 5 low Not Available [facility] [address], [place], [address], 04/20/2024 07:55:46 04/19/20 24 04/20/2024 COMPR EHENS EDER METAB OLIC PANEL glucose 105 mg/dL 65-99 high Fasti ng refer ence inter elizabeth For someo ne witho ut known diabe jesus, a gluco se value betwe en 100 and 125 mg/dL is consi stent with predi abete s and shoul d be confi rmed with a follo w-up test. Not Available [facility] [place] [facility] [address], [place], [address], 04/20/2024 07:55:47 04/19/20 24 04/20/2024 COMPR EHENS EDER METAB OLIC PANEL urea nitrogen (BUN) 15 mg/dL 7-25 normal Not Available [facility] [place] [facility] [address], [place], [address], 04/20/2024 07:55:47 04/19/20 24 04/20/2024 COMPR EHENS EDER METAB OLIC PANEL creatinine 0.84 mg/dL 0.70-1 .28 normal Not Available [facility] [place] [facility] [address], [place], [address], 04/20/2024 07:55:47 04/19/20 24 04/20/2024 COMPR EHENS EDER METAB OLIC PANEL eGFR 91 mL/mi n/1.7 3m2 > or = 60 normal Not Available [facility] [address], [place], [address], 04/20/2024 07:55:47 04/19/20 24 04/20/2024 COMPR EHENS EDER METAB OLIC PANEL BUN/creatini ne ratio SEE NOTE: (calc ) 6-22 Not Repor thi: BUN and Creat inine are withi n refer ence range . Not Available [facility] [place] [facility] [address], [place], [address], 04/20/2024 07:55:47 04/19/20 24 04/20/2024 COMPR EHENS EDER METAB OLIC PANEL sodium 141 mmol/ L 135-14 6 normal Not Available [facility] [address], [place], [address], 04/20/2024 07:55:47 04/19/2004/20/2024 COMPR EHENS EDER METAB OLIC PANEL potassium 4.5 mmol/ L 3.5-5. 3 normal Not Available [facility] [address], [place], [address], 04/20/2024 07:55:47 04/19/2004/20/2024 COMPR EHENS EDER METAB OLIC PANEL chloride 104 mmol/ L 98-110 normal Not Available [facility] [address], [place], [address], 04/20/2024 07:55:47 04/19/2004/20/2024 COMPR EHENS EDER METAB OLIC PANEL carbon dioxide 28 mmol/ L 20-32 normal Not Available [facility] [address], [place], [address], 04/20/2024 07:55:47 04/19/2004/20/2024 COMPR EHENS EDER METAB OLIC PANEL calcium 9.8 mg/dL 8.6-10 .3 normal Not Available [facility] [address], [place], [address], 04/20/2024 07:55:47 04/19/2004/20/2024 COMPR EHENS EDER METAB OLIC PANEL protein, total 6.9 g/dL 6.1-8. 1 normal Not Available [facility] [address], [place], [address], 04/20/2024 07:55:47 04/19/20 24 04/20/2024 COMPR EHENS EDER METAB OLIC PANEL albumin 4.8 g/dL 3.6-5. 1 normal Not Available [facility] [address], [place], [address], 04/20/2024 07:55:47 04/19/20 24 04/20/2024 COMPR EHENS EDER METAB OLIC PANEL globulin 2.1 g/dL_ (calc ) 1.9-3. 7 normal Not Available [facility] [address], [place], [address], 04/20/2024 07:55:47 04/19/20 24 04/20/2024 COMPR EHENS EDER METAB OLIC PANEL albumin/glob ulin ratio 2.3 (calc ) 1.0-2. 5 normal Not Available [facility] [address], [place], [address], 04/20/2024 07:55:47 04/19/20 24 04/20/2024 COMPR EHENS EDER METAB OLIC PANEL bilirubin, total 0.5 mg/dL 0.2-1. 2 normal Not Available [facility] [address], [place], [address], 04/20/2024 07:55:47 04/19/20 24 04/20/2024 COMPR EHENS EDER METAB OLIC PANEL alkaline phosphatase 24 U/L 35-144 low Not Available [facility] [address], [place], [address], 04/20/2024 07:55:47 04/19/20 24 04/20/2024 COMPR EHENS EDER METAB OLIC PANEL AST 25 U/L 10-35 normal Not Available [facility] [address], [place], [address], 04/20/2024 07:55:47 04/19/20 24 04/20/2024 COMPR EHENS EDER METAB OLIC PANEL ALT 24 U/L 9-46 normal Not Available [facility] [address], [place], [address], 04/20/2024 07:55:47 05/10/20 24 05/11/2024 LIPID PANEL , STAND JAYLA cholesterol, total 95 mg/dL <200 normal Not Available [facility] [place] [facility] [address], [place], [address], 05/11/2024 06:03:25 05/10/20 24 05/11/2024 LIPID PANEL , STAND JAYLA HDL cholesterol 58 mg/dL > or = 40 normal Not Available [facility] [place] [facility] [address], [place], [address], 05/11/2024 06:03:25 05/10/20 24 05/11/2024 LIPID PANEL , STAND JAYLA triglyceride s 108 mg/dL <150 normal Not Available [facility] [address], [place], [address], 05/11/2024 06:03:25 05/10/20 24 05/11/2024 LIPID PANEL [...] lamberts. com/f aq/FA Q164) Not Available [facility] [address], [place], [address], 05/11/2024 06:03:25 05/10/20 24 05/11/2024 LIPID PANEL , STAND JAYLA chol/HDLC ratio 1.6 (calc ) <5.0 normal Not Available [facility] [place] [facility] [address], [place], [address], 05/11/2024 06:03:25 05/10/20 24 05/11/2024 LIPID PANEL , STAND JAYLA non HDL cholesterol 37 mg/dL _(francis c) <130 normal For patie nts with diabe jesus plus 1 major ASCVD risk facto r, treat ing to a non-H DL-C goal of <100 mg/dL (LDL- C of <70 mg/dL ) is consi dered a thera pemorroi c optio n. Not Available [facility] [address], [place], [address], 05/11/2024 06:03:25 05/10/20 24 05/11/2024 MAGNE SIUM magnesium 1.7 mg/dL 1.5-2. 5 normal Not Available [facility] [address], [place], [address], 05/11/2024 06:03:26 05/10/20 24 05/11/2024 SED RATE BY MODIF IED WESTE RGREN sed rate by modified westergren 2 mm/h < or = 20 normal Not Available [facility] [address], [place], [address], 05/11/2024 04:58:24 05/10/20 24 05/10/2024 TEST AUTHO RIZAT ION test name: MAGNLISS IUM Not Available [facility] [address], [place], [address], 05/10/2024 13:12:05 05/10/20 24 05/10/2024 TEST AUTHO RIZAT ION test code: 622 Not Available [facility] [address], [place], [address], 05/10/2024 13:12:05 05/10/20 24 05/10/2024 TEST AUTHO RIZAT ION client contact: KEYON CHEW, LINK Not Available [facility] [address] [place], [place], [address], 05/10/2024 13:12:05 05/10/20 24 05/10/2024 TEST AUTHO [...] senta tive. Signa ture: __ Not Available [facility] [address], [place], [address], 05/10/2024 13:12:05 05/10/20 24 05/10/2024 TEST AUTHO RIZAT ION comment Adam dallas fax this ana d form to [phone]. Adam dallas do not attem pt to retur n this docum ent by other metho ds. Docum ents will not be viewe d by a repre senta tive. Adam dallas do not use this fax numbe r for other servi ce reque sts. Not Available [facility] [address], [place], [address], 05/10/2024 13:12:05 05/10/20 24 05/11/2024 HEMOG LOBIN [...] for child ingrid. Not Available [facility] [place] [facility] [address], [place], [address], 05/11/2024 05:48:05 02/29/20 25 03/01/2025 COMPR EHENS EDER METAB OLIC PANEL glucose 117 mg/dL 65-99 high Fasti ng refer ence inter elizabeth For someo ne witho ut known diabe jesus, a gluco se value betwe en 100 and 125 mg/dL is consi stent with predi abete s and shoul d be confi rmed with a follo w-up test. Not Available [facility] [place] [facility] [address], [place], [address], 03/01/2025 10:46:39 02/29/20 25 03/01/2025 COMPR EHENS EDER METAB OLIC PANEL urea nitrogen (BUN) 18 mg/dL 7-25 normal Not Available [facility] [place] [facility] [address], [place], [address], 03/01/2025 10:46:39 02/29/20 25 03/01/2025 COMPR EHENS EDER METAB OLIC PANEL creatinine 1.11 mg/dL 0.70-1 .28 normal Not Available [facility] [address] [place], [place], [address], 03/01/2025 10:46:39 02/29/20 25 03/01/2025 COMPR EHENS EDER METAB OLIC PANEL eGFR 69 mL/mi n/1.7 3m2 > or = 60 normal Not Available [facility] [address] [place], [place], [address], 03/01/2025 10:46:39 02/29/20 25 03/01/2025 COMPR EHENS EDER METAB OLIC PANEL BUN/creatini ne ratio SEE NOTE: (calc ) 6-22 Not Repor thi: BUN and Creat inine are withi n refer ence range . Not Available [facility] [address] [place], [place], [address], 03/01/2025 10:46:39 02/29/20 25 03/01/2025 COMPR EHENS EDER METAB OLIC PANEL sodium 139 mmol/ L 135-14 6 normal Not Available [facility] [address], [place], [address], 03/01/2025 10:46:39 02/29/20 25 03/01/2025 COMPR EHENS EDER METAB OLIC PANEL potassium 4.8 mmol/ L 3.5-5. 3 normal Not Available [facility] [address], [place], [address], 03/01/2025 10:46:39 02/29/20 25 03/01/2025 COMPR EHENS EDER METAB OLIC PANEL chloride 103 mmol/ L 98-110 normal Not Available [facility] [address], [place], [address], 03/01/2025 10:46:39 02/29/2003/01/2025 COMPR EHENS EDER METAB OLIC PANEL carbon dioxide 30 mmol/ L 20-32 normal Not Available [facility] [place] [facility] [address], [place], [address], 03/01/2025 10:46:39 02/29/2003/01/2025 COMPR EHENS EDER METAB OLIC PANEL calcium 9.7 mg/dL 8.6-10 .3 normal Not Available [facility] [address], [place], [address], 03/01/2025 10:46:39 02/29/2003/01/2025 COMPR EHENS EDER METAB OLIC PANEL protein, total 7.3 g/dL 6.1-8. 1 normal Not Available [facility] [address], [place], [address], 03/01/2025 10:46:39 02/29/2003/01/2025 COMPR EHENS EDER METAB OLIC PANEL albumin 4.5 g/dL 3.6-5. 1 normal Not Available [facility] [address], [place], [address], 03/01/2025 10:46:39 02/29/2003/01/2025 COMPR EHENS EDER METAB OLIC PANEL globulin 2.8 g/dL_ (calc ) 1.9-3. 7 normal Not Available [facility] [address], [place], [address], 03/01/2025 10:46:39 02/29/20 25 03/01/2025 COMPR EHENS EDER METAB OLIC PANEL albumin/glob ulin ratio 1.6 (calc ) 1.0-2. 5 normal Not Available [facility] [employer] [place] [facility] [address], [place], [address], 03/01/2025 10:46:39 02/29/20 25 03/01/2025 COMPR EHENS EDER METAB OLIC PANEL bilirubin, total 0.5 mg/dL 0.2-1. 2 normal Not Available [facility] [place] [facility] [address], [place], [address], 03/01/2025 10:46:39 02/29/20 25 03/01/2025 COMPR EHENS EDER METAB OLIC PANEL alkaline phosphatase 27 U/L 35-144 low Not Available [facility] [employer] [place] [facility] [address], [place], [address], 03/01/2025 10:46:39 02/29/20 25 03/01/2025 COMPR EHENS EDER METAB OLIC PANEL AST 26 U/L 10-35 normal Not Available [facility] [place] [facility] [address], [place], [address], 03/01/2025 10:46:39 02/29/20 25 03/01/2025 COMPR EHENS EDER METAB OLIC PANEL ALT 27 U/L 9-46 normal Not Available [facility] [address], [place], [address], 03/01/2025 10:46:39 05/23/20 24 05/04/2024 MRI, brain , w/wo contr ast No observ ation record ed. Not Available 2023 07:43:31 05/23/2005/03/2024 CT, angio gram, carot id arter ies, w/ contr ast No observ ation record ed. [email or web address] Not Available 2023 07:43:31 05/23/20 24 05/03/2024 CT, head, w/ contr ast No observ ation record ed. [email or web address] Not Available 2023 07:43:32 05/23/20 24 05/03/2024 elect selina rothgr am No observ ation record ed. [email or web address] Not Available 2023 07:43:32 04/04/20 25 04/04/2025 cardi ac stres s test No observ ation record ed. [facility]iology [address], [address], 04/06/2025 08:23:31 04/05/20 25 04/05/2025 US, echoc ardio gram, trans thora cic, compl ete No observ ation record ed. [facility] Cardiology [facility] [address] [place], [address], 04/06/2025 08:23:57 04/05/20 25 04/04/2025 US, duple x, carot id arter y No observ ation record ed. [facility] Cardiology [facility] [address] [place], [address], 04/06/2025 08:24:47 Result Notes None recorded. Problems Name Problem SNOMED Code Status Onset Date Resolution Date Notes Provider Name and Address Organization Details Recorded Time Viral bronchit is [id number] Completed 01/06/2014 GREG Solomon [address] [place] [address], [address], [facility] [employer] 6 13:39:43 Malaise [id number] Completed 06/05/2015 GREG Falcon [address] [place] [address], [address], [facility] [employer] 6 13:39:43 Benign prostati c hyperpla feliciano 161267779 Active Hollie Wakefield CMA [facility], [facility] [employer] 3 07:31:16 Impaired fasting glycemia 949733779 Completed 06/05/2015 GREG Solomon [address] [place] [address], [address], [facility] [employer] 6 13:39:44 Chest pain 84341546 Completed 06/05/[address], [address], [facility] [employer] 4 15:19:36 Sinusiti s 26271577 Completed 06/05/2015 GREG Solomon [address] [place] [address], [address], [facility] [employer] 6 13:39:43 Recurren t sinusiti s 763405627 Completed 04/13/2024 GREG Caballero [address] [place] [address], [address], [facility] [employer] 4 15:18:56 External hordeolu m 6975240 Completed 06/05/2015 GREG Solomon [address] [place] [address], [address], [facility] [employer] 6 13:39:43 Dyspnea 665330733 Completed 06/05/2015 GREG Caballero [address] [place] [address], [address], [facility] [employer] 4 15:17:28 Injury of kidney 52963899 Completed 06/05/[address], [address], [facility] [employer] 6 13:39:44 Upper respirat ory infectio n 41757603 Completed 06/05/2015 GREG Caballero [address] [place] [address], [address], [facility] [employer] 4 15:19:12 Keratosi s 662863200 Completed 04/13/[address], [address], [facility] [employer] 4 15:18:47 Low back pain 456493053 Completed 04/13/2024 GREG Caballero [address] [place] [address], [address], [facility] [employer] 4 15:18:51 Eczema 63317605 Active Hollie Wakefield CMA null, [facility] [employer] 3 07:31:16 Upper respirat ory infectio n 41564042 Completed 04/13/2024 GREG Caballero [address] [place] [address], [address], [facility] [employer] 4 15:19:11 Jaw pain 395929715 Completed 04/13/[address], [address], [facility] [employer] 4 15:18:41 Allergic rhinitis 58821555 Active Hollie Wakefield CMA null, [facility] [employer] [facility] 3 07:31:16 Mixed hyperlip idemia 558192076 Completed 06/05/2015 GREG Solomon [address] [place] [address], [address], [facility] [employer] [facility] 6 13:39:43 Bunion 551038065 Completed 01/06/2014 GREG Falcon [address] [place] [address], [address], [facility] [email or web address] [facility] 6 13:39:43 Chronic pain syndrome 320854501 Completed 01/06/2014 GREG Solomon [address] [place] [address], [address], [facility] [employer] [facility] 6 13:39:43 Hordeolu m 399555234 Completed 01/06/2014 GREG Solomon [address] [place] [address], [address], [facility] [email or web address] [facility] [employer] 6 13:39:43 Dysphagi a 35806022 Completed 01/06/2014 GREG Solomon [address] [place] [address], [address], [facility] [employer] 6 13:39:44 Epigastr ic pain 73564629 Completed 01/06/2014 Teresa Young, [address], [address], [facility] [email or web address] 4 15:17:09 Benign essentia l hyperten andrea 1903309 Active Hollie Wakefield CMA null, [facility] [employer] [facility] 3 07:31:16 Hyperlip idemia 16869053 Active 08/2020 ASCVD 33.3-39. 9% on statin 01/2023 ASCVD 49.7% on statin and follow with cardiolo gy Hollie Wakefield CMA null, [facility] [employer] [facility] 3 07:31:16 Impaired fasting glycemia 683992110 Completed 01/06/2014 Reina Cantu [address], [address], [facility] [email or web address] 6 13:39:44 Primary fibromya lgia syndrome 31049074 Active Hollie Wakefield CMA null, [facility] [employer] [facility] 3 07:31:16 Malaise and fatigue 009378394 Completed 01/06/2014 Reina Cantu [address], [address], [facility] [email or web address] 6 13:39:43 History of arthrode sis 161918242 Completed 04/13/20[address] Teresa Chapman [address], [address], [facility] [email or web address] 4 15:18:16 Dyspnea 685062025 Completed 04/13/2024 Teresa Chapman [address], [address], [facility] [email or web address] 4 15:17:28 Chest pain 71798177 Completed 04/13/2024 Teresa Chapman [address], [address], [facility] [email or web address] 4 15:19:36 Hyperten sive disorder 52115596 Active Hollie Wakefield CMA null, [facility] [employer] [facility] 3 07:31:16 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 104455125 Active Hollie Wakefield CMA null, [facility] [employer] [facility] 3 07:31:16 Coronary atherosc lerosis 673403166 Completed 04/13/[address], [address], [facility] [employer] [facility] 4 15:19:43 High troponin I level 380985071 Completed 04/13/2024 Teresa Chapman, [address], [address], [facility] [employer] [facility] 4 15:17:58 History of spinal fusion 6598382177 9107 Active Hollie Wakefield CMA null, [facility] [employer] [facility] 3 07:31:16 Coronary arterios clerosis 39451484 Active Echo 2022 EF 60% mild LV hypertro phy Mild MV and Tricuspi d regurg no change from 2017 Hollie Wakefield CMA null, [facility] [employer] [facility] 3 07:31:16 Hypothyr oidism 27634918 Active Hollie Wakefield CMA null, [place] [employer] [facility] 3 07:31:16 Degenera tion of lumbar interver tebral disc 81143494 Active Hollie Wakefield CMA null, [facility] [employer] [facility] 3 07:31:16 Rheumato id arthriti s 13331254 Active Hollie Wakefield CMA null, [facility] [employer] [facility] 3 07:31:16 Epigastr ic pain 38259388 Completed 201504/13/[address], [address], [facility] [employer] [facility] 4 15:17:09 Type 2 diabetes mellitus 62728997 Active 2019 with diabetic neuropat hy 0. Hollie Wakefield CMA null, [place] [employer] [facility] 3 07:31:16 Diabetes mellitus 50499060 Completed 201904/13/2024 Teresa Chapman, [address], [place], [address], [facility] [employer] [facility] 4 15:19:57 Second degree atrioven tricular block 485343814 Active 2020 Raad ch. Found in 2019 by [facility]. 02/2021, found to be stable. 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 deposits noted on brain MRI 02/2023 Hollie Wakefield CMA null, [facility] [employer] [facility] 3 07:31:16 Dry eyes 832685328 Active 2023 Reina Cantu, [address], [address], [facility] [employer] [facility] 4 09:04:29 Acid reflux 079562505 Active 2023 Reina Cantu, [address], [address], [facility] [employer] [facility] 4 09:09:30 Forgetfu l 28614458 Active 2023 Reina Cantu, [address], [address], [facility] [employer] [facility] 4 09:09:32 Notes:Some problems listed i n Document: #[id number] could not be added to this patient's chart. Please review this document and add these problems to the patient's chart manually as needed. Problem Notes None recorded. Procedures Surgical History Date Name Laterality Status Provider Name and Address Organization Details Recorded Time 025 cardiac catheterization completed GREG Galindo [address] [place] [address], [address], [facility] [employer] [facility] 10/06/2024 09:02:54 025 Pacemaker/ICD completed GREG Galindo [address] [place] [address], [address], [facility] [employer] [facility] 10/04/2024 07:57:13 023 Telehealth appt via VIDEO or phone time-based E&M completed Jennifer Moyer [address] [place] [address], [address], [facility] [employer] [facility] 04/28/2023 10:17:47 019 cardiac catheterization completed GREG Solomon [address] [place] [address], [address], [facility] [employer] 03/12/2021 08:21:45 014 Cardiac catheterization completed Rachel Talavera MD [address] [place] [address], [address], [facility] 10/07/2013 10:50:22 013 Colonoscopy completed Rachel Talavera MD [address] [place] [address], [address], [facility] 10/07/2013 10:50:22 012 Other completed GREG Galindo [address] [place] [address], [address], [facility] [employer] 12/10/2011 15:16:43 009 Orthopedic Surgery completed GREG Galindo [address] [place] [address], [address], [facility] [employer] 12/10/2011 15:16:43 008 Orthopedic Surgery completed GREG Galindo [address] [place] [address], [address], [facility] 12/10/2011 15:16:43 008 Laparoscopy completed Rachel Santizo, [facility] [address] [place], [address], [facility] 12/10/2011 15:13:31 006 Orthopedic Surgery completed Rachel Santizo , [facility] [address] [place] [address], [address], [facility] 12/10/2011 15:13:31 004 Orthopedic Surgery completed Rachel Santizo , [address], [address], [facility] 12/10/2011 15:16:43 002 Laparoscopy completed Rachel Santizo, [address], [address], [facility] 12/10/2011 15:13:31 956 Appendectomy completed Rachel Talavera MD [address] [place] [address], [address], [facility] 10/07/2013 10:50:22 EGD completed Rachel Santizo, [address], [address], [facility] 12/10/2011 15:13:31 Imaging Results None [...] Available No t Available vitamin d cap [id number] active Not Available Not Available Not Available [...] de 25 mcg (0.025 %) nasal spray [place] 2 sprays twice a day by intranas [...] Veramyst 27.5 mcg/actua tion nasal spray,neeraj pension [place] 2 sprays every day by intranas al route. 03/07 completed Not Available Not Available Not Available ranolazin e ER 1,000 mg tablet,ex tended release,1 2 hr 02/02 completed Not Available Not Available Not Available [place] 3-6-9 (with lipase) 40 mg-60 mg-10 unit [...] Available Not Available Not Available Fluad Quad [id number] (65yr up)(PF) 60 mcg (15 mcg x 4)/0.5mL IM syringe PHARMACY ADMINIST ERED 08/31 completed Not Available Not Available Not Available Pfizer- oNTech COVID-19 Vaccine (PF) 30 mcg/0.3 mL IM susp (purple) ADMINIST ER 0.3ML IN THE MUSCLE DIRECTED 08/31 completed Not Available Not Available Not Available Vitals Date Recorded Body mass index (BMI) Body weight Provider Name and Address Organization Details Last Updated DateTime 05/10/2024 24.2 kg/m2 37021.18 g Fani Chew, [address], [address], [facility] [employer] [facility] 05/10/2024 10:23:30 Date Recorded Body height Body temperature Heart rate Oxygen saturation Systolic And Diastolic Provider Name and Address Organization Details Last Updated DateTime 4 173.36 cm 99.2 [degF] 41 /min 95 % 142/64 mm[Hg] Amy Blackwell [facility] [employer] 10:13:33 Social History Question Answer Notes LastModified by Organizat ion Details LastModified Time Tobacco Smoking Status Never Smoker 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 Yes Information not available 06/14/2013 Are You Blind Or Do You Have Difficulty Seeing? No Information not available 03/12/2021 What Is Your Level Of Caffeine Consumption? Occasional 1 Cup Of Coffee/week [email or web address] Information not available 05/10/2024 How Much Tobacco [...] Drugs No Information not available 06/05/2020 Language Danish Information no t available 03/07/2016 Country Of Origin [facility] Information not available 03/07/2016 Dietary Regular Information no t available 03/07/2016 Marital Status [email or web address] Informatio n not available 12/08/2011 What Was The Date Of Your Most Recent Tobacco Screening? 05/10/2024 [email or web address] Information not available 05/10/2024 How Many Children [...] History Condition Response Cardiac History, Heart Murmur, CO Y Chronic Pain Y Arthritis Y Blood Pressure High or Low Y Immunizations Vaccine Type Date Status Note Provider Chris Address Organization Details Recorded Time Influenza, MDCK, quadrivalent, preservative 7 completed Not Available [facility] 06/11/2019 02:39:49 Influenza, MDCK, quadrivalent, preservative 8 completed Not Available [facility] 06/11/2019 02:40:35 Influenza, MDCK, quadrivalent, preservative 9 completed Not Available [facility] 06/11/2019 02:41:37 Influenza, MDCK, quadrivalent, preservative 1 completed Vic Live RN null, [facility] 03/19/2021 09:10:23 zoster recombinant 1 completed Vic Live RN [facility], [facility] 04/30/2021 14:54:36 COVID-19, mRNA, LNP-S, PF, 30 mcg/0.3 mL dose, maritza-sucrose 2 completed Michael Dickens [address] [place] [address], [address], [facility] 10/08/2021 15:40:50 Td (adult), 2 Lf tetanus toxoid, preservative free, adsorbed 2 completed Carito Menendez CMA [facility], [facility] 10/09/2021 08:18:50 Influenza, split virus, quadrivalent, PF 2 completed La Hickman RN [address] [place] [address], [address], [facility] 03/21/2022 13:46:25 COVID-19, mRNA, LNP-S, bivalent, PF, 30 mcg/0.3 mL dose 2 completed Bette Yao [address] [place] [address], [address], [facility] 05/21/2022 10:41:32 Influenza, split virus, quadrivalent, PF 3 completed La Hickman RN [address] [place] [address], [address], [facility] 03/11/2023 11:08:35 Tdap 2 completed Not Available [facility] 06/11/2019 02:40:05 RSV, recombinant, protein subunit RSVpreF, adjuvant reconstituted, 0.5 mL, PF 4 completed GREG Solomon [address] [facility], [place], [address], [facility] 05/27/2023 09:25:56 Influenza, split virus, trivalent, PF 4 completed Jennifer Moyer [address] [place], [address], [facility] 03/11/2024 11:18:14 Influenza, split virus, trivalent, preservative 3 completed Not Available [facility] 06/11/2019 02:38:29 Influenza, split virus, trivalent, preservative 4 completed Not Available [facility] 06/11/2019 02:38:39 Influenza, split virus, quadrivalent, preservative 0 completed BIPIN Chowdhury, [facility] [employer] [facility] 09/11/2023 10:29:49 COVID-19, mRNA, LNP-S, PF, 30 mcg/0.3 mL dose 1 completed BIPIN Chowdhury, [facility] [employer] [facility] 03/18/2023 07:31:17 COVID-19, mRNA, LNP-S, PF, 30 mcg/0.3 mL dose 1 completed BIPIN Chowdhury, [facility] [employer] [facility] 03/18/2023 07:31:17 COVID-19, mRNA, LNP-S, PF, 100 mcg/0.5mL dose or 50 mcg/0.25mL dose 1 completed BIPIN Chowdhury, [facility] [employer] [facility] 03/18/2023 07:31:17 Pneumococcal conjugate PCV 13 8 completed BIPIN Chowdhury, [facility] 03/18/2023 07:31:17 Tdap 2 completed Not Available [facility] 06/11/2019 02:40:18 Td(adult) unspecified formulation 1 completed BIPIN [place], [place] [facility] 03/18/2023 07:31:17 Influenza, adjuvanted, quadrivalent, PF 0 completed BIPIN [place], [place] [facility] 09/11/2023 10:29:49 Influenza, split virus, trivalent, preservative 2 completed Not Available [facility] hospital 06/11/2019 02:38:27 Past Encounters Encounter ID Performer Location Encounter Start Date Encounter Closed Date Diagnosis/Indication Diagnosis SNOMED-CT Code Diagnosis ICD10 Code Diagnosis IMO Codes Diagnosis Note [id number] Rachel Santizo [address] [address] 12/08/2011 10:32:39 12/08/2011 11:42:43 [id number] Rachel Santizo [address] [address] 01/07/2012 07:18:06 01/07/2012 08:27:42 [id number] Rachel Santizo [address] [address] 02/25/2012 08:52:31 02/25/2012 10:19:59 [id number] Rachel Talavera MD [address] [address] 07/19/2012 09:54:54 07/19/2012 10:37:39 [id number] Reina Cantu [employer] [address] [address] 10/22/2012 07:54:28 10/22/2012 08:49:20 [id number] Reina Cantu [employer] [address] [address] 11/03/2012 08:23:38 11/03/2012 09:11:30 [id number] Rachel Talavera MD [address] [address] 03/14/2013 09:10:37 03/14/2013 09:27:51 Influenza vaccine needed [id number] Rachel Talavera MD [address] [address] 06/14/2013 11:04:46 06/14/2013 12:08:42 Coronary arteriosclerosis [id number] continue meds as recommende d [facility] Benign ess ential hypertension 2194198 BP contol [place] Hyperlipidemia 22234643 wo uld keep him on the fenofibrat e plus statin Impaired f asting glycemia 340103645 a1c was 6.3 prediabete s present Hypothyroidism [id number] [id number] Anahi Vivar RDN, LDN [address] [address] 07/14/2013 09:56:31 07/14/2013 11:59:29 Coronary arteriosclerosis 46615594 Mixed hyperlipidemia 578909718 Benign ess ential hypertension 6928650 Hyperlipidemia 94810451 Impaired f asting glycemia 070599243 [id number] Rachel Talavera MD [address] [address] 5 08/05/2013 10:13:37 08/05/2013 10:56:45 Coronary arteriosclerosis 41752856 reviewed records from 06/28/13 Benign ess ential hypertension 6666628 BP contol [place] Hyperlipidemia 38938001 li pid results were quite low Degenerati on of lumbar intervertebral disc 80181712 might benefit from aquatic rx but declines referral at this time Rheumatoid arthritis 21229175 stable on no meds [id number] Anahi Vivar RDN, LDN [address] [address] 08/11/2013 09:55:30 08/11/2013 11:41:19 Hyperlipidemia 21282261 Impaired f asting glycemia 941756792 Mixed hyperlipidemia 548148144 [id number] Rachel Talavera MD [address] [address] 5 10/07/2013 07:22:10 10/07/2013 11:08:28 Viral bronchitis 10544833 likely viral usual recs Malaise 313535869 doubt Lyme, tick bites at least 3 weeks ago so will test also TSH and CBC [id number] Rachel Talavera MD [address] [address] 01/06/2014 09:56:19 01/06/2014 10:41:12 Malaise 917987512 may be related to sleep issues trial trazodone seems worthwhile side effects discussed Hyperlipidemia 91674568 li pid results were quite low Benign pro static hyperplasia 549281867 likely trial Javier Conteetto will contact me if ineffectiv e will check prostate on annual exam Coronary arteriosclerosis 54540234 I do not suspect significan t angina he will contact me if any change declined an EKG today will be seeing Dr Prasad next mo [id number] Reina Cantu [employer] [address] [address] 03/14/2014 13:35:22 03/14/2014 14:07:32 Influenza vaccine needed [id number] 106 [id number] Bonifacio Garduno MD [address] [address] 5 07/28/2014 09:54:54 07/28/2014 10:23:23 Sinusitis 23845345 Patient with 1.5 weeks of URI symptoms with initial improvemen t, then developing left facial and teeth pain. Exam with focal left maxillary sinus tenderness , concerning of acute bacterial infection. Will treat at this time. Advised against oral decongesta nts 2/2 cardiac history. Return precaution s given. [id number] Bonifacio Garduno MD [address] [address] 5 08/23/2014 10:53:25 08/23/2014 11:35:37 Recurrent sinusitis 316484232 Treated 3/ for bacterial sinusitis with 5 days of [...] proceed with CT sinuses and ENT referral. [id number] Allyssa Pearson MD [address] [address] 5 01/16/2015 09:30:58 01/16/2015 10:32:31 External hordeolum 0896182 [id number] Bonifacio Garduno MD [address] [address] 5 01/30/2015 14:24:13 01/30/2015 14:49:34 External hordeolum 2866078 Left eye x 2 weeks ~1cm, Right eye x 1-2 days, <0.5cm. No sign of superinfec tion. Patient did not use compresses as directed. -Cont abx treatment to both eyes -Trial zyrtec for itching and potential allergic component. -Warm compresses QID until improved. -If no relief in 2-4 more weeks consider Optho referral for surgical drainage or intralesio n steroid injection. [id number] Allyssa Pearson MD [address] [address] 05/29/2015 10:22:32 05/29/2015 11:25:04 Dyspnea 533119652 R06.00 Injury of kidney 5817477 3 S37.009A Upper resp iratory infection 21362051 J06.9 [id number] Rachel Talavera MD [address] [address] 06/05/2015 13:27:43 06/05/2015 14:08:12 Keratosis 024915120 L57.0 The one on his temples likely seborrheic but he wants Dr. Molina to check it. Low back pain 288713548 M54.5 Usual exercise regimen recommende d. Eczema 46830029 L30.9 Fairly significan t area about 4 cm across with some central clearing that is thickened. As he has itching will give him a potent triamcinol one cream to apply twice a day, and follow-up will be here or with Dr. Molina. Coronary arteriosclerosis 01647980 I25.10 Seems under control at this time on current medication s. Degenerati on of lumbar intervertebral disc 13279024 M51.36 Hyperlipidemia 15688400 E78.5 Had concerns about elevated triglyceri de we discussed diet and he has already had recommenda tions from nutrition on this and he understand s he needs to cut back on carbohydra jesus but I did not feel it was of concern. [id number] Rachel Talavera MD [address] [address] 06/25/2015 11:06:12 06/25/2015 11:53:13 Upper respiratory infection 87583639 J06.9 I told him that I did not think antibiotic s are indicated that should resolve on its own I encouraged using vitamin C supplement s zinc fluids etc. He will call me if he is not improving over the next week. [id number] Allyssa Pearson MD [address] [address] 08/14/2015 13:18:48 08/14/2015 14:00:09 Jaw pain 027871473 R68.84 Allergic rhinitis 953100 04 J30.9 [id number] Allyssa Pearson MD [address] [address] 2016 13:52:04 2016 14:33:04 Cellulitis 460688168 L03.90 Area explored for FB and none found. Area washed with soap and water and bacitracin and DSD applied. Wound marked for comparison . Tdap 2011 Fatigue 97002651 R53.83 Some basic fatigue labs. Dr. Talavera and follow from here if she wishes to pursue further studies. [id number] Bonifacio Garduno MD [address] [address] 01/30/2016 10:15:04 01/30/2016 10:48:44 Cellulitis 940799446 L03.90 Left forearm cellulitis resolving on bactrim. Advised to complete course. Small subcutaneo us nodule remains, mildly tender. If persistent or worsening consider U/S. Lymph node v. reactive tissue v. embedded foreign body. Low back pain 560057857 M54.5 Bilateral intermitte nt iliac crest pain. Not SI joint. Long history of back surgery and loss of lumbar lordosis. Patient is going to check already ordered labs. Was told at one time not to take NSAIDs due to his heart, unclear reasoning at this time. He will discuss with his PCP. [id number] GREG Solomon [address] [address] 03/07/2016 10:28:08 03/07/2016 11:32:21 Atypical facial pain 46323101 G50.1 I think that this may be allergies, because this is the 3rd year in the early fall he has had it. He may have contact dermititis on eye lids. Avoid rubbing. Conjunctivitis 4362730 H 10.9 Will treat for conjunctiv itis of the left eye Allergic rhinitis 299592 04 J30.9 Supportive measures and will try the name brand here to try to reduce histamine filled tears from running down nose to improve nasal/faci al symptoms. If insurance will not cover it, will use another nasal steriod. He did report improvemen t last time. Netti pot as well. Addendum: Veramyst not covered, so sent in fluticason e nasal spray [id number] Bonifacio Garduno MD [address] [address] 03/18/2016 13:50:35 03/18/2016 14:49:51 Jaw pain 862376495 R68.84 encouraged gum and sucking use for stretching masseter muscles. We will refer him to ENT and dental for likely TMJ. It is only on the left side. May be arthritic changes secondary to old trauma. Unsure of its etiology or why it occurs only in the fall. [id number] Bonifacio Garduno MD [address] [address] 06/13/2016 11:01:40 06/13/2016 12:00:40 Acute sinusitis 06345408 J01.90 I think this is reactivati on of his sinusitis. He is going to call Dr. Jane and move his appointmen t up. Supportive measures. [id number] Bonifacio Garduno MD [address] [address] 07/01/2016 09:43:35 07/01/2016 10:28:11 Chronic sinusitis 32602917 J32.[address] Alonso. He will get records from Dr. Jane. Same supportive measures. Will treat for 14 days with antibiotic and probiotics . Discussed the diarrhea risk. [id number] Allyssa Pearson MD [address] [address] 5 12/24/2016 07:58:17 12/24/2016 09:13:33 Coronary arteriosclerosis 98621459 I25.10 will get another EKG today to make sure there are no changes. Note prolonged abel. If he has another episode, use NTG and go to ED. He will try the BB at night to reduce symptoms. Chest pain 06231995 R07. 9 Negative work up in ED. Will follow with cardiology next week. [id number] Rachel Talavera MD [address] [address] 12/29/2016 13:30:53 12/29/2016 14:27:07 Chest pain 61636792 R07.9 I suspect the cardiogram done on December 24 had the wrong lead placement and should be discarded. There are no changes in his recent cardiogram and he says he feels well without recurrent episodes of chest pain different from baseline. [id number] Bonifacio Garduno MD [address] [address] 03/18/2017 10:23:17 03/18/2017 10:49:40 Administration of influenza vaccine 90614160 Z23 [id number] Allyssa Pearson MD [address] [address] 04/10/2017 12:20:02 04/10/2017 13:07:21 Contact dermatitis 42572061 L25.9 Likely a contact dermatitis on his left hand. Suggest he throw away his work gloves. Use the cream bid, avoid getting it on his face-so get a white cotton glove for the left hand. Will follow in 2 weeks. [id number] Rachel Talavera MD [address] [address] 05/26/2017 10:57:19 05/26/2017 11:21:43 Cough 71956345 R05 Discussion , doubt antibiotic s indicated, codeine for cough, if not improving over the next week he will contact me. Benign ess ential hypertension 3366523 I10 BP contol OK Coronary arteriosclerosis 51772942 I25.10 Followed by cardiology [id number] Rachel Talavera MD [address] [address] 5 06/02/2017 14:26:10 06/02/2017 15:10:32 Low back pain 342719396 M54.5 using Tylenolsho uld improve Recurrent sinusitis 1957 40526 J32.9 Agree to give a course of antibiotic s, he will contact us if he is not improving. [id number] Rachel Talavera MD [address] [address] 07/16/2017 10:00:08 07/16/2017 10:40:41 Right flank pain 188218432 R10.9 Negative dipstick, will send urine and order an ultrasound of the kidney to look for cause of his pain. He says he is going to use Tylenol for pain and did not request anything else. Encourage fluids, straining urine etc. He will contact us if he is not improving. Degenerati on of lumbar intervertebral disc 25340628 M51.36 Results of MRI pending, he will contact us about recommenda tions. [id number] Allyssa Pearson MD [address] [address] 07/28/2017 10:55:44 07/28/2017 11:43:44 Herpes zoster 1330554 B02.9 Will treat with gabapentin and Shingles cream from [employer]. Discussed side effects. No driving or use of tractor. RTO as noted SChedule written out for pt.. [id number] Allyssa Pearson MD [address] [address] 5 08/19/2017 08:13:39 08/19/2017 08:49:11 Herpes zoster 8720422 B02.9 He is decreasing his dose of gabapentin . Currently 300 mg tid. Will decrease next week to 300/0/300 mg, then 0/0/300mg, then finally stop. They dose changes can be 5-7 days apart. Continue using the cream . Shingrix in November. [id number] Allyssa Pearson MD [address] [address] 09/11/2017 08:59:22 09/11/2017 10:06:21 Dyspnea 752353071 R06.00 Coronary arteriosclerosis 60851051 I25.10 will get another EKG today to make sure there are no changes.09 35 hrs: 0.4 mg NTG BI3922 hrs: 110/80-68- pt feels much better-SOB resolved. NO CP -slight lightheade dwrup4841 hrs: 124/80-64- Spoke to Dr. Crowley of cardiology . Discussed the case with him and wants the patient transferre d to ED. Discussed case with patient and . Pt refuses EMS. will bring pt to ED. Staff called report to [facility]. copies of VS and EKG given to .0955 hrs: 122/84-641 000 hrs 124/82-65 Pt will f/u here upon release from [facility] [id number] Allyssa Pearson MD [address] [address] 5 09/30/2017 10:42:34 09/30/2017 11:48:17 Acute sinusitis 85055567 J01.90 Will treat move aggressive ly for [...] but will schedule after the cardiac cath [id number] Rachel Talavera MD [address] [address] 5 02/24/2018 14:11:49 02/24/2018 15:15:04 Pruritic rash 30361383 L28.2 Will refer to Derm. He will get us the name of the Derm he wants to see Influenza vaccine needed 0099048790 106 Z23 flu today Active or passive immunization 575127407 Z23 PCV 13 ordered. Discussed immunizati ons in detaio. Hypothyroidism 82001372 E03.9 will check labs as part of the fatigue work up Fatigue 51040195 R53.83 I believe his fatigue is multi-fact [...] his experience with the cardiology office in [place] . I am sorry for that. Always sleepy 826921803 G47.10 [id number] Reina Pepe, [address] [address] 03/30/2018 10:43:25 03/30/2018 16:13:24 Acute sinusitis 37652925 J01.90 He should continue his claritin daily and should restart his flonase. Will treat for sinusitis, he has a cardiac procedure scheduled for Thursday and it is important he can tolerate it.Discuss ed supportive care measures including saline nasal spray, steam therapy, warm compresses . [id number] Reina Cantu [employer] [address] [address] 5 04/13/2018 10:09:49 04/13/2018 10:45:16 Acute sinusitis 26885009 J01.90 He should continue his claritin daily. Will treat for sinusitis, he has a cardiac procedure scheduled for Thursday and it is important he can tolerate it.Teachdavid g included netti pot use. Discussed supportive care measures including saline nasal spray, steam therapy, warm compresses . [id number] Rachel Talavera MD [address] [address] 04/27/2018 08:55:21 04/27/2018 15:37:10 Chronic sinusitis 94624378 J32.[address] Alonso, has seen him in the past. Same supportive measures, continue claritin and mucinex OTC. Benign ess ential hypertension 0508860 I10 His BP is elevated at this visit. Pt reports seeing cardiology yesterday who increased his medication , suspect his Isosorbide . No further medication changes at this time, will microbial specialist note when available. Close follow-up. Discussed cardiovasc ular risk re: HTN. Continue TLC: low sodium diet, exercise as tolerated, medication adherence. [id number] Allyssa Pearson MD [address] [address] 11/09/2018 10:51:51 11/09/2018 11:30:53 Tick bite 65407759 W57.XXXA -will cover for the tick bite-he will be out on the tractor if the weather clears, so will try Ceftin-he will let u know if he develops a fever and body aches [id number] Allyssa Pearson MD [address] [address] 02/02/2019 10:41:20 02/02/2019 11:15:41 Osteoarthritis of hip 657100182 M16.9 -prednison e burst for pain-STAT referral back to Ortho-topi francis CBD cream and heat.-RTO as noted [id number] Hi Padron MD [address] [address] 03/09/2019 10:56:54 03/09/2019 11:17:21 Influenza vaccine needed 8943905413 106 Z23 [id number] Allyssa Pearson MD [address] [address] 5 10/28/2019 09:24:37 10/28/2019 10:39:02 Myalgia/myositis - multiple 711918704 M79.10 -multiple concerns for the cramps-antony k related, began before fall, but after first-also concerned because he is on a statin and fibrate-RL S is also a possibilit y-will also check electrolyt es,etc-uri ne looks good, will send for study-labs as noted Pseudomeningocele 891698 005 G96.19 -will have hime f/u with NS Dyslipidemia 079648390 E 78.5 -will check his lipid panel Backache 838098550 M54.9 -XRs for occult fx-he will not get the muscle relaxers until labs back Anemia screening 5905184 07 Z13.0 Lead screening 79099620 Z13.88 Dysuria 16327098 R30.9 -will check urine [id number] Allyssa Pearson MD [address] [address] 06/05/2020 14:11:56 06/05/2020 14:54:15 Screening for malignant neoplasm of prostate 035816477 Z12.5 -it has been several years since he has had a PSA. -will check given c/o Type 2 melissa betes mellitus without complication 562546109 E11.9 -he is due for labs Dysuria 93500837 R30.9 -will check urine - will bring in to the office in the AM. -will do urine dip, u/a and urine culture. --if all testing looks good, will consider tamsulosin [id number] Allyssa Pearson MD [address] [address] 06/20/2020 12:43:25 06/20/2020 13:25:14 Benign prostatic hyperplasia 556072938 N40.1 -Will try to increase the dose and have him split it to BID as daytime is the worse -it has improved night time some; down to twice nightly -will have him let me know in about 2 weeks -if not improved, consider referral -given his cardiac hx, am concerned about using other meds without speciality consultati on. [id number] Allyssa Pearson MD [address] [address] 07/10/2020 07:17:49 07/10/2020 08:14:30 Respiratory tract congestion and cough 667382275 R05 - from his descriptio ns, he [...] allergy component . Gastroesop hageal reflux disease 874780540 K21.9 -the burping and flatus, could be isolated, or it may relate to the the cold/aller gies he is experienci ng -it also may be food related -will give him a trial of famotidine to see if that calms down the acid. Benign pro static hyperplasia 609164767 N40.1 -much improved -no further treatment for now -PSA WNL [id number] Allyssa Pearson MD [address] [address] 07/20/2020 11:53:49 07/20/2020 12:58:48 Chronic sinusitis 25867953 J32.9 -Antibioti cs x 21 days -Netti pot -Align 2 tabs bid while onantibiot ics, but not taken at same time of day at antibiotic s -Will not improved, discussed that pt may need to go back to ENT; Dr. Alonso or other ENT of his choice. -Pt agrees -RTO as noted [id number] GREG Solomon [address] [address] 08/08/2020 08:33:43 08/08/2020 09:05:25 Chronic sinusitis 75618378 J32.9 -Augmentin not helpful -will try 7 days of doxycyline -referral to ENT -CT of sinus -fluticaso ne nasal spray -discussed his know pathology in detail; he has turbinate hypertroph y, deviated septum and chronic sinusitis. Dr. Alonso wanted surgery in 2019 and he did not want it. I am afraid it is getting worse -will check in in about 10-14 days [id number] Allyssa Pearson MD [address] [address] 08/31/2020 10:46:41 08/31/2020 14:43:12 Dysuria 54557254 R30.0 -will check urine - will bring [...] Type 2 melissa betes mellitus without complication 424519462 E11.9 [id number] Ellen Vides, [employer] [address] [address] 10/10/2020 07:47:22 10/10/2020 09:57:24 Vertigo 601644344 R42 resolved continue meclizine at night to avoid daytime fatigue Dysfunctio n of eustachian tube 95097158 H69.[address] of the head in July with mild paranasal sinus disease, nom other significan t intracrani al findings Still has middle ear fluid on the left Discussed with patient the sound conduction of inner ear fluid, and why the heartbeat sounds resolved when fluid drains He will continue nightly meclizine for another week to ensure this fully drains Allergic rhinitis 674898 04 J30.9 Continue daily fluticason e and loratidine Follow up with ENT Coronary arteriosclerosis 69103360 I25.10 January follow up with cardiology scheduled EKG in the office today is normal ED precaution s reviewed [id number] Reina Cantu, [employer] [facility] [address] [place] [address] 03/12/2021 07:43:35 03/12/2021 09:12:29 Cardiac arrhythmia 026521932 I49.9 -Heart rhythm is irregular- will check EKG and send it with him to cardiology -he will check about blood thinner with cardiology at pre-op visit-EKG appears to be in a block* called [facility] and they got him in to their [facility].* It appears , He has 2nd degree heart block Type I since at least 2019, but we did not know* Their EKG matched ours and they deemed him stable_he will continue with the appt for clearance on 03/18/21-h e is a high surgical risk Hyperglycemia 74823580 R 73.9 -labs done too soon for surgery-wi ll repeat in early March Fatigue 52528930 R53.83 -check CBC Hypothyroidism 34137572 E03.9 will check labs as part of the fatigue work up Easy bruising 142611134 R58 -repeat labs Pain of to e of left foot 4875028275 29027 M79.675 -BETH risk is 1.8 %-definite ly needs cardiology clearance, which is scheduledg ave him list of meds to hold:Cardi ology will advise on ASA and PLAVIXLova za 7 days priorMetfo rmin 48 hrs prior to surgery, day of surgery and 48 hrs after surgery Coronary arteriosclerosis 38697035 I25.10 -Pt has 12 stents, of which 7 are in the LAD-he is followed by cardiology closely-he is a high surgical risk Diabetes mellitus 559498 09 E13.42 -hemoglobi n A1C 6.3-contro lled on oral medication s and lifestyle modificati ons Benign ess ential hypertension 1742888 I10 -BP 122/80 today-he is taking his medication s Hyperlipidemia 11905001 E78.5 -Lipids as of 08/2020, his ASCVD risk was 33-39%-he is on a statin-he follows with cardiology Chronic sinusitis 610354 00 J32.9 -currently receiving treatment for sinusitis- he has a nasal polyp and mucosal thickening that leads to recurrent episodes of sinusitiso n Augmentin beginning 03/08/2021 [id number] Hi Padron MD [address] [address] 03/19/2021 08:54:43 03/19/2021 09:10:57 Influenza vaccine needed 3506201910 106 Z23 [id number] GREG Solomon [address] [address] 04/30/2021 14:21:11 04/30/2021 14:56:53 Administration of viral vaccine 57411284 Z23 [id number] Anabell Chaudhary DNP, [employer] [address] 05/27/2021 08:09:34 05/27/2021 10:29:24 Suspected COVID-19 513520925 Z03.531 [id number] GREG Solomon [address] [address] 06/21/2021 07:26:05 06/21/2021 08:00:16 Dysfunction of eustachian tube 51300532 H69.92 -discussed in detail-bill d out given-he already has the meds at home-discu ssed the use of heat, massage and sucking on candy-if not better 7-10 days, he will let us know Benign ess ential hypertension 5849617 I10 -BP at goal-doing well with meds 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 Floaters i n visual field 608485248 H43.399 It also could be retinal so I suggested to him seeing ophthalmol jeremy and he has agreed. [id number] Hi Padron MD [address] [address] 10/08/2021 15:35:38 10/08/2021 16:42:11 Administration of SARS-CoV-2 antigen vaccine 198561012 Z23 Patient monitored for <5 min, no hx adverse reactions to previous COVID vaccinatio ns. No adverse reactions noted. Patient tolerated injection well. Common side effects reviewed and vaccinatio n card with patient info sheet given. Patient demonstrat es understand ing that optimal immunity following booster dose occurs at 10-14 days. COVID immunizati on series is complete at this time [id number] GREG Solomon [address] [address] 10/09/2021 07:26:54 10/09/2021 08:15:34 Cellulitis 677764838 L03.90 -area washed with soap and water-bact ericin applied-an tibiotics both topical and oral-juhi rned about infection given his T2DM and age-direct ions given-soak foot 3x daily-Td update today-RTO if it worsens Administra tion of diphtheria and tetanus vaccine 32299723 Z23 -given today [id number] GREG Solomon [address] [address] 11/19/2021 07:10:49 11/19/2021 08:01:06 Insect bite reaction 891440003 T63.481A -3 days of steriod-to pical benadryl spray-sun screen-lianet id further exposure=w atch for signs fo inections; redness, swelling, d/c fever, etc [id number] Hi Padron MD [address] [address] 03/06/2022 08:31:59 03/06/2022 09:23:21 COVID-19 892519310 U07.1 resolving symptoms of covid 19should delay any vaccine booster for 90 days after getting antibody infusion Postviral cough 44613651 4 R05.3 continue benzonatat ewarned it could be present for a few months [id number] Allyssa Pearson MD [address] [address] 03/13/2022 11:09:51 03/13/2022 14:57:29 Acute sinusitis 77050417 J01.90 [id number] Ellen Vides [employer] [address] [address] 5 03/21/2022 13:24:41 03/21/2022 13:49:24 Influenza vaccine needed 5948615266 106 Z23 [id number] Reina Cantu [employer] [address] [address] 05/21/2022 10:31:24 05/21/2022 10:45:51 Administration of SARS-CoV-2 antigen vaccine 054449052 Z23 Patient monitored for <5 min, no hx adverse reactions to previous COVID vaccinatio ns. No adverse reactions noted. Patient tolerated injection well. Common side effects reviewed and vaccinatio n card with patient info sheet given. Patient demonstrat es understand ing that optimal immunity following booster dose occurs at 10-14 days. COVID immunizati on series is complete at this time [id number] GREG Solomon [address] [address] 06/06/2022 07:40:06 06/06/2022 08:13:01 Osteoarthritis 959481474 M19.90 -warm water exercises- steriod burst-decl miky [facility] f/u-Ortho can't do much-wear mitten and use hand warmers-wi ll call if nto resolved [id number] GREG Solomon [address] [address] 08/29/2022 07:27:23 08/29/2022 10:07:27 Hypertensive emergency [id number] 56806 I16.1 -likely 2/2 medication given by dentist-he is following with Dr. 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 from Plavix-ele ology unknown-he will follow with Neuro [id number] GERG Solomon [address] [address] 09/05/2022 10:27:20 09/05/2022 10:28:10 [id number] GREG Solomon [address] [address] 09/05/2022 10:30:07 09/05/2022 11:37:34 Diarrhea 16106893 R19.7 -will check stools for infection and blood-cups and forms given to pt-discuss ed how to do testing Abdominal pain 27504610 R10.9 -unsure of etiology of the cramping, diarrhea and back pain-will get CT abdomen/pe lvis-to ED for CP/SOB , fever or severe pain Angina pectoris 12770488 0 I20.9 -he needed a new RX Pain of left eye 6596773 001 81033 H57.12 -will have [facility] see him-To ED for vision loss [id number] GREG Solomon [address] [address] 09/16/2022 07:08:28 09/16/2022 07:40:14 Abdominal pain 36866648 R10.9 -completel y resolved-l ikely viral or lactose intoleranc e in origin-drew l cancel CT-he will let me know how he is doing. [id number] GREG Solomon [address] [address] 02/11/2023 08:27:54 02/11/2023 09:21:51 Chronic insomnia 548927366 F51.04 -melatonin trial for sleep-thin k there is a component of anxiety about the cerebral aneurysm that is keep him awake.-cou ld also increase the duloxetine .-reached out to Eula Hernandez for other sleep med ideas and/or other ideas to try to enhance sleep Nasal infection 85272633 3 J32.9 -will try mupirocin topically Allergic rhinitis 557473 04 J30.9 -fluticaso ne nasal spray 2 puffs once daily-ceti rizine 10 mg once daily-disc ussed supportive measures of heat, gum chewing, etc-reassu red him that it would resolve as weather changes Hypothyroidism 62587373 E03.9 will check labs as part of the fatigue work up Dyslipidemia 074190308 E 78.5 -will up date labs Vitamin D deficiency 347 08138 E55.9 -will check Vit D Screening for malignant neoplasm of prostate 321057788 Z12.5 -given his complaint of frequent urination (understan ding that the steriod is the big issues now, will check PSA [id number] GREG Solomon [address] [address] 03/18/2023 07:29:22 03/18/2023 08:18:04 Bilateral hearing loss 34803477 H91.93 -discussed in detail-drew burch refer him back to ENT-Encour aged him not to buy OTC hearing aids, as they may not work for him Memory impairment 583822 006 R41.3 -also discussed the uncertaint y of not hearing conversati on vs. not rememberin g, v anxiety-ex plained normal memory loss-rwill refer back to [facility] for evaluaton Anxiety 04292192 F41.9 -discussed in detail-dis cussed the physiology of anxiety as well-he agreed to try sertraline -will watch for increased bruising Allergic rhinitis 374216 04 J30.9 -fluticaso ne nasal spray 2 puffs once daily-ceti rizine 10 mg once daily-Pata day or [place] eye drops and follow package directions -likely resolve with strong [place] [id number] Hi Padron MD [address] [address] 03/11/2023 10:50:59 03/11/2023 11:31:01 Influenza vaccine needed 7366452705 106 Z23 [id number] Reina Cantu [employer] [address] [address] 04/28/2023 10:14:25 04/28/2023 11:49:12 Burping 615365529 R14.2 -will add famotidine 20 mg bid to the PPI x 1 mos-he can add milk or milk products-e at slowly and chew the food-stay upright after eating-silvia e probiotics 1 tab bid [id number] GREG Solomon [address] [address] 05/27/2023 08:24:48 05/27/2023 10:16:14 Dry eyes 680128855 H04.123 -will refer to [facility].-he can call for appt.-He will let us know how the eye drops are doing. If still having issues, he will help with an appt.-will check for other disease entities that have dry eye has a symptom Anxiety 10355069 F41.9 -discussed in detail-dis cussed that the fatigue may be a side effect of the medication -it should improve with time Hyperglycemia 87321101 R 73.9 -last labs Jan 2023-will repeat Malaise and fatigue 2717 68514 R53.83 -will check for any inflammati on Primary fi bromyalgia syndrome 06598105 M79.7 -will check for occult cause of both his fatigue and dry eye Administra tion of viral vaccine 55779688 Z23 -RSV today Aneurysm 987380821 I72.9 -2.4 mm aneurysm anterior [place]-saw NS at [facility]-n o interventi on needed- it is a source of much anxiety for him Forgetful 91438835 R41.3 -reassured by Dr. Smith-w ill see her in one year Acid reflux 551384757 K2 1.9 -resolved with famotidine -will drop one dose, then the 2nd in two weeks-can use prn for highly spiced or high acid foods [id number] Hi Padron MD [address] [address] 09/09/2023 09:22:12 09/09/2023 10:17:39 Suspected COVID-19 508421999 Z20.822 Influenza- like illness 05576143 B34.9 [id number] Reina Cantu [employer] [address] [place] [address] 09/11/2023 10:20:39 09/11/2023 11:08:26 Acute sinusitis 80848887 J01.90 -Netti pot-Aste-p ro, start with one puff-cetir izine-use those treatments first; if in 4-5 more days he is not better, 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 and use them Tick bite 16513041 W57.X XXA -will cover for the tick bite-he will be out on the tractor if the weather clears,-he will let u know if he develops a fever and body aches-inst ructed him to call here for tick bites [id number] GREG Solomon [address] [address] 10/06/2023 07:09:01 10/06/2023 08:33:13 Fatigue 66422052 R53.83 -will update labs-may be able to increase levothyrox ine depending on TSH-last blood sugar was slightly elevated, will recheck in fasting state-did discuss that allergies can make you fatigued-h e may increase cetirizine to bid for 2 weeks-cont inue Astepro-al so need to consider anxiety/de pression and will discuss after lab results Dyslipidemia 990232524 E 78.5 -will up date labs.-he will follow with [facility] in November-he is on a BB and can discuss that with cardiology Infection of tick bite 182008732 L08.9 -will check complete tick panel [id number] GREG Solomon [address] [address] 10/20/2023 07:02:32 10/20/2023 09:15:34 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 -discussed the results with the pt-discuss ed the treatment with the pt-discuss ed avoiding colchicine while on azithromyc in and separate it from the sertraline -they will monitor his HR-he does have a f/u with cardiology next week-copy of labs and precaution s, given to his [id number] GREG Caballero [address] [place] [address] 03/11/2024 10:15:35 03/11/2024 11:23:02 Influenza vaccine needed 4345825725 106 Z23 [id number] RACHEL WHITE PA-C [facility] [address] [facility] [address] 03/26/2024 11:41:42 03/26/2024 12:44:05 Felix 523375952 R14.2 Of note entirety of this encounter was conducted via telephone. The limitation s of telehealth consultati on was explained to the patient. The patient and provider were located in the [facility]. Call lasted approximat yasir 15 minutes 15 minutes Discussed at length with patient. Biggest concern with indigestio n and his history would be an CO. Patient states that this feels different than [...] department if his symptoms worsen or change. [id number] GREG Caballero Karlo [address] [place] [address] 04/14/2024 07:12:59 04/14/2024 09:37:44 Hypomagnesemia 525313631 E83.42 9931 Magnesium low at 1.0 according [...] maintain.F /u once results received, sooner prn. 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 Coronary arteriosclerosis 30316178 I25.10 fasting lipids very low cholestero l, taking crestor 20 mg and tricor, rec. decrease crestor to 10 mg but discuss with cardiology Type 2 melissa betes mellitus 57182282 E11.9 hold metformin due to diarrhea, check [...] ID Guarantor Name 05/07/2024 1 MEDICARE A-MA: [facility] - FQ Bonifacio Vergara [id number] Chica Vergara 05/07/2024 MEDICARE B-MA: [employer] Bonifacio Vergara [id number] Chica Vergara 02/01/2019 1 [facility] ([facility] [id number] Chica Vergara [id number] Chica Vergara 06/16/2016 1 BS-[place]: O BLUE [facility] BLUE (HMO) [id number] Chica Vergara [id number] Chica Vergara 05/13/2024 2 [place] MED[place] (MEDICARE SUPPLEMENT) [id number] Bonifacio Vergara [id number] Chica Vergara 05/07/2024 MEDICARE A-MA: [facility] Bonifacio Vergara [id number] [facility] 03/11/2024 1 MEDICARE B-MA: [employer] Bonifacio Vergara [id number] [facility] 03/11/2024 3 [facility] Bonifacio Vergara [id number] [facility] Vergara 03/11/2024 1 [facility] (O) [id number] Bonifacio Vergara [id number] [place] Vergara 03/11/2024 MEDICARE A-MA: [facility] Bonifacio Vergara [id number] Chica Vergara Notes Date Note Type Note Provider Name and Address Organization Details Recorded Time 4 text/htm l pt seen by nursing for influenza vaccineprevaccination screening sheet completedpt tolerated well. VIS given Jennifer Moyer [address] [place] [address], 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 . Since [...] with minimal relief RACHEL WHITE PA-C [address] [place], [address], [facility] [employer] 03/26/2024 11:45:13 4 text/htm l ROS as [...] - unsure of dose. 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 Fani Chew, GREG [address] [place], [address], [employer] 05/10/2024 13:17:30 4 text/htm kiersten Espinoza to [...] continutes to have gi issues. Fani Chew, [employer] [address] [place], [address], [employer] 05/12/2024 10:45:41
== END 2025-04-27 06:31 | disposition home or self-care (01) ==
LOC: CF 06:30
PROVIDERS: Visit Provider Internal Medicine
DX: M47.812 Spondylosis without myelopathy or radiculopathy, cervical region (principal)
CPT/HCPCS: 64490; 64491; J2795; Q9967

== ENCOUNTER 2025-04-27 09:44 | Outpatient (AMB) | payer MEDICARE, SELFPAY ==
[2025-04-27 10:07] VITALS: BP 128/71; PULSE 70; RESP 16; O2SAT 97
--- NOTE | 2025-04-27 10:07 | MHC.OFFVIS ---
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 Required: No Allergies No Known Allergies Allergy (Verified 05/01/25 10:35) Medication List - Last Reconciled 04/27/25 by Bette Valencia LPN amlodipine 5 mg PO DAILY aspirin 81 mg PO DAILY cetirizine (Zyrtec) 50 mg PO DAILY PRN cholecalciferol (vitamin D3) 50 mcg PO DAILY clopidogrel 75 mg PO DAILY famotidine 20 mg PO BID fenofibrate nanocrystallized 145 mg PO DAILY levothyroxine 50 mcg PO DAILY magnesium oxide 400 mg PO DAILY metoprolol succinate ER 25 mg PO DAILY omega-3 acid ethyl esters (Lovaza) 2 caps PO BID pantoprazole 40 mg PO DAILY rosuvastatin 10 mg PO BEDTIME tamsulosin 0.8 mg PO DAILY HPI HPI Left Diagnostic C4-C5-C6 MBB: Details: Patient presents for scheduled procedure. Denies any recent cough, cold, infection, fever or other significant changes in medical history since last office visit. [facility] Medical History (Updated 04/05/25 @ 13:59 by Claire Vazquez MD) Pacemaker Calcium pyrophosphate deposition disease (CPPD) Hypovitaminosis D Hypomagnesemia Screening for osteoporosis Osteoarthritis involving multiple joints on both sides of body Polyarthralgia Surgical History Hx of shoulder surgery Hx of neck surgery History of back surgery Hx of shoulder surgery Social History Alcohol intake: former Patient Tobacco Use Status: Never used Tobacco Current occupational status: retired Current occupation: Right hand dominate Physical Exam Vital Signs: Last Vital Signs Pulse 73 04/27/25 11:01 Resp 16 04/27/25 11:01 BP 147/78 H 04/27/25 11:01 Pulse Ox 97 04/27/25 11:01 Oxygen Delivery Method Room Air 04/27/25 11:01 Office Procedures Procedure Details: Diagnostic Cervical Medial Branch Block, Left C4, C5, C6 medial branches After obtaining written consent, pre-procedure blood pressure and pulse were recorded and are in the nursing record for review. The patient was placed in a lateral position. The respective cervical area was prepped with chloraprep and draped in sterile fashion. The skin over the target medial branch nerves was anesthetized with 0.5% lidocaine. A 25 gauge 1.5 inch needle was inserted into the target medial branch nerve under fluoroscopic guidance. No paresthesias were elicited with needle placement and aspiration was negative for blood and CSF. Next, 0.2cc of omnipaque 180 was injected to verify positioning. Next 0.5 ml 0.5% ropivicaine was injected (0.5 cc total per level). The identical procedure was performed at the remaining levels. The skin was cleansed and a sterile bandage was applied. Following the procedure the patient's vital signs were stable. The patient tolerated the procedure well and no complications were encountered. Following the procedure the patient's vital signs were stable. The patient was discharged home in good condition with post-procedural instructions. Time Out: Immediately prior to the procedure, the following was verbally confirmed that there is a signed consent form and that the correct patient, planned procedure, site and side are consistent with documentation and that necessary equipment and/or blood products are available prior to the start of the case. Complications: none EBL: <5 cc 98107 Cervical Facet Inj SINGLE Level- use with FL Gd order: 58463 - One Side 27448 Cervical Facet Inj SECOND Level- use with FL Gd order: 22583 - One Side Procedure code (CPT) selection complete Assessment & Plan Assessment & Plan (1) Cervical spondylosis: Code(s): M47.812 - Spondylosis without myelopathy or radiculopathy, cervical region Category: Medical Plan Patient is status post left diagnostic C4, C5, C6 medial branch blocks. Patient tolerated procedure well and was discharged home in stable condition with discharge instructions. All questions were answered. We will follow-up via telephone or in clinic to assess response to therapy. A follow-up appointment was made during today's visit. Orders: Orders FL guidance in treatment room 04/27/25 M47.812 - Spondylosis without myelopathy or radiculopathy, cervical region Coding Level of Care Code Procedure Only Diagnoses Cervical spondylosis M47.812 CPT Codes AMB Cervical Facet Injections - 38000 Cervical Facet Inj CPT: 59292 - One Side ([id number]) AMB Cervical Facet Injections - 46915 Cervical Facet Inj CPT: 67125 - One Side ([id number])
[2025-04-27 11:01] VITALS: BP 147/78; PULSE 73; RESP 16; O2SAT 97
== END 2025-04-27 10:58 | disposition home or self-care (01) ==
LOC: HO.PMCPRC 09:44
PROVIDERS: PCP Nurse Practitioner Family; Visit Provider Internal Medicine
DX: M47.812 Spondylosis without myelopathy or radiculopathy, cervical region (principal)
CPT/HCPCS: 64490; 64491

== ENCOUNTER 2025-05-01 10:17 | Outpatient (AMB) | payer MEDICARE, SELFPAY ==
--- NOTE | 2025-05-01 10:31 | MHC.OFFVIS ---
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 Accompanied by: Spouse Allergies No Known Allergies Allergy (Verified 05/01/25 10:35) Medication List - Last Reconciled 05/01/25 by Bette Valencia LPN amlodipine 5 mg PO DAILY aspirin 81 mg PO DAILY cetirizine (Zyrtec) 50 mg PO DAILY PRN cholecalciferol (vitamin D3) 50 mcg PO DAILY clopidogrel 75 mg PO DAILY famotidine 20 mg PO BID fenofibrate nanocrystallized 145 mg PO DAILY levothyroxine 50 mcg PO DAILY magnesium oxide 400 mg PO DAILY metoprolol succinate ER 25 mg PO DAILY omega-3 acid ethyl esters (Lovaza) 2 caps PO BID pantoprazole 40 mg PO DAILY rosuvastatin 10 mg PO BEDTIME tamsulosin 0.8 mg PO DAILY HPI HPI S/P Left Diagnostic C4-C5-C6 MBB 04/27/25: Details: History of Present Illness The patient is a 75 year old male presenting for follow-up after a recent diagnostic left C4-C5-C6 medial branch block. Over the past four days, he has developed a new, severe pain in his neck, which is different from his previous symptoms. The pain is described as a heavy ache located in the whole neck, extending down to the middle, and has resulted in insomnia for four nights. He reports the pain is worse on the right side and so severe he cannot lift his head. He has attempted to manage the pain with cold packs and heat packs without relief. Pain Description - Onset: The patient reports a new type of pain that began a few days ago. - Location: The pain is located across the entire neck, extending down to the middle part of the neck. - Quality: The pain is described as a heavy ache. - Severity: The pain is described as unbelievable and has prevented him from sleeping for four days. - Associated symptoms: He is unable to lift his head without significant pain. - Exacerbating/Relieving Factors: The patient has tried both cold and hot packs without any relief. Physical Exam - Appears afebrile. - Alert and oriented. - Mood and affect appropriate. - Neck ROM is painful. Right > Left. Results - Tests and Diagnostics: The patient is status-post left C4-C5-C6 medial branch blocks. - Imaging: Prior imaging was reviewed, though findings were not correlated with the current symptoms. Pain Management - Affect: The patient's pain is causing significant distress, described as unbelievable, and has resulted in four sleepless nights. - Analgesia: Home remedies including cold and heat packs have been ineffective. - Adverse Effects: No new medication side effects were reported. - Activities of Daily Living: The pain interferes with sleep and his ability to lift his head. - Aberrant Drug-Related Behaviors: No aberrant behaviors were noted; the patient showed appropriate caution by asking about the nature of a prescribed medication. [facility] Medical History (Updated 04/05/25 @ 13:59 by Claire Vazquez MD) Pacemaker Calcium pyrophosphate deposition disease (CPPD) Hypovitaminosis D Hypomagnesemia Screening for osteoporosis Osteoarthritis involving multiple joints on both sides of body Polyarthralgia Surgical History Hx of shoulder surgery Hx of neck surgery History of back surgery Hx of shoulder surgery Social History Alcohol intake: former Patient Tobacco Use Status: Never used Tobacco Current occupational status: retired Current occupation: Right hand dominate Physical Exam Vital Signs: Last Vital Signs Pulse 71 05/01/25 10:33 Resp 16 05/01/25 10:33 BP 107/74 05/01/25 10:33 Pulse Ox 96 05/01/25 10:33 Oxygen Delivery Method Room Air 05/01/25 10:33 BMI result Body Mass Index 24.8 Assessment & Plan Assessment & Plan (1) Neck pain: Code(s): M54.2 - Cervicalgia Category: Medical Plan Plan Patient was informed and verbally consented to the use of an ambient scribe for clinic note documentation during this visit. 1. Muscle Spasm Of Neck - The patient's new severe neck pain is assessed to be a post-injection muscle spasm. - He will be prescribed baclofen, a muscle relaxant. - Tramadol has also been prescribed to be taken for pain relief if the baclofen is not effective, or to aid with sleep. - The patient was advised that taking both medications together is acceptable but should be done with caution due to potential increased sleepiness. - Heat application is permitted, with a warning not to overdo it to avoid reid. - Further interventional procedures will be postponed until the acute muscle spasm resolves. - The patient is instructed to call for a phone follow-up in one week if symptoms do not improve. Discussion Notes I discussed with the patient that I believe his new, severe neck pain is a muscle spasm. I explained that muscles on all sides can contract, which could explain why his right side is more painful despite the left-sided procedure. I have prescribed baclofen, a muscle relaxant, and tramadol. I instructed him to take the tramadol only if the baclofen is ineffective for pain, or to use it to help with sleep. We discussed that taking both medications is permissible, but he should be cautious about excessive sleepiness. I reviewed the use of heat, advising him not to overdo it to avoid reid. We have agreed to take a time out on further procedures until this acute issue is resolved. I advised him to call the office next Thursday for a phone follow-up if his symptoms have not improved. Patient Instructions - I have prescribed a muscle relaxant called Baclofen for your neck muscle spasm. - If the baclofen does not help your pain enough, you can take the Tramadol that was also prescribed. - You can also take Tramadol at night to help you sleep. - Be careful if you take both medicines together, as they could make you too sleepy. - You can continue to use heat on your neck, but do not make it too hot or use it for too long to avoid burning your skin. - We will pause any further injections or procedures until this new pain gets better. - Please call our office in one week if you are not feeling better. Medications: New baclofen 10 mg PO BEDTIME 30 tabs 0RF tramadol 50 mg PO BEDTIME 20 tabs 0RF Coding Level of Care Code Est Pt Level 3 (96727) Diagnoses Neck pain M54.2
[2025-05-01 10:33] VITALS: BP 107/74; PULSE 71; RESP 16; O2SAT 96; BMI 24.8
== END 2025-05-01 10:58 | disposition home or self-care (01) ==
LOC: HO.PMC 10:18
PROVIDERS: Visit Provider Internal Medicine
DX: M54.2 Cervicalgia (principal)
CPT/HCPCS: 99213

== ENCOUNTER → 2025-05-01 10:17 | Outpatient (BNVA) | payer MEDICARE, SELFPAY | PROVIDERS: Visit Provider Internal Medicine | DX: M54.2 Cervicalgia (principal) | CPT/HCPCS: 99212 ==